=== PATIENT | male | born 1955 | race Caucasian/White ===

== ENCOUNTER → 2021-12-03 | Outpatient (CLI) | payer MEDICARE, OTHER, SELFPAY ==
[2021-12-03] VITALS (13 sets, daily range): BP systolic 101–143; BP diastolic 58–93; PULSE 84–91; RESP 13–23; TEMP 36.6; O2SAT 92–97; BMI 25.3
--- NOTE | 2021-12-03 | IMM_PTH ---
PATIENT: LUIS WEINSTEIN LOC: CT U#:[id number] AGE/SX: 66/M ROOM: RE12/03/[address]: Dr. Perez Parker DO : 1955 BED: DIS: 12/03/2021 SPEC #: [id number] RECD: 12/03/21 11:35 STATUS: SOUCelena REQ #: [id number] NATALIA: 12/03/21 00:[address]: Perez Parker DEPT: IMMUNOHISTOCHEMISTRY RECD BY: Carley Delacruz ENTERED: 12/03/21 11:38 SP TYPE: IMMUNO OTHR DR: Dr. Alisa Perla DO Tissues: Lung, NOS Procedures: RCC (add) NAPSIN A (add) CK20 (add) CK5-6 (add) CK7 (add) CK8 (add) HEP PAR (add) TTF1 (add) Pankeratin (initial) P40 (add) PSAP (add) PHYSICIAN & INSTITUTION [address] [address] SPECIMEN INFORMATION: Tissue Source: Right Upper Lobe of Lung Clinical Info: Right Lung Nodule Specimen Number: [id number] CPT code: 02965, 47607 x11 METHODOLOGY: Deparaffinized sections of prefer/formalin-fixed tissue or PAP/DQ stained slides are incubated with monoclonal/polyclonal antibodies/oligonucleotide probes. Localization is made via biotin free immunoperoxidase method. Appropriate controls are performed and reacted as expected. Results on target cell population are indicated in the following table: RESULTS: ANTIBODY / CLONE RESULT AE1-3 (AE1/AE3/PCK26) positive CK7 (OV-TL12/30) positive CK8 (08tfdcA98) positive CK20 (KS20.8) negative TTF-1 (8G7G3/1) positive Napsin A (Rabbit Polyclonal) positive HepPar (OCh1E5) negative RCC (PN-15) negative PSAP (PASE/4LJ) negative CK5-6 (D5 & 1684) negative P40 (BC28) negative Ki-67 (30-9) positive, low These tests were developed and their performance characteristics determined by [facility]. They may not have been cleared or approved by the U.S. Food and Drug Administration. The FDA has determined that such clearance or approval is not necessary. The above immunohistochemical/dualISH markers are ordered and reviewed by the Pathologist. INTERPRETATION: Right Upper Lobe of Lung, CT-guided core biopsy: Non-small cell carcinoma, favor bronchioloalveolar carcinoma. SJ:daniel 12/04/2021
--- NOTE | 2021-12-03 09:06 | CT_ITS ---
PROCEDURE: CT GUIDED CORE NEEDLE BIOPSY OF A right upper lobe LUNG LESION INDICATION: Male, 66 years old. RUL Nodule PHYSICIAN: Dr. WALLY Ryder CONSENT: Written informed consent was obtained having explained the risks, benefits and alternatives in detail with the patient who accepted the risks and agreed to proceed. Laboratory review and clinical assessment was performed. CONSCIOUS SEDATION PROTOCOL: The Drugs used were: 2 mg Versed, IV., and 50 mcg Fentanyl, IV. The sedation time was: 25 minutes. Conscious sedation was started at 10:13 AM and terminated at 10:38 AM. The conscious sedation protocol was independently monitored. RADIATION DOSAGE (If Supplied By Facility): CTDIvol = ( 23 ) mGy, DLP = ( 304.86 ) mGycm Individualized dose optimization techniques were used for this CT. TECHNIQUE: The patient was placed in the supine position. A noncontrast CT was performed to localize the lesion in the right upper lobe . The skin surface was prepped and draped in a sterile fashion. 1% lidocaine was used for local anesthesia. Using CT guidance, a 20 coaxial biopsy device was advanced to the periphery of the lesion. A total of 5 core specimens were obtained. The specimens were placed in a formalin solution. A post procedure CT demonstrated no adverse sequelae or pneumothorax. The patient tolerated the procedure well without adverse event. A negative biopsy does not exclude malignancy. Further imaging or clinical followup based on patient condition and degree of clinical suspicion for malignancy. Suggest rebiopsy, if biopsy results do not match with clinical scenario. CT/Biopsy/Inj or Needle Placement IMPRESSION: 1. CT directed core needle biopsy of the right upper lobe lung nodule using CT image guidance with image documentation as described. Pathology results are pending. 2. Conscious Sedation protocol utilized with independent monitoring. Electronically Signed: Pedro Ni MD at 10:58 EDT ,
[2021-12-03 09:10] LABS: Platelet Count 174 K/mm3 (150-450)
[2021-12-03 09:54] LABS: International Normalized Ratio 0.9; Prothrombin Time (Protime)PT. 12.3 SECONDS (11.7-14.9)
[2021-12-03 09:55] LABS: Partial Thromboplast Time 33.8 Seconds (24.1-36.2)
[2021-12-03] MEDS: 0.9% Normal Saline 250 ML IV.SOLN. (10:13)
[2021-12-03] MEDS: Midazolam 2 MG/2 ML Syringe IV (10:13)
--- NOTE | 2021-12-03 10:15 | RAD_ITS ---
STUDY: X-RAY CHEST REASON FOR EXAM: Male, 66 years old. PNEUMOTHORAX -- Immediately post lung biopsy TECHNIQUE: AP inspiration and expiration views. COMPARISON: None. FINDINGS: EKG electrodes are seen. There is evidence of a tiny right apical pneumothorax. Small amount of subcutaneous emphysema overlying the upper right chest. RAD/Chest Insp/Exp 2 View IMPRESSION: Tiny right apical pneumothorax. Small amount of right lateral subcutaneous emphysema. Electronically Signed: Pedro Ni MD at 12:07 EDT ,
[2021-12-03] MEDS: fentaNYL 100 MCG/2 ML Ampul IV (10:16)
[2021-12-03] MEDS: Lidocaine 2% (20 ml mdv) 20 ML Vial INFILT (10:29)
--- NOTE | 2021-12-03 10:35 | ASPIGT_PTH ---
PATIENT: LUIS WEINSTEIN LOC: CT U#:[id number] AGE/SX: 66/M ROOM: RE12/03/[address]: Dr. Perez Parker DO : 1955 BED: DIS: 12/03/2021 SPEC #: [id number] RECD: 12/03/21 10:45 STATUS: VANNESSA REQ #: [id number] NATALIA: 12/03/21 10:[address]: Perez Parker DEPT: SURGICAL PATHOLOGY RECD BY: Carley Delacruz ENTERED: 12/03/21 11:24 SP TYPE: ASP RAD OTHR DR: Dr. Alisa Perla DO Tissues: Lung, NOS Procedures: FNA Specimen Adequacy Special Stain Group II Surgery Specimen Level IV Imprint (control) HEADER OPERATION: CT guided right lung biopsy PRE-OP DIAGNOSIS: RUL nodule TISSUE SUBMITTED: Right lung biopsy 20-gauge cores x5 MICROSCOPIC DIAGNOSIS Right upper lung nodule, CT-guided core biopsy: Non-small cell carcinoma, favor bronchioloalveolar carcinoma. See comment. MARY BETH:daniel 12/04/2021 COMMENT The specimen is evaluated at the time of biopsy by Dr. Morel. Immediate Evaluation = Malignant cells present derived from non-small cell carcinoma. Immunohistochemistry ([id number]) supports the above diagnosis. Molecular studies on the tumor can be performed if clinically indicated. Please notify the laboratory if they are needed. Case has been reviewed in consultation with Dr. Muse who concurs with the above diagnosis. IDC:AM MICROSCOPIC DESCRIPTION Slides are reviewed. GROSS DESCRIPTION Received in fixative is one container labeled with the patient's name and designated right lung CT-guided core biopsy. The specimen consists of multiple irregular fragments of lewis soft tissue that in aggregate measure 0.5 x 0.1 x 0.1 cm. The specimen is totally submitted in one cassette. Three touch imprints are prepared at the time of core biopsy. / MARY BETH:daniel 12/03/2021 TC:0 CPT: 46846, 72593
--- NOTE | 2021-12-03 12:15 | RAD_ITS ---
STUDY: X-RAY CHEST REASON FOR EXAM: Male, 66 years old. PNEUMOTHORAX -- 2 hours post lung biopsy TECHNIQUE: AP inspiration and expiration views. COMPARISON: Comparison is made with prior examination done earlier today. FINDINGS: There is no evidence of pneumothorax at this time. Persistent subcutaneous emphysema overlying the upper right lateral chest. RAD/Chest Insp/Exp 2 View IMPRESSION: No evidence of pneumothorax on the delayed two-hour postright lung biopsy radiographs. Electronically Signed: Pedro Ni MD at 15:15 EDT ,
== END | disposition home or self-care (01) ==
PROVIDERS: PCP Family Medicine; Referring Provider Internal Medicine Critical Care Medicine; Visit Provider Internal Medicine Critical Care Medicine
DX: C34.11 Malignant neoplasm of upper lobe, right bronchus or lung (principal); E11.9 Type 2 diabetes mellitus without complications; F17.210 Nicotine dependence, cigarettes, uncomplicated; E78.00 Pure hypercholesterolemia, unspecified; K21.9 Gastro-esophageal reflux disease without esophagitis; I10 Essential (primary) hypertension; Z79.899 Other long term (current) drug therapy; Z79.84 Long term (current) use of oral hypoglycemic drugs; R06.02 Shortness of breath
CPT/HCPCS: 32408; 36415; 71046; 77012; 85049; 85610; 85730; 88172; 88305; 88313; 88341; 88342; 99156; J7050; A4216; C2613

== ENCOUNTER → 2021-12-16 | Outpatient (CLI) | payer MEDICARE, OTHER, SELFPAY ==
--- NOTE | 2021-12-16 13:40 | PFT ---
INTRODUCTION: The patient is a 66-year-old male that presents for pulmonary function studies secondary to a diagnosis of nicotine dependency. Respiratory therapy reported good patient effort. Bronchodilators were used during testing. INTERPRETATION: Forced expiration spirometry demonstrates the presence of a moderately severe large airways obstructive ventilatory defect. There was a significant response to aerosolized bronchodilators. Spirograms are of good quality but do not plateau indicating slow emptying of the lungs. Body plethysmography was performed and revealed an elevated TLC and RV, indicative of underlying hyperinflation and air trapping. Diffusing capacity by single breath CO is reduced to 63% of predicted. IMPRESSION: Partially reversible moderately severe large airways obstructive ventilatory defect with associated hyperinflation, air trapping and reduction in diffusing capacity.
== END | disposition home or self-care (01) ==
PROVIDERS: PCP Family Medicine; Visit Provider Internal Medicine Critical Care Medicine
DX: F17.210 Nicotine dependence, cigarettes, uncomplicated (principal)
CPT/HCPCS: 36415; 80053; 85025; 94060; 94726; 94729

== ENCOUNTER → 2021-12-18 | Outpatient (CLI) | payer MEDICARE, OTHER, SELFPAY ==
--- NOTE | 2021-12-18 14:45 | PET_ITS ---
STUDY: CT/POSITRON EMISSION TOMOGRAPHY FUSION STUDY FROM THE BASE OF THE SKULL TO THE UPPER THIGHS ARE OF 1530 HOURS ON 12/18/2021 CLINICAL: 48-year-old male with non-small cell lung cancer for staging. PROCEDURE: A fusion CT/PET scan of the body was performed following the intravenous administration of the usual 15 mCi of technetium FDG intravenously in 20 minutes of quiet waiting. This examination was performed in the sagittal, coronal, and axial projections. FINDINGS: There is a prominent 2.1 cm site of abnormal nuclide deposition in the right upper lobe--most likely representing the patient''s lung cancer. There is an 8 mm site of abnormal nuclide deposition directly posterior to this and a represent a satellite nodule. Normal variant nuclide deposition is noted in the heart. There is a single site of abnormal nuclide deposition in the left supraclavicular region that may represent an abnormal lymph node. There appears to be normal nuclide deposition in the calyces of the kidneys and in the ureters. There is no evidence of other sites of abnormal nuclide deposition in the body. Normal bladder deposition is evident. Of interest, there is a site of abnormal nuclide deposition in the anterior upper teeth to the right of midline--which may represent a periodontal abscess. PET/PET/CT Tumor Base -Thigh Init IMPRESSION: 1. Presence of a 2.1 cm site of abnormal nuclide deposition in the right upper lobe-this most likely representing lung cancer. 2. Presence of abnormal nuclide deposition in a directly posterior (to the above 2.1 cm lesion) 8 mm site--most likely representing a satellite nodule to the right upper lobe lung cancer. 3. Single abnormal lymph node in the left supraclavicular region. 4. Normal nuclide deposition in the left ventricle, kidneys, ureters, and bladder. 5. No evidence of other significant sites of abnormal nuclide deposition. 6. Of interest, there is a site of abnormal nuclide deposition in the anterior upper teeth to the right of midline--which may represent a periodontal abscess. Electronically Signed: Atilio Cochran MD at 1:10 EDT ,
== END | disposition home or self-care (01) ==
LOC: ONC 14:16
PROVIDERS: PCP Family Medicine; Referring Provider Internal Medicine Critical Care Medicine; Visit Provider Internal Medicine Critical Care Medicine
DX: C34.11 Malignant neoplasm of upper lobe, right bronchus or lung (principal)
CPT/HCPCS: 78815; A9552

== ENCOUNTER → 2021-12-19 | Outpatient (CLI) | payer MEDICARE, OTHER, SELFPAY ==
[2021-12-19 08:41] VITALS: PULSE 100; PULSE 102; PULSE 87; PULSE 88; PULSE 97; PULSE 98; O2SAT 95; O2SAT 96; O2SAT 97; O2SAT 98
--- NOTE | 2021-12-20 08:51 | PCM.PSN.6M ---
PSN 6 Minute Walk Test 6 Minute Walk Test 6 Minute Walk Test: 6 Minute Walk Test PSN:6-Minute Walk Test Start: 12/19/21 08:41 Freq: Status: Active Protocol: RESP.6MINW Document 12/19/21 08:41 ROBER (Rec: 12/19/21 08:50 ROBER [id number]) 6 Minute Walk Test Date Performed 12/19/21 Time Performed 08:30 Height 5 ft 7 in Weight: 73.482 kg Weight in Pounds 162.[address]: Perez Parker Assistive device used: None Pre-test Oxygen Delivery Method Room Air Pulse Ox (%) 95 Pulse Rate (60-100 beats/min) 88 Dyspnea Esperanza Scale (0-10) 0 Exertion Esperanza Scale (6-20) 6 1st minute Oxygen Delivery Method Room Air Pulse Ox (%) 98 Pulse Rate (60-100 beats/min) 97 2nd minute Oxygen Delivery Method Room Air Pulse Ox (%) 96 Pulse Rate (60-100 beats/min) 98 3rd minute Oxygen Delivery Method Room Air Pulse Ox (%) 96 Pulse Rate (60-100 beats/min) 100 4th minute Oxygen Delivery Method Room Air Pulse Ox (%) 97 Pulse Rate (60-100 beats/min) 100 5th minute Oxygen Delivery Method Room Air Pulse Ox (%) 97 Pulse Rate (60-100 beats/min) 100 6th minute Oxygen Delivery Method Room Air Pulse Ox (%) 96 Pulse Rate (60-100 beats/min) 102 H Dyspnea Esperanza Scale (0-10) 2 Exertion Esperanza Scale (6-20) 12 Post-test Oxygen Delivery Method Room Air Pulse Ox (%) 97 Pulse Rate (60-100 beats/min) 87 Full Laps Walked 18 Partial Lap, Number of Tiles Walked 15 Total Distance Walked (ft) 1077 Interpretation Interpretation: The patient ambulated 1077 feet over the course of 6 minutes beginning on room air without assistive devices. Pretesting oxygen saturation was noted to be 95% on room air. With ambulation, the anupam oxygen saturation was 96%. There was no significant exertional oxygen desaturation. Recommendations Recommendations: There is no indication for the use of supplemental oxygen at this time.
== END | disposition home or self-care (01) ==
LOC: PSN 08:21
PROVIDERS: PCP Family Medicine; Referring Provider Internal Medicine Critical Care Medicine; Visit Provider Internal Medicine Critical Care Medicine
DX: F17.210 Nicotine dependence, cigarettes, uncomplicated (principal)
CPT/HCPCS: 94618

== ENCOUNTER → 2021-12-24 | Outpatient (CLI) | payer MEDICARE, OTHER, SELFPAY ==
--- NOTE | 2021-12-24 16:45 | MRI_ITS ---
EXAM: MR HEAD WITHOUT AND WITH INTRAVENOUS CONTRAST CLINICAL INDICATION: Staging for NSCLC TECHNIQUE: Multiplanar and multisequence MR images of the brain were obtained without and with intravenous contrast. This report was created using [employer] report generation technology. CONTRAST: 15 ml IV Dotarem COMPARISON: None. FINDINGS: BRAIN AND EXTRA-AXIAL SPACES: Chronic involutional changes of the brain. No intra- or extra-axial hemorrhage. No evidence of acute infarct. No intracranial mass or mass effect. There is preservation of the lima/white matter interface. Posterior fossa structures are unremarkable. Ventricles are appropriate for age. No hydrocephalus. Basal cisterns are patent. SELLA: Unremarkable. Normal sella turcica, pituitary gland, infundibular stalk, optic chiasm and hypothalamus. AUDITORY SYSTEM: Unremarkable. The internal auditory canals are patent. BONES/JOINTS: Unremarkable. No discrete lytic or blastic abnormalities. SINUSES: Unremarkable as visualized. Clear. MASTOID AIR CELLS: Unremarkable as visualized. Clear. ORBITS: Unremarkable as visualized. Both globes, extraocular muscles, optic nerves and retrobulbar fat appear unremarkable. VASCULATURE: Unremarkable as visualized. Normal flow voids in the major intracranial circulation. MRI/Brain W/WO Contrast IMPRESSION: Chronic involutional changes of the brain. Electronically Signed: Jason Khalil MD at 18:33 EDT ,
== END | disposition home or self-care (01) ==
LOC: MRI 16:45
PROVIDERS: PCP Family Medicine; Referring Provider Internal Medicine Critical Care Medicine; Visit Provider Internal Medicine Critical Care Medicine
DX: C34.90 Malignant neoplasm of unspecified part of unspecified bronchus or lung (principal)
CPT/HCPCS: 70553; A9575

== ENCOUNTER → 2022-02-13 | Outpatient (CLI) | payer MEDICARE, OTHER, SELFPAY ==
--- NOTE | 2022-02-13 11:09 | STEWCON_ITS ---
Reason For Study: Pre-op for lung lobectomy surgery scheduled for 02-18-2022 Stress Results Protocol: Aurelio Protocol WITH DEFINITY Maximum Predicted HR: 152 bpm Target HR: 129 bpm % Maximum Predicted HR: 90 % Heart Stage Duration Rate BP Comment (mm:ss) (bpm) Baseline 75 138/64Patient denies chest pain Stage 1 3:00 116 156/60Patient denies chest pain Pt complains of shortness of breath and leg fatigue. Denies chest Stage 2 3:00 137 168/62pain 2.5 ml total definity used per protocol. Patient denies chest pain, Recovery 84 134/60shortness of breath resolved. Stress Duration: 6:00 mm:ss Maximum Stress HR: 137 bpm Baseline Echocardiogram Findings The estimated ejection fraction is 60 %. post stress EF is 70%. Stress Echo Wall motion Data Resting WM Intermediate WM Stress WM Resting Wall Motion Wall Motion Stress No regional wall motion No regional wall motion abnormalities noted. abnormalities noted. EKG Data normal sinus rhythm. RBBB. During stress, there were no ST or T wave changes noted to suggest ischemia. Symptoms with Stress The patient experinced no chest pain . ECHO/Stress Test Echo W/Contrast Interpretation Summary The estimated ejection fraction is 60 %. Stress echo is negative for exercise-induced chest pain or EKG or echocardiogra phic changes of ischemia. Functional capacity is excellent for age Ordering Physician: DOLLY GUTIERREZ Referring Physician: DOLLY GUTIERREZ Performed By: Bandar Raymundo RCS
== END | disposition home or self-care (01) ==
LOC: CVS 11:06
PROVIDERS: PCP Family Medicine
DX: R06.00 Dyspnea, unspecified (principal); C34.91 Malignant neoplasm of unspecified part of right bronchus or lung
CPT/HCPCS: 93017; 93350; Q9957; A4216; C8928

== ENCOUNTER 2022-03-31 11:55 | Day surgery (SDC) | payer MEDICARE, OTHER, SELFPAY ==
[2022-03-31 12:14] VITALS: BP 122/62; PULSE 89; RESP 16; TEMP 36.3; O2SAT 98; BMI 24.7
--- NOTE | 2022-03-31 12:18 | HP.PCM_ITS ---
History and Physical Date of Admission: 03/31/22 Intake Vital Signs ? 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 Is patient in pain?: No Allergies Iodinated Contrast Media Allergy (Unknown, Verified 03/27/22 13:14) Other Medications atorvastatin 80 mg tablet 80 mg PO DAILY 11/26/21 [History Confirmed 03/27/22] cyclobenzaprine 10 mg tablet 10 mg PO TID 11/26/21 [History Confirmed 03/27/22] gabapentin 400 mg capsule 400 mg PO TID 11/26/21 [History Confirmed 03/27/22] glyburide 5 mg tablet 5 mg PO DAILY 11/26/21 [History Confirmed 03/27/22] lisinopril 20 mg tablet 20 mg PO DAILY 11/26/21 [History Confirmed 03/27/22] morphine 15 mg immediate release tablet 15 mg PO BID PRN Pain 11/26/21 [History Confirmed 03/27/22] omeprazole 20 mg capsule,delayed release 20 mg PO DAILY 11/26/21 [History Confirmed 03/27/22] trazodone 100 mg tablet 100 mg PO QHS PRN Sleep 11/26/21 [History Confirmed 03/27/22] apixaban 5 mg tablet (Eliquis) 5 mg PO BID 03/26/22 [History Confirmed 03/27/22] metoprolol tartrate 25 mg tablet 25 mg PO BID 03/26/22 [History Confirmed 03/27/22] PFSH Medical History Acid reflux Atrial flutter Chronic pain CRF (chronic renal failure) Diabetes mellitus High cholesterol Hypertension Neuropathy Regional lymph node metastasis present Smoker Surgical History? H/O lithotripsy History of hip replacement Previous back surgery S/P lobectomy of lung Status post surgical removal of neoplasm of skin Trigger finger Family History? Mother?? CancerFather?? CancerSon?? Cancer Social History? Smoking Status:? Former smoker quit date: 01/01/22 pack-years: 30 Tobacco: How many years used:? 30 how long ago did patient quit smoking:? hasn't smoked since diagnosis 01/2022 second hand exposure:? Yes alcohol intake:? never substance use type:? does not use HPI HPI HPI: LUIS WEINSTEIN, is a 66 M who presents to the office today for port placement.? The patient is being treated for right lung cancer. ROS General General: Yes weight change; No fatigue HEENT HEENT: No difficulty swallowing Endo Endocrine: No thyroid disease Musc Musculoskeletal: No back problems or arthritis Cardio Cardiovascular: No pacemaker, heart disease, atrial fibrillation, high blood pressure, heart attack, heart stent, palpitations or chest pain Psych Psychiatric: No depression or anxiety Resp Respiratory: No shortness of breath, No cough, No COPD, No asthma and No emphysema Gastro Gastrointestinal: No abdominal pain, No nausea or vomiting, No diarrhea, No constipation, No blood in stool, No acid reflux, No hemorrhoids, No ulcers, No gallbladder problem and No black,tarry stools Rakesh Hematologic: No blood thinners Exam Const General: cooperative Orientation: alert and oriented x3 HENMT Head: normal to inspection Neck Neck: normal visual inspection and full ROM Chest Chest palpation & inspection: normal inspection of the chest Resp Effort & Inspection: normal respiratory effort Auscultation: clear to auscultation bilaterally Cardio Rate: regular rate Rhythm: regular rhythm GI Inspection: non-distended Palpation: soft and nontender Skin General: no rashes or lesions noted Neuro General: patient alert and patient oriented x3 Extrem General: full ROM Psych Appearance: grossly normal Mental Status: mental status grossly normal Assessment and Plan Assessment and Plan (1) Malignant neoplasm of upper lobe, right bronchus or lung: ?Status:?Acute (2) Encounter for adjustment and management of vascular access device: ?Status:?Acute Plan Patient has right lung cancer and requires systemic treatment due to positive lymph nodes.? I discussed right chest port placement with the patient in detail.? I discussed the risks including not limited to bleeding, infection, p neumothorax or line infection or DVT.? Patient understands the risks and is willing to proceed.? Patient is on Eliquis for DVT prevention I will have him stop this for 2 days prior to the procedure. Antione Reyes MD Pager: [facility] [address] [place] [address], [address] [place] [address] Office: I have re-examined the patient. There are no clinical changes since date of exam.
[2022-03-31] MEDS: Lidocaine 1% /Epi 1:100 (20ml) 20 ML Vial (13:05)
--- NOTE | 2022-03-31 13:23 | OP.PCM_ITS ---
Report of Operation Date of Procedure: 03/31/22 Pre-Operative Diagnosis: Need for vascular port for chemotherapy Post-Operative Diagnosis: Same Surgery/Procedure Performed:: Ultrasound and fluoroscopy guided right chest port placement utilizing right IJ Description of Procedure: After obtaining informed consent patient was brought back to the operating room MAC anesthesia was induced and the right chest and neck were prepped in normal sterile fashion. Ultrasound was used to evaluate both IJs and the right IJ was selected. Next, using a needle, the right IJ was accessed and a guidewire was passed on into the superior vena cava under fluoroscopy guidance. A small incision was made over the puncture site and the dilator introducer was placed over the guidewire. Next this was capped and the pocket was made for the port. 1% lidocaine with epinephrine was injected in the proposed port site. An incision was made with scalpel. Electrocautery was used to make a pocket under the skin and subcutaneous tissue. Hemostasis was obtained. Next, the catheter was tunneled up to the neck incision site and placed through the introducer. The peel-away introducer was removed and the position of the catheter was confirmed on fluoroscopy. Next, the catheter was trimmed and attached to the port with the locking device. Interrupted 2-0 Vicryl sutures were used to anchor the port to the chest wall and then the port was placed inside the pocket. The pocket was then flushed with saline and the port irrigated with saline. There was good blood return and the port flushed easily. Next, heparin was injected into the port. The skin was closed with subcutaneous interrupted 3-0 Vicryl sutures. A single 3-0 Vicryl sutures placed under the skin at the neck incision site. Steri-Strips were placed as well as op sites. Patient tolerated procedure well, was taken to PACU in stable condition. Chest x-ray will be obtained. Grafts/Implants Used: 8 [employer] PowerPort Admit VTE Documentation VTE Mechan Device Prophylaxis: SCD's
--- NOTE | 2022-03-31 13:24 | DCINST_ITS ---
Discharge Instructions Procedure Port-A-Cath Diet Discharge Diet: Light diet - advance as tolerated (Pain medication may cause nausea. You should typically eat light foods as you take your pain medication.) Activity Discharge Activity: Return to Normal Activity and May Shower (with your bandage in place in 1-2 days after surgery. DO NOT SHOWER WHEN YOUR PORT IS ACCESSED.) Dressing / Incision Call your doctor if your incision/area has: Continuous Slow Oozing, Sudden Increased Bleeding, Increased Pain/ Swelling, Increased Redness and Foul Smelling Discharge Call your doctor if you observe: Fever of 101 or Higher Remove Dressing in: 2 days Cleanse incision/area with: Soap & Water Follow Up Care Please Follow Up With: Antione Reyes MD When: as needed [phone] Test Results: Test results from this visit will be discussed in further detail at your follow- up appointment, if applicable. Discharge Plan Admission Attending Provider: Antione Reyes Primary Care Provider: Alisa Perla Instructions Additional Instructions / Restrictions: Resume blood thinners tomorrow Discharge Orders/Prescriptions Prescriptions: No Action cyclobenzaprine 10 mg tablet 10 mg PO TID morphine 15 mg tablet 15 mg PO BID PRN (Reason: Pain) atorvastatin 80 mg tablet 80 mg PO DAILY lisinopril 20 mg tablet 20 mg PO DAILY glyburide 5 mg tablet 5 mg PO DAILY omeprazole 20 mg capsule,delayed release(DR/EC) 20 mg PO DAILY trazodone 100 mg tablet 100 mg PO QHS PRN (Reason: Sleep) gabapentin 400 mg capsule 400 mg PO TID Eliquis 5 mg tablet 5 mg PO BID lidocaine-prilocaine 2.5-2.5 % cream 1 applic topical ONCE PRN (Reason: port access) 30 Days Qty: 30 2RF ondansetron 8 mg tablet,disintegrating 8 mg PO Q8H PRN (Reason: nausea and vomiting) Qty: 30 2RF dexamethasone 4 mg tablet 4 mg PO .COMPLEX Qty: 6 4RF Rx Instructions: 4 mg orally Twice daily ONLY the day before, the day of and day after chemotherapy; folic acid 1 mg tablet 1 mg PO DAILY Qty: 30 1RF Referrals / Follow Up: Alisa Perla DO [Primary Care Provider] - Disposition Disposition (needs filled in before D/C Order can be placed): Home, Self Care
--- NOTE | 2022-03-31 13:24 | RAD_ITS ---
STUDY: X-RAY CHEST REASON FOR EXAM: Male, 66 years old. Line placement -- in pacu TECHNIQUE: Single AP portable view of the chest. COMPARISON: Comparison is made with prior study dated 12/03/2021. FINDINGS: A right-sided Port-A-Cath has been placed with the tip at the junction of the superior vena cava and right atrium. There is evidence of elevation of the right hemidiaphragm with blunting of the right costophrenic angle. The previously seen right upper lobe nodule has been resected. Normal size heart. Normal mediastinum and regino. Normal visualized pulmonary arteries. Normal visualized aortic arch and descending thoracic aorta. Normal visualized thoracic spine. Normal visualized ribs, clavicles, and shoulders. There is no demonstrated abnormality of the visualized soft tissue structures of the upper abdomen. RAD/CXR for Line Placement IMPRESSION: The tip of the right amish catheter is at the junction of the superior vena cava and right atrium. Elevation of the right hemidiaphragm with the blunting of the right costo phrenic angle. Prior resection of the right upper lobe nodule. Electronically Signed: Pedro Ni MD at 13:51 EDT ,
[2022-03-31 13:25] LABS: Bedside Glucose 104 mg/dL (74-106)
[2022-03-31 13:26] VITALS: BP 113/43; BP 122/62; PULSE 90; RESP 16; TEMP 36.3; O2SAT 96
[2022-03-31 13:30] VITALS: BP 116/64; BP 122/62; PULSE 88; RESP 18; O2SAT 97
[2022-03-31 13:35] VITALS: BP 110/51; BP 122/62; PULSE 90; RESP 18; O2SAT 96
[2022-03-31 13:40] VITALS: BP 113/47; BP 122/62; PULSE 88; RESP 18; TEMP 36.7; O2SAT 96
[2022-03-31 13:56] VITALS: BP 122/62
== END 2022-03-31 14:10 | disposition home or self-care (01) ==
LOC: SDC 11:55 → AC 11:56
PROVIDERS: PCP Family Medicine; Referring Provider Surgery; Visit Provider Surgery
PROC: (CPT 36561; principal; 2022-03-31 12:45)
DX: Z45.2 Encounter for adjustment and management of vascular access device (principal); C34.11 Malignant neoplasm of upper lobe, right bronchus or lung; C77.9 Secondary and unspecified malignant neoplasm of lymph node, unspecified; J44.9 Chronic obstructive pulmonary disease, unspecified; E11.40 Type 2 diabetes mellitus with diabetic neuropathy, unspecified; E11.22 Type 2 diabetes mellitus with diabetic chronic kidney disease; I48.92 Unspecified atrial flutter; K21.9 Gastro-esophageal reflux disease without esophagitis; G89.29 Other chronic pain; E78.00 Pure hypercholesterolemia, unspecified; I12.9 Hypertensive chronic kidney disease with stage 1 through stage 4 chronic kidney disease, or unspecified chronic kidney disease; N18.9 Chronic kidney disease, unspecified; Z87.891 Personal history of nicotine dependence; Z79.899 Other long term (current) drug therapy; Z79.84 Long term (current) use of oral hypoglycemic drugs; Z79.01 Long term (current) use of anticoagulants
CPT/HCPCS: 36561; 00532; 71045; 77001; 82962; J7120; C1788; J2405

== ENCOUNTER 2022-08-04 14:00 | Inpatient (IN) | payer MEDICARE, OTHER, SELFPAY ==
[2022-08-04] VITALS (14 sets, daily range): BP systolic 90–127; BP diastolic 43–63; PULSE 71–116; RESP 12–26; TEMP 35.7–36.6; O2SAT 91–100; BMI 23.1; BMI 17.6
--- NOTE | 2022-08-04 14:53 | EKG12_ITS ---
Test Reason : SOB Blood Pressure : / mmHG Vent. Rate : 124 BPM Atrial Rate : 074 BPM P-R Int : 168 ms QRS Dur : 130 ms QT Int : 388 ms P-R-T Axes : 075 096 066 degrees QTc Int : 557 ms Sinus rhythm Right bundle branch block Abnormal T-waves (Peaked): Consider Hyperkalemia Abnormal ECG Confirmed by DANNIE PURI, LAITH ([id number]), online editor ROBBY VIERA ([id number]) on 08/06/2022 9:28:17 AM Referred By: Confirmed By:LAITH PANDEY MD
[2022-08-04] MEDS: 0.9% Normal Saline 1,000 ML 1000 ML IV (15:03)
[2022-08-04 15:10] LABS: Absolute Lymphocyte Count 0.57 X10^3/uL (0.83-4.51); Absolute Neutrophil Count 12.6 X10^3/uL (2.0-7.7); Basophil# 0.01 X10^3/uL; Basophil% 0.1 % (0-1); Eosinophil# 0.01 X10^3/uL; Eosinophils% 0.1 % (0-5); Hematocrit 23.8 % (40-54); Hemoglobin 7.2 g/dL (13.0-16.5); Lymphocyte # 0.57 X10^3/ul (0.83-4.51); Lymphocyte % 4.1 % (19-41); Mean Corp Hgb Conc 30.3 g/dL (32-36); Mean Corpuscular Hgb 28.8 pg (27.0-32.0); Mean Corpuscular Volume 95.2 fL (80-94); Mean Platelet Vol. 10.1 fl (6.2-12.0); Monocyte# 0.66 X10^3/uL; Monocyte% 4.7 % (0-10); NRBC Flagged by Analyzer 0 % (0-5); Neutrophil # 12.59 X10^3/uL (2.7-7.7); Neutrophil % 89.5 % (47-70); POSITIVE DIFFERENTIAL YES; Platelet Count 174 K/mm3 (150-450); RBC Distribution Width CV 15.4 % (11.6-14.6); White Blood Count 14.1 K/mm3 (4.4-11.0)
[2022-08-04] MEDS: Ondansetron 4 MG/2 ML Vial IV (15:13)
[2022-08-04 15:17] LABS: Differential Indicated SCAN CRITERIA MET
--- NOTE | 2022-08-04 15:18 | EX.ED.DYSGE1 ---
HPI History of Present Illness Chief Complaint: Nausea/Vomiting Informant: patient and spouse/S.O. 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 He is presenting with nausea and vomiting as well as increased confusion started yesterday. He is having regular bowel movements and urinating 3 times a day. notes he has been more confused, has not knowing where he is and is even tried stuffing candy bars in his pockets. Over the past few weeks he has had a change in his color and seems almost more tanned. No report of any black or blood in the stool. No report of any fevers. Patient not have any history of any abdominal surgeries. Patient is chronically anticoagulated on Eliquis and apparently has issues with anemia and gets transfused as needed to maintain hemoglobin at or above 8 g/dL. [facility] Medical History Acid reflux Arthritis Atrial flutter Back pain Cardiology follow-up encounter Chronic pain CINV (chemotherapy-induced nausea and vomiting) Constipation COPD (chronic obstructive pulmonary disease) CRF (chronic renal failure) Diabetes mellitus Dysuria Encounter for chemotherapy management Encounter for education Former smoker High cholesterol Hypertension Injury of back Kidney stones Leg cramps Neuropathy Normal stress echocardiogram Regional lymph node metastasis present Smoker Syncope Wears glasses Home Medications atorvastatin 80 mg tablet 80 mg PO DAILY cholesterol 11/26/21 [History Last Taken 08/04/22] cyclobenzaprine 10 mg tablet 10 mg PO TID spasms 11/26/21 [History Last Taken 08/04/22] gabapentin 400 mg capsule 400 mg PO TID nerve pain 11/26/21 [History Last Taken 08/04/22] glyburide 5 mg tablet 5 mg PO DAILY dm 11/26/21 [History Last Taken 08/04/22] lisinopril 20 mg tablet 20 mg PO DAILY bp 11/26/21 [History Last Taken 08/04/22] morphine 15 mg immediate release tablet 15 mg PO BID PRN Pain 11/26/21 [History Last Taken 08/04/22] omeprazole 20 mg capsule,delayed release 20 mg PO BID GERD 11/26/21 [History Last Taken 08/04/22] trazodone 100 mg tablet 100 mg PO QHS PRN Sleep 11/26/21 [History Last Taken 08/03/22] apixaban 5 mg tablet (Eliquis) 5 mg PO BID blood thinner 03/26/22 [History Last Taken 08/04/22] lidocaine-prilocaine 2.5 %-2.5 % topical cream 1 applic topical ONCE PRN port access 30 days #30 grams 03/27/22 [Rx Last Taken Unknown] nystatin 100,000 unit/mL oral suspension 500,000 unit PO TID thrush 08/04/22 [History Last Taken 08/04/22] potassium chloride 20 mEq tablet,extended release 20 meq PO BID supplement 08/04/22 [History Last Taken 3 Days Ago ~08/01/22] Allergy/AdvReac Type Severity Reaction Status Date / Time Iodinated Contrast Media Allergy Unknown Other Verified 08/04/22 14:06 Family History Mother Cancer Father Cancer Son Cancer Surgical History H/O lithotripsy History of hip replacement Previous back surgery S/P lobectomy of lung Status post surgical removal of neoplasm of skin Trigger finger Social History Smoking Status: Former smoker quit date: 01/01/22 pack-years: 30 Tobacco: How many years used: 30 how long ago did patient quit smoking: hasn't smoked since diagnosis 01/2022 second hand exposure: Yes alcohol intake: never substance use type: does not use ROS ROS ED Constitutional Constitutional ED: Denies chills or fever(s) ENT ENT ED: Reports other Details: Dry mouth ; Denies sore throat Cardiovascular Cardiovascular: Denies chest pain or palpitations Respiratory/Chest Respiratory/Chest: Denies cough or dyspnea Gastrointestinal Gastrointestinal: Reports nausea and vomiting; Denies abdominal pain, constipation, diarrhea or melena Genitourinary Genitourinary ED: Denies dysuria, hematuria or urinary frequency Musculoskeletal Musculoskeletal: Reports back pain; Denies myalgias Integumentary Denies rash Neurologic Neurologic: Reports weakness and other Details: Confusion ; Denies headache(s) Psychiatric Psychiatric: Denies anxiety or depression Hematologic/Lymphatic Hematologic/Lymphatic: Reports easy bleeding and easy bruising EXAM Physical Exam Const Vital Signs: 08/04/22 14:01 08/04/22 15:14 08/04/22 15:16 Temperature 96.3 F L 96.8 F L 96.8 F L Temperature Source Temporal Temporal Temporal Pulse Rate 116 H 80 76 Respiratory Rate 20 H 19 H 18 Respiratory Effort Blood Pressure 91/43 L 90/61 90/61 Blood Pressure Mean 59 70 70 Blood Pressure Source Blood Pressure Position Blood Pressure Location Pulse Ox 91 96 97 Oxygen Delivery Method Room Air Room Air Room Air 08/04/22 16:02 08/04/22 17:02 08/04/22 17:02 Temperature 97.8 F 97.8 F Temperature Source Temporal Temporal Pulse Rate 72 90 89 Respiratory Rate 12 13 15 Respiratory Effort Blood Pressure 106/52 L 106/48 L 106/48 L Blood Pressure Mean 70 67 67 Blood Pressure Source Blood Pressure Position Blood Pressure Location Pulse Ox 98 98 97 Oxygen Delivery Method Room Air Room Air Room Air 08/04/22 17:42 08/04/22 18:02 08/04/22 18:26 Temperature 97.5 F L 98 F 97.6 F L Temperature Source Temporal Temporal Temporal Pulse Rate 79 85 74 Respiratory Rate 26 H 19 H 18 Respiratory Effort Blood Pressure 106/48 L 108/58 L 122/54 H Blood Pressure Mean 67 74 76 Blood Pressure Source Monitor Blood Pressure Position Semi-Fowlers Blood Pressure Location Right Arm Pulse Ox 96 97 96 Oxygen Delivery Method Room Air Room Air 08/04/22 18:35 08/04/22 18:38 08/04/22 18:29 Temperature 97.6 F L Temperature Source Temporal Pulse Rate 71 73 Respiratory Rate 18 Respiratory Effort Normal Non-Labored Blood Pressure 122/54 H Blood Pressure Mean 76 Blood Pressure Source Blood Pressure Position Blood Pressure Location Pulse Ox Oxygen Delivery Method Room Air Room Air Positive cachectic General Appearance ED: cachectic and NAD; Negative for pallor Nutritional Appearance: cachectic HEENT Reports dry mucous membranes Negative for trauma Mouth ED: Yes dry mucous membranes Mouth: dry mucous membranes Eyes PERRL and EOMs intact bilaterally Neck supple and no JVD Chest Wall inspection of chest normal and palpation of chest normal Resp normal respiratory effort and clear to auscultation bilaterally GI normal to inspection, nondistended, normoactive bowel sounds and non-tender Auscultation: normoactive bowel sounds Extremity normal to inspection General Extremety ED: Negative for edema or tenderness General Extremity: Negative for edema Neuro Sensorium / Orientation: alert and orientation impaired Motor Exam: general weakness Psych mental status grossly normal Skin Skin Narrative: Johnston appear. General Skin Exam: Negative for jaundice or pallor Lesions: No lesion noted Rashes: No rashes noted MDM MDM MDM Narrative Medical decision making narrative: Patient is evaluated for nausea, vomiting and generalized weakness. Recent oncology note reviewed which shows that he completed treatment for lung cancer but is not tolerating maintenance therapy and so is not currently on any therapy. In addition he has ongoing anemia with instructions to transfuse with hemoglobin below 8.0. Patient does not have a leukocytosis of 14.1 as well is worsening of chronic anemia with a hemoglobin of 7.2. Potassium is elevated 6.0 and patient does have peaked T waves on his EKG and a prolonged QTC. EKG interpreted by myself shows sinus rhythm with PVCs and changes consistent with hyperkalemia. Patient is given temporizing medications for hyperkalemia including calcium gluconate, albuterol, insulin and dextrose. He does have an WAN with a creatinine of 1.66. Patient appears very dehydrated on exam and I suspect this is all volume depletion associated. He is given 2 L of IV fluid in the emergency room. His abdomen is soft and of low suspicion for an acute obstruction as he continues to have regular bowel movements. Case discussed with admitting physician, Dr. Campbell and he will be admitted for further treatment and on correction of his hyperkalemia/WAN. In addition patient started on blood transfusion with a goal hemoglobin of 8.0. Lab Data Attestation: I reviewed the patient's lab results. Labs: Laboratory Results - last 24 hr 08/04/22 08/04/22 08/04/22 15:00 15:00 15:00 WBC 14.1 H RBC 2.50 L Hgb 7.2 L Hct 23.8 L MCV 95.2 H MCH 28.8 MCHC 30.3 L RDW Std Deviation 52.0 H RDW Coeff of Ilia 15.4 H Plt Count 174 MPV 10.1 Immature Gran % (Auto) 1.500 H Neut % (Auto) 89.5 H Lymph % (Auto) 4.1 L Bea[place]gard % (Auto) 4.7 Eos % (Auto) 0.1 Baso % (Auto) 0.1 Absolute Neuts (auto) 12.6 H Absolute Lymphs (auto) 0.57 L Nucleated RBC % 0 Differential Comment SCANNED Sodium 134 L Potassium 6.0 H* Chloride 102 Carbon Dioxide 24.0 Anion Gap 8 BUN 49 H Creatinine 1.66 H Estim Creat Clear Calc 39.82 Est GFR (MDRD) Af Amer 53 L Est GFR (MDRD) Non-Af 44 L BUN/Creatinine Ratio 29.5 H Glucose 143 H Lactic Acid 0.8 Calcium 9.1 Magnesium 2.1 Total Bilirubin 0.70 AST 21 ALT 15 L Alkaline Phosphatase 91 Total Protein 6.8 Albumin 2.5 L Globulin 4.3 H Albumin/Globulin Ratio 0.6 L Lipase 60 L Urine Color Urine Clarity Urine pH Ur Specific [place] Urine Protein Urine Glucose (UA) Urine Ketones Urine Occult Blood Urine Nitrite Urine Bilirubin Urine Urobilinogen Ur Leukocyte Esterase Urine RBC Urine WBC Ur Squamous Epith Cells Urine Bacteria Urine Mucus Blood Type Antibody Screen Crossmatch 08/04/22 08/04/22 17:26 17:30 WBC RBC Hgb Hct MCV MCH MCHC RDW Std Deviation RDW Coeff of Ilia Plt Count MPV Immature Gran % (Auto) Neut % (Auto) Lymph % (Auto) [place] % (Auto) Eos % (Auto) Baso % (Auto) Absolute Neuts (auto) Absolute Lymphs (auto) Nucleated RBC % Differential Comment Sodium Potassium Chloride Carbon Dioxide Anion Gap BUN Creatinine Estim Creat Clear Calc Est GFR (MDRD) Af Amer Est GFR (MDRD) Non-Af BUN/Creatinine Ratio Glucose Lactic Acid Calcium Magnesium Total Bilirubin AST ALT Alkaline Phosphatase Total Protein Albumin Globulin Albumin/Globulin Ratio Lipase Urine Color Yellow Urine Clarity Clear Urine pH 6.0 Ur Specific [place] 1.010 Urine Protein 15 H Urine Glucose (UA) 50 H Urine Ketones 15 H Urine Occult Blood Negative Urine Nitrite Negative Urine Bilirubin Negative Urine Urobilinogen Normal Ur Leukocyte Esterase Negative Urine RBC 0 SEEN Urine WBC 0 SEEN Ur Squamous Epith Cells 0 SEEN Urine Bacteria 0 SEEN Urine Mucus 0 SEEN Blood Type O POSITIVE Antibody Screen NEGATIVE Crossmatch See Detail Rhythm Strip Rhythm Strip: Sinus Tach Rate: 124 Ectopy: PVC(s) Critical Care Time Critical Care Time: Yes Critical care time (excluding procedures): 30-74 minutes (35), Discussing w/Patient &/or Family/Plug Overwrap Machine Tender and Arranging Admission or Transfer Discharge Plan Dx/Rx/DC Orders Clinical Impression: Toxic metabolic encephalopathy, WAN (acute kidney injury), Hyperkalemia, Leukocytosis, Anemia Disposition Disposition: Acute Care Hospital [facility] [place] Discharge Date/Time: 08/04/22 18:08
--- NOTE | 2022-08-04 15:26 | NURSING ---
NO OLD EKGS
[2022-08-04 15:34] LABS: ALB/GLOB Ratio 0.6 RATIO (0.9-2.4); AST(SGOT) 21 U/L (15-37); Alanine Aminotransfer ALT/SGPT 15 U/L (16-61); Albumin, Serum 2.5 g/dL (3.2-5.0); Alkaline Phosphatase 91 U/L (45-117); Anion Gap 8 (5-15); BUN 49 mg/dL (7-18); BUN/Creat Ratio 29.5 RATIO (10-20); Calcium,Total 9.1 mg/dL (8.5-10.1); Chloride 102 mmol/L (98-107); Creatinine, Serum 1.66 mg/dL (0.70-1.30); EST Glomerular Filtration Rate 44 mL/min (>60); Est Glom Filt Rate - Afr Amer 53 mL/min (>60); Estimated Creatinine Clearance 39.82 ml/min; Globulin 4.3 g/dL (2.2-4.2); Glucose 143 mg/dL (74-106); Lipase 60 U/L (73-393); Magnesium 2.1 mg/dL (1.6-2.6); Protein, Total 6.8 g/dL (6.4-8.2); Sodium Level 134 mmol/L (136-145)
[2022-08-04 15:36] LABS: Differential Comment SCANNED
[2022-08-04 15:44] LABS: Lactic Acid 0.8 mmol/L (0.4-1.9)
[2022-08-04] MEDS: Dextrose 50%-Water 25 GM/50 ML DISP.SYRIN IV (16:06)
[2022-08-04] MEDS: Insulin Lispro 10 UNIT in Syringe 0 ML 6 UNIT IV (16:07)
[2022-08-04] MEDS: Calcium Gluconate IV 3 GM in Syringe 1 EACH IV (16:07)
[2022-08-04] MEDS: Albuterol *CONC* 2.5mg/0.5mL VIAL.NEB. 10 MG INHALATION (16:23)
[2022-08-04] MEDS: Lactated Ringers 1,000 ML 999 ML IV (17:01)
--- NOTE | 2022-08-04 17:16 | NURSING ---
PCU [facility]VING WAN, HYPERKALEMIA
[2022-08-04 17:34] LABS: Bacteria 0 SEEN /hpf (None Seen); Mucous, Urine 0 SEEN /hpf (<or=2+); Red Blood Cells-Urine 0 SEEN /hpf (0-5); Squamous Epithelial Cells - UA 0 SEEN /hpf (0-5); White Blood Cells 0 SEEN /hpf (0-5)
[2022-08-04 17:40] LABS: Color, Urine Yellow (Yellow); Glucose, Dipstick 50 mg/dl (Normal); Ketone-Dipstick 15 mg/dl (Negative); Leukocyte Esterase-Dipstick Negative /ul (Negative); Nitrite-Dipstick Negative (Negative); Occult Blood-Urine Negative /ul (Negative); Protein-Dipstick 15 mg/dl (Negative); Urine Bilirubin Dipstick Negative (Negative); Urine Clarity Clear (Clear); Urine Urobilinogen Normal (Normal)
--- NOTE | 2022-08-04 19:04 | HP.PCM.HOS_ITS ---
HPI - General General Date of Admission: 08/04/22 Date of Service: 08/04/22 Chief Complaint: Intractable nausea and vomiting HPI Narrative LUIS WEINSTEIN, is a 66 M who presented to the emergency department [facility] on 08/04/2022 with a chief complaint of nausea and vomiting. 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 He presented with nausea and vomiting as well as increased confusion that started yesterday. He had a loose bowel movement this morning and his urination has decreased in output and frequency. His reported that he had been more confused with the example of not knowing where he was and even tried to stuff candy bars into his pockets. They denied any blood or black tarry bowel movements. He said no fevers. The nausea and vomiting started yesterday and has been persistent throughout the day today. He has been able to take his pills but no other issues. The patient has chronic anemia and gets transfused regularly to keep his hemoglobin above 8 per history. Vital signs on presentation showed a temperature of 96.3, heart rate 116, initial blood pressure was 91/43 however his pressure did improve to 106/52 with IV fluids, respiratory rate was 20, pulse ox was 91 to 98% on room air. CBC showed a leukocytosis at 14.1 with an anemia at 7.2 (patient has chronic anemia and requires frequent transfusions to keep his hemoglobin above 8 per hematology/oncology), he did have a left shift with an 89.5% neutrophilia. His chemistry panel showed a mild hyponatremia at 134, hyperkalemia at 6, elevated BUN and creatinine at 49 and 1.66 respectively (baseline 1.8-1.1), hyperglycemia with a glucose of 143. LFTs were normal. Lactate was normal at 0.8. Lipase was 60. UA shows trace glucose and ketones but no signs of infection [facility] Medical History Acid reflux Arthritis Atrial flutter Back pain Cardiology follow-up encounter Chronic pain CINV (chemotherapy-induced nausea and vomiting) Constipation COPD (chronic obstructive pulmonary disease) CRF (chronic renal failure) Diabetes mellitus Dysuria Encounter for chemotherapy management Encounter for education Former smoker High cholesterol Hypertension Injury of back Kidney stones Leg cramps Neuropathy Normal stress echocardiogram Regional lymph node metastasis present Smoker Syncope Wears glasses Home Medications atorvastatin 80 mg tablet 80 mg PO DAILY cholesterol 11/26/21 [History Last Taken 08/04/22] cyclobenzaprine 10 mg tablet 10 mg PO TID spasms 11/26/21 [History Last Taken 08/04/22] gabapentin 400 mg capsule 400 mg PO TID nerve pain 11/26/21 [History Last Taken 08/04/22] glyburide 5 mg tablet 5 mg PO DAILY dm 11/26/21 [History Last Taken 08/04/22] lisinopril 20 mg tablet 20 mg PO DAILY bp 11/26/21 [History Last Taken 08/04/22] morphine 15 mg immediate release tablet 15 mg PO BID PRN Pain 11/26/21 [History Last Taken 08/04/22] omeprazole 20 mg capsule,delayed release 20 mg PO BID GERD 11/26/21 [History Last Taken 08/04/22] trazodone 100 mg tablet 100 mg PO QHS PRN Sleep 11/26/21 [History Last Taken 08/03/22] apixaban 5 mg tablet (Eliquis) 5 mg PO BID blood thinner 03/26/22 [History Last Taken 08/04/22] lidocaine-prilocaine 2.5 %-2.5 % topical cream 1 applic topical ONCE PRN port access 30 days #30 grams 03/27/22 [Rx Last Taken Unknown] nystatin 100,000 unit/mL oral suspension 500,000 unit PO TID thrush 08/04/22 [History Last Taken 08/04/22] potassium chloride 20 mEq tablet,extended release 20 meq PO BID supplement 08/04/22 [History Last Taken 3 Days Ago ~08/01/22] Allergy/AdvReac Type Severity Reaction Status Date / Time Iodinated Contrast Media Allergy Unknown Other Verified 08/04/22 14:06 Family History Mother Cancer Father Cancer Son Cancer Surgical History H/O lithotripsy History of hip replacement Previous back surgery S/P lobectomy of lung Status post surgical removal of neoplasm of skin Trigger finger Social History Smoking Status: Former smoker quit date: 01/01/22 pack-years: 30 Tobacco: How many years used: 30 how long ago did patient quit smoking: hasn't smoked since diagnosis 01/2022 second hand exposure: Yes alcohol intake: never substance use type: does not use ROS Constitutional Constitutional: Reports anorexia, fatigue, malaise and weakness; Denies change in weight, chills, fever(s), night sweats or other Eyes Eyes: Denies blurry vision, change in eye color, change in vision, discharge from eye(s), double vision, erythema, eye pain, loss of vision or other ENT HEENT: Denies abnormal hearing, dysphagia, ear pain, epistaxis, headache(s), hearing loss, nasal congestion, nasal discharge, post nasal drip, sinus pressure, sore throat or other Cardiovascular Cardiovascular: Denies chest pain, claudication, dyspnea on exertion, edema, lightheadedness, orthopnea, palpitations, paroxysmal nocturnal dyspnea, rapid heart rate, syncope or other Respiratory/Chest Respiratory/Chest: Reports cough; Denies dyspnea, excessive phlegm production, hemoptysis, productive cough, shortness of breath at rest, shortness of breath with exertion, wheezing or other Gastrointestinal Gastrointestinal: Reports loose stools, nausea and vomiting; Denies abdominal pain, coffee ground emesis, constipation, diarrhea, dyspepsia, hematemesis, hematochezia, melena or other Genitourinary Genitourinary: Denies burning urination, difficulty urinating, dysuria, hematuria, nocturia, urinary frequency, urinary hesitancy, urinary incontinence, urinary urgency or other Musculoskeletal Musculoskeletal: Denies arthralgias, back pain, joint pain, joint stiffness, joint swelling, myalgias, neck pain or other Neurologic Neurologic: Denies abnormal gait, abnormal speech, confusion, disequilibrium, dizziness, focal weakness, headache(s), numbness, paresthesias, seizure-like ac tivity, seizures, syncope, tingling, tremor(s) or other Psychiatric Psychiatric: Denies anxiety, depression, homicidal ideation, suicidal ideation or other Endocrine Endocrinology: Denies change in body appearance, cold intolerance, excessive sweating, heat intolerance, polydipsia, polyuria or other Hematologic/Lymphatic Hematologic/Lymphatic: Denies anemia, easy bleeding, easy bruising, lymphadenopathy or other Allergic/Immunologic Allergic/Immunologic: Denies rhinitis, hives, eczemia, asthma or other Vital Signs Vital Signs Vital Signs: 08/04/22 14:01 08/04/22 15:14 08/04/22 15:16 Temperature 96.3 F L 96.8 F L 96.8 F L Temperature Source Temporal Temporal Temporal Pulse Rate 116 H 80 76 Respiratory Rate 20 H 19 H 18 Respiratory Effort Blood Pressure 91/43 L 90/61 90/61 Blood Pressure Mean 59 70 70 Blood Pressure Source Blood Pressure Position Blood Pressure Location Pulse Ox 91 96 97 Oxygen Delivery Method Room Air Room Air Room Air 08/04/22 16:02 08/04/22 17:02 08/04/22 17:02 Temperature 97.8 F 97.8 F Temperature Source Temporal Temporal Pulse Rate 72 90 89 Respiratory Rate 12 13 15 Respiratory Effort Blood Pressure 106/52 L 106/48 L 106/48 L Blood Pressure Mean 70 67 67 Blood Pressure Source Blood Pressure Position Blood Pressure Location Pulse Ox 98 98 97 Oxygen Delivery Method Room Air Room Air Room Air 08/04/22 17:42 08/04/22 18:02 08/04/22 18:26 Temperature 97.5 F L 98 F 97.6 F L Temperature Source Temporal Temporal Temporal Pulse Rate 79 85 74 Respiratory Rate 26 H 19 H 18 Respiratory Effort Blood Pressure 106/48 L 108/58 L 122/54 H Blood Pressure Mean 67 74 76 Blood Pressure Source Monitor Blood Pressure Position Semi-Fowlers Blood Pressure Location Right Arm Pulse Ox 96 97 96 Oxygen Delivery Method Room Air Room Air 08/04/22 18:35 08/04/22 18:38 08/04/22 18:29 Temperature 97.6 F L Temperature Source Temporal Pulse Rate 71 73 Respiratory Rate 18 Respiratory Effort Normal Non-Labored Blood Pressure 122/54 H Blood Pressure Mean 76 Blood Pressure Source Blood Pressure Position Blood Pressure Location Pulse Ox Oxygen Delivery Method Room Air Room Air Weight Weight: 51.256 kg Body Mass Index (BMI) 17.6 Physical Exam Const alert and oriented x3 Constitutional Narrative: Cachectic, upper middle-aged, white male who appears much older than stated age lying in bed, appears ill but nontoxic, pleasant General Appearance: cooperative HEENT normocephalic and head/scalp atraumatic HEENT Narrative: Dentition is poor, Mallampati is 1, oropharynx is extremely dry, moderate hearing loss Eyes PERRL and EOMs intact bilaterally Eyes Narrative: Conjunctival pallor bilaterally, no scleral icterus Neck no lymphadenopathy and supple Neck Narrative: Trachea midline, no thyroid enlargement Resp normal respiratory effort, no retractions, no use of accessory muscles and clear to auscultation bilaterally Resp Narrative: Diffusely diminished but clear Auscultation: Negative for crackles, rhonchi or wheezes Cardio regular rate, regular rhythm, S1 normal heart sound, S2 normal heart sound, no murmurs, no rub, no gallops and no clicks GI normal to inspection, nondistended, normoactive bowel sounds, soft to palpation and non-tender GI Narrative: Scaphoid abdomen Extremity no clubbing, cyanosis or edema Extremity Narrative: Decreased lean muscle mass Neuro oriented x3, CN's II-XII intact bilaterally, moves all extremities and no focal motor deficits Neuro Narrative: Significant generalized weakness, speech is somewhat garbled with tongue being very dry Psych affect normal Psych Narrative: Pleasant Results Medical Records Data Attestation: I reviewed the patient's medical records Lab / Micro Data Result Diagrams: 08/04/22 15:00 08/04/22 15:00 Labs: Laboratory Results - last 24 hr 08/04/22 15:00: WBC 14.1 H, RBC 2.50 L, Hgb 7.2 L, Hct 23.8 L, MCV 95.2 H, MCH 28.8, MCHC 30.3 L, RDW Std Deviation 52.0 H, RDW Coeff of Ilia 15.4 H, Plt Count 174, MPV 10.1, Immature Gran % (Auto) 1.500 H, Neut % (Auto) 89.5 H, Lymph % (Auto) 4.1 L, [place] % (Auto) 4.7, Eos % (Auto) 0.1, Baso % (Auto) 0.1, Absolute Neuts (auto) 12.6 H, Absolute Lymphs (auto) 0.57 L, Nucleated RBC % 0, Differential Comment SCANNED 08/04/22 15:00: Sodium 134 L, Potassium 6.0 H*, Chloride 102, Carbon Dioxide 24. 0, Anion Gap 8, BUN 49 H, Creatinine 1.66 H, Estim Creat Clear Calc 39.82, Est GFR (MDRD) Af Amer 53 L, Est GFR (MDRD) Non-Af 44 L, BUN/Creatinine Ratio 29.5 H , Glucose 143 H, Calcium 9.1, Magnesium 2.1, Total Bilirubin 0.70, AST 21, ALT 15 L, Alkaline Phosphatase 91, Total Protein 6.8, Albumin 2.5 L, Globulin 4.3 H, Albumin/Globulin Ratio 0.6 L, Lipase 60 L 08/04/22 15:00: Lactic Acid 0.8 08/04/22 17:26: Blood Type O POSITIVE, Antibody Screen NEGATIVE, Crossmatch See Detail 08/04/22 17:30: Urine Color Yellow, Urine Clarity Clear, Urine pH 6.0, Ur Specific [place] 1.010, Urine Protein 15 H, Urine Glucose (UA) 50 H, Urine Ketones 15 H, Urine Occult Blood Negative, Urine Nitrite Negative, Urine Bilirub in Negative, Urine Urobilinogen Normal, Ur Leukocyte Esterase Negative, Urine RBC 0 SEEN, Urine WBC 0 SEEN, Ur Squamous Epith Cells 0 SEEN, Urine Bacteria 0 SEEN, Urine Mucus 0 SEEN Assessment & Plan Assessment/Plan (1) Anemia: (2) Leukocytosis: (3) Hyponatremia: (4) Hyperkalemia: (5) WAN (acute kidney injury): (6) Intractable nausea and vomiting: (7) Severe malnutrition: (8) Toxic metabolic encephalopathy: PLAN: Plan Intractable nausea and vomiting secondary to suspected gastroenteritis -Etiology is uncertain -Patient has had some loose stool as well -Check enteric panel -Antiemetics -Aggressive hydration -Clear liquid diet for now and advance as tolerated WAN -Baseline serum creatinine is between 0.8 and 1 -Current serum creatinine is 1.66 -Aggressive hydration -Avoid nephrotoxins Hold home lisinopril Hyperkalemia -Likely related to ongoing potassium supplementation and dehydration with WAN at -Hold home potassium -Patient did have some peaked T waves on his EKG but no signs of bradycardia or other arrhythmia -Aggressive hydration with repeat BMP later this evening -We will repeat BMP again in the morning Leukocytosis -Suspect related to acute gastroenteritis plus volume depletion -Repeat CBC in a.m. Toxic/metabolic encephalopathy -Likely related to acute infection/dehydration -Continue to monitor mental status -If does not improve may need further work-up Anemia acute on chronic -Patient gets frequent transfusions as an outpatient per oncology -Goal is to keep hemoglobin greater than 8 -Current hemoglobin is 7.1 -We will transfuse 1 packed unit packed red blood cells -Check Hemoccult -Hold apixaban for now -Had recent iron studies in May 2022 that showed a total iron of 43/iron sat of 20%/TIBC of 251 DM-2 -Hold home glimepiride -SSI -Accu-Cheks as ordered Hyperlipidemia -Continue home atorvastatin Lung adenocarcinoma -Status post lobectomy at [facility] in [place] -Underwent adjuvant carboplatinum for 4 cycles with some delays due to treatment toxicities -Follows with Dr. Del Castillo -No current acute issues History of GERD -Patient is not on any current medications DM-2 -SSI -Oral agents -Accu-Cheks as ordered -Clear liquid diet COPD -Former tobacco abuser -As needed aerosols Chronic pain -Continue home medications including morphine Thrush -Continue home niacin and Insomnia -Continue home known Hyperlipidemia -Continue home atorvastatin DVT prophylaxis -SCDs CODE STATUS -DNR CCA no intubation Charges/Coding Visit Charges Inpatient E&M: 90534 Init Hosp L2
[2022-08-04 23:01] LABS: Anion Gap 5 (5-15); BUN 42 mg/dL (7-18); Calcium,Total 9.7 mg/dL (8.5-10.1); Chloride 106 mmol/L (98-107); EST Glomerular Filtration Rate 49 mL/min (>60); Est Glom Filt Rate - Afr Amer 60 mL/min (>60); Estimated Creatinine Clearance 34.17 ml/min; Glucose 99 mg/dL (74-106); Sodium Level 137 mmol/L (136-145)
--- NOTE | 2022-08-04 23:04 | CPS ---
Patient sleeping at time IS was given.
[2022-08-05] VITALS (13 sets, daily range): BP systolic 115–143; BP diastolic 50–82; PULSE 87–119; RESP 16–20; TEMP 36.2–36.9; O2SAT 95–100
[2022-08-05] MEDS: NYSTATIN 500,000 UNIT/5 ML UDC 500000 UNIT PO ×4 (01:04→21:25)
[2022-08-05] MEDS: cycloBENZAPRine HCl 10 MG Tablet PO ×4 (01:05→21:24)
[2022-08-05] MEDS: Atorvastatin Calcium 80 MG Tablet PO ×2 (01:05→21:25)
[2022-08-05] MEDS: Gabapentin 400 MG Capsule PO ×4 (01:05→21:24)
[2022-08-05] MEDS: Sodium Polystyrene Sulfonate 15 GM/60 ML UDC PO (01:05)
[2022-08-05] MEDS: 0.9% Normal Saline 1,000 ML 100 ML IV ×3 (02:48→21:54)
[2022-08-05 04:21] LABS: Bedside Glucose 82 mg/dL (74-106)
[2022-08-05 06:28] LABS: Absolute Lymphocyte Count 0.83 X10^3/uL (0.83-4.51); Absolute Neutrophil Count 8.6 X10^3/uL (2.0-7.7); Basophil# 0.02 X10^3/uL; Basophil% 0.2 % (0-1); Eosinophil# 0.02 X10^3/uL; Eosinophils% 0.2 % (0-5); Hematocrit 26.3 % (40-54); Hemoglobin 8.4 g/dL (13.0-16.5); Lymphocyte # 0.83 X10^3/ul (0.83-4.51); Lymphocyte % 8.1 % (19-41); Mean Corp Hgb Conc 31.9 g/dL (32-36); Mean Corpuscular Hgb 29.4 pg (27.0-32.0); Mean Platelet Vol. 9.6 fl (6.2-12.0); Monocyte% 6.8 % (0-10); NRBC Flagged by Analyzer 0 % (0-5); Neutrophil # 8.56 X10^3/uL (2.7-7.7); Neutrophil % 83.1 % (47-70); Platelet Count 154 K/mm3 (150-450); RBC Distribution Width CV 14.9 % (11.6-14.6); RBC Distribution Width SD 48.6 fl (35.1-43.9); Red Blood Count 2.86 M/mm3 (4.6-6.2); White Blood Count 10.3 K/mm3 (4.4-11.0)
[2022-08-05 06:53] LABS: Anion Gap 8 (5-15); BUN 37 mg/dL (7-18); BUN/Creat Ratio 25.3 RATIO (10-20); Calcium,Total 9.3 mg/dL (8.5-10.1); Chloride 105 mmol/L (98-107); Creatinine, Serum 1.46 mg/dL (0.70-1.30); EST Glomerular Filtration Rate 51 mL/min (>60); Est Glom Filt Rate - Afr Amer 62 mL/min (>60); Estimated Creatinine Clearance 35.11 ml/min; Glucose 88 mg/dL (74-106); Phosphorus 3.4 mg/dL (2.5-4.9); Potassium 4.6 mmol/L (3.5-5.1); Sodium Level 138 mmol/L (136-145)
[2022-08-05 07:10] LABS: Bedside Glucose 92 mg/dL (74-106)
--- NOTE | 2022-08-05 08:42 | PCM.PN.HOSP ---
Subjective Subjective Feels better. Does complain of pain in his abdomen when he eats. States that is helped when he eats softer foods. Objective Data Objective Data Vital Signs: Vital Signs Temp Pulse Resp BP Pulse Ox O2 Del Method 36.6 C 103 H 18 122/66 H 99 Room Air 08/05/22 06:21 08/05/22 06:44 08/05/22 06:21 08/05/22 06:21 08/05/22 07:04 08/05/22 07:04 Oxygen Delivery Method Room Air Weight: 51.256 kg Body Mass Index (BMI) 17.6 Intake & Output: Intake and Output for Last 24 Hours 08/03/22 08/04/22 08/05/22 23:59 23:59 23:59 Intake Total 2029 400 / 400 Output Total 100 / 100 Balance 2029 300 / 300 Lab / Micro Data Result Diagrams: 08/05/22 06:07 08/05/22 06:07 Labs: Laboratory Results - last 24 hr 08/04/22 15:00: WBC 14.1 H, RBC 2.50 L, Hgb 7.2 L, Hct 23.8 L, MCV 95.2 H, MCH 28.8, MCHC 30.3 L, RDW Std Deviation 52.0 H, RDW Coeff of Ilia 15.4 H, Plt Count 174, MPV 10.1, Immature Gran % (Auto) 1.500 H, Neut % (Auto) 89.5 H, Lymph % (Auto) 4.1 L, [place] % (Auto) 4.7, Eos % (Auto) 0.1, Baso % (Auto) 0.1, Absolute Neuts (auto) 12.6 H, Absolute Lymphs (auto) 0.57 L, Nucleated RBC % 0, Differential Comment SCANNED 08/04/22 15:00: Sodium 134 L, Potassium 6.0 H*, Chloride 102, Carbon Dioxide 24.0, Anion Gap 8, BUN 49 H, Creatinine 1.66 H, Estim Creat Clear Calc 39.82, Est GFR (MDRD) Af Amer 53 L, Est GFR (MDRD) Non-Af 44 L, BUN/Creatinine Ratio 29.5 H, Glucose 143 H, Calcium 9.1, Magnesium 2.1, Total Bilirubin 0.70, AST 21, ALT 15 L, Alkaline Phosphatase 91, Total Protein 6.8, Albumin 2.5 L, Globulin 4.3 H, Albumin/Globulin Ratio 0.6 L, Lipase 60 L 08/04/22 15:00: Lactic Acid 0.8 08/04/22 17:26: Blood Type O POSITIVE, Antibody Screen NEGATIVE, Crossmatch See Detail 08/04/22 17:30: Urine Color Yellow, Urine Clarity Clear, Urine pH 6.0, Ur Specific [place] 1.010, Urine Protein 15 H, Urine Glucose (UA) 50 H, Urine Ketones 15 H, Urine Occult Blood Negative, Urine Nitrite Negative, Urine Bilirubin Negative, Urine Urobilinogen Normal, Ur Leukocyte Esterase Negative, Urine RBC 0 SEEN, Urine WBC 0 SEEN, Ur Squamous Epith Cells 0 SEEN, Urine Bacteria 0 SEEN, Urine Mucus 0 SEEN 08/04/22 22:35: Sodium 137, Potassium 6.0 H*, Chloride 106, Carbon Dioxide 26.0, Anion Gap 5, BUN 42 H, Creatinine 1.50 H, Estim Creat Clear Calc 34.17, Est GFR (MDRD) Af Amer 60, Est GFR (MDRD) Non-Af 49 L, BUN/Creatinine Ratio 28.0 H, Glucose 99, Calcium 9.7 08/05/22 01:09: POC Glucose 82 08/05/22 06:07: WBC 10.3, RBC 2.86 L, Hgb 8.4 L, Hct 26.3 L, MCV 92.0, MCH 29.4, MCHC 31.9 L D, RDW Std Deviation 48.6 H, RDW Coeff of Ilia 14.9 H, Plt Count 154, MPV 9.6, Immature Gran % (Auto) 1.600 H, Neut % (Auto) 83.1 H, Lymph % (Auto) 8.1 L, [place] % (Auto) 6.8, Eos % (Auto) 0.2, Baso % (Auto) 0.2, Absolute Neuts (auto) 8.6 H, Absolute Lymphs (auto) 0.83, Nucleated RBC % 0 08/05/22 06:07: Sodium 138, Potassium 4.6, Chloride 105, Carbon Dioxide 25.0, Anion Gap 8, BUN 37 H, Creatinine 1.46 H, Estim Creat Clear Calc 35.11, Est GFR (MDRD) Af Amer 62, Est GFR (MDRD) Non-Af 51 L, BUN/Creatinine Ratio 25.3 H, Glucose 88, Calcium 9.3, Phosphorus 3.4, Magnesium 2.0 08/05/22 06:27: POC Glucose 92 Rhythm Strip Rhythm Strip: Sinus Tach Rate: 124 Ectopy: PVC(s) Physical Exam Const alert and no apparent distress Constitutional Narrative: Cachectic HEENT head/scalp atraumatic and moist oral mucous membranes Resp normal respiratory effort Cardio regular rate, regular rhythm, S1 normal heart sound and S2 normal heart sound GI normal to inspection, nondistended, normoactive bowel sounds and soft to palpation Extremity normal to inspection Assessment & Plan Assessment/Plan (1) WAN (acute kidney injury): PLAN: WAN -Baseline serum creatinine is between 0.8 and 1 -Current serum creatinine is 1.66 -Aggressive hydration -Avoid nephrotoxins Hold home lisinopril (2) Anemia: PLAN: Anemia acute on chronic -Patient gets frequent transfusions as an outpatient per oncology -Goal is to keep hemoglobin greater than 8 -Current hemoglobin is 7.1 -We will transfuse 1 packed unit packed red blood cells -Check Hemoccult -Hold apixaban for now -Had recent iron studies in May 2022 that showed a total iron of 43/iron sat of 20%/TIBC of 251 (3) Leukocytosis: PLAN: resolved -Suspect related to acute gastroenteritis plus volume depletion -Repeat CBC in a.m. (4) Hyperkalemia: PLAN: Resolved -Likely related to ongoing potassium supplementation and dehydration with WAN at -Hold home potassium -Patient did have some peaked T waves on his EKG but no signs of bradycardia or other arrhythmia -Aggressive hydration with repeat BMP later this evening -We will repeat BMP again in the morning (5) Intractable nausea and vomiting: PLAN: Intractable nausea and vomiting secondary to suspected gastroenteritis -Etiology is uncertain -Patient has had some loose stool as well -Check enteric panel -Antiemetics -Aggressive hydration -Clear liquid diet for now and advance as tolerated Advance diet. Start PPI (6) Severe malnutrition: PLAN: Add Ensure (7) Metabolic encephalopathy: PLAN: Toxic/metabolic encephalopathy -Likely related to acute infection/dehydration -Continue to monitor mental status -If does not improve may need further work-up PLAN: Plan chronic conditions: DM-2 -Hold home glimepiride -SSI -Accu-Cheks as ordered Hyperlipidemia -Continue home atorvastatin Lung adenocarcinoma -Status post lobectomy at [facility] in [place] -Underwent adjuvant carboplatinum for 4 cycles with some delays due to treatment toxicities -Follows with Dr. Del Castillo -No current acute issues History of GERD -Patient is not on any current medications COPD -Former tobacco abuser -As needed aerosols Chronic pain -Continue home medications including morphine Thrush -Continue home nystatin Insomnia -Continue home known Hyperlipidemia -Continue home atorvastatin DVT prophylaxis -SCDs CODE STATUS -DNR CCA no intubation Charges/Coding Visit Charges Inpatient E&M: 95102 Subs Hosp L2
[2022-08-05] MEDS: FLU VACC QS2022-23(6MOS UP)/PF 60 MCG/0.5 ML SYRINGE IM (09:02)
[2022-08-05] MEDS: Pantoprazole Sodium 40 MG Tablet PO ×2 (11:52→21:25)
[2022-08-05] MEDS: Ensure Clear 120 ML Liquid PO (11:57)
[2022-08-05 12:25] LABS: Bedside Glucose 90 mg/dL (74-106)
--- NOTE | 2022-08-05 15:05 | CHAPLAIN ---
Type of Pastoral Visit _x__ Initial Visit ___ Follow-up Visit ___ On-call Visit ___ General Patient Visit ___ Spiritual Assessment ___ Family Conference ___ Bereavement ___ Rapid Response ___ Code Blue ___ Other (describe below) Pastoral Care Referral From _x__ Patient ___ Family ___ Nurse ___ Physician ___ Student Specialist ___ Acupressure Therapist ___ Other (describe below) Sacrament/Intervention _x__ Active listening ___ Anointing ___ Restorationism ___ Bereavement ___ Communion ___ Maryellen exploration ___ ___ Life review _x__ Prayer ___ Reconciliation ___ Sacrament of Sick ___ Supportive presence ___ Wedding ___ Other (describe below) Pastoral Comments patient sitting in front of a large plate of food; pt stated he tried a couple of bites but just cannot eat it; pt mentions the inability to eat three times during visit; pt says that it is not going so well when asked about his status; pt denied having specific needs or wants at this time; pt said that his is his support; pt did welcome a prayer;
[2022-08-05 17:20] LABS: Bedside Glucose 117 mg/dL (74-106)
--- NOTE | 2022-08-05 17:22 | CASEMGMT ---
PÉREZ SPRINGER Discharge Planning Assessment: Face to Face with pt at bedside. Pt easily awoken, alert and agreeable to participating in assessment. PÉREZ SPRINGER role explained and pt expressed understanding. Care Providers, insurance benefits, and demographics verified. PCP: Alisa Perla ([place]) Specialists: Magdalene (oncology) Preferred Pharmacy: [facility] Insurance: [facility] A/B, MMO Pharmacy Benefit: yes Living Will/HPOA: No/No LNOK: Jayleen Living Arrangements: Pt lives in a two story home with bedroom and bathroom on the second floor. Pt states he has approximately 6 steps to enter the home and 6 steps to get to the 2nd floor, both with handrails. Pt states he lives with his spouse. States he is independent with ADLS and his is able to assist him if needed. Pt states he has grandson that lives close that can assist if needed. Transportation: pt drives and his is able to drive if needed DME: shower chair, grab bars, hand held shower, cane SNF/HHC: pt denies previous services. Call placed to pt's due to documented pt confusion and voicemail left. PT/OT nikky noted no further therapy needed. Plan: Pt plans to return to home with the support of his . Will continue to monitor and assist with DC planning needs as identified. Jan Lofton RN CM
[2022-08-05] MEDS: Ensure Plus High Protein 120 ML LIQUID PO (21:24)
[2022-08-06] VITALS (11 sets, daily range): BP systolic 119–151; BP diastolic 68–83; PULSE 97–115; RESP 18; TEMP 36.3–36.8; O2SAT 96–100
[2022-08-06 01:15] LABS: Bedside Glucose 82 mg/dL (74-106)
[2022-08-06] MEDS: morphine (oral solution) 10MG/0.5ML Syringe 15 MG PO (03:41)
[2022-08-06] MEDS: cycloBENZAPRine HCl 10 MG Tablet PO ×2 (06:07→13:13)
[2022-08-06] MEDS: Gabapentin 400 MG Capsule PO ×2 (06:07→13:12)
[2022-08-06] MEDS: NYSTATIN 500,000 UNIT/5 ML UDC 500000 UNIT PO ×2 (06:08→13:12)
[2022-08-06] MEDS: 0.9% Normal Saline 1,000 ML 100 ML IV (06:10)
[2022-08-06 07:00] LABS: Bedside Glucose 80 mg/dL (74-106)
[2022-08-06] MEDS: Pantoprazole Sodium 40 MG Tablet PO (08:04)
[2022-08-06] MEDS: Ensure Plus High Protein 120 ML LIQUID PO ×2 (08:04→13:15)
--- NOTE | 2022-08-06 09:03 | PCM.PN.HOSP ---
Subjective Subjective Abdominal pain. Only ate a little bit as he was having difficulty chewing given his poor dentition. Given the sensation that there is cardboard in his mouth. Objective Data Objective Data Vital Signs: Vital Signs Temp Pulse Resp BP Pulse Ox O2 Del Method 36.3 C L 97 18 151/83 H 96 Room Air 08/06/22 03:30 08/06/22 06:50 08/06/22 03:30 08/06/22 03:30 08/06/22 07:44 08/06/22 08:10 Oxygen Delivery Method Room Air Weight: 51.256 kg Body Mass Index (BMI) 17.6 Intake & Output: Intake and Output for Last 24 Hours 08/04/22 08/05/22 08/06/22 23:59 23:59 23:59 Intake Total 2029 2306.67 / 2306.67 826.67 / 826.67 Output Total 500 / 500 0 / 0 Balance 2029 1806.67 / 1806.67 826.67 / 826.67 Medical Nutrition Assessment Dietitian: Malnutrition Criteria Met Start: 08/05/22 15:00 Freq: Status: Active Protocol: Document 08/05/22 15:01 (Rec: 08/05/22 15:01 [id number]) Nutrition Malnutrition Evidence of Malnutrition Exists Yes Malnutrition (severe): Chronic Evidenced By Suboptimal Energy Intake ( Severe),Weight Loss (Severe), Physical Changes (Severe) Clinical Problem Chronic Disease or Condition Related Malnutrition Etiology severe, chronic malnutrition related to inadequate energy intake w/ increased energy needs d/t cancer Signs/Symptoms as evidenced by unintentional 22.7kg/31% wt loss x 6 months; severe muscle wasting/fat loss evident in orbital, clavicle, acromion, and temporal areas per physical exam; estimated PO intake meeting <75% of estimated energy needs > 3 months 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 Lab / Micro Data Result Diagrams: 08/06/22 09:30 08/06/22 09:30 Labs: Laboratory Results - last 24 hr 08/05/22 11:53: POC Glucose 90 08/05/22 16:53: POC Glucose 117 H 08/05/22 23:39: POC Glucose 82 08/06/22 06:20: POC Glucose 80 Rhythm Strip Rhythm Strip: Sinus Tach Rate: 124 Ectopy: PVC(s) Physical Exam HEENT head/scalp atraumatic Resp normal respiratory effort, no retractions, no use of accessory muscles and clear to auscultation bilaterally Cardio regular rate, regular rhythm, S1 normal heart sound and S2 normal heart sound GI normal to inspection, nondistended, normoactive bowel sounds, soft to palpation, non-tender and non-distended Assessment & Plan Assessment/Plan (1) WAN (acute kidney injury): PLAN: Resolved -Baseline serum creatinine is between 0.8 and 1 -Current serum creatinine is 1.66 -Aggressive hydration -Avoid nephrotoxins Hold home lisinopril (2) Anemia: PLAN: -Patient gets frequent transfusions as an outpatient per oncology -Goal is to keep hemoglobin greater than 8 Transfused 1 unit PRBCs -Check Hemoccult -Hold apixaban for now -Had recent iron studies in May 2022 that showed a total iron of 43/iron sat of 20%/TIBC of 251 Transfuse a unit unit for total of 2 units packed red blood cells. Patient follows up with oncology as outpatient and has follow-up appointments so patient may require additional transfusions in the future. (3) Leukocytosis: PLAN: resolved -Suspect related to acute gastroenteritis plus volume depletion -Repeat CBC in a.m. (4) Hyperkalemia: PLAN: Resolved -Likely related to ongoing potassium supplementation and dehydration with WAN at -Hold home potassium -Patient did have some peaked T waves on his EKG but no signs of bradycardia or other arrhythmia -Aggressive hydration with repeat BMP later this evening -We will repeat BMP again in the morning (5) Intractable nausea and vomiting: PLAN: Chronic Advance diet. Start PPI (6) Severe malnutrition: PLAN: Add Ensure (7) Metabolic encephalopathy: PLAN: resolved -Likely related to acute infection/dehydration PLAN: Plan chronic conditions: DM-2 -Hold home glimepiride -SSI -Accu-Cheks as ordered Hyperlipidemia -Continue home atorvastatin Lung adenocarcinoma -Status post lobectomy at [facility] in [place] -Underwent adjuvant carboplatinum for 4 cycles with some delays due to treatment toxicities -Follows with Dr. Del Castillo -No current acute issues History of GERD -Patient is not on any current medications COPD -Former tobacco abuser -As needed aerosols Chronic pain -Continue home medications including morphine Thrush -Continue home nystatin Insomnia -Continue home known Hyperlipidemia -Continue home atorvastatin DVT prophylaxis -SCDs CODE STATUS -DNR CCA no intubation Disposition: Plan is to discharge patient after his transfusion today.
[2022-08-06 09:45] LABS: Absolute Lymphocyte Count 0.91 X10^3/uL (0.83-4.51); Absolute Neutrophil Count 6.2 X10^3/uL (2.0-7.7); Basophil# 0.01 X10^3/uL; Basophil% 0.1 % (0-1); Eosinophil# 0.03 X10^3/uL; Eosinophils% 0.4 % (0-5); Hematocrit 21.6 % (40-54); Hemoglobin 7.1 g/dL (13.0-16.5); Lymphocyte # 0.91 X10^3/ul (0.83-4.51); Lymphocyte % 11.8 % (19-41); Mean Corp Hgb Conc 32.9 g/dL (32-36); Mean Corpuscular Hgb 30.1 pg (27.0-32.0); Mean Corpuscular Volume 91.5 fL (80-94); Mean Platelet Vol. 9.5 fl (6.2-12.0); Monocyte# 0.49 X10^3/uL; Monocyte% 6.3 % (0-10); NRBC Flagged by Analyzer 0 % (0-5); Neutrophil % 80.2 % (47-70); Platelet Count 118 K/mm3 (150-450); RBC Distribution Width CV 15.3 % (11.6-14.6); Red Blood Count 2.36 M/mm3 (4.6-6.2); White Blood Count 7.7 K/mm3 (4.4-11.0)
[2022-08-06 10:13] LABS: Anion Gap 7 (5-15); BUN 24 mg/dL (7-18); BUN/Creat Ratio 21.2 RATIO (10-20); Chloride 110 mmol/L (98-107); Creatinine, Serum 1.13 mg/dL (0.70-1.30); EST Glomerular Filtration Rate 68 mL/min (>60); Est Glom Filt Rate - Afr Amer 83 mL/min (>60); Estimated Creatinine Clearance 45.36 ml/min; Glucose 83 mg/dL (74-106); Potassium 3.1 mmol/L (3.5-5.1); Sodium Level 141 mmol/L (136-145)
[2022-08-06 11:50] LABS: Bedside Glucose 115 mg/dL (74-106)
[2022-08-06] MEDS: Potassium Chloride Oral Tablet 20 MEQ 40 MEQ PO (13:12)
--- NOTE | 2022-08-06 15:21 | DCINST_ITS ---
Discharge Instructions Diet Discharge Diet: No restrictions (mechanical soft. ) Dressing / Incision Call your doctor if you observe: - (intractable nausea and vomiting. ) Follow Up Care Test Results: Test results from this visit will be discussed in further detail at your follow- up appointment, if applicable. Discharge Plan Admission Admit Date/Time: 08/04/22 18:49 Primary Reason for Your Visit: WAN. Attending Provider: Jeffrey Nair Primary Care Provider: Alisa Perla Consulting Providers: Kathe Campbell Discharge Orders/Prescriptions Prescriptions: New pantoprazole 40 mg Tablet,Delayed Release (Dr/Ec) 40 mg PO BID Qty: 60 0RF Ensure Plus High Protein 0.08 gram-1.5 kcal/mL Liquid 120 ml PO 4X/DAY Qty: 30 0RF Continued cyclobenzaprine 10 mg tablet 10 mg PO TID morphine 15 mg tablet 15 mg PO BID PRN (Reason: Pain) atorvastatin 80 mg tablet 80 mg PO DAILY glyburide 5 mg tablet 5 mg PO DAILY trazodone 100 mg tablet 100 mg PO QHS PRN (Reason: Sleep) gabapentin 400 mg capsule 400 mg PO TID lidocaine-prilocaine 2.5-2.5 % cream 1 applic topical ONCE PRN (Reason: port access) 30 Days Qty: 30 2RF nystatin 100,000 unit/mL suspension 500,000 unit PO TID Rx Instructions: administer 1/2 of dose in each side of the mouth Held Eliquis 5 mg tablet 5 mg PO BID Hold Instructions: until seen by Dr. Villela. Discontinued lisinopril 20 mg tablet 20 mg PO DAILY omeprazole 20 mg capsule,delayed release(DR/EC) 20 mg PO BID potassium chloride 20 mEq tablet extended release 20 meq PO BID Label Comments: ran out 3 days ago Referrals / Follow Up: Alisa Perla DO [Primary Care Provider] - Within 2 Weeks Sudhakar Villela MD [Med Staff - Active Staff] - 08/28/22 11:00 am (call to be seen sooner.) Disposition Disposition (needs filled in before D/C Order can be placed): Home, Self Care
--- NOTE | 2022-08-06 15:30 | PCM.DC.SUM ---
Providers Date of Admission: 08/04/22 Date of Discharge: 08/06/22 Primary Care Physician: Dr. Alisa Perla, DO Reason For Visit: WAN, HYPERKALEMIA Diagnosis Discharge Diagnosis (1) WAN (acute kidney injury): Status: Acute Code(s): N17.9 - Acute kidney failure, unspecified Plan: Resolved -Baseline serum creatinine is between 0.8 and 1 -Current serum creatinine is 1.66 -Aggressive hydration -Avoid nephrotoxins Hold home lisinopril (2) Anemia: Status: Acute Code(s): D64.9 - Anemia, unspecified Plan: -Patient gets frequent transfusions as an outpatient per oncology -Goal is to keep hemoglobin greater than 8 Transfused 1 unit PRBCs -Check Hemoccult -Hold apixaban for now -Had recent iron studies in May 2022 that showed a total iron of 43/iron sat of 20%/TIBC of 251 Transfuse a unit unit for total of 2 units packed red blood cells. Patient follows up with oncology as outpatient and has follow-up appointments so patient may require additional transfusions in the future. (3) Leukocytosis: Status: Acute Code(s): D72.829 - Elevated white blood cell count, unspecified Plan: resolved -Suspect related to acute gastroenteritis plus volume depletion -Repeat CBC in a.m. (4) Hyperkalemia: Status: Acute Code(s): E87.5 - Hyperkalemia Plan: Resolved -Likely related to ongoing potassium supplementation and dehydration with WAN at -Hold home potassium -Patient did have some peaked T waves on his EKG but no signs of bradycardia or other arrhythmia -Aggressive hydration with repeat BMP later this evening -We will repeat BMP again in the morning (5) Intractable nausea and vomiting: Status: Acute Code(s): R11.2 - Nausea with vomiting, unspecified Plan: Chronic Advance diet. Start PPI (6) Severe malnutrition: Status: Acute Code(s): E43 - Unspecified severe protein-calorie malnutrition Plan: Add Ensure (7) Metabolic encephalopathy: Status: Acute Code(s): G93.41 - Metabolic encephalopathy Plan: resolved -Likely related to acute infection/dehydration Plan chronic conditions: DM-2 -Hold home glimepiride -SSI -Accu-Cheks as ordered Hyperlipidemia -Continue home atorvastatin Lung adenocarcinoma -Status post lobectomy at [facility] in [place] -Underwent adjuvant carboplatinum for 4 cycles with some delays due to treatment toxicities -Follows with Dr. Del Castillo -No current acute issues History of GERD -Patient is not on any current medications COPD -Former tobacco abuser -As needed aerosols Chronic pain -Continue home medications including morphine Thrush -Continue home nystatin Insomnia -Continue home known Hyperlipidemia -Continue home atorvastatin DVT prophylaxis -SCDs CODE STATUS -DNR CCA no intubation Disposition: Plan is to discharge patient after his transfusion today. Medications at Discharge Home Medications atorvastatin 80 mg tablet 80 mg PO DAILY cholesterol 11/26/21 cyclobenzaprine 10 mg tablet 10 mg PO TID spasms 11/26/21 gabapentin 400 mg capsule 400 mg PO TID nerve pain 11/26/21 glyburide 5 mg tablet 5 mg PO DAILY dm 11/26/21 morphine 15 mg immediate release tablet 15 mg PO BID PRN Pain 11/26/21 trazodone 100 mg tablet 100 mg PO QHS PRN Sleep 11/26/21 apixaban 5 mg tablet (Eliquis) 5 mg PO BID blood thinner 03/26/22 lidocaine-prilocaine 2.5 %-2.5 % topical cream 1 applic topical ONCE PRN port access 30 days #30 grams 03/27/22 nystatin 100,000 unit/mL oral suspension 500,000 unit PO TID thrush 08/04/22 food supplemt, lactose-reduced 0.08 gram-1.5 kcal/mL oral liquid (Ensure Plus High Protein) 120 ml PO 4X/DAY #30 BOTTLES 08/06/22 pantoprazole 40 mg tablet,delayed release 40 mg PO BID #60 tabs 08/06/22 Hospital Course Operations None Procedures None Summary of Care Provided Minutes Spent on Discharge: 28 Medical Records Data Medical Nutrition Assessment Dietitian: Malnutrition Criteria Met Start: 08/05/22 15:00 Freq: Status: Active Protocol: Document 08/05/22 15:01 (Rec: 08/05/22 15:01 [id number]) Nutrition Malnutrition Evidence of Malnutrition Exists Yes Malnutrition (severe): Chronic Evidenced By Suboptimal Energy Intake ( Severe),Weight Loss (Severe), Physical Changes (Severe) Clinical Problem Chronic Disease or Condition Related Malnutrition Etiology severe, chronic malnutrition related to inadequate energy intake w/ increased energy needs d/t cancer Signs/Symptoms as evidenced by unintentional 22.7kg/31% wt loss x 6 months; severe muscle wasting/fat loss evident in orbital, clavicle, acromion, and temporal areas per physical exam; 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 Weight / BMI Weight Weight: 51.256 kg Body Mass Index (BMI) 17.6 ABG / Lab / Microbiology Data Result Diagrams: 08/06/22 09:30 08/06/22 09:30 Laboratory: Laboratory Results - last 24 hr 08/04/22 17:26: Crossmatch See Detail 08/05/22 16:53: POC Glucose 117 H 08/05/22 23:39: POC Glucose 82 08/06/22 06:20: POC Glucose 80 08/06/22 09:30: WBC 7.7, RBC 2.36 L, Hgb 7.1 L, Hct 21.6 L, MCV 91.5, MCH 30.1, MCHC 32.9, RDW Std Deviation 49.0 H, RDW Coeff of Ilia 15.3 H, Plt Count 118 L, MPV 9.5, Immature Gran % (Auto) 1.200 H, Neut % (Auto) 80.2 H, Lymph % (Auto) 11.8 L, [place] % (Auto) 6.3, Eos % (Auto) 0.4, Baso % (Auto) 0.1, Absolute Neuts (auto) 6.2, Absolute Lymphs (auto) 0.91, Nucleated RBC % 0 08/06/22 09:30: Sodium 141, Potassium 3.1 L, Chloride 110 H, Carbon Dioxide 24.0, Anion Gap 7, BUN 24 H, Creatinine 1.13, Estim Creat Clear Calc 45.36, Est GFR (MDRD) Af Amer 83, Est GFR (MDRD) Non-Af 68, BUN/Creatinine Ratio 21.2 H, Glucose 83, Calcium 8.0 L 08/06/22 11:21: POC Glucose 115 H D/C Instructions Discharge Diet: No restrictions (mechanical soft. ) Call your doctor if you observe: - (intractable nausea and vomiting. ) Meaningful Use Info Meaningful Use Diagnoses (Choose all that apply): None applicable Discharge Plan Admission Admit Date/Time: 08/04/22 18:49 Primary Reason for Your Visit: WAN. Attending Provider: Jeffrey Nair Primary Care Provider: Alisa Perla Consulting Providers: Kathe Campbell Discharge Orders/Prescriptions Prescriptions: New pantoprazole 40 mg Tablet,Delayed Release (Dr/Ec) 40 mg PO BID Qty: 60 0RF Ensure Plus High Protein 0.08 gram-1.5 kcal/mL Liquid 120 ml PO 4X/DAY Qty: 30 0RF Continued cyclobenzaprine 10 mg tablet 10 mg PO TID morphine 15 mg tablet 15 mg PO BID PRN (Reason: Pain) atorvastatin 80 mg tablet 80 mg PO DAILY glyburide 5 mg tablet 5 mg PO DAILY trazodone 100 mg tablet 100 mg PO QHS PRN (Reason: Sleep) gabapentin 400 mg capsule 400 mg PO TID lidocaine-prilocaine 2.5-2.5 % cream 1 applic topical ONCE PRN (Reason: port access) 30 Days Qty: 30 2RF nystatin 100,000 unit/mL suspension 500,000 unit PO TID Rx Instructions: administer 1/2 of dose in each side of the mouth Held Eliquis 5 mg tablet 5 mg PO BID Hold Instructions: until seen by Dr. Villela. Discontinued lisinopril 20 mg tablet 20 mg PO DAILY omeprazole 20 mg capsule,delayed release(DR/EC) 20 mg PO BID potassium chloride 20 mEq tablet extended release 20 meq PO BID Label Comments: ran out 3 days ago Referrals / Follow Up: Alisa Perla DO [Primary Care Provider] - Within 2 Weeks Sudhakar Villela MD [Med Staff - Active Staff] - 08/28/22 11:00 am (call to be seen sooner.) Disposition Disposition (needs filled in before D/C Order can be placed): Home, Self Care Charges/Coding Visit Charges Inpatient E&M: 76339 Disch Hosp
[2022-08-06 16:50] LABS: Bedside Glucose 140 mg/dL (74-106)
== END 2022-08-06 17:52 | disposition home or self-care (01) | DRG 391 ==
LOC: ED 15:07 → PCU 18:13
PROVIDERS: Admitting Provider Internal Medicine; Emergency Provider Emergency Medicine; PCP Family Medicine
DX: K52.9 Noninfective gastroenteritis and colitis, unspecified (principal); E43 Unspecified severe protein-calorie malnutrition; G92.8 Other toxic encephalopathy; N17.9 Acute kidney failure, unspecified; E87.1 Hypo-osmolality and hyponatremia; Z68.1 Body mass index [BMI] 19.9 or less, adult; B37.9 Candidiasis, unspecified; E11.22 Type 2 diabetes mellitus with diabetic chronic kidney disease; E11.40 Type 2 diabetes mellitus with diabetic neuropathy, unspecified; E11.65 Type 2 diabetes mellitus with hyperglycemia; J44.9 Chronic obstructive pulmonary disease, unspecified; D64.9 Anemia, unspecified; K21.9 Gastro-esophageal reflux disease without esophagitis; E78.00 Pure hypercholesterolemia, unspecified; E78.5 Hyperlipidemia, unspecified; I12.9 Hypertensive chronic kidney disease with stage 1 through stage 4 chronic kidney disease, or unspecified chronic kidney disease; N18.9 Chronic kidney disease, unspecified; Z85.118 Personal history of other malignant neoplasm of bronchus and lung; Z66 Do not resuscitate; Z79.01 Long term (current) use of anticoagulants; Z79.84 Long term (current) use of oral hypoglycemic drugs; Z87.891 Personal history of nicotine dependence; G89.29 Other chronic pain; I49.3 Ventricular premature depolarization; Z23 Encounter for immunization; Z79.899 Other long term (current) drug therapy
CPT/HCPCS: 36415; 36591; 80048; 80053; 81001; 82962; 83605; 83690; 83735; 84100; 85025; 86850; 86900; 86901; 86920; 86922; 93005; 94640; 97162; 97166; 97802; 99252; 99284; G0008; J7030; J7040; P9016; 90686; A4216; G0463; J0610; J2405

== ENCOUNTER 2022-08-08 22:14 | Inpatient (IN) | payer MEDICARE, OTHER, SELFPAY ==
[2022-08-08 22:18] VITALS: BP 113/62; PULSE 103; RESP 11; TEMP 35.5; O2SAT 98; BMI 18.6
--- NOTE | 2022-08-08 22:26 | EKG12_ITS ---
Test Reason : ALT LOC Blood Pressure : / mmHG Vent. Rate : 099 BPM Atrial Rate : 099 BPM P-R Int : 128 ms QRS Dur : 128 ms QT Int : 360 ms P-R-T Axes : 079 129 063 degrees QTc Int : 462 ms Normal sinus rhythm Right bundle branch block Left posterior fascicular block Bifascicular block Abnormal ECG Confirmed by JOYA PURI, ALTON ([id number]), editorial cartoonist ROBBY VIERA ([id number]) on 08/11/2022 11:07:04 AM Referred By: LURDES Confirmed By:PHONG HINSON MD
--- NOTE | 2022-08-08 22:35 | RAD_ITS ---
EXAM: XR CHEST, 1 VIEW CLINICAL INDICATION: Rales TECHNIQUE: Frontal view of the chest. This report was created using [employer] report generation technology. COMPARISON: 03/31/2022 FINDINGS: LUNGS AND PLEURAL SPACES: Blunting right costophrenic angle which may represent a pleural effusion. There is a nodule in the right lower lobe and measures 1 cm that was not present on the previous exam. There is right apical pleural thickening present. No pneumothorax. HEART: Unremarkable. Cardiac silhouette not enlarged. MEDIASTINUM: Central airways and mediastinal contour are unremarkable. BONES/JOINTS: Unremarkable. SOFT TISSUES: Unremarkable. TUBES, LINES AND DEVICES: Right-sided Port-A-Cath in stable position. RAD/Chest 1 View (Portable) IMPRESSION: Right lower lobe nodule which was not present on the previous exam. Further evaluation with CT scan of the chest may be beneficial. There is blunting the right costophrenic angle compatible with pleural effusion or scarring. Right-sided Port-A-Cath in stable position. Electronically Signed: Jean Carlos Dunne MD at 22:58 EST ,
--- NOTE | 2022-08-08 22:36 | EDS_ITS ---
HPI History of Present Illness Chief Complaint: Alt LOC Detail of Chief Complaint: Depressed level of consciousness onset 2 to 3 days ago Informant: spouse/S.O. Onset/Context/Timing Onset: Days Context: Gradual Onset Timing: Continuous Quality: Will not talk and has not had any to eat or drink in 2 to 3 days Current Severity: Severe Maximum Severity: Severe Worsened by: Unknown Relieved by: Unknown Associated Symptoms Associated Symptoms: Unable to determine Narrative Narrative: is the informant. states he has not urinated in over 24 hours. Nothing to eat or drink in 2 to 3 days. She states she was recently admitted to the hospital. 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 He also has history of diabetes. He apparently is on apixaban. Apparently, he has not taken any meds for the past 2 days. Prior similar symptoms: No Recent Illness/Hospitalization: Yes [facility] Medical History Acid reflux Arthritis Atrial flutter Back pain Cardiology follow-up encounter Chronic pain CINV (chemotherapy-induced nausea and vomiting) Constipation COPD (chronic obstructive pulmonary disease) CRF (chronic renal failure) Diabetes mellitus Dysuria Encounter for chemotherapy management Encounter for education Former smoker High cholesterol Hypertension Injury of back Kidney stones Leg cramps Neuropathy Normal stress echocardiogram Regional lymph node metastasis present Smoker Syncope Wears glasses Home Medications atorvastatin 80 mg tablet 80 mg PO DAILY cholesterol 11/26/21 [History Last Taken 08/04/22] cyclobenzaprine 10 mg tablet 10 mg PO TID spasms 11/26/21 [History Last Taken 08/04/22] gabapentin 400 mg capsule 400 mg PO TID nerve pain 11/26/21 [History Last Taken 08/04/22] glyburide 5 mg tablet 5 mg PO DAILY dm 11/26/21 [History Last Taken 08/04/22] morphine 15 mg immediate release tablet 15 mg PO BID PRN Pain 11/26/21 [History Last Taken 08/04/22] trazodone 100 mg tablet 100 mg PO QHS PRN Sleep 11/26/21 [History Last Taken 08/03/22] apixaban 5 mg tablet (Eliquis) 5 mg PO BID blood thinner 03/26/22 [History Last Taken 08/04/22] lidocaine-prilocaine 2.5 %-2.5 % topical cream 1 applic topical ONCE PRN port access 30 days #30 grams 03/27/22 [Rx Last Taken Unknown] nystatin 100,000 unit/mL oral suspension 500,000 unit PO TID thrush 08/04/22 [History Last Taken 08/04/22] food supplemt, lactose-reduced 0.08 gram-1.5 kcal/mL oral liquid (Ensure Plus High Protein) 120 ml PO 4X/DAY #30 BOTTLES 08/06/22 [Rx Last Taken Unknown] pantoprazole 40 mg tablet,delayed release 40 mg PO BID #60 tabs 08/06/22 [Rx Last Taken Unknown] Allergy/AdvReac Type Severity Reaction Status Date / Time Iodinated Contrast Media Allergy Unknown Other Verified 08/04/22 14:06 Family History Mother Cancer Father Cancer Son Cancer Surgical History H/O lithotripsy History of hip replacement Previous back surgery S/P lobectomy of lung Status post surgical removal of neoplasm of skin Trigger finger Social History (Updated 08/08/22 @ 22:[address] Be Payton MD) household members: spouse housing: house Smoking Status: Former smoker quit date: 01/01/22 pack-years: 30 Tobacco: How many years used: 30 how long ago did patient quit smoking: hasn't smoked since diagnosis 01/2022 second hand exposure: Yes alcohol intake: never substance use type: does not use ROS ROS ED Review of Systems ROS Unobtainable: due to mental status EXAM Physical Exam Const Vital Signs: 08/08/22 22:18 08/09/22 01:47 08/09/22 01:48 Temperature 96 F L 98.0 F Temperature Source Temporal Temporal Pulse Rate 103 H 100 Respiratory Rate 11 L 20 H Blood Pressure 113/62 124/65 H Blood Pressure Mean 79 84 Pulse Ox 98 94 94 Oxygen Delivery Method Room Air Room Air Room Air Positive cachectic General Appearance ED: cachectic, NAD and pallor; Negative for cyanotic or diaphoretic Nutritional Appearance: cachectic HEENT Reports dry mucous membranes HEENT Narrative: Head is atraumatic normocephalic. Ears normal. TMs normal. Nares patent. No drainage. Uvula midline. Mouth ED: Yes dry mucous membranes Mouth: dry mucous membranes Eyes PERRL and EOMs intact bilaterally General Eye ED: Negative for pale conjunctiva or scleral icterus Neck no lymphadenopathy, supple and no JVD Neck Narrative: Trachea is midline. There is no inspiratory expiratory stridor. There is no JVD. Chest Wall palpation of chest normal Chest Narrative: Patient's noted to have a port right subclavian region. Resp normal respiratory effort and No clear to auscultation bilaterally Auscultation: rales bilateral base Cardio regular rhythm, S1 normal heart sound, S2 normal heart sound and no murmurs Rate: tachycardic GI normal to inspection, nondistended, normoactive bowel sounds, non-tender, non- distended and no masses; Negative for hepatosplenomegaly Auscultation: hypoactive bowel sounds Narrative: External genitalia appears normal. Back/Spine Cervical Spine: Negative for cervical spine tenderness Thoracic Spine / Upper Back: Negative for thoracic spinal tenderness Extremity Extremity Narrative: Patient is lower extremity exam are cool to touch with delayed cap refill. Femoral pulses palpable bilaterally 1+. DP and PT pulses are not palpable. He has stigmata of peripheral arterial disease. Neuro No oriented x3 Sensorium / Orientation: orientation impaired and lethargic; Negative for alert Psych Psych Narrative: Unable to determine Skin No skin turgor normal General Skin Exam: pallor; Negative for elasticity normal or jaundice MDM MDM MDM Narrative Medical decision making narrative: With altered mental status and recent history of nausea and vomiting need to assess for aspiration pneumonitis. With poor p.o. intake need to assess for metabolic encephalopathy. Competence metabolic panel was obtained to assess electrolytes, CO2 anion gap. CBC to assess for white count differential. UA to evaluate for urinary tract infection as well as specific gravity. Chest x-ray was obtained because of bibasilar rales and concern for aspiration. EKG was obtained to evaluate for dysrhythmia and ischemia. The hospitalist requested CT of the head which is a reasonable request since patient has new lesion on his chest x-ray and change in mental status may be due to brain metastasis. Lab Data Attestation: I reviewed the patient's lab results. Lab results narrative: Sodium and chloride are unremarkable. CO2 anion gap is normal. BUN and creatinine are elevated at 31 and 1.51 with a slight elevation BUN to creatinine ratio. Lactate is normal. AST, ALT and alkaline phosphatase are elevated. Labs: Laboratory Results - last 24 hr 08/08/22 08/08/22 08/08/22 22:55 22:55 22:55 WBC 16.2 H RBC 3.19 L Hgb 9.2 L Hct 28.6 L MCV 89.7 MCH 28.8 MCHC 32.2 RDW Std Deviation 52.0 H RDW Coeff of Ilia 16.2 H Plt Count 125 L MPV 10.4 Immature Gran % (Auto) 1.500 H Neut % (Auto) 89.0 H Lymph % (Auto) 2.6 L [place] % (Auto) 6.7 Eos % (Auto) 0.1 Baso % (Auto) 0.1 Absolute Neuts (auto) 14.4 H Absolute Lymphs (auto) 0.42 L Nucleated RBC % 0 Differential Comment SCANNED Sodium 142 Potassium 3.8 Chloride 106 Carbon Dioxide 24.0 Anion Gap 12 BUN 31 H Creatinine 1.51 H Estim Creat Clear Calc 35.76 Est GFR (MDRD) Af Amer 59 L Est GFR (MDRD) Non-Af 49 L BUN/Creatinine Ratio 20.5 H Glucose 111 H Lactic Acid 0.7 Calcium 8.6 Total Bilirubin 0.90 AST 135 H ALT 108 H Alkaline Phosphatase 419 H Total Protein 6.0 L Albumin 2.0 L Globulin 4.0 Albumin/Globulin Ratio 0.5 L Urine Color Urine Clarity Urine pH Ur Specific [place] Urine Protein Urine Glucose (UA) Urine Ketones Urine Occult Blood Urine Nitrite Urine Bilirubin Urine Urobilinogen Ur Leukocyte Esterase Urine RBC Urine WBC Ur Squamous Epith Cells Urine Bacteria Urine Mucus 08/08/22 23:35 WBC RBC Hgb Hct MCV MCH MCHC RDW Std Deviation RDW Coeff of Ilia Plt Count MPV Immature Gran % (Auto) Neut % (Auto) Lymph % (Auto) [place] % (Auto) Eos % (Auto) Baso % (Auto) Absolute Neuts (auto) Absolute Lymphs (auto) Nucleated RBC % Differential Comment Sodium Potassium Chloride Carbon Dioxide Anion Gap BUN Creatinine Estim Creat Clear Calc Est GFR (MDRD) Af Amer Est GFR (MDRD) Non-Af BUN/Creatinine Ratio Glucose Lactic Acid Calcium Total Bilirubin AST ALT Alkaline Phosphatase Total Protein Albumin Globulin Albumin/Globulin Ratio Urine Color Yellow Urine Clarity Clear Urine pH 6.0 Ur Specific [place] 1.015 Urine Protein 15 H Urine Glucose (UA) Normal Urine Ketones 5 H Urine Occult Blood 10 H Urine Nitrite Negative Urine Bilirubin Negative Urine Urobilinogen Normal Ur Leukocyte Esterase Negative Urine RBC 0 SEEN Urine WBC 0 SEEN Ur Squamous Epith Cells 0 SEEN Urine Bacteria 0 SEEN Urine Mucus 0 SEEN Radiography Chest X-Ray - ED: Read by ED Physician (Single view chest x-ray reveals chronic changes. Right-sided catheter noted. There is a nodule noted peripheral right mid lung field. This was not noted on chest x-ray obtained March 31, 2022. Cardiac silhouette and size unremarkable. Suspect this represents an metastasis from his lung cancer.) Diagnostic Testing: Clinical Impression(s) from Imaging Studies Chest X-Ray 08/08/22 22:35 IMPRESSION: Right lower lobe nodule which was not present on the previous exam. Further evaluation with CT scan of the chest may be beneficial. There is blunting the right costophrenic angle compatible with pleural effusion or scarring. Right-sided Port-A-Cath in stable position. Electronically Signed: Jean Carlos Dunne MD at 22:58 EST , EKG Initial EKG: Attestation: I personally reviewed and interpreted this EKG as follows: Interpretation: Sinus Rhythm (Rate is 99. There is evidence of a right bundle branch block and a left posterior fascicular block. OK interval is 128 ms. QS duration is prolonged at 128 ms. QT duration is 360 ms. 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 Villela. lidocaine-prilocaine 2.5-2.5 % cream 1 applic topical ONCE PRN (Reason: port access) 30 Days Qty: 30 2RF nystatin 100,000 unit/mL suspension 500,000 unit PO TID Rx Instructions: administer 1/2 of dose in each side of the mouth pantoprazole 40 mg Tablet,Delayed Release (Dr/Ec) 40 mg PO BID Qty: 60 0RF Ensure Plus High Protein 0.08 gram-1.5 kcal/mL Liquid 120 ml PO 4X/DAY Qty: 30 0RF Primary Care Provider: Alisa Perla Referrals: Alisa Perla DO [Primary Care Provider] - Disposition Disposition: Acute Care Hospital [facility]
[2022-08-08 23:08] LABS: Absolute Lymphocyte Count 0.42 X10^3/uL (0.83-4.51); Absolute Neutrophil Count 14.4 X10^3/uL (2.0-7.7); Basophil# 0.02 X10^3/uL; Basophil% 0.1 % (0-1); Eosinophil# 0.01 X10^3/uL; Eosinophils% 0.1 % (0-5); Hematocrit 28.6 % (40-54); Hemoglobin 9.2 g/dL (13.0-16.5); Lymphocyte # 0.42 X10^3/ul (0.83-4.51); Lymphocyte % 2.6 % (19-41); Mean Corp Hgb Conc 32.2 g/dL (32-36); Mean Corpuscular Hgb 28.8 pg (27.0-32.0); Mean Corpuscular Volume 89.7 fL (80-94); Mean Platelet Vol. 10.4 fl (6.2-12.0); Monocyte# 1.08 X10^3/uL; Monocyte% 6.7 % (0-10); NRBC Flagged by Analyzer 0 % (0-5); Neutrophil # 14.44 X10^3/uL (2.7-7.7); POSITIVE DIFFERENTIAL YES; Platelet Count 125 K/mm3 (150-450); RBC Distribution Width CV 16.2 % (11.6-14.6); Red Blood Count 3.19 M/mm3 (4.6-6.2); White Blood Count 16.2 K/mm3 (4.4-11.0)
[2022-08-08] MEDS: 0.9% Normal Saline 1,000 ML 1000 ML IV (23:12)
[2022-08-08 23:26] LABS: Lactic Acid 0.7 mmol/L (0.4-1.9)
[2022-08-08 23:27] LABS: ALB/GLOB Ratio 0.5 RATIO (0.9-2.4); AST(SGOT) 135 U/L (15-37); Alanine Aminotransfer ALT/SGPT 108 U/L (16-61); Alkaline Phosphatase 419 U/L (45-117); Anion Gap 12 (5-15); BUN 31 mg/dL (7-18); BUN/Creat Ratio 20.5 RATIO (10-20); Calcium,Total 8.6 mg/dL (8.5-10.1); Chloride 106 mmol/L (98-107); Creatinine, Serum 1.51 mg/dL (0.70-1.30); EST Glomerular Filtration Rate 49 mL/min (>60); Est Glom Filt Rate - Afr Amer 59 mL/min (>60); Estimated Creatinine Clearance 35.76 ml/min; Glucose 111 mg/dL (74-106); Potassium 3.8 mmol/L (3.5-5.1); Sodium Level 142 mmol/L (136-145)
[2022-08-08 23:42] LABS: Bacteria 0 SEEN /hpf (None Seen); Mucous, Urine 0 SEEN /hpf (<or=2+); Red Blood Cells-Urine 0 SEEN /hpf (0-5); Squamous Epithelial Cells - UA 0 SEEN /hpf (0-5); White Blood Cells 0 SEEN /hpf (0-5)
[2022-08-08 23:43] LABS: Color, Urine Yellow (Yellow); Glucose, Dipstick Normal (Normal); Ketone-Dipstick 5 mg/dl (Negative); Leukocyte Esterase-Dipstick Negative /ul (Negative); Nitrite-Dipstick Negative (Negative); Occult Blood-Urine 10 /ul (Negative); Protein-Dipstick 15 mg/dl (Negative); Specific Gravity, Urine 1.015 (1.002-1.030); Urine Bilirubin Dipstick Negative (Negative); Urine Clarity Clear (Clear); Urine Urobilinogen Normal (Normal)
[2022-08-09] VITALS (9 sets, daily range): BP systolic 111–142; BP diastolic 59–76; PULSE 100–124; RESP 12–20; TEMP 36.5–37; O2SAT 94–99; BMI 18.1
[2022-08-09 00:13] LABS: Differential Indicated SCAN CRITERIA MET
[2022-08-09 00:15] LABS: Differential Comment SCANNED
--- NOTE | 2022-08-09 02:02 | CT_ITS ---
STUDY: CT BRAIN WITHOUT CONTRAST REASON FOR EXAM: Male, 66 years old. Change in mental status evaluate metastasis brain RADIATION DOSAGE (If Supplied By Facility): CTDIvol = ( 44.99 ) mGy, DLP = ( 829.85 ) mGycm TECHNIQUE: Transaxial CT imaging of the brain was performed without administration of intravenous contrast material. Individualized dose optimization techniques were used for this CT. COMPARISON: No relevant priors. FINDINGS: Normal soft tissue structures. Normal calvarium. There is moderate cerebral atrophy with widening of the extra-axial spaces and ventricular dilatation. There are areas of decreased attenuation within the white matter tracts of the supratentorial brain, consistent with microvascular disease changes. Normal basal ganglia and thalami. Normal brainstem. Normal cerebellum. There is no intracranial hemorrhage. There are no findings of an acute ischemic infarction. Normal visualized paranasal sinuses. CT/Brain/Head without Contrast IMPRESSION: Chronic involutional changes of the brain. Electronically Signed: Eve Arce MD at 3:01 EST ,
--- NOTE | 2022-08-09 02:02 | PCM.HP.STD ---
HPI - General General Date of Admission: 08/09/22 Date of Service: 08/09/22 Chief Complaint: Decreased level of consciousness HPI Narrative LUIS WEINSTEIN, is a 66 M with a significant history of metastatic malignant neoplasm to regional lymph node who presents to the emergency department with decreased level of consciousness. Also patient has not been eating for the past 2 to 3 days. History was taken from emergency department doctor since patient is confused. Chest Xray showed new right lower lobe nodule. [facility] Medical History Acid reflux Arthritis Atrial flutter Back pain Cardiology follow-up encounter Chronic pain CINV (chemotherapy-induced nausea and vomiting) Constipation COPD (chronic obstructive pulmonary disease) CRF (chronic renal failure) Diabetes mellitus Dysuria Encounter for chemotherapy management Encounter for education Former smoker High cholesterol Hypertension Injury of back Kidney stones Leg cramps Neuropathy Normal stress echocardiogram Regional lymph node metastasis present Smoker Syncope Wears glasses Home Medications atorvastatin 80 mg tablet 80 mg PO DAILY cholesterol 11/26/21 [History Last Taken 08/04/22] cyclobenzaprine 10 mg tablet 10 mg PO TID spasms 11/26/21 [History Last Taken 08/04/22] gabapentin 400 mg capsule 400 mg PO TID nerve pain 11/26/21 [History Last Taken 08/04/22] glyburide 5 mg tablet 5 mg PO DAILY dm 11/26/21 [History Last Taken 08/04/22] morphine 15 mg immediate release tablet 15 mg PO BID PRN Pain 11/26/21 [History Last Taken 08/04/22] trazodone 100 mg tablet 100 mg PO QHS PRN Sleep 11/26/21 [History Last Taken 08/03/22] apixaban 5 mg tablet (Eliquis) 5 mg PO BID blood thinner 03/26/22 [History Last Taken 08/04/22] lidocaine-prilocaine 2.5 %-2.5 % topical cream 1 applic topical ONCE PRN port access 30 days #30 grams 03/27/22 [Rx Last Taken Unknown] nystatin 100,000 unit/mL oral suspension 500,000 unit PO TID thrush 08/04/22 [History Last Taken 08/04/22] food supplemt, lactose-reduced 0.08 gram-1.5 kcal/mL oral liquid (Ensure Plus High Protein) 120 ml PO 4X/DAY #30 BOTTLES 08/06/22 [Rx Last Taken Unknown] pantoprazole 40 mg tablet,delayed release 40 mg PO BID #60 tabs 08/06/22 [Rx Last Taken Unknown] Allergy/AdvReac Type Severity Reaction Status Date / Time Iodinated Contrast Media Allergy Unknown Other Verified 08/04/22 14:06 Family History Mother Cancer Father Cancer Son Cancer Surgical History H/O lithotripsy History of hip replacement Previous back surgery S/P lobectomy of lung Status post surgical removal of neoplasm of skin Trigger finger Social History household members: spouse housing: house Smoking Status: Former smoker quit date: 01/01/22 pack-years: 30 Tobacco: How many years used: 30 how long ago did patient quit smoking: hasn't smoked since diagnosis 01/2022 second hand exposure: Yes alcohol intake: never substance use type: does not use ROS Review of Systems ROS Unobtainable: due to mental condition Vital Signs Vital Signs Vital Signs: 08/08/22 22:18 08/09/22 01:47 08/09/22 01:48 Temperature 96 F L 98.0 F Temperature Source Temporal Temporal Pulse Rate 103 H 100 Respiratory Rate 11 L 20 H Blood Pressure 113/62 124/65 H Blood Pressure Mean 79 84 Pulse Ox 98 94 94 Oxygen Delivery Method Room Air Room Air Room Air Weight Weight: 54 kg Body Mass Index (BMI) 18.6 Physical Exam Narrative Physical exam: General: Well-nourished, well-developed. Head: Normocephalic, atraumatic, no tenderness Eyes: Vision is grossly intact. EOMI ENT, no trauma, dry mucous membranes, poor dentition; no rhinorrhea Neck: Nontender, No thyromegaly. CVS: Regular rate and rhythm. S1-S2 present. No murmur, gallop or rub. Respiratory : Scattered Rales, chest wall nontender, no wheezing Abdomen: Soft, nontender, nondistended, normal bowel sounds, no masses : Deferred Back: Nontender, no CVA tenderness, no midline spinal tenderness, deformities, step-offs Extremities: Nontender full range of motion, no trauma Skin: Normal color, no trauma, abrasions Neuro: Alert, confused, cranial nerves II through XII grossly intact. Psychiatry: Normal mood. Normal affect. Not depressed. Not anxious. Results Lab / Micro Data Result Diagrams: 08/09/22 05:30 08/09/22 05:30 Labs: Laboratory Results - last 24 hr 08/08/22 22:55: WBC 16.2 H, RBC 3.19 L, Hgb 9.2 L, Hct 28.6 L, MCV 89.7, MCH 28.8, MCHC 32.2, RDW Std Deviation 52.0 H, RDW Coeff of Ilia 16.2 H, Plt Count 125 L, MPV 10.4, Immature Gran % (Auto) 1.500 H, Neut % (Auto) 89.0 H, Lymph % (Auto) 2.6 L, [place] % (Auto) 6.7, Eos % (Auto) 0.1, Baso % (Auto) 0.1, Absolute Neuts (auto) 14.4 H, Absolute Lymphs (auto) 0.42 L, Nucleated RBC % 0, Differential Comment SCANNED 08/08/22 22:55: Sodium 142, Potassium 3.8, Chloride 106, Carbon Dioxide 24.0, Anion Gap 12, BUN 31 H, Creatinine 1.51 H, Estim Creat Clear Calc 35.76, Est GFR (MDRD) Af Amer 59 L, Est GFR (MDRD) Non-Af 49 L, BUN/Creatinine Ratio 20.5 H, Glucose 111 H, Calcium 8.6, Total Bilirubin 0.90, AST 135 H, ALT 108 H, Alkaline Phosphatase 419 H, Total Protein 6.0 L, Albumin 2.0 L, Globulin 4.0, Albumin/Globulin Ratio 0.5 L 08/08/22 22:55: Lactic Acid 0.7 08/08/22 23:35: Urine Color Yellow, Urine Clarity Clear, Urine pH 6.0, Ur Specific [place] 1.015, Urine Protein 15 H, Urine Glucose (UA) Normal, Urine Ketones 5 H, Urine Occult Blood 10 H, Urine Nitrite Negative, Urine Bilirubin Negative, Urine Urobilinogen Normal, Ur Leukocyte Esterase Negative, Urine RBC 0 SEEN, Urine WBC 0 SEEN, Ur Squamous Epith Cells 0 SEEN, Urine Bacteria 0 SEEN, Urine Mucus 0 SEEN Radiology Impression Chest X-Ray 08/08/22 22:35 IMPRESSION: Right lower lobe nodule which was not present on the previous exam. Further evaluation with CT scan of the chest may be beneficial. There is blunting the right costophrenic angle compatible with pleural effusion or scarring. Right-sided Port-A-Cath in stable position. Electronically Signed: Jean Carlos Dunne MD at 22:58 EST , Assessment & Plan Assessment/Plan (1) Acute encephalopathy: (2) Acute kidney insufficiency: (3) Lung malignancy: PLAN: Plan Acute metabolic encephalopathy Likely secondary to uremia and dehydration. BUN of 31 on presentation. With history of lung cancer CT head ordered, negative. TSH ordered, unremarkable. Urinalysis is normal revealing. Check ammonia. WAN Baseline creatinine of around 1. His creatinine presentation was 1.50. Gentle IV hydration. Trend BMP. Metastatic malignant neoplasm to regional lymph node malignancy Worsening with right lower lobe new nodule. DVT prophylaxis: Subcutaneous Lovenox. Charges/Coding Visit Charges Inpatient E&M: 36852 Init Hosp L2
[2022-08-09] MEDS: 0.9% Normal Saline 1,000 ML 100 ML IV ×2 (03:55→14:24)
[2022-08-09 05:41] LABS: Absolute Lymphocyte Count 0.47 X10^3/uL (0.83-4.51); Absolute Neutrophil Count 13.5 X10^3/uL (2.0-7.7); Basophil# 0.01 X10^3/uL; Basophil% 0.1 % (0-1); Hematocrit 31.7 % (40-54); Lymphocyte # 0.47 X10^3/ul (0.83-4.51); Lymphocyte % 3.1 % (19-41); Mean Corp Hgb Conc 31.5 g/dL (32-36); Mean Corpuscular Hgb 28.7 pg (27.0-32.0); Mean Corpuscular Volume 90.8 fL (80-94); Mean Platelet Vol. 9.9 fl (6.2-12.0); Monocyte# 0.92 X10^3/uL; Monocyte% 6.1 % (0-10); NRBC Flagged by Analyzer 0 % (0-5); Neutrophil # 13.46 X10^3/uL (2.7-7.7); Neutrophil % 89.9 % (47-70); POSITIVE DIFFERENTIAL YES; Platelet Count 130 K/mm3 (150-450); RBC Distribution Width CV 16.3 % (11.6-14.6); RBC Distribution Width SD 52.2 fl (35.1-43.9); Red Blood Count 3.49 M/mm3 (4.6-6.2)
[2022-08-09 05:45] LABS: Differential Indicated SCAN CRITERIA MET
[2022-08-09 06:14] LABS: ALB/GLOB Ratio 0.5 RATIO (0.9-2.4); AST(SGOT) 91 U/L (15-37); Alanine Aminotransfer ALT/SGPT 88 U/L (16-61); Albumin, Serum 1.9 g/dL (3.2-5.0); Alkaline Phosphatase 395 U/L (45-117); Anion Gap 9 (5-15); BUN 30 mg/dL (7-18); BUN/Creat Ratio 20.8 RATIO (10-20); Calcium,Total 8.4 mg/dL (8.5-10.1); Chloride 107 mmol/L (98-107); Creatinine, Serum 1.44 mg/dL (0.70-1.30); EST Glomerular Filtration Rate 52 mL/min (>60); Est Glom Filt Rate - Afr Amer 63 mL/min (>60); Estimated Creatinine Clearance 36.53 ml/min; Globulin 4.2 g/dL (2.2-4.2); Glucose 113 mg/dL (74-106); Potassium 4.3 mmol/L (3.5-5.1); Protein, Total 6.1 g/dL (6.4-8.2); Sodium Level 141 mmol/L (136-145); Thyroid Stim Hormone (TSH) 0.54 uIU/mL (0.358-3.74)
[2022-08-09 06:19] LABS: Ammonia < 10.0 umol/L (11-32)
[2022-08-09] MEDS: NYSTATIN 500,000 UNIT/5 ML UDC 500000 UNIT PO ×3 (06:21→21:23)
[2022-08-09] MEDS: cycloBENZAPRine HCl 10 MG Tablet PO ×3 (06:21→21:23)
[2022-08-09 07:11] LABS: Differential Comment SCANNED
[2022-08-09 08:47] LABS: Ammonia < 10.0 umol/L (11-32)
[2022-08-09] MEDS: Ensure Plus High Protein 120 ML LIQUID PO ×3 (09:24→21:28)
[2022-08-09] MEDS: APIXABAN 2.5 MG TABLET (WCH) PO ×2 (09:24→21:23)
[2022-08-09] MEDS: Pantoprazole Sodium 40 MG Tablet PO ×2 (09:24→21:23)
--- NOTE | 2022-08-09 15:35 | CASEMGMT ---
Pt is confused and unable to complete RN CM assessment. TC to pt , no answer. Will attempt to complete assessment at a later time.
[2022-08-09] MEDS: Ondansetron 4 MG/2 ML Vial IV (21:23)
[2022-08-09] MEDS: Atorvastatin Calcium 80 MG Tablet PO (21:23)
[2022-08-10] MEDS: 0.9% Normal Saline 1,000 ML 100 ML IV ×3 (00:30→21:57)
[2022-08-10] MEDS: oxyCODONE 5 MG Tablet PO ×3 (02:05→21:50)
[2022-08-10 04:26] VITALS: BP 101/43; PULSE 129; RESP 18; TEMP 37.3; O2SAT 94
[2022-08-10 05:17] LABS: Absolute Neutrophil Count 11.3 X10^3/uL (2.0-7.7); Basophil# 0.01 X10^3/uL; Basophil% 0.1 % (0-1); Hematocrit 27.1 % (40-54); Hemoglobin 8.8 g/dL (13.0-16.5); Lymphocyte % 0.9 % (19-41); Mean Corp Hgb Conc 32.5 g/dL (32-36); Mean Corpuscular Volume 89.4 fL (80-94); Mean Platelet Vol. 10.4 fl (6.2-12.0); Monocyte# 0.13 X10^3/uL; Monocyte% 1.1 % (0-10); NRBC Flagged by Analyzer 0 % (0-5); Neutrophil # 11.31 X10^3/uL (2.7-7.7); Neutrophil % 96.9 % (47-70); POSITIVE DIFFERENTIAL YES; Platelet Count 111 K/mm3 (150-450); RBC Distribution Width CV 16.3 % (11.6-14.6); RBC Distribution Width SD 52.7 fl (35.1-43.9); Red Blood Count 3.03 M/mm3 (4.6-6.2); White Blood Count 11.7 K/mm3 (4.4-11.0)
[2022-08-10 06:22] LABS: Anion Gap 10 (5-15); BUN 25 mg/dL (7-18); BUN/Creat Ratio 21.7 RATIO (10-20); Calcium,Total 7.9 mg/dL (8.5-10.1); Chloride 111 mmol/L (98-107); Creatinine, Serum 1.15 mg/dL (0.70-1.30); EST Glomerular Filtration Rate 67 mL/min (>60); Est Glom Filt Rate - Afr Amer 81 mL/min (>60); Estimated Creatinine Clearance 45.74 ml/min; Glucose 102 mg/dL (74-106); Potassium 3.1 mmol/L (3.5-5.1); Sodium Level 144 mmol/L (136-145)
[2022-08-10 06:46] LABS: Differential Indicated SCAN CRITERIA MET
[2022-08-10] MEDS: NYSTATIN 500,000 UNIT/5 ML UDC 500000 UNIT PO ×3 (06:49→21:43)
[2022-08-10] MEDS: cycloBENZAPRine HCl 10 MG Tablet PO ×3 (06:49→21:44)
[2022-08-10 07:03] LABS: Differential Comment SCANNED
[2022-08-10] MEDS: APIXABAN 2.5 MG TABLET (WCH) PO ×2 (08:49→21:44)
[2022-08-10] MEDS: Pantoprazole Sodium 40 MG Tablet PO ×2 (08:49→21:44)
[2022-08-10 09:52] VITALS: BP 100/52; PULSE 118; RESP 18; TEMP 36.8; O2SAT 94
--- NOTE | 2022-08-10 10:14 | PCM.PN.HOSP ---
Subjective Subjective This still confused, no issues overnight. Renal function has improved Objective Data Objective Data Vital Signs: Vital Signs Temp Pulse Resp BP Pulse Ox O2 Del Method 98.2 F 118 H 18 100/52 L 94 Room Air 08/10/22 09:52 08/10/22 09:52 08/10/22 09:52 08/10/22 09:52 08/10/22 09:52 08/10/22 09:52 Oxygen Delivery Method Room Air Weight: 115 lb 15.41 oz Body Mass Index (BMI) 18.1 Intake & Output: Intake and Output for Last 24 Hours 08/09/22 08/10/22 08/11/22 03:59 03:59 03:59 Intake Total 1000 / 1000 2390 / 2390 935 / 935 Output Total 700 / 700 75 / 75 Balance 1000 / 1000 1690 / 1690 860 / 860 Medical Nutrition Assessment Dietitian: Malnutrition Criteria Met Start: 08/09/22 11:15 Freq: Status: Active Protocol: Document 08/09/22 11:15 MAXWELL (Rec: 08/09/22 11:15 [facility] [id number]) Nutrition Malnutrition Evidence of Malnutrition Exists Yes Malnutrition (severe): Chronic Evidenced By Suboptimal Energy Intake ( Severe),Weight Loss (Severe), Physical Changes (Severe) Clinical Problem Chronic Disease or Condition Related Malnutrition Etiology related to lung cancer and pt inability to consume adequate nutrition to meet est nutritional needs Signs/Symptoms as evidenced by 29.8% wt loss and meeting <75% of est nutritional needs x 7 months; obvious fat/muscle wasting in face, torso and upper/lower extremities. Status Active Problem Recommendation Dietitian Recommendations/Changes Will change diet to liberal regular d/t signs and symptoms of malnutrition Will continue 120 ml ensure plus high protein 4x/day w/ medpass Will provide ensure pudding or magic cup w/ lunch and dinner ; fortified foods w/ meals as able. Lab / Micro Data Result Diagrams: 08/10/22 04:30 08/10/22 04:30 Labs: Laboratory Results - last 24 hr 08/10/22 04:30: WBC 11.7 H, RBC 3.03 L, Hgb 8.8 L, Hct 27.1 L, MCV 89.4, MCH 29.0, MCHC 32.5, RDW Std Deviation 52.7 H, RDW Coeff of Ilia 16.3 H, Plt Count 111 L, MPV 10.4, Immature Gran % (Auto) 1.000 H, Neut % (Auto) 96.9 H, Lymph % (Auto) 0.9 L, [place] % (Auto) 1.1, Eos % (Auto) 0.0, Baso % (Auto) 0.1, Absolute Neuts (auto) 11.3 H, Absolute Lymphs (auto) 0.10 L, Nucleated RBC % 0, Differential Comment SCANNED 08/10/22 04:30: Sodium 144, Potassium 3.1 L, Chloride 111 H, Carbon Dioxide 23.0, Anion Gap 10, BUN 25 H, Creatinine 1.15, Estim Creat Clear Calc 45.74, Est GFR (MDRD) Af Amer 81, Est GFR (MDRD) Non-Af 67, BUN/Creatinine Ratio 21.7 H, Glucose 102, Calcium 7.9 L Physical Exam Narrative General: Alert, disoriented, Cooperative, No apparent distress HEENT: Atraumatic, PERRLA, EOMI, Normocephalic Oral: Moist Mucosa Neck: Supple, No JVD Lungs: Diminished, Normal air movement, No rhonchi, No wheeze, No rales Cardiovascular: Regular rate, Regular Rhythm, Normal S1, Normal S2, No murmurs Abdomen: Soft, Non Tender, Non-Distended, No Hepato-splenomegaly Extremities: No edema, Capillary Refill Less than 3 Seconds Skin: No rashes, No breakdown Musculoskeletal: No Tenderness to Palpation of Joints or Extremities Neurological: Cranial nerves II-XII grossly intact, Motor Exam 5/5 strength throughout, Sensory exam intact to light touch and pain Psych/Mental Status: Flat affect, Appropriate Assessment & Plan Assessment/Plan (1) Acute encephalopathy: (2) Acute kidney insufficiency: (3) Lung malignancy: PLAN: Plan 1. Acute metabolic encephalopathy and WAN secondary to dehydration ? Continue with IV fluids signed?his potassium is little bit low, will check a mag and a phos ? TSH was unremarkable ? UA was negative ? He did have a leukocytosis which is solving any antibiotic intervention and remains afebrile ? Ammonia is negative and his LFTs are improving 2. Metastatic adenocarcinoma/thrush ? There is a possible right lower lobe nodule, he is already undergone adjuvant chemotherapy for 4 cycles ? Follows with [facility] oncology ? He had a lobectomy ? Continue with his home nystatin 3. DM2 ? We will hold glyburide ? When he starts taking p.o. can place him on a sliding scale insulin with Accu-Cheks 4. HLD/A-flutter ? Thank continue with his Eliquis for his age flutter ? Can continue with his Lipitor DVT: Kathrine Charges/Coding Visit Charges Inpatient E&M: 56933 Subs Hosp L2
[2022-08-10 10:47] LABS: Magnesium 1.1 mg/dL (1.6-2.6); Phosphorus 1.8 mg/dL (2.5-4.9)
[2022-08-10] MEDS: Ensure Plus High Protein 120 ML LIQUID PO (14:25)
[2022-08-10 15:09] VITALS: BP 141/61; PULSE 106; RESP 18; TEMP 36.4; O2SAT 96
[2022-08-10] MEDS: Ondansetron 4 MG/2 ML Vial IV (17:30)
[2022-08-10 21:00] VITALS: BP 162/82; PULSE 114; RESP 16; TEMP 36.9; O2SAT 98
[2022-08-10] MEDS: Atorvastatin Calcium 80 MG Tablet PO (21:44)
[2022-08-10] MEDS: proCHLORPERazine 10 MG/2 ML Vial 5 MG IV (22:39)
[2022-08-10] MEDS: 0.9% Saline Lock 10 ML Syringe IV (22:40)
[2022-08-11] VITALS (7 sets, daily range): BP systolic 84–142; BP diastolic 46–85; PULSE 107–150; RESP 16–18; TEMP 36.3–36.7; O2SAT 95–99
[2022-08-11] MEDS: NYSTATIN 500,000 UNIT/5 ML UDC 500000 UNIT PO ×3 (05:48→21:44)
[2022-08-11] MEDS: cycloBENZAPRine HCl 10 MG Tablet PO ×3 (05:48→21:44)
[2022-08-11] MEDS: oxyCODONE 5 MG Tablet PO ×3 (05:51→21:46)
[2022-08-11] MEDS: Ondansetron 4 MG/2 ML Vial IV ×2 (05:52→12:39)
[2022-08-11 06:05] LABS: Absolute Lymphocyte Count 0.35 X10^3/uL (0.83-4.51); Absolute Neutrophil Count 12.1 X10^3/uL (2.0-7.7); Basophil# 0.01 X10^3/uL; Basophil% 0.1 % (0-1); Hematocrit 24.2 % (40-54); Hemoglobin 7.9 g/dL (13.0-16.5); Lymphocyte # 0.35 X10^3/ul (0.83-4.51); Lymphocyte % 2.6 % (19-41); Mean Corp Hgb Conc 32.6 g/dL (32-36); Mean Corpuscular Hgb 29.5 pg (27.0-32.0); Mean Corpuscular Volume 90.3 fL (80-94); Mean Platelet Vol. 10.7 fl (6.2-12.0); Monocyte% 4.5 % (0-10); NRBC Flagged by Analyzer 0 % (0-5); Neutrophil # 12.11 X10^3/uL (2.7-7.7); Neutrophil % 90.3 % (47-70); POSITIVE DIFFERENTIAL YES; Platelet Count 110 K/mm3 (150-450); RBC Distribution Width CV 16.4 % (11.6-14.6); RBC Distribution Width SD 52.7 fl (35.1-43.9); Red Blood Count 2.68 M/mm3 (4.6-6.2); White Blood Count 13.4 K/mm3 (4.4-11.0)
[2022-08-11 06:08] LABS: Differential Indicated SCAN CRITERIA MET
[2022-08-11 06:38] LABS: ALB/GLOB Ratio 0.4 RATIO (0.9-2.4); AST(SGOT) 36 U/L (15-37); Alanine Aminotransfer ALT/SGPT 33 U/L (16-61); Albumin, Serum 1.5 g/dL (3.2-5.0); Alkaline Phosphatase 250 U/L (45-117); Anion Gap 10 (5-15); BUN 23 mg/dL (7-18); BUN/Creat Ratio 23.8 RATIO (10-20); Calcium,Total 7.7 mg/dL (8.5-10.1); Chloride 113 mmol/L (98-107); Creatinine, Serum 0.97 mg/dL (0.70-1.30); EST Glomerular Filtration Rate 82 mL/min (>60); Est Glom Filt Rate - Afr Amer 99 mL/min (>60); Estimated Creatinine Clearance 54.23 ml/min; Globulin 3.4 g/dL (2.2-4.2); Glucose 123 mg/dL (74-106); Protein, Total 4.9 g/dL (6.4-8.2); Sodium Level 145 mmol/L (136-145)
--- NOTE | 2022-08-11 07:40 | PCM.PN.HOSP ---
Subjective Subjective Having some right-sided flank pain, reports he also has not been moving his bowels well. Slight abdominal discomfort but primarily right-sided pain. Remains somewhat confused. Poor p.o., no overt nausea Objective Data Objective Data Vital Signs: Vital Signs Temp Pulse Resp BP Pulse Ox O2 Del Method 97.8 F 110 H 16 133/67 H 95 Room Air 08/11/22 03:00 08/11/22 03:00 08/11/22 03:00 08/11/22 03:00 08/11/22 03:00 08/11/22 03:00 Oxygen Delivery Method Room Air Weight: 52.6 kg Body Mass Index (BMI) 18.1 Intake & Output: Intake and Output for Last 24 Hours 08/09/22 08/10/22 08/11/22 23:59 23:59 23:59 Intake Total 2390 / 2390 3385 / 3385 Output Total 300 / 300 725 / 925 700 / 700 Balance 2090 / 2090 2660 / 2460 -700 / -700 Medical Nutrition Assessment Dietitian: Malnutrition Criteria Met Start: 08/09/22 11:15 Freq: Status: Active Protocol: Document 08/09/22 11:15 SLA (Rec: 08/09/22 11:15 SLA [id number]) Nutrition Malnutrition Evidence of Malnutrition Exists Yes Malnutrition (severe): Chronic Evidenced By Suboptimal Energy Intake ( Severe),Weight Loss (Severe), Physical Changes (Severe) Clinical Problem Chronic Disease or Condition Related Malnutrition Etiology related to lung cancer and pt inability to consume adequate nutrition to meet est nutritional needs Signs/Symptoms as evidenced by 29.8% wt loss and meeting <75% of est nutritional needs x 7 months; obvious fat/muscle wasting in face, torso and upper/lower extremities. Status Active Problem Recommendation Dietitian Recommendations/Changes Will change diet to liberal regular d/t signs and symptoms of malnutrition Will continue 120 ml ensure plus high protein 4x/day w/ medpass Will provide ensure pudding or magic cup w/ lunch and dinner ; fortified foods w/ meals as able. Lab / Micro Data Result Diagrams: 08/11/22 05:07 08/11/22 05:07 Labs: Laboratory Results - last 24 hr 08/10/22 04:30: Phosphorus 1.8 L, Magnesium 1.1 L 08/11/22 05:07: WBC 13.4 H, RBC 2.68 L, Hgb 7.9 L, Hct 24.2 L, MCV 90.3, MCH 29.5, MCHC 32.6, RDW Std Deviation 52.7 H, RDW Coeff of Ilia 16.4 H, Plt Count 110 L, MPV 10.7, Immature Gran % (Auto) 2.500 H, Neut % (Auto) 90.3 H, Lymph % (Auto) 2.6 L, [place] % (Auto) 4.5, Eos % (Auto) 0.0, Baso % (Auto) 0.1, Absolute Neuts (auto) 12.1 H, Absolute Lymphs (auto) 0.35 L, Nucleated RBC % 0 08/11/22 05:07: Sodium 145, Potassium 3.0 L, Chloride 113 H, Carbon Dioxide 22.0, Anion Gap 10, BUN 23 H, Creatinine 0.97, Estim Creat Clear Calc 54.23, Est GFR (MDRD) Af Amer 99, Est GFR (MDRD) Non-Af 82, BUN/Creatinine Ratio 23.8 H, Glucose 123 H, Calcium 7.7 L, Total Bilirubin 0.60, AST 36, ALT 33, Alkaline Phosphatase 250 H, Total Protein 4.9 L, Albumin 1.5 L, Globulin 3.4, Albumin/Globulin Ratio 0.4 L Physical Exam Const alert Constitutional Narrative: Appears somewhat uncomfortable HEENT normocephalic and head/scalp atraumatic HEENT Narrative: has some grimacing movements Eyes Eyes Narrative: EOM grossly intact, anicteric Neck supple Resp normal respiratory effort and clear to auscultation bilaterally Cardio regular rate and regular rhythm GI soft to palpation and non-distended GI Narrative: Mildly tender diffusely, no rebound, guarding, rigidity, some right-sided flank pain Extremity Extremity Narrative: No edema appreciated Neuro moves all extremities Neuro Narrative: No overt focal deficits appreciated, has some almost grimacing like movements Psych Psych Narrative: Cooperative Assessment & Plan Assessment/Plan (1) Acute encephalopathy: (2) Acute kidney insufficiency: (3) Lung malignancy: PLAN: Plan 66-year-old male here 08/09/2022 with decreased level of consciousness and poor p.o. intake. He was found to have uremia and concerns for dehydration #Acute metabolic encephalopathy secondary to WAN secondary to dehydration CT head negative on admission Has received IV fluids, WAN resolved TSH unremarkable UA negative LFTs improving, ammonia negative Has worsening leukocytosis with worsened left shift, right flank pain, suprapubic tenderness. 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 start sliding scale insulin and Accu-Cheks #Atrial flutter Kathrine On Lipitor for hyperlipidemia #DVT ppx: Kathrine Santana MD Charges/Coding Visit Charges Inpatient E&M: 32966 Subs Hosp L2
[2022-08-11] MEDS: Potassium Chloride Oral Tablet 20 MEQ 60 MEQ PO (08:56)
[2022-08-11] MEDS: Ensure Plus High Protein 120 ML LIQUID PO (09:02)
[2022-08-11] MEDS: Pantoprazole Sodium 40 MG Tablet PO ×2 (09:02→18:29)
[2022-08-11] MEDS: APIXABAN 2.5 MG TABLET (WCH) PO ×2 (09:02→21:47)
--- NOTE | 2022-08-11 09:44 | CT_ITS ---
EXAM: CT CHEST WITHOUT INTRAVENOUS CONTRAST CLINICAL INDICATION: contrast allg, lung nodule and effuision, left shf TECHNIQUE: Helically acquired images were obtained of the chest without intravenous contrast. CTDIvol = ( 6.66 ) mGy, DLP = ( 226.37 ) mGycm This CT exam was performed using one or more of the following dose reduction techniques: automated exposure control, adjustment of the mA and/or kV according to patient size, and/or use of iterative reconstruction technique. This report was created using [employer] report generation technology. COMPARISON: December 18, 2021 FINDINGS: LUNGS AND PLEURAL SPACES: Dilated pulmonary trunk suggests pulmonary hypertension. Right-sided multilobar pleural parenchymal scarring. Moderate centrilobular emphysema is worse at the upper lobes. Atypical infectious nodules are identified along the periphery of the right and left lower lobes. No pneumothorax. Small right pleural effusion. HEART: Small pericardial effusion without cardiomegaly. Calcific coronary arteriolosclerosis. MEDIASTINUM: Unremarkable. No mediastinal or hilar adenopathy. Esophagus is unremarkable. No hiatal hernia. THYROID: Unremarkable. No thyroid lesions. BONES/JOINTS: No suspicious lytic or sclerotic lesions of bone. VASCULATURE: Unremarkable. Thoracic aorta is non-dilated. CT/Chest without Contrast IMPRESSION: Atypical infectious nodules are identified along the periphery of the right and left lower lobes. Small pericardial effusion. Electronically Signed: John Wakefield MD at 1:33 EST ,
--- NOTE | 2022-08-11 10:54 | CASEMGMT ---
PÉREZ SPRINGER Readmission Review: Index: 08/04 thru 08/06/22, Dx: WAN with hyperkalemia, leukocytosis, anemia, gastroenteritis, dehydration, malnutrition Readmission: 08/09/22, Dx: Acute encephalopathy, WAN, lung malignancy, dehydration Pt admitted on 08/04/22 with above noted dx as well as a hx of lung CA with regional lymph node mets. Pt received tx with IVF and PRBC. Pt was discharged to home with the support of his . DC assessment completed with pt who indicated his assisted him as needed with ADLs and a grandson lived close who could also assist if needed. Pt stated he lives in a 2 story home with bedroom and bathroom on the second floor. Call placed to pt's on index admit was not returned. Pt returned d/t decreased LOC, not eating for 2-3 days or taking his medications, and has not urinated in the past [address] has been ordered to evaluate pt's previously diagnosed lung cancer. Given pt's altered mentation, this RN GIAN attempted to call pt's Jayleen to discuss pt's discharge needs. Voicemail received and message left requesting a return call. Jan Lofton RN CM
--- NOTE | 2022-08-11 12:20 | EKG12_ITS ---
Test Reason : Blood Pressure : / mmHG Vent. Rate : 145 BPM Atrial Rate : 145 BPM P-R Int : 088 ms QRS Dur : 124 ms QT Int : 314 ms P-R-T Axes : 046 128 061 degrees QTc Int : 487 ms Sinus tachycardia Right bundle branch block Left posterior fascicular block Bifascicular block Abnormal ECG Confirmed by DANNIE PURI, LAITH ([id number]), pictures editor ROBBY VIERA ([id number]) on 08/13/2022 10:47:35 AM Referred By: MERYL Confirmed By:LAITH PANDEY MD
--- NOTE | 2022-08-11 12:25 | EKG12_ITS ---
Test Reason : CP Blood Pressure : / mmHG Vent. Rate : 147 BPM Atrial Rate : 147 BPM P-R Int : 116 ms QRS Dur : 110 ms QT Int : 292 ms P-R-T Axes : 040 114 064 degrees QTc Int : 456 ms Sinus tachycardia with occasional Premature ventricular complexes Right bundle branch block Abnormal ECG Confirmed by DANNIE PURI, LAITH ([id number]), managing editor ROBBY VIERA ([id number]) on 08/13/2022 10:50:20 AM Referred By: HERIBERTO Confirmed By:LAITH PANDEY MD
[2022-08-11] MEDS: 0.9% Saline Lock 10 ML Syringe IV ×2 (12:40→14:04)
--- NOTE | 2022-08-11 12:56 | CASEMGMT ---
PÉREZ SPRINGER Follow-up: Noted family in pt's room. Due to pt's current condition, will forego continuation of DC planning assessment. Will continue to follow and assist with dc planning needs as identified. Jan Lofton RN CM
[2022-08-11] MEDS: 0.9% Normal Saline 1,000 ML 100 ML IV (13:01)
[2022-08-11 13:10] LABS: Bedside Glucose 96 mg/dL (74-106)
[2022-08-11 14:13] LABS: Lactic Acid 4.4 mmol/L (0.4-1.9)
--- NOTE | 2022-08-11 14:14 | NURSING ---
TEXT SENT TO DR MCDONNELL - LACTIC ACID 4.4
[2022-08-11] MEDS: 0.9% Normal Saline 1,000 ML 999 ML IV (14:43)
--- NOTE | 2022-08-11 16:07 | PCM.RX.CS ---
Consult Pharmacy has been consulted to manage selected antiobiotic: Vancomycin Type of Consult: New start Suspected Infection: Other Labs: Sodium 145 mmol/L (136-145) 08/11/22 05:07 Potassium 3.0 mmol/L (3.5-5.1) L 08/11/22 05:07 Chloride 113 mmol/L (98-107) H 08/11/22 05:07 Carbon Dioxide 22.0 mmol/L (21.0-32.0) 08/11/22 05:07 Anion Gap 10 (5-15) 08/11/22 05:07 BUN 23 mg/dL (7-18) H 08/11/22 05:07 Creatinine 0.97 mg/dL (0.70-1.30) 08/11/22 05:07 Est GFR (MDRD) Af Amer 99 mL/min (>60) 08/11/22 05:07 Est GFR (MDRD) Non-Af 82 mL/min (>60) 08/11/22 05:07 BUN/Creatinine Ratio 23.8 RATIO (10-20) H 08/11/22 05:07 Glucose 123 mg/dL (74-106) H 08/11/22 05:07 Weight used for dosin kg Estimated Creatinine Clearance: 54 mls/min Goal Trough: 15-20 mcg/mL Pharmacy Plan for Drug Dosing: NEW START IV VANCOMYCIN Consulting Physician: Dr. Santana Indication: Empiric Goal Trough: 15-20 SrCr: 0.97 CrCl: 54 mls/min Comments: pt received a 25mg/kg loading dose (1250mg) on 08/11/22 at 1443 Vancomycin Dose: based on pts weight and renal function, recommend an initial dose of 500mg q12h starting 08/12/22 at 0300. trough before the 4th total dose. Pending Level: 08/13/22 at 0230 Pharmacy Service will continue to monitor and adjust dosing as required. Follow-Up Labs: Trough Vancomycin - 08/13/22 at 0230
[2022-08-11 16:12] LABS: Mucous, Urine 0 SEEN /hpf (<or=2+); Squamous Epithelial Cells - UA 0 SEEN /hpf (0-5)
[2022-08-11 16:41] LABS: Color, Urine Yellow (Yellow); Glucose, Dipstick Normal (Normal); Ketone-Dipstick Negative (Negative); Leukocyte Esterase-Dipstick 100 /ul (Negative); Nitrite-Dipstick Positive (Negative); Occult Blood-Urine 250 /ul (Negative); Protein-Dipstick 30 mg/dl (Negative); Urine Bilirubin Dipstick Negative (Negative); Urine Clarity Clear (Clear); Urine Urobilinogen 1 mg/dl (Normal)
[2022-08-11 16:52] LABS: Red Blood Cells-Urine 25-50 SEEN /hpf (0-5); White Blood Cells 0-5 SEEN /hpf (0-5)
[2022-08-11 16:53] LABS: Bacteria RARE /hpf (None Seen); Hyaline Cast 0-5 SEEN /lpf (0-5)
[2022-08-11 17:27] LABS: Reflex Lactate? Y
[2022-08-11 18:35] LABS: Lactic Acid 1.8 mmol/L (0.4-1.9)
[2022-08-11] MEDS: Atorvastatin Calcium 80 MG Tablet PO (21:44)
[2022-08-12] MEDS: Vancomycin IV 500 MG/100 ML BAG 100 MG IV ×2 (02:42→14:51)
[2022-08-12] MEDS: oxyCODONE 5 MG Tablet PO ×3 (02:45→16:31)
[2022-08-12 02:48] VITALS: BP 136/70; PULSE 121; RESP 18; TEMP 36.3; O2SAT 97
[2022-08-12 05:07] LABS: Hematocrit 25.2 % (40-54); Hemoglobin 8.1 g/dL (13.0-16.5); Mean Corp Hgb Conc 32.1 g/dL (32-36); Mean Corpuscular Hgb 28.9 pg (27.0-32.0); Mean Platelet Vol. 9.9 fl (6.2-12.0); POSITIVE COUNT YES; POSITIVE DIFFERENTIAL YES; POSITIVE MORPHOLOGY YES; Platelet Count 65 K/mm3 (150-450); RBC Distribution Width CV 16.4 % (11.6-14.6); RBC Distribution Width SD 53.3 fl (35.1-43.9); White Blood Count 11.9 K/mm3 (4.4-11.0)
[2022-08-12 05:14] LABS: Differential Indicated MANUAL DIFF
[2022-08-12] MEDS: cycloBENZAPRine HCl 10 MG Tablet PO ×3 (05:27→20:46)
[2022-08-12] MEDS: NYSTATIN 500,000 UNIT/5 ML UDC 500000 UNIT PO ×3 (05:27→20:47)
[2022-08-12 05:28] LABS: Lymphocyte 1 % (19-41); Metamyelocyte 6 % (0-1); Neutrophil-Band 16 % (0-5); Neutrophil-Segmented 77 % (47-70); Total Cells Counted 100 (MANUAL DIFF)
[2022-08-12 05:29] LABS: Absolute Lymphocyte Count 0.12 X10^3/uL (0.83-4.51); Absolute Neutrophil Count 11.8 X10^3/uL (2.0-7.7); Lymphocyte # 0.12 X10^3/ul (0.83-4.51); Neutrophil # 11.79 X10^3/uL (2.7-7.7); Platelet Estimate MOD DEC (ADEQ)
[2022-08-12 05:30] LABS: Red Cell Morphology NORM C+C NORMAL (NORM C&C)
[2022-08-12 05:33] LABS: ALB/GLOB Ratio 0.4 RATIO (0.9-2.4); AST(SGOT) 50 U/L (15-37); Alanine Aminotransfer ALT/SGPT 31 U/L (16-61); Albumin, Serum 1.4 g/dL (3.2-5.0); Alkaline Phosphatase 502 U/L (45-117); Anion Gap 9 (5-15); BUN 20 mg/dL (7-18); BUN/Creat Ratio 18.5 RATIO (10-20); Calcium,Total 7.3 mg/dL (8.5-10.1); Chloride 114 mmol/L (98-107); Creatinine, Serum 1.08 mg/dL (0.70-1.30); EST Glomerular Filtration Rate 72 mL/min (>60); Est Glom Filt Rate - Afr Amer 87 mL/min (>60); Globulin 3.6 g/dL (2.2-4.2); Glucose 99 mg/dL (74-106); Potassium 2.9 mmol/L (3.5-5.1); Sodium Level 144 mmol/L (136-145)
--- NOTE | 2022-08-12 07:30 | PN.HOSP_ITS ---
Subjective Subjective Doing sick skin better this morning, more alert, pain significantly improved. No chest pain or shortness of breath Objective Data Objective Data Vital Signs: Vital Signs Temp Pulse Resp BP Pulse Ox O2 Del Method O2 Flow Rate 97.4 F L 121 H 18 136/70 H 97 Room Air 2 08/12/22 02:48 08/12/22 02:48 08/12/22 02:48 08/12/22 02:48 08/12/22 02:48 08/12/22 02:48 08/11/22 12:20 Oxygen Flow Rate (L/min) 2 Oxygen Delivery Method Room Air Weight: 52.6 kg Body Mass Index (BMI) 18.1 Intake & Output: Intake and Output for Last 24 Hours 08/10/22 08/11/22 08/12/22 23:59 23:59 23:59 Intake Total 3385 / 3385 3825 / 3825 150 / 150 Output Total 725 / 925 1500 / 1500 250 / 250 Balance 2660 / 2460 2325 / 2325 -100 / -100 Medical Nutrition Assessment Dietitian: Malnutrition Criteria Met Start: 08/09/22 11:15 Freq: Status: Active Protocol: Document 08/09/22 11:15 MAXWELL (Rec: 08/09/22 11:15 [facility] [id number]) Nutrition Malnutrition Evidence of Malnutrition Exists Yes Malnutrition (severe): Chronic Evidenced By Suboptimal Energy Intake ( Severe),Weight Loss (Severe), Physical Changes (Severe) Clinical Problem Chronic Disease or Condition Related Malnutrition Etiology related to lung cancer and pt inability to consume adequate nutrition to meet est nutritional needs Signs/Symptoms as evidenced by 29.8% wt loss and meeting <75% of est nutritional needs x 7 months; obvious fat/muscle wasting in face, torso and upper/lower extremities. Status Active Problem Recommendation Dietitian Recommendations/Changes Will change diet to liberal regular d/t signs and symptoms of malnutrition Will continue 120 ml ensure plus high protein 4x/day w/ medpass Will provide ensure pudding or magic cup w/ lunch and dinner ; fortified foods w/ meals as able. Lab / Micro Data Result Diagrams: 08/12/22 04:15 08/12/22 04:15 Labs: Laboratory Results - last 24 hr 08/11/22 12:17: POC Glucose 96 08/11/22 13:15: Lactic Acid 4.4 H* 08/11/22 15:55: Urine Color Yellow, Urine Clarity Clear, Urine pH 6.0, Ur Specific [place] 1.010, Urine Protein 30 H, Urine Glucose (UA) Normal, Urine Ketones Negative, Urine Occult Blood 250 H, Urine Nitrite Positive H, Urine Bilirubin Negative, Urine Urobilinogen 1 H, Ur Leukocyte Esterase 100 H, Urine RBC 25-50 SEEN, Urine WBC 0-5 SEEN, Ur Squamous Epith Cells 0 SEEN, Urine Bacteria RARE, Hyaline Casts 0-5 SEEN, Urine Mucus 0 SEEN 08/11/22 18:00: Lactic Acid 1.8 08/12/22 04:15: WBC 11.9 H, RBC 2.80 L, Hgb 8.1 L, Hct 25.2 L, MCV 90.0, MCH 28.9, MCHC 32.1, RDW Std Deviation 53.3 H, RDW Coeff of Ilia 16.4 H, Plt Count 65 L, MPV 9.9, Neut % (Auto) Not Reportable, Absolute Neuts (auto) 11.8 H, Absolute Lymphs (auto) 0.12 L, Total Counted 100, Neutrophils % (Manual) 77 H, Band Neutrophils % 16 H, Lymphocytes % (Manual) 1 L, Metamyelocytes % 6 H, Diff Path Review December, Platelet Estimate MOD DEC, RBC Morphology NORM C+C 08/12/22 04:15: Sodium 144, Potassium 2.9 L, Chloride 114 H, Carbon Dioxide 21.0, Anion Gap 9, BUN 20 H, Creatinine 1.08, Estim Creat Clear Calc 48.70, Est GFR (MDRD) Af Amer 87, Est GFR (MDRD) Non-Af 72, BUN/Creatinine Ratio 18.5, Glucose 99, Calcium 7.3 L, Total Bilirubin 0.90, AST 50 H, ALT 31, Alkaline Phosphatase 502 H, Total Protein 5.0 L, Albumin 1.4 L, Globulin 3.6, Albumin/Globulin Ratio 0.4 L Micro: Microbiology 08/11/22 13:15 Blood Culture (Wb) - Anticubital Left Blood Culture - Preliminary 08/11/22 13:15 Blood Culture (Wb) - Anticubital Right Blood Culture - Preliminary Radiography Diagnostic Testing: Radiology Impression Chest CT 08/11/22 09:44 IMPRESSION: Atypical infectious nodules are identified along the periphery of the right and left lower lobes. Small pericardial effusion. Electronically Signed: John Wakefield MD at 1:33 EST , Physical Exam Const alert and no apparent distress Constitutional Narrative: Oriented HEENT normocephalic and head/scalp atraumatic Eyes Eyes Narrative: EOM grossly intact, anicteric Neck supple Resp normal respiratory effort and clear to auscultation bilaterally Cardio regular rate and regular rhythm GI soft to palpation, non-tender and non-distended Extremity Extremity Narrative: No edema appreciated Neuro moves all extremities Neuro Narrative: No overt focal deficits appreciated Psych Psych Narrative: Cooperative Assessment & Plan Assessment/Plan (1) Acute encephalopathy: (2) Acute kidney insufficiency: (3) Lung malignancy: PLAN: Plan 66-year-old male here 08/09/2022 with decreased level of consciousness and poor p.o. intake. He was found to have uremia and concerns for dehydration #Sepsis secondary to unclear source Became tachycardic yesterday and had episode of orthostatic hypotension also had elevated lactic acid and increased white blood cell count Pancultures, started on vancomycin and Zosyn for broad coverage Fluids Heart rate and blood pressure improved and lactic returned to normal after antibiotics and fluids Doing much better today CT of the chest reported atypical infectious nodules identified along the periphery of the right and left lower lobes, potential source Does have elevated alk phos and given right upper abdominal pain will get gallbl adder ultrasound Cultures are pending Given CT will also evaluate for respiratory source Still mildly tachycardic and CT with small pericardial effusion, will get echo to further characterize this though no overt hemodynamic compromise at this time #Acute metabolic encephalopathy secondary to WAN secondary to dehydration CT head negative on admission Has received IV fluids, WAN resolved TSH unremarkable UA negative LFTs improving, ammonia negative Has worsening leukocytosis with worsened left shift, right flank pain, suprapubic tenderness. Will get UA and urine culture repeat, is also tachy cardic, cxr showed R sided effusion and nodule, given location of pain and possible ifxn will get CT as recommended though we will have to do so without contrast due to contrast allergy reported and recent WAN 08/12: May have been due to chronic morphine use with decreased kidney function causing decreased clearance. Significantly improved today. 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 start sliding scale insulin and Accu-Cheks #Atrial flutter Kathrine On Lipitor for hyperlipidemia #DVT ppx: Kathrine Santana MD Charges/Coding Visit Charges Inpatient E&M: 39558 Subs Hosp L2
--- NOTE | 2022-08-12 07:33 | US_ITS ---
STUDY: ABDOMINAL ULTRASOUND - RIGHT UPPER QUADRANT REASON FOR VISIT: Male, 66 years old abd pain, sepsis, elevated alk phos TECHNIQUE: Ultrasound evaluation of the right upper quadrant was performed with real-time and static lima-scale imaging. TECHNICAL QUALITY: Limited. Examination limited due to the patient?s condition. COMPARISON: None. FINDINGS: Liver: The liver measures 14 cm. There is normal echogenicity of the liver. The bile ducts are within normal limits. There is hepatic color flow. The direction of portal flow is hepatopetal. There is no demonstrated mass lesion. Minimal amount of perihepatic fluid. Gallbladder: Normal distended gallbladder. The gallbladder wall is slightly thickened and measures 4 mm. There is a positive sonographic Wynn''s sign. There is no pericholecystic fluid. There are multiple echogenic structures within the gallbladder, consistent with multiple gallstones. Sludge is also seen within the gallbladder lumen. Common Bile Duct (C.B.D.): The common bile duct measures 6.4 mm. Pancreas: There is nonvisualization of the pancreas due to overlying bowel gas. Right Kidney: Normal size of the right kidney. The right kidney measures 10.9 cm x 6.1 cm x 5.5 cm. Normal renal cortex. The right cortex measures 1.7 cm. There is no demonstrated renal mass or cyst. There is no right hydronephrosis. US/Gallbladder IMPRESSION: Multiple gallstones and sludge within the gallbladder. Mildly thickened gallbladder wall. Electronically Signed: Pedro Ni MD at 16:15 EST ,
--- NOTE | 2022-08-12 07:37 | ECHOL_ITS ---
Reason For Study: other Procedure This was a limited 2D transthoracic echocardiogram. The study was technically limited. Limited views were obtained. Exam performed portable in patient room. Left Ventricle Based upon the 2D echocardiographic images obtained there appears to be grossly normal left ventricular size, wall motion, and systolic function. The estimated ejection fraction is 55 %. Unable to assess diastolic dysfunction. Right Ventricle Based upon the 2D echocardiographic images obtained there appears to be grossly normal right ventricular size and systolic function. Atria Normal left atrium. Normal right atrium. Mitral Valve There is moderate mitral annular calcification. Extension of the mitral annular calcification onto the base of the posterior mitral valve leaflet. Tricuspid Valve Normal tricuspid valve. Aortic Valve The aortic valve is not well visualized. Pulmonic Valve The pulmonic valve is not well visualized. Great Vessels The aortic root is not well visualized. Pericardium/Pleural Trivial pericardial effusion. There are no echocardiographic indications of cardiac tamponade. MMode/2D Measurements & Calculations LVIDd: 3.3 cm IVSd: 1.1 cm LAV(MOD-sp4): 51.3 ml LVIDs: 2.4 cm LVPWd: 0.87 cm FS: 28.2 % LA A4 area: 17.5 cm2 ECHO/Echo, Limited Study Interpretation Summary The study was technically limited. Limited views were obtained. Based upon the 2D echocardiographic images obtained there appears to be grossly normal left ventricular size, wall motion, and systolic function. The estimated ejection fraction is 55 %. There is moderate mitral annular calcification. Extension of the mitral annular calcification onto the base of the posterior mi tral valve leaflet. Trivial pericardial effusion. There are no echocardiographic indications of cardiac tamponade. Unable to assess diastolic dysfunction. Ordering Physician: Lilliana Santana Referring Physician: Alisa Perla Performed By: Gregoria Laird RCS
[2022-08-12 07:57] VITALS: BP 130/80; PULSE 120; RESP 24; TEMP 36.7; O2SAT 97
[2022-08-12 08:00] VITALS: PULSE 120
[2022-08-12] MEDS: Potassium Chloride Oral Tablet 20 MEQ 60 MEQ PO (12:51)
[2022-08-12] MEDS: APIXABAN 2.5 MG TABLET (WCH) PO ×2 (12:51→20:46)
[2022-08-12] MEDS: Pantoprazole Sodium 40 MG Tablet PO ×2 (12:52→20:48)
--- NOTE | 2022-08-12 14:43 | CASEMGMT ---
Addendum entered by Jayleen Tian 08/12/22 16:18: Social Work Second VM left with to discuss discharge plans. Will followup tomorrow. PHILIP Concepcion Original Note: Social Work SW reviewed pt chart. Therapy recommending SNF at this time. SW noted pt lives in a two story home with bed and bath on second floor. SW met with pt and introduced self and role of SW. Pt is resting in bed, alert and oriented. SD discussed discharge plans with pt and explained recommendations for short term SNF prior to return home. Pt expresses understanding, but is not consenting at this time. A list of SNF providers including quality and resource use data and consistent with the patient?s preferred geographic region, medical needs, and insurance network were provided from the [employer] Guide. Pt is agreeable to review list. With pt permission, SW called pt Jayleen to discuss discharge further. VM left requesting return call. SW will continue to follow for discharge planning. PHILIP Concepcion
[2022-08-12 14:59] VITALS: BP 135/82; PULSE 120; RESP 24; TEMP 36.3; O2SAT 98
[2022-08-12 15:26] LABS: Pathologist Review Reviewed
[2022-08-12 20:30] VITALS: BP 131/69; PULSE 118; RESP 16; TEMP 36.6; O2SAT 95
[2022-08-12] MEDS: Atorvastatin Calcium 80 MG Tablet PO (20:46)
[2022-08-13] MEDS: oxyCODONE 5 MG Tablet PO ×4 (02:17→17:47)
[2022-08-13 02:30] VITALS: BP 128/70; PULSE 108; RESP 22; TEMP 36.6; O2SAT 94
[2022-08-13] MEDS: Vancomycin IV 500 MG/100 ML BAG 100 MG IV ×2 (03:33→15:20)
[2022-08-13 03:37] LABS: Hemoglobin 7.8 g/dL (13.0-16.5); Mean Corp Hgb Conc 32.5 g/dL (32-36); Mean Corpuscular Hgb 29.4 pg (27.0-32.0); Mean Corpuscular Volume 90.6 fL (80-94); Mean Platelet Vol. 11.7 fl (6.2-12.0); POSITIVE COUNT YES; POSITIVE DIFFERENTIAL YES; POSITIVE MORPHOLOGY YES; Platelet Count 56 K/mm3 (150-450); RBC Distribution Width CV 16.7 % (11.6-14.6); RBC Distribution Width SD 54.7 fl (35.1-43.9); Red Blood Count 2.65 M/mm3 (4.6-6.2); White Blood Count 14.6 K/mm3 (4.4-11.0)
[2022-08-13 03:43] LABS: Differential Indicated MANUAL DIFF
[2022-08-13 03:49] LABS: Anisocytosis 1+
[2022-08-13 03:50] LABS: Platelet Estimate MOD DEC (ADEQ)
[2022-08-13 03:53] LABS: Absolute Lymphocyte Count 0.29 X10^3/uL (0.83-4.51); Absolute Neutrophil Count 13.2 X10^3/uL (2.0-7.7); Anion Gap 9 (5-15); BUN 22 mg/dL (7-18); BUN/Creat Ratio 21.8 RATIO (10-20); Calcium,Total 7.2 mg/dL (8.5-10.1); Chloride 117 mmol/L (98-107); Creatinine, Serum 1.01 mg/dL (0.70-1.30); EST Glomerular Filtration Rate 78 mL/min (>60); Est Glom Filt Rate - Afr Amer 94 mL/min (>60); Estimated Creatinine Clearance 52.08 ml/min; Glucose 102 mg/dL (74-106); Metamyelocyte 1 % (0-1); Neutrophil-Segmented 90 % (47-70); Potassium 3.3 mmol/L (3.5-5.1); Sodium Level 148 mmol/L (136-145); Total Cells Counted 100 (MANUAL DIFF)
[2022-08-13 03:54] LABS: Lymphocyte 2 % (19-41); Monocyte 2 % (0-10); Myelocyte 3 % (0-0); Promyelocyte 1 % (0-0); Red Cell Morphology NORM C+C NORMAL (NORM C&C)
[2022-08-13 03:58] LABS: Vancomycin, Trough Level 16.2 ug/mL (5.0-15.0)
--- NOTE | 2022-08-13 05:09 | PCM.RX.CS ---
Consult Pharmacy has been consulted to manage selected antiobiotic: Vancomycin Type of Consult: Follow-up Prior Doses of Antibiotics Received/Current Regimen: Medications Vancomycin HCl () 500 mg in 100 mls @ 100 mls/hr IV Q12H KAROLINA Last Admin: 08/13/22 03:33 Dose: 100 mls/hr Labs: Sodium 148 mmol/L (136-145) H 08/13/22 03:21 Potassium 3.3 mmol/L (3.5-5.1) L 08/13/22 03:21 Chloride 117 mmol/L (98-107) H 08/13/22 03:21 Carbon Dioxide 22.0 mmol/L (21.0-32.0) 08/13/22 03:21 Anion Gap 9 (5-15) 08/13/22 03:21 BUN 22 mg/dL (7-18) H 08/13/22 03:21 Creatinine 1.01 mg/dL (0.70-1.30) 08/13/22 03:21 Est GFR (MDRD) Af Amer 94 mL/min (>60) 08/13/22 03:21 Est GFR (MDRD) Non-Af 78 mL/min (>60) 08/13/22 03:21 BUN/Creatinine Ratio 21.8 RATIO (10-20) H 08/13/22 03:21 Glucose 102 mg/dL (74-106) 08/13/22 03:21 Vancomycin Trough 16.2 ug/mL (5.0-15.0) H 08/13/22 03:21 Microbiology: Microbiology 08/12/22 08:00 Mucosa - Nasopharyngeal Respiratory Panel (PCR) - Final 08/11/22 15:55 Urine Catheter - Lyman Urine Culture - Preliminary Gram negative mandy 08/12/22 08:00 Urine, Random Streptococcus pneumoniae Antigen (M - Final 08/12/22 08:00 Urine, Random Legionella Antigen - Final 08/12/22 08:00 Nasal Secretion SARS-CoV-2 & FLU Antigen (Rapid) - Final 08/11/22 13:15 Blood Culture (Wb) - Anticubital Right Blood Culture - Preliminary Gram negative mandy 08/11/22 13:15 Blood Culture (Wb) - Anticubital Left Blood Culture - Preliminary Gram negative mandy Weight used for dosin.6 kg Estimated Creatinine Clearance: 52 Goal Trough: 15-20 mcg/mL Pharmacy Plan for Drug Dosing: Vancomycin trough level of 16.2 was within the target range of 15-20. Will continue dosing at 500mg q12h and re-draw a level in two days. Pharmacy Service will continue to monitor and adjust dosing as required. Follow-Up Labs: Trough Vancomycin Labs to be done on [date and time ordered]: 08/15/22 @0238
[2022-08-13] MEDS: cycloBENZAPRine HCl 10 MG Tablet PO ×3 (05:58→21:05)
[2022-08-13] MEDS: NYSTATIN 500,000 UNIT/5 ML UDC 500000 UNIT PO ×3 (06:35→21:05)
--- NOTE | 2022-08-13 07:21 | PN.HOSP_ITS ---
Subjective Subjective Having pain in back and legs this morning, takes morphine at home, had received Flexeril and oxycodone this morning but continued to have pain. Yesterday right upper quadrant concerning for possible gallbladder source of infection, surgery consulted and n.p.o. at midnight, Patriciaryder now held Objective Data Objective Data Vital Signs: Vital Signs Temp Pulse Resp BP Pulse Ox O2 Del Method O2 Flow Rate 98 F 108 H 22 H 128/70 H 94 Room Air 2 08/13/22 02:30 08/13/22 02:30 08/13/22 02:30 08/13/22 02:30 08/13/22 02:30 08/13/22 02:30 08/11/22 12:20 Oxygen Flow Rate (L/min) 2 Oxygen Delivery Method Room Air Weight: 52.6 kg Body Mass Index (BMI) 18.1 Intake & Output: Intake and Output for Last 24 Hours 08/11/22 08/12/22 08/13/22 23:59 23:59 23:59 Intake Total 3825 / 3825 1490 / 1490 520 / 520 Output Total 1500 / 1500 600 / 600 375 / 375 Balance 2325 / 2325 890 / 890 145 / 145 Medical Nutrition Assessment Dietitian: Malnutrition Criteria Met Start: 08/09/22 11:15 Freq: Status: Active Protocol: Document 08/12/22 12:16 RMA (Rec: 08/12/22 12:16 RMA [id number]) Nutrition Malnutrition Evidence of Malnutrition Exists Yes Malnutrition (severe): Chronic Evidenced By Suboptimal Energy Intake ( Severe),Weight Loss (Severe), Physical Changes (Severe) Intake Problem Inadequate Oral Intake Etiology related to anorexia Signs/Symptoms as evidenced by refusal of meals and ONS Status Active Problem Clinical Problem Chronic Disease or Condition Related Malnutrition Etiology Severe protein-calorie malnutrition in the context of chronic/metastatic disease related to inadequate oral intake and increased energy expenditure Signs/Symptoms as evidenced by 29.8% wt loss and meeting <75% of est nutritional needs x 7 months; obvious fat/muscle wasting in face, torso and upper/lower extremities. Status Active Problem Recommendation Dietitian Recommendations/Changes Continue liberal regular diet as tolerated. Will continue 120 ml ensure plus high protein 4x/day w/ medpass. Magic cup w/ lunch and dinner; fortified foods w/ meals as able. Consider TF support given poor /inadequate oral intake and weight loss. Lab / Micro Data Result Diagrams: 08/13/22 03:21 08/13/22 03:21 Labs: Laboratory Results - last 24 hr 08/12/22 04:15: Diff Path Review Reviewed 08/13/22 03:21: Vancomycin Trough 16.2 H 08/13/22 03:21: WBC 14.6 H, RBC 2.65 L, Hgb 7.8 L, Hct 24.0 L, MCV 90.6, MCH 29.4, MCHC 32.5, RDW Std Deviation 54.7 H, RDW Coeff of Ilia 16.7 H, Plt Count 56 L, MPV 11.7, Neut % (Auto) Not Reportable, Absolute Neuts (auto) 13.2 H, Absolute Lymphs (auto) 0.29 L, Total Counted 100, Neutrophils % (Manual) 90 H, Lymphocytes % (Manual) 2 L, Monocytes % (Manual) 2, Metamyelocytes % 1, Myelocytes % 3 H, Promyelocytes % 1 H, Diff Path Review May foll, Platelet Estimate MOD DEC, RBC Morphology NORM C+C, Anisocytosis 1+ 08/13/22 03:21: Sodium 148 H, Potassium 3.3 L, Chloride 117 H, Carbon Dioxide 22.0, Anion Gap 9, BUN 22 H, Creatinine 1.01, Estim Creat Clear Calc 52.08, Est GFR (MDRD) Af Amer 94, Est GFR (MDRD) Non-Af 78, BUN/Creatinine Ratio 21.8 H, Glucose 102, Calcium 7.2 L Micro: Microbiology 08/12/22 08:00 Mucosa - Nasopharyngeal Respiratory Panel (PCR) - Final 08/11/22 15:55 Urine Catheter - Lyman Urine Culture - Preliminary Gram negative mandy 08/12/22 08:00 Urine, Random Streptococcus pneumoniae Antigen (M - Final 08/12/22 08:00 Urine, Random Legionella Antigen - Final 08/12/22 08:00 Nasal Secretion SARS-CoV-2 & FLU Antigen (Rapid) - Final 08/11/22 13:15 Blood Culture (Wb) - Anticubital Right Blood Culture - Preliminary Gram negative mandy 08/11/22 13:15 Blood Culture (Wb) - Anticubital Left Blood Culture - Preliminary Gram negative mandy Radiography Diagnostic Testing: Radiology Impression Gallbladder Ultrasound 08/12/22 07:33 IMPRESSION: Multiple gallstones and sludge within the gallbladder. Mildly thickened gallbladder wall. Electronically Signed: Pedro Ni MD at 16:15 EST , Echocardiogram 08/12/22 07:37 Interpretation Summary The study was technically limited. Limited views were obtained. Based upon the 2D echocardiographic images obtained there appears to be grossly normal left ventricular size, wall motion, and systolic function. The estimated ejection fraction is 55 %. There is moderate mitral annular calcification. Extension of the mitral annular calcification onto the base of the posterior mitral valve leaflet. Trivial pericardial effusion. There are no echocardiographic indications of cardiac tamponade. Unable to assess diastolic dysfunction. Ordering Physician: Lilliana Santana Referring Physician: Alisa Perla Performed By: Gregoria Laird RCS Physical Exam Const alert Constitutional Narrative: Oriented, appears to be in pain HEENT normocephalic and head/scalp atraumatic Eyes Eyes Narrative: EOM grossly intact, anicteric Neck supple Resp normal respiratory effort Cardio regular rhythm Cardio Narrative: Slightly tachycardic GI non-distended GI Narrative: Somewhat diffusely tender to palpation without any rebound, guarding, rigidity Extremity Extremity Narrative: No edema appreciated Neuro moves all extremities Neuro Narrative: No overt focal deficits appreciated Psych Psych Narrative: Cooperative Assessment & Plan Assessment/Plan (1) Acute encephalopathy: (2) Acute kidney insufficiency: (3) Lung malignancy: PLAN: Plan 66-year-old male here 08/09/2022 with decreased level of consciousness and poor p.o. intake. He was found to have uremia and concerns for dehydration #Sepsis secondary to unclear source Became tachycardic yesterday and had episode of orthostatic hypotension also had elevated lactic acid and increased white blood cell count Pancultures, started on vancomycin and Zosyn for broad coverage Fluids Heart rate and blood pressure improved and lactic returned to normal after antibiotics and fluids Doing much better today CT of the chest reported atypical infectious nodules identified along the periphery of the right and left lower lobes, potential source Does have elevated alk phos and given right upper abdominal pain will get gallbladder ultrasound Cultures are pending Given CT will also evaluate for respiratory source Still mildly tachycardic and CT with small pericardial effusion, will get echo to further characterize this though no overt hemodynamic compromise at this time 08/13: Source concerning for either urinary gallbladder, right upper quadrant ultrasound with multiple gallstones and sludge within the gallbladder, mildly thickened gallbladder wall. Growing gram-negative rods in blood. Is also growing in urine however given his right upper quadrant pain, gallbladder ultrasound, elevated alk phos high concern for gallbladder involvement. Surgery consulted. Patient n.p.o. at midnight, Eliquis held starting this morning. Cul ture sensitivities pending #Acute metabolic encephalopathy secondary to WAN secondary to dehydration CT head negative on admission Has received IV fluids, WAN resolved TSH unremarkable UA negative LFTs improving, ammonia negative Has worsening leukocytosis with worsened left shift, right flank pain, suprapubic tenderness. Will get UA and urine culture repeat, is also tachycardic, cxr showed R sided effusion and nodule, given location of pain and possible ifxn will get CT as recommended though we will have to do so without contrast due to contrast allergy reported and recent WAN 08/12: May have been due to chronic morphine use with decreased kidney function causing decreased clearance. Significantly improved today. At present has oxycodone as needed and abdominal pain and mental status improved yesterday once he got a dose of this #Chronic back and leg pain On morphine at home, concerned this caused/contributed to his altered mental status once he became slightly dehydrated given his decreased kidney function and morphine's illumination through the kidneys, is receiving oxycodone p.o. 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 start sliding scale insulin and Accu-Cheks #Atrial flutter Kathrine On Lipitor for hyperlipidemia #DVT ppx: Kathrine Santana MD Charges/Coding Visit Charges Inpatient E&M: 96538 Subs Hosp L2
[2022-08-13 07:49] VITALS: BP 132/66; PULSE 135; RESP 18; TEMP 36.6; O2SAT 95
[2022-08-13] MEDS: Morphine 2 MG/ML Syringe 0.5 MG IV (07:51)
--- NOTE | 2022-08-13 08:09 | NURSING ---
IV compatibility of calcium gluconate and kcl discussed with Tej in pharmarcy, he states these can be given together.
--- NOTE | 2022-08-13 09:12 | EX.PCM.CON.S ---
Assessment & Plan Assessment/Plan (1) Acute calculous cholecystitis: PLAN: I have evaluated this patient in conjunction with Dr. Mathis. She will independently evaluate this patient. Patient with new onset of right upper quadrant pain. RUQ is tender. RUQ u/s demonstrated multiple gallstones with sludge and mildly thickened gallbladder wall. Patient is also noted to have leukocytosis. Patient recently completed chemotherapy in July. He is malnourished. Patient also has low platelets and is anemic. All the above places the patient at higher risk candidate for a surgical procedure. I would recommend placement of a cholecystostomy tube in radiology. Patient is also on Eliquis with his last dose being yesterday evening. Per radiology, patient will need to hold Eliquis for 2 days prior to procedure. Dr. Mathis will discuss with Dr. Ni if the patient can potentially proceed tomorrow with the obey tube. If that is the case, patient will need to be NPO after midnight. Continue to hold the patient's Eliquis at this time. Thank you for allowing us to participate in this patient's care. HPI Consult Data Date of Consult: 08/14/22 HPI Narrative HPI Narrative: LUIS WEINSTEIN, is a 66 M who presents with acute altered mental status changes. Patient was found to have RUQ abdominal pain on hospitalization day 2. A RUQ ultrasound was ordered demonstrating multiple gallstones and sludge within the gallbladder. Mildly thickened gallbladder wall. Patient was also noted to have an elevated WBC of 11.9 with a left shift. AST and Alk Phos were elevated. Patient states he has had RUQ pain previously however attributed it to kidney stones. Patient notes he has not had much of an appetite however this has been chronic for him. Patient states he has lung cancer and had a lobectomy in January 2022 in [place]. Patient's last chemotherapy treatment was June 2022. Patient does have a right chest port in place. Patient is a previous smoker however stopped in January 2022. Patient rates his abdominal pain at an 8 out of 10. [facility] Medical History Acid reflux Arthritis Atrial flutter Back pain Cardiology follow-up encounter Chronic pain CINV (chemotherapy-induced nausea and vomiting) Constipation COPD (chronic obstructive pulmonary disease) CRF (chronic renal failure) Diabetes mellitus Dysuria Encounter for chemotherapy management Encounter for education Former smoker High cholesterol Hypertension Injury of back Kidney stones Leg cramps Neuropathy Normal stress echocardiogram Regional lymph node metastasis present Smoker Syncope Wears glasses Home Medications atorvastatin 80 mg tablet 80 mg PO DAILY cholesterol 11/26/21 [History Last Taken 08/04/22] cyclobenzaprine 10 mg tablet 10 mg PO TID spasms 11/26/21 [History Last Taken 08/04/22] gabapentin 400 mg capsule 400 mg PO TID nerve pain 11/26/21 [History Last Taken 08/04/22] glyburide 5 mg tablet 5 mg PO DAILY dm 11/26/21 [History Last Taken 08/04/22] morphine 15 mg immediate release tablet 15 mg PO BID PRN Pain 11/26/21 [History Last Taken 08/04/22] trazodone 100 mg tablet 100 mg PO QHS PRN Sleep 11/26/21 [History Last Taken 08/03/22] apixaban 5 mg tablet (Eliquis) 5 mg PO BID blood thinner 03/26/22 [History Last Taken 08/04/22] lidocaine-prilocaine 2.5 %-2.5 % topical cream 1 applic topical ONCE PRN port access 30 days #30 grams 03/27/22 [Rx Last Taken Unknown] nystatin 100,000 unit/mL oral suspension 500,000 unit PO TID thrush 08/04/22 [History Last Taken 08/04/22] food supplemt, lactose-reduced 0.08 gram-1.5 kcal/mL oral liquid (Ensure Plus High Protein) 120 ml PO 4X/DAY #30 BOTTLES 08/06/22 [Rx Last Taken Unknown] pantoprazole 40 mg tablet,delayed release 40 mg PO BID #60 tabs 08/06/22 [Rx Last Taken Unknown] Allergy/AdvReac Type Severity Reaction Status Date / Time Iodinated Contrast Media Allergy Unknown Other Verified 08/04/22 14:06 Family History Mother Cancer Father Cancer Son Cancer Surgical History H/O lithotripsy History of hip replacement Previous back surgery S/P lobectomy of lung Status post surgical removal of neoplasm of skin Trigger finger Social History household members: spouse housing: house Smoking Status: Former smoker quit date: 01/01/22 pack-years: 30 Tobacco: How many years used: 30 how long ago did patient quit smoking: hasn't smoked since diagnosis 01/2022 second hand exposure: Yes alcohol intake: never substance use type: does not use ROS Constitutional Constitutional: Reports malaise and weakness Eyes Eyes: Reports systems reviewed and no addt'l complaints, except as documented ENT HEENT: Reports systems reviewed and no addt'l complaints, except as documented Cardiovascular Cardiovascular: Reports systems reviewed and no addt'l complaints, except as documented Respiratory/Chest Respiratory/Chest: Reports cough Gastrointestinal Gastrointestinal: Reports systems reviewed and no addt'l complaints, except as documented Genitourinary Genitourinary: Reports systems reviewed and no addt'l complaints, except as documented Musculoskeletal Musculoskeletal: Reports systems reviewed and no addt'l complaints, except as documented Integumentary Integumentary: Reports systems reviewed and no addt'l complaints, except as documented Neurologic Neurologic: Reports systems reviewed and no addt'l complaints, except as documented Psychiatric Psychiatric: Reports systems reviewed and no addt'l complaints, except as documented Endocrine Endocrinology: Reports systems reviewed and no addt'l complaints, except as documented Hematologic/Lymphatic Hematologic/Lymphatic: Reports systems reviewed and no addt'l complaints, except as documented Allergic/Immunologic Allergic/Immunologic: Reports systems reviewed and no addt'l complaints, except as documented Physical Exam Const alert, oriented x3 and no apparent distress Constitutional Narrative: Patient was moaning in pain from his back and bilateral legs HEENT normocephalic and head/scalp atraumatic Eyes PERRL Neck full ROM Lymph Lymphatic: no lymphadenopathy noted Chest Chest Narrative: Right chest port in place Resp Auscultation: wheezes Cardio Rate: tachycardic GI soft to palpation Auscultation: hypoactive bowel sounds Palpation: tender RUQ no CVA tenderness Back/Spine no CVA tenderness Extremity General Extremity: atrophy Skin no rashes or lesions noted Neuro CN's II-XII intact bilaterally Psych cooperative Medical Records Data Medical Nutrition Assessment Dietitian: Malnutrition Criteria Met Start: 08/09/22 11:15 Freq: Status: Active Protocol: Document 08/12/22 12:16 RMA (Rec: 08/12/22 12:16 RMA [id number]) Nutrition Malnutrition Evidence of Malnutrition Exists Yes Malnutrition (severe): Chronic Evidenced By Suboptimal Energy Intake ( Severe),Weight Loss (Severe), Physical Changes (Severe) Intake Problem Inadequate Oral Intake Etiology related to anorexia Signs/Symptoms as evidenced by refusal of meals and ONS Status Active Problem Clinical Problem Chronic Disease or Condition Related Malnutrition Etiology Severe protein-calorie malnutrition in the context of chronic/metastatic disease related to inadequate oral intake and increased energy expenditure Signs/Symptoms as evidenced by 29.8% wt loss and meeting <75% of est nutritional needs x 7 months; obvious fat/muscle wasting in face, torso and upper/lower extremities. Status Active Problem Recommendation Dietitian Recommendations/Changes Continue liberal regular diet as tolerated. Will continue 120 ml ensure plus high protein 4x/day w/ medpass. Magic cup w/ lunch and dinner; fortified foods w/ meals as able. Consider TF support given poor /inadequate oral intake and weight loss. Lab / Micro Data Result Diagrams: 08/14/22 03:45 08/14/22 03:45 Labs: Laboratory Results - last 24 hr 08/12/22 04:15: Diff Path Review Reviewed 08/13/22 03:21: Vancomycin Trough 16.2 H 08/13/22 03:21: WBC 14.6 H, RBC 2.65 L, Hgb 7.8 L, Hct 24.0 L, MCV 90.6, MCH 29.4, MCHC 32.5, RDW Std Deviation 54.7 H, RDW Coeff of Ilia 16.7 H, Plt Count 56 L, MPV 11.7, Neut % (Auto) Not Reportable, Absolute Neuts (auto) 13.2 H, Absolute Lymphs (auto) 0.29 L, Total Counted 100, Neutrophils % (Manual) 90 H, Lymphocytes % (Manual) 2 L, Monocytes % (Manual) 2, Metamyelocytes % 1, Myelocytes % 3 H, Promyelocytes % 1 H, Diff Path Review May foll, Platelet Estimate MOD DEC, RBC Morphology NORM C+C, Anisocytosis 1+ 08/13/22 03:21: Sodium 148 H, Potassium 3.3 L, Chloride 117 H, Carbon Dioxide 22.0, Anion Gap 9, BUN 22 H, Creatinine 1.01, Estim Creat Clear Calc 52.08, Est GFR (MDRD) Af Amer 94, Est GFR (MDRD) Non-Af 78, BUN/Creatinine Ratio 21.8 H, Glucose 102, Calcium 7.2 L Micro: Microbiology 08/11/22 13:15 Blood Culture (Wb) - Anticubital Left Blood Culture - Final Gram negative mandy 08/11/22 13:15 Blood Culture (Wb) - Anticubital Right Blood Culture - Final Escherichia coli 08/11/22 15:55 Urine Catheter - Lyman Urine Culture - Final Escherichia coli 08/12/22 08:00 Mucosa - Nasopharyngeal Respiratory Panel (PCR) - Final 08/12/22 08:00 Urine, Random Streptococcus pneumoniae Antigen (M - Final 08/12/22 08:00 Urine, Random Legionella Antigen - Final 08/12/22 08:00 Nasal Secretion SARS-CoV-2 & FLU Antigen (Rapid) - Final Radiology Impression Gallbladder Ultrasound 08/12/22 07:33 IMPRESSION: Multiple gallstones and sludge within the gallbladder. Mildly thickened gallbladder wall. Electronically Signed: Pedro Ni MD at 16:15 EST , Echocardiogram 08/12/22 07:37 Interpretation Summary The study was technically limited. Limited views were obtained. Based upon the 2D echocardiographic images obtained there appears to be grossly normal left ventricular size, wall motion, and systolic function. The estimated ejection fraction is 55 %. There is moderate mitral annular calcification. Extension of the mitral annular calcification onto the base of the posterior mitral valve leaflet. Trivial pericardial effusion. There are no echocardiographic indications of cardiac tamponade. Unable to assess diastolic dysfunction. Ordering Physician: Lilliana Santana Referring Physician: Alisa Perla Performed By: Gregoria Laird RCS Charges/Coding Visit Charges Office Visits / Consults: 91857 IP Consult L3
--- NOTE | 2022-08-13 09:56 | CASEMGMT ---
Addendum entered by Elizabeth Beck 08/13/22 11:16: Social Work SW spoke w/ briefly, let her know pt's name is on the list for TCU and it's possible there may be a bed when pt is ready. She is still saying prefers to take pt home if possible. SW will continue to follow. HARMEET Vu Original Note: Social Work Pt's and daughter Carla called back to discuss discharge plan. SW spoke w/them about going to a prison. Initially, they were not agreeable as they state pt does not want to go. He wants to be home and he questions the care in the facilities. We did discuss TCU as a possible option, they do think he would be in agreement with TCU possibly. SW explained that TCU may not have any openings but we can call to find out. We also discussed returning home, and pt and family prefer this option. SW reviewed therapy notes with family. As per family, , daughter Carla who is here from [place] and two nephews(who are 30 and 21) will all be home and available to help pt. They asked about home care and DME. They also asked about pt getting a feeding tube in the nose. SW explained they will need to follow up w/the physician about the feeding tube. In regard to home care and DME, SW explained can have the casey saw operator call them about this. Both state understanding. SW called TCU, placed pt on list, though pt may be ready for discharge before there is a bed available. SD notified CM that family would like to know more about HHC and DME. HARMEET Vu
[2022-08-13] MEDS: Calcium Carbonate 500 MG Tablet 1000 MG PO (10:02)
[2022-08-13] MEDS: Potassium Chloride Oral Tablet 20 MEQ 40 MEQ PO (10:02)
[2022-08-13] MEDS: Pantoprazole Sodium 40 MG Tablet PO ×2 (10:03→19:50)
[2022-08-13] MEDS: Lactated Ringers 1,000 ML 100 ML IV (10:51)
[2022-08-13 11:42] VITALS: O2SAT 95
[2022-08-13 12:31] LABS: International Normalized Ratio 1.5; Partial Thromboplast Time 36.3 Seconds (24.1-36.2); Prothrombin Time (Protime)PT. 18.2 SECONDS (11.7-14.9)
[2022-08-13 13:38] VITALS: BP 113/55; PULSE 129; RESP 18; TEMP 36.4; O2SAT 99
[2022-08-13] MEDS: Ensure Plus High Protein 120 ML LIQUID PO (19:52)
[2022-08-13 21:00] VITALS: BP 135/67; PULSE 119; RESP 18; TEMP 36.6; O2SAT 96
[2022-08-13] MEDS: Atorvastatin Calcium 80 MG Tablet PO (21:05)
[2022-08-14] VITALS (7 sets, daily range): BP systolic 118–131; BP diastolic 69–79; PULSE 100–125; RESP 16–18; TEMP 36.3–36.6; O2SAT 99–100; BMI 18.1
--- NOTE | 2022-08-14 00:08 | NURSING ---
Pt vad bleeding. Pt pulled on it and pulled the gripper off. New 20g 3/4 gripper applied. Instructed pt not to pull on it
[2022-08-14] MEDS: oxyCODONE 5 MG Tablet PO ×5 (01:59→23:13)
[2022-08-14] MEDS: Vancomycin IV 500 MG/100 ML BAG 100 MG IV (02:02)
[2022-08-14] MEDS: 0.9% Saline Lock 10 ML Syringe IV (02:02)
[2022-08-14 04:24] LABS: Hematocrit 23.7 % (40-54); Hemoglobin 7.4 g/dL (13.0-16.5); Mean Corp Hgb Conc 31.2 g/dL (32-36); Mean Corpuscular Volume 89.8 fL (80-94); POSITIVE COUNT YES; POSITIVE DIFFERENTIAL YES; POSITIVE MORPHOLOGY YES; Platelet Count 24 K/mm3 (150-450); RBC Distribution Width SD 54.6 fl (35.1-43.9); Red Blood Count 2.64 M/mm3 (4.6-6.2); White Blood Count 13.3 K/mm3 (4.4-11.0)
[2022-08-14 04:36] LABS: Differential Indicated MANUAL DIFF
[2022-08-14 04:45] LABS: Anisocytosis 1+; Platelet Estimate MKD DEC (ADEQ)
[2022-08-14 04:54] LABS: Absolute Neutrophil Count 12.2 X10^3/uL (2.0-7.7); Blast 1 % (0-0); Metamyelocyte 1 % (0-1); Myelocyte 2 % (0-0); Neutrophil-Band 7 % (0-5); Neutrophil-Segmented 85 % (47-70); Total Cells Counted 100 (MANUAL DIFF)
[2022-08-14 04:55] LABS: ALB/GLOB Ratio 0.4 RATIO (0.9-2.4); AST(SGOT) 61 U/L (15-37); Alanine Aminotransfer ALT/SGPT 33 U/L (16-61); Albumin, Serum 1.3 g/dL (3.2-5.0); Alkaline Phosphatase 374 U/L (45-117); Anion Gap 10 (5-15); BUN 23 mg/dL (7-18); BUN/Creat Ratio 20.2 RATIO (10-20); Burr Cells 2+; Calcium,Total 7.3 mg/dL (8.5-10.1); Chloride 115 mmol/L (98-107); Creatinine, Serum 1.14 mg/dL (0.70-1.30); EST Glomerular Filtration Rate 68 mL/min (>60); Est Glom Filt Rate - Afr Amer 82 mL/min (>60); Estimated Creatinine Clearance 46.14 ml/min; Globulin 3.5 g/dL (2.2-4.2); Glucose 134 mg/dL (74-106); Lymphocyte 3 % (19-41); Monocyte 1 % (0-10); Potassium 3.3 mmol/L (3.5-5.1); Protein, Total 4.8 g/dL (6.4-8.2); Sodium Level 146 mmol/L (136-145)
[2022-08-14 06:35] LABS: Bedside Glucose 126 mg/dL (74-106)
--- NOTE | 2022-08-14 06:52 | NURSING ---
update given to mohit rocha in rad
--- NOTE | 2022-08-14 07:16 | PN.HOSP_ITS ---
Subjective Subjective This morning reports feeling slightly short of breath a slight cough, abdomen feeling better overall, he is having bowel movements. Platelets dropped to 24 and has 1% blasts and IR procedure held Objective Data Objective Data Vital Signs: Vital Signs Temp Pulse Resp BP Pulse Ox O2 Del Method O2 Flow Rate 97.8 F 118 H 18 121/73 H 100 Room Air 2 08/14/22 06:04 08/14/22 06:04 08/14/22 06:04 08/14/22 06:04 08/14/22 06:04 08/14/22 06:04 08/11/22 12:20 Oxygen Flow Rate (L/min) 2 Oxygen Delivery Method Room Air Weight: 52.6 kg Body Mass Index (BMI) 18.1 Intake & Output: Intake and Output for Last 24 Hours 08/12/22 08/13/22 08/14/22 23:59 23:59 23:59 Intake Total 1490 / 1490 1820 / 2060 390 / 390 Output Total 600 / 600 725 / 975 350 / 350 Balance 890 / 890 1095 / 1085 40 / 40 Medical Nutrition Assessment Dietitian: Malnutrition Criteria Met Start: 08/09/22 11:15 Freq: Status: Active Protocol: Document 08/12/22 12:16 RMA (Rec: 08/12/22 12:16 RMA [id number]) Nutrition Malnutrition Evidence of Malnutrition Exists Yes Malnutrition (severe): Chronic Evidenced By Suboptimal Energy Intake ( Severe),Weight Loss (Severe), Physical Changes (Severe) Intake Problem Inadequate Oral Intake Etiology related to anorexia Signs/Symptoms as evidenced by refusal of meals and ONS Status Active Problem Clinical Problem Chronic Disease or Condition Related Malnutrition Etiology Severe protein-calorie malnutrition in the context of chronic/metastatic disease related to inadequate oral intake and increased energy expenditure Signs/Symptoms as evidenced by 29.8% wt loss and meeting <75% of est nutritional needs x 7 months; obvious fat/muscle wasting in face, torso and upper/lower extremities. Status Active Problem Recommendation Dietitian Recommendations/Changes Continue liberal regular diet as tolerated. Will continue 120 ml ensure plus high protein 4x/day w/ medpass. Magic cup w/ lunch and dinner; fortified foods w/ meals as able. Consider TF support given poor /inadequate oral intake and weight loss. Lab / Micro Data Result Diagrams: 08/14/22 03:45 08/14/22 03:45 Labs: Laboratory Results - last 24 hr 08/13/22 12:00: PT 18.2 H, INR 1.5, APTT 36.3 H 08/14/22 03:45: WBC 13.3 H, RBC 2.64 L, Hgb 7.4 L, Hct 23.7 L, MCV 89.8, MCH 28.0, MCHC 31.2 L, RDW Std Deviation 54.6 H, RDW Coeff of Ilia 17.0 H, Plt Count 24 L*, Neut % (Auto) Not Reportable, Absolute Neuts (auto) 12.2 H, Absolute Lymphs (auto) 0.40 L, Total Counted 100, Neutrophils % (Manual) 85 H, Band Neutrophils % 7 H, Lymphocytes % (Manual) 3 L, Monocytes % (Manual) 1, Metamyelocytes % 1, Myelocytes % 2 H, Blast Cells % 1 H*, Diff Path Review May , Platelet Estimate MKD DEC, Anisocytosis 1+, [place] Cells 2+ 08/14/22 03:45: Sodium 146 H, Potassium 3.3 L, Chloride 115 H, Carbon Dioxide 21.0, Anion Gap 10, BUN 23 H, Creatinine 1.14, Estim Creat Clear Calc 46.14, Est GFR (MDRD) Af Amer 82, Est GFR (MDRD) Non-Af 68, BUN/Creatinine Ratio 20.2 H, Glucose 134 H, Calcium 7.3 L, Total Bilirubin 0.80, AST 61 H, ALT 33, Alkaline Phosphatase 374 H, Total Protein 4.8 L, Albumin 1.3 L, Globulin 3.5, Albumin/Globulin Ratio 0.4 L 08/14/22 06:13: POC Glucose 126 H Micro: Microbiology 08/11/22 13:15 Blood Culture (Wb) - Anticubital Left Blood Culture - Final Gram negative mandy 08/11/22 13:15 Blood Culture (Wb) - Anticubital Right Blood Culture - Final Escherichia coli 08/11/22 15:55 Urine Catheter - Lyman Urine Culture - Final Escherichia coli 08/12/22 08:00 Mucosa - Nasopharyngeal Respiratory Panel (PCR) - Final 08/12/22 08:00 Urine, Random Streptococcus pneumoniae Antigen (M - Final 08/12/22 08:00 Urine, Random Legionella Antigen - Final 08/12/22 08:00 Nasal Secretion SARS-CoV-2 & FLU Antigen (Rapid) - Final Physical Exam Const alert Constitutional Narrative: Oriented, no acute distress HEENT normocephalic and head/scalp atraumatic Eyes Eyes Narrative: EOM grossly intact, anicteric Neck supple Resp normal respiratory effort Cardio regular rhythm Cardio Narrative: Slightly tachycardic GI non-distended GI Narrative: Somewhat diffusely tender to palpation without any rebound, guarding, rigidity Extremity Extremity Narrative: No edema appreciated Neuro moves all extremities Neuro Narrative: No overt focal deficits appreciated Psych Psych Narrative: Cooperative Assessment & Plan Assessment/Plan (1) Acute encephalopathy: (2) Acute kidney insufficiency: (3) Lung malignancy: PLAN: Plan 66-year-old male here 08/09/2022 with decreased level of consciousness and poor p.o. intake. He was found to have uremia and concerns for dehydration #Sepsis secondary to likely gallbladder source w/ Ucx also positive Became tachycardic yesterday and had episode of orthostatic hypotension also had elevated lactic acid and increased white blood cell count Pancultures, started on vancomycin and Zosyn for broad coverage Fluids Heart rate and blood pressure improved and lactic returned to normal after antibiotics and fluids Doing much better today CT of the chest reported atypical infectious nodules identified along the periphery of the right and left lower lobes, potential source Does have elevated alk phos and given right upper abdominal pain will get gallbladder ultrasound Cultures are pending Given CT will also evaluate for respiratory source Still mildly tachycardic and CT with small pericardial effusion, will get echo to further characterize this though no overt hemodynamic compromise at this time 08/13: Source concerning for either urinary gallbladder, right upper quadrant ultrasound with multiple gallstones and sludge within the gallbladder, mildly thickened gallbladder wall. Growing gram-negative rods in blood. Is also growing in urine however given his right upper quadrant pain, gallbladder ultrasound, elevated alk phos high concern for gallbladder involvement. Surgery consulted. Patient n.p.o. at midnight, Eliquis held starting this morning. Culture sensitivities pending 08/14: Was sent for obey tube today via IR however platelets dropped to 24 and notably has 1% blasts. Does have non-small cell lung cancer, right upper lobe Path stage IIb poorly differentiated G3 with metastasis to 1 interlobular lymph node and lymphovascular invasion. Received 4 cycles of adjuvant carboplatin from April to June 2022 but had excessive toxicities. Chest CT with nodules, possibly atypical infectious. Dr. Villela consulted. Additionally E. coli sensitivities back and resistant to Zosyn, Vanco discontinued and switched to cefepime #Acute metabolic encephalopathy secondary to WAN secondary to dehydration CT head negative on admission Has received IV fluids, WAN resolved TSH unremarkable UA negative LFTs improving, ammonia negative Has worsening leukocytosis with worsened left shift, right flank pain, suprapubic tenderness. Will get UA and urine culture repeat, is also tachycardic, cxr showed R sided effusion and nodule, given location of pain and possible ifxn will get CT as recommended though we will have to do so without contrast due to contrast allergy reported and recent WAN 08/12: May have been due to chronic morphine use with decreased kidney function causing decreased clearance. Significantly improved today. At present has oxycodone as needed and abdominal pain and mental status improved yesterday once he got a dose of this 08/14: Improved #Chronic back and leg pain On morphine at home, concerned this caused/contributed to his altered mental status once he became slightly dehydrated given his decreased kidney function and morphine's illumination through the kidneys, is receiving oxycodone p.o. 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 start sliding scale insulin and Accu-Cheks #Atrial flutter Kathrine held On Lipitor for hyperlipidemia Not presently on rate control and has had an elevated rate even with antibiotics and fluids and clinical improvement, will start small dose of metoprolol #DVT ppx: Kathrine held, SCDs Lilliana Santana MD Charges/Coding Visit Charges Inpatient E&M: 15601 Subs Hosp L2
--- NOTE | 2022-08-14 09:04 | NURSING ---
DR DE GUZMAN CONSULTED
[2022-08-14] MEDS: Potassium Chloride Oral Tablet 20 MEQ 60 MEQ PO (09:19)
[2022-08-14] MEDS: Metoprolol Tartrate 25 MG Tablet 12.5 MG PO ×2 (09:20→20:11)
[2022-08-14] MEDS: Pantoprazole Sodium 40 MG Tablet PO ×2 (09:20→20:11)
[2022-08-14 09:30] LABS: Pathologist Review Reviewed
[2022-08-14 10:09] LABS: Hemoglobin A1c 5.8 % (3.8-5.6)
[2022-08-14 10:28] LABS: International Normalized Ratio 1.2; Prothrombin Time (Protime)PT. 14.9 SECONDS (11.7-14.9)
[2022-08-14 10:29] LABS: Partial Thromboplast Time 30.8 Seconds (24.1-36.2)
[2022-08-14 10:34] LABS: Fibrinogen 577 mg/dl (203-444)
--- NOTE | 2022-08-14 10:41 | CON.PCM.ON_ITS ---
Assessment & Plan Assessment/Plan (1) Leukocytosis: Status: Acute Code(s): D72.829 - Elevated white blood cell count, unspecified Qualifiers: Leukocytosis type: leukemoid reaction Qualified Code(s): D72.823 - Leukemoid reaction Plan: Secondary to infection/ sepsis. Suspected G.B. disease Defer to primary service for management. (2) Leukemoid reaction: Status: Acute Code(s): D72.823 - Leukemoid reaction (3) Anemia: Status: Chronic Code(s): D64.9 - Anemia, unspecified Plan: multifactorial; chronic disease anemia, acute inflammation on top . Need further evaluation for possible GI pathology with chronic blood loss once medically stable unless an acute bleed becomes evident. Transfuse with PRBCS to maintain HB at or above 8 g/dl. (4) Thrombocytopenia: Status: Acute Code(s): D69.6 - Thrombocytopenia, unspecified Plan: Severe, acute onset in August 2022 most consistent with sepsis and drug induced thrombocytopenia (antibiotics). Noted antibiotics changes, Vancomycin discontinued. Platelets generally recover within 1 week of stopping offending drug(s) Prophylactic platelets transfusion if PLT <10K in absence of active bleeds Apixaban is on hold. Use non-pharmacologic DVT/VTE prophylaxis and avoid NSAIDS. He's no evidence to suggest DIC (PT/PTT normalized and fibrinogen elevated consistent with acute phase reaction) (5) Lung malignancy: Status: Chronic Code(s): C34.90 - Malignant neoplasm of unspecified part of unspecified bronchus or lung Plan: Concluded definitive therapy June 2022 and will continue on outpatient surveillance. (6) Metastatic malignant neoplasm to regional lymph node: Status: Chronic Code(s): C77.9 - Secondary and unspecified malignant neoplasm of lymph node, unspecified HPI Consult Data Date of Service:: 08/14/22 PCP / Referring Provider: Dr. Alisa Perla DO Attending: Dr. Lilliana Santana MD Chief Complaint Chief Complaint: Altered mental status History of Present Illness History of Present Illness: 66-year-old male hospitalized August 09, 2022 with altered mental status with suspected sepsis and calculi or cholecystitis and noted to have a leukocytosis, anemia, progressively worsening thrombocytopenia and immature myeloid cells on peripheral blood. 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: Laboratory Tests 07/21/22 08/05/22 08/06/22 09:20 06:07 09:30 WBC 8.3 7.7 Hgb 8.7 L 7.1 L Plt Count 167 154 118 L Absolute Neuts (auto) 6.8 6.2 PT APTT Fibrinogen 08/08/22 08/13/22 08/14/22 22:55 12:00 03:45 WBC 16.2 H 13.3 H Hgb 9.2 L 7.4 L Plt Count 125 L 24 L* Absolute Neuts (auto) 14.4 H 12.2 H PT 18.2 H APTT 36.3 H Fibrinogen 08/14/22 10:10 WBC Hgb Plt Count Absolute Neuts (auto) PT 14.9 APTT 30.8 Fibrinogen 577 H His past medical history is notable for non-small cell lung cancer pathologic stage IIb status post robotic right upper lobectomy with regional and mediastinal lymphadenectomy at [facility] in January 2022 and received postoperative adjuvant systemic chemo therapy with carbo [place] and Alimta April 03 through June 13, 2022. For lung cancer treatment was with intent to cure and he is on surveillance now. Chronic medical problems include diabetes, chronic renal failure, hypertension, GERD, dyslipidemia, chronic anticoagulant therapy and memory impairment. Advanced Directives Power of Farmworker Bulbs: No Living Will: No PFSH Medical History Acid reflux Arthritis Atrial flutter Back pain Cardiology follow-up encounter Chronic pain CINV (chemotherapy-induced nausea and vomiting) Constipation COPD (chronic obstructive pulmonary disease) CRF (chronic renal failure) Diabetes mellitus Dysuria Encounter for chemotherapy management Encounter for education Former smoker High cholesterol Hypertension Injury of back Kidney stones Leg cramps Neuropathy Normal stress echocardiogram Regional lymph node metastasis present Smoker Syncope Wears glasses Home Medications atorvastatin 80 mg tablet 80 mg PO DAILY cholesterol 11/26/21 [History Last Taken 08/04/22] cyclobenzaprine 10 mg tablet 10 mg PO TID spasms 11/26/21 [History Last Taken 08/04/22] gabapentin 400 mg capsule 400 mg PO TID nerve pain 11/26/21 [History Last Taken 08/04/22] glyburide 5 mg tablet 5 mg PO DAILY dm 11/26/21 [History Last Taken 08/04/22] morphine 15 mg immediate release tablet 15 mg PO BID PRN Pain 11/26/21 [History Last Taken 08/04/22] trazodone 100 mg tablet 100 mg PO QHS PRN Sleep 11/26/21 [History Last Taken 08/03/22] apixaban 5 mg tablet (Eliquis) 5 mg PO BID blood thinner 03/26/22 [History Last Taken 08/04/22] lidocaine-prilocaine 2.5 %-2.5 % topical cream 1 applic topical ONCE PRN port access 30 days #30 grams 03/27/22 [Rx Last Taken Unknown] nystatin 100,000 unit/mL oral suspension 500,000 unit PO TID thrush 08/04/22 [History Last Taken 08/04/22] food supplemt, lactose-reduced 0.08 gram-1.5 kcal/mL oral liquid (Ensure Plus High Protein) 120 ml PO 4X/DAY #30 BOTTLES 08/06/22 [Rx Last Taken Unknown] pantoprazole 40 mg tablet,delayed release 40 mg PO BID #60 tabs 08/06/22 [Rx Last Taken Unknown] Allergy/AdvReac Type Severity Reaction Status Date / Time Iodinated Contrast Media Allergy Unknown Other Verified 08/04/22 14:06 Family History Mother Cancer Father Cancer Son Cancer Surgical History H/O lithotripsy History of hip replacement Previous back surgery S/P lobectomy of lung Status post surgical removal of neoplasm of skin Trigger finger Social History household members: spouse housing: house Smoking Status: Former smoker quit date: 01/01/22 pack-years: 30 Tobacco: How many years used: 30 how long ago did patient quit smoking: hasn't smoked since diagnosis 01/2022 second hand exposure: Yes alcohol intake: never substance use type: does not use ROS ROS Narrative Limited by patient's mental status (chronic recent memory impairment +/- acute confusion) Constitutional Constitutional: Reports chills, fatigue, fever(s), poor appetite and weight loss; Denies night sweats ENT HEENT: Reports dysphagia Cardiovascular Cardiovascular: Reports dyspnea; Denies chest pain or edema Respiratory/Chest Respiratory/Chest: Reports cough and dyspnea; Denies hemoptysis or wheezing Gastrointestinal Gastrointestinal: Reports abdominal pain, anorexia, constipation, dysphagia, nausea, vomiting and other Details: vomiting average once/ day ; Denies change in bowel habits, hematochezia or melena Genitourinary Genitourinary: Reports other Details: Has a Foly's ; Denies dysuria or hematuria Musculoskeletal Musculoskeletal: Reports back pain and other Details: chronic back pain Integumentary Integumentary: Denies new lesions, pruritus or rash Neurologic Neurologic: Reports confusion and other; Denies focal weakness or headache(s) Hematologic/Lymphatic Hematologic/Lymphatic: Reports easy bruising; Denies lymphadenopathy Physical Exam Const General Appearance: ill appearing Positive for chronically, frail and appears older than stated age Orientation / Consciousness: oriented to person and oriented to place; Negative for oriented to time Nutritional Appearance: thin HEENT normocephalic and oropharynx normal Mouth: dry mucous membranes Eyes no scleral icterus Neck no lymphadenopathy and no JVD Resp clear to auscultation bilaterally Auscultation: diminished lung sounds bilateral and diffuse Cardio regular rate and regular rhythm GI soft to palpation and no masses Palpation: Negative for hepatomegaly or splenomegaly Bladder / Kidney Exam: catheter in place Extremity no clubbing, cyanosis or edema Skin no rashes or lesions noted Neuro moves all extremities and no focal motor deficits Motor Exam: general weakness Psych Psych Narrative: Poor recent memory Vital Signs Temperature 97.4 F L 08/14/22 09:15 Temperature Source Oral 08/14/22 09:15 Pulse Rate 113 H 08/14/22 09:20 Pulse Strength Normal (2+) 08/12/22 00:25 Respiratory Rate 18 08/14/22 09:15 Respiratory Effort Non-Labored 08/14/22 08:00 Respiratory Depth Normal 08/14/22 08:00 Respiratory Pattern Normal 08/14/22 08:00 Blood Pressure 131/79 H 08/14/22 09:15 Blood Pressure Mean 96 08/14/22 09:15 Blood Pressure Source Monitor 08/14/22 09:15 Blood Pressure Position Semi-Fowlers 08/14/22 09:15 Blood Pressure Location Right Arm 08/14/22 09:15 Pulse Ox 99 08/14/22 09:15 Oxygen Delivery Method Room Air 08/14/22 09:15 Oxygen Flow Rate (L/min) 2 08/11/22 12:20 Laboratory Results - last 24 hr 08/13/22 03:21: Diff Path Review Reviewed 08/13/22 12:00: PT 18.2 H, INR 1.5, APTT 36.3 H 08/14/22 03:45: WBC 13.3 H, RBC 2.64 L, Hgb 7.4 L, Hct 23.7 L, MCV 89.8, MCH 28.0, MCHC 31.2 L, RDW Std Deviation 54.6 H, RDW Coeff of Ilia 17.0 H, Plt Count 24 L*, Neut % (Auto) Not Reportable, Absolute Neuts (auto) 12.2 H, Absolute Lymphs (auto) 0.40 L, Total Counted 100, Neutrophils % (Manual) 85 H, Band Neutrophils % 7 H, Lymphocytes % (Manual) 3 L, Monocytes % (Manual) 1, Metamyelocytes % 1, Myelocytes % 2 H, Blast Cells % 1 H*, Diff Path Review May foll, Platelet Estimate MKD DEC, Anisocytosis 1+, [place] Cells 2+ 08/14/22 03:45: Sodium 146 H, Potassium 3.3 L, Chloride 115 H, Carbon Dioxide 21.0, Anion Gap 10, BUN 23 H, Creatinine 1.14, Estim Creat Clear Calc 46.14, Est GFR (MDRD) Af Amer 82, Est GFR (MDRD) Non-Af 68, BUN/Creatinine Ratio 20.2 H, Glucose 134 H, Calcium 7.3 L, Total Bilirubin 0.80, AST 61 H, ALT 33, Alkaline Phosphatase 374 H, Total Protein 4.8 L, Albumin 1.3 L, Globulin 3.5, Albumin/Globulin Ratio 0.4 L 08/14/22 03:45: Hemoglobin A1c 5.8 H 08/14/22 06:13: POC Glucose 126 H 08/14/22 10:10: PT 14.9, INR 1.2, APTT 30.8, Fibrinogen 577 H I personally reviewed peripheral blood smear with pathology colleague. He's a neutrophilic leukocytosis with a left shift . Blasts not increased consistent with an acute phase reaction (Leukomoid). Platelets markedly decreased and erythroid series unremarkable. Microbiology 08/11/22 13:15 Blood Culture (Wb) - Anticubital Left Blood Culture - Final Gram negative mandy 08/11/22 13:15 Blood Culture (Wb) - Anticubital Right Blood Culture - Final Escherichia coli 08/11/22 15:55 Urine Catheter - Lyman Urine Culture - Final Escherichia coli Diagnostic Data Chest X-Ray 08/08/22 22:35 IMPRESSION: Right lower lobe nodule which was not present on the previous exam. Further evaluation with CT scan of the chest may be beneficial. There is blunting the right costophrenic angle compatible with pleural effusion or scarring. Right-sided Port-A-Cath in stable position. Electronically Signed: Jean Carlos Dunne MD at 22:58 EST , Brain CT 08/09/22 02:02 IMPRESSION: Chronic involutional changes of the brain. Electronically Signed: Eve Arce MD at 3:01 EST , Chest CT 08/11/22 09:44 IMPRESSION: Atypical infectious nodules are identified along the periphery of the right and left lower lobes. Small pericardial effusion. Electronically Signed: John Wakefield MD at 1:33 EST , Gallbladder Ultrasound 08/12/22 07:33 IMPRESSION: Multiple gallstones and sludge within the gallbladder. Mildly thickened gallbladder wall. Electronically Signed: Pedro Ni MD at 16:15 EST , Echocardiogram 08/12/22 07:37 Interpretation Summary The study was technically limited. Limited views were obtained. Based upon the 2D echocardiographic images obtained there appears to be grossly normal left ventricular size, wall motion, and systolic function. The estimated ejection fraction is 55 %. There is moderate mitral annular calcification. Extension of the mitral annular calcification onto the base of the posterior mitral valve leaflet. Trivial pericardial effusion. There are no echocardiographic indications of cardiac tamponade. Unable to assess diastolic dysfunction. Ordering Physician: Lilliana Santana Referring Physician: Alisa Perla Performed By: Gregoria Laird RCS
--- NOTE | 2022-08-14 12:12 | PCM.PN.SRG ---
Subjective Subjective Patient tolerated clears. Patient unable to have Marisol today as his platelets dropped to 24,000. Oncology was consulted. Objective Data Objective Data Vital Signs: Vital Signs Temp Pulse Resp BP Pulse Ox O2 Del Method O2 Flow Rate 97.4 F L 113 H 18 131/79 H 99 Room Air 2 08/14/22 09:15 08/14/22 09:20 08/14/22 09:15 08/14/22 09:15 08/14/22 09:15 08/14/22 09:15 08/11/22 12:20 Oxygen Flow Rate (L/min) 2 Oxygen Delivery Method Room Air Weight: 115 lb 15.41 oz Body Mass Index (BMI) 18.1 Intake & Output: Intake and Output for Last 24 Hours 08/12/22 08/13/22 08/14/22 23:59 23:59 23:59 Intake Total 1490 / 1490 1820 / 2060 540 / 540 Output Total 600 / 600 725 / 975 350 / 350 Balance 890 / 890 1095 / 1085 190 / 190 Medical Nutrition Assessment Dietitian: Malnutrition Criteria Met Start: 08/09/22 11:15 Freq: Status: Active Protocol: Document 08/12/22 12:16 RMA (Rec: 08/12/22 12:16 RMA [id number]) Nutrition Malnutrition Evidence of Malnutrition Exists Yes Malnutrition (severe): Chronic Evidenced By Suboptimal Energy Intake ( Severe),Weight Loss (Severe), Physical Changes (Severe) Intake Problem Inadequate Oral Intake Etiology related to anorexia Signs/Symptoms as evidenced by refusal of meals and ONS Status Active Problem Clinical Problem Chronic Disease or Condition Related Malnutrition Etiology Severe protein-calorie malnutrition in the context of chronic/metastatic disease related to inadequate oral intake and increased energy expenditure Signs/Symptoms as evidenced by 29.8% wt loss and meeting <75% of est nutritional needs x 7 months; obvious fat/muscle wasting in face, torso and upper/lower extremities. Status Active Problem Recommendation Dietitian Recommendations/Changes Continue liberal regular diet as tolerated. Will continue 120 ml ensure plus high protein 4x/day w/ medpass. Magic cup w/ lunch and dinner; fortified foods w/ meals as able. Consider TF support given poor /inadequate oral intake and weight loss. Lab / Micro Data Result Diagrams: 08/14/22 03:45 08/14/22 03:45 Labs: Laboratory Results - last 24 hr 08/13/22 03:21: Diff Path Review Reviewed 08/13/22 12:00: PT 18.2 H, INR 1.5, APTT 36.3 H 08/14/22 03:45: WBC 13.3 H, RBC 2.64 L, Hgb 7.4 L, Hct 23.7 L, MCV 89.8, MCH 28.0, MCHC 31.2 L, RDW Std Deviation 54.6 H, RDW Coeff of Ilia 17.0 H, Plt Count 24 L*, Neut % (Auto) Not Reportable, Absolute Neuts (auto) 12.2 H, Absolute Lymphs (auto) 0.40 L, Total Counted 100, Neutrophils % (Manual) 85 H, Band Neutrophils % 7 H, Lymphocytes % (Manual) 3 L, Monocytes % (Manual) 1, Metamyelocytes % 1, Myelocytes % 2 H, Blast Cells % 1 H*, Diff Path Review May foll, Platelet Estimate MKD DEC, Anisocytosis 1+, Leola Cells 2+ 08/14/22 03:45: Sodium 146 H, Potassium 3.3 L, Chloride 115 H, Carbon Dioxide 21.0, Anion Gap 10, BUN 23 H, Creatinine 1.14, Estim Creat Clear Calc 46.14, Est GFR (MDRD) Af Amer 82, Est GFR (MDRD) Non-Af 68, BUN/Creatinine Ratio 20.2 H, Glucose 134 H, Calcium 7.3 L, Total Bilirubin 0.80, AST 61 H, ALT 33, Alkaline Phosphatase 374 H, Total Protein 4.8 L, Albumin 1.3 L, Globulin 3.5, Albumin/Globulin Ratio 0.4 L 08/14/22 03:45: Hemoglobin A1c 5.8 H 08/14/22 06:13: POC Glucose 126 H 08/14/22 10:10: PT 14.9, INR 1.2, APTT 30.8, Fibrinogen 577 H Micro: Microbiology 08/11/22 13:15 Blood Culture (Wb) - Anticubital Left Blood Culture - Final Gram negative mandy 08/11/22 13:15 Blood Culture (Wb) - Anticubital Right Blood Culture - Final Escherichia coli 08/11/22 15:55 Urine Catheter - Lyman Urine Culture - Final Escherichia coli 08/12/22 08:00 Mucosa - Nasopharyngeal Respiratory Panel (PCR) - Final 08/12/22 08:00 Urine, Random Streptococcus pneumoniae Antigen (M - Final 08/12/22 08:00 Urine, Random Legionella Antigen - Final 08/12/22 08:00 Nasal Secretion SARS-CoV-2 & FLU Antigen (Rapid) - Final Physical Exam Const oriented x3 Resp normal respiratory effort Cardio regular rate GI GI Narrative: Soft, nondistended, tender palpation right upper quadrant Assessment & Plan Assessment/Plan (1) Acute calculous cholecystitis: PLAN: Await oncology's consult. Check labs tomorrow hopefully able to get cholecystostomy placed. Hilda Mathis M.D. Pager: [phone] [facility] [address] [place] [address], [facility], [address] [place] [address] Office: [phone]
--- NOTE | 2022-08-14 12:48 | CASEMGMT ---
Addendum entered by Chitra Finley 08/14/22 12:49: DC planning not completed with family at this time d/t change in course of hospitalization. RN CM to follow. Original Note: Hospitalist discussed palliative care for pt. She would like to speak to family first prior to referral being made.
[2022-08-14] MEDS: Ondansetron 4 MG/2 ML Vial IV (13:08)
[2022-08-14] MEDS: cycloBENZAPRine HCl 10 MG Tablet PO ×2 (13:33→20:12)
[2022-08-14] MEDS: NYSTATIN 500,000 UNIT/5 ML UDC 500000 UNIT PO ×2 (13:34→20:12)
[2022-08-14 15:02] LABS: Absolute Lymphocyte Count 0.72 X10^3/uL (0.83-4.51); Absolute Neutrophil Count 11.3 X10^3/uL (2.0-7.7); Basophil# 0.04 X10^3/uL; Basophil% 0.3 % (0-1); Eosinophil# 0.02 X10^3/uL; Eosinophils% 0.2 % (0-5); Hematocrit 27.1 % (40-54); Hemoglobin 8.5 g/dL (13.0-16.5); Lymphocyte # 0.72 X10^3/ul (0.83-4.51); Lymphocyte % 5.7 % (19-41); Mean Corp Hgb Conc 31.4 g/dL (32-36); Mean Corpuscular Hgb 28.2 pg (27.0-32.0); Monocyte# 0.23 X10^3/uL; Monocyte% 1.8 % (0-10); NRBC Flagged by Analyzer 0 % (0-5); Neutrophil # 11.31 X10^3/uL (2.7-7.7); Neutrophil % 90.2 % (47-70); POSITIVE COUNT YES; POSITIVE MORPHOLOGY YES; RBC Distribution Width CV 17.3 % (11.6-14.6); RBC Distribution Width SD 56.3 fl (35.1-43.9); Red Blood Count 3.01 M/mm3 (4.6-6.2); White Blood Count 12.5 K/mm3 (4.4-11.0)
[2022-08-14 15:06] LABS: Differential Indicated SCAN CRITERIA MET; Platelet Count 20 K/mm3 (150-450)
[2022-08-14 16:24] LABS: Differential Comment SCANNED; Platelet Estimate MKD DEC (ADEQ)
[2022-08-14] MEDS: Morphine 2 MG/ML Syringe 3 MG IV (16:56)
[2022-08-14] MEDS: Ensure Plus High Protein 120 ML LIQUID PO (20:11)
[2022-08-14] MEDS: Atorvastatin Calcium 80 MG Tablet PO (20:11)
[2022-08-15 02:37] VITALS: BP 131/74; PULSE 100; RESP 18; TEMP 36.6; O2SAT 95
[2022-08-15] MEDS: 0.9% Saline Lock 10 ML Syringe IV (05:27)
[2022-08-15] MEDS: Morphine 2 MG/ML Syringe IV ×2 (05:27→14:55)
[2022-08-15 05:34] LABS: Hematocrit 24.9 % (40-54); Hemoglobin 7.8 g/dL (13.0-16.5); Mean Corp Hgb Conc 31.3 g/dL (32-36); Mean Corpuscular Hgb 28.3 pg (27.0-32.0); Mean Corpuscular Volume 90.2 fL (80-94); POSITIVE COUNT YES; POSITIVE MORPHOLOGY YES; Platelet Count 16 K/mm3 (150-450); RBC Distribution Width CV 17.2 % (11.6-14.6); RBC Distribution Width SD 56.3 fl (35.1-43.9); Red Blood Count 2.76 M/mm3 (4.6-6.2); White Blood Count 10.3 K/mm3 (4.4-11.0)
[2022-08-15 05:39] LABS: Differential Indicated MANUAL DIFF
[2022-08-15 05:47] LABS: Anisocytosis 1+; Platelet Estimate MKD DEC (ADEQ)
[2022-08-15 05:51] LABS: Absolute Lymphocyte Count 0.62 X10^3/uL (0.83-4.51); Absolute Neutrophil Count 9.4 X10^3/uL (2.0-7.7); Lymphocyte 6 % (19-41); Monocyte 2 % (0-10); Myelocyte 1 % (0-0); Neutrophil-Band 2 % (0-5); Neutrophil-Segmented 89 % (47-70); Total Cells Counted 100 (MANUAL DIFF)
[2022-08-15 05:52] LABS: Red Cell Morphology NORM C+C NORMAL (NORM C&C)
[2022-08-15 05:56] LABS: ALB/GLOB Ratio 0.4 RATIO (0.9-2.4); AST(SGOT) 59 U/L (15-37); Alanine Aminotransfer ALT/SGPT 32 U/L (16-61); Albumin, Serum 1.3 g/dL (3.2-5.0); Alkaline Phosphatase 258 U/L (45-117); Anion Gap 8 (5-15); BUN 27 mg/dL (7-18); BUN/Creat Ratio 20.9 RATIO (10-20); Calcium,Total 7.5 mg/dL (8.5-10.1); Chloride 117 mmol/L (98-107); Creatinine, Serum 1.29 mg/dL (0.70-1.30); EST Glomerular Filtration Rate 59 mL/min (>60); Est Glom Filt Rate - Afr Amer 71 mL/min (>60); Estimated Creatinine Clearance 40.78 ml/min; Globulin 3.7 g/dL (2.2-4.2); Glucose 113 mg/dL (74-106); Sodium Level 146 mmol/L (136-145)
--- NOTE | 2022-08-15 07:27 | PN.HOSP_ITS ---
Subjective Subjective Resting comfortably in bed. Yesterday evening patient very upset reporting some pain and requesting to go home. Family at bedside as well as patient's RN. Time to discuss and de-escalate verbally. Discussed that if patient went home without source control or antibiotics he had a high mortality and he kept repea ting that he did not care he wanted to go home and will come back the next day. Was not able to say that he understood that he may if he went home and skips that he will come back the next day. Had been repeatedly offering to help with pain control and he was refusing. Ultimately family was able to de-escalate. Objective Data Objective Data Vital Signs: Vital Signs Temp Pulse Resp BP Pulse Ox O2 Del Method O2 Flow Rate 97.9 F 100 18 131/74 H 95 Room Air 2 08/15/22 02:37 08/15/22 02:37 08/15/22 02:37 08/15/22 02:37 08/15/22 02:37 08/15/22 02:37 08/11/22 12:20 Oxygen Flow Rate (L/min) 2 Oxygen Delivery Method Room Air Weight: 52.6 kg Body Mass Index (BMI) 18.1 Intake & Output: Intake and Output for Last 24 Hours 08/13/22 08/14/22 08/15/22 23:59 23:59 23:59 Intake Total 1820 / 2060 660 / 660 Output Total 725 / 975 675 / 675 150 / 150 Balance 1095 / 1085 -15 / -15 -150 / -150 Medical Nutrition Assessment Dietitian: Malnutrition Criteria Met Start: 08/09/22 11:15 Freq: Status: Active Protocol: Document 08/12/22 12:16 RMA (Rec: 08/12/22 12:16 RMA [id number]) Nutrition Malnutrition Evidence of Malnutrition Exists Yes Malnutrition (severe): Chronic Evidenced By Suboptimal Energy Intake ( Severe),Weight Loss (Severe), Physical Changes (Severe) Intake Problem Inadequate Oral Intake Etiology related to anorexia Signs/Symptoms as evidenced by refusal of meals and ONS Status Active Problem Clinical Problem Chronic Disease or Condition Related Malnutrition Etiology Severe protein-calorie malnutrition in the context of chronic/metastatic disease related to inadequate oral intake and increased energy expenditure Signs/Symptoms as evidenced by 29.8% wt loss and meeting <75% of est nutritional needs x 7 months; obvious fat/muscle wasting in face, torso and upper/lower extremities. Status Active Problem Recommendation Dietitian Recommendations/Changes Continue liberal regular diet as tolerated. Will continue 120 ml ensure plus high protein 4x/day w/ medpass. Magic cup w/ lunch and dinner; fortified foods w/ meals as able. Consider TF support given poor /inadequate oral intake and weight loss. Lab / Micro Data Result Diagrams: 08/15/22 05:18 08/15/22 05:18 Labs: Laboratory Results - last 24 hr 08/13/22 03:21: Diff Path Review Reviewed 08/14/22 03:45: Hemoglobin A1c 5.8 H 08/14/22 10:10: PT 14.9, INR 1.2, APTT 30.8, Fibrinogen 577 H 08/14/22 14:50: WBC 12.5 H, RBC 3.01 L, Hgb 8.5 L, Hct 27.1 L, MCV 90.0, MCH 28.2, MCHC 31.4 L, RDW Std Deviation 56.3 H, RDW Coeff of Ilia 17.3 H, Plt Count 20 L*, Immature Gran % (Auto) 1.800 H, Neut % (Auto) 90.2 H, Lymph % (Auto) 5.7 L, [place] % (Auto) 1.8, Eos % (Auto) 0.2, Baso % (Auto) 0.3, Absolute Neuts (auto) 11.3 H, Absolute Lymphs (auto) 0.72 L, Nucleated RBC % 0, Differential Comment SCANNED, Diff Path Review December selena Platelet Estimate MKD DEC 08/15/22 05:18: WBC 10.3, RBC 2.76 L, Hgb 7.8 L, Hct 24.9 L, MCV 90.2, MCH 28.3, MCHC 31.3 L, RDW Std Deviation 56.3 H, RDW Coeff of Ilia 17.2 H, Plt Count 16 L*, Neut % (Auto) Not Reportable, Absolute Neuts (auto) 9.4 H, Absolute Lymphs (auto) 0.62 L, Total Counted 100, Neutrophils % (Manual) 89 H, Band Neutrophils % 2, Lymphocytes % (Manual) 6 L, Monocytes % (Manual) 2, Myelocytes % 1 H, Diff Path Review May foll, Platelet Estimate MKD DEC, RBC Morphology NORM C+C, Anisocytosis 1+ 08/15/22 05:18: Sodium 146 H, Potassium 4.0, Chloride 117 H, Carbon Dioxide 21.0, Anion Gap 8, BUN 27 H, Creatinine 1.29, Estim Creat Clear Calc 40.78, Est GFR (MDRD) Af Amer 71, Est GFR (MDRD) Non-Af 59 L, BUN/Creatinine Ratio 20.9 H, Glucose 113 H, Calcium 7.5 L, Total Bilirubin 0.60, AST 59 H, ALT 32, Alkaline Phosphatase 258 H, Total Protein 5.0 L, Albumin 1.3 L, Globulin 3.7, Albumin/Globulin Ratio 0.4 L Micro: Microbiology 08/11/22 13:15 Blood Culture (Wb) - Anticubital Left Blood Culture - Final Gram negative mandy 08/11/22 13:15 Blood Culture (Wb) - Anticubital Right Blood Culture - Final Escherichia coli 08/11/22 15:55 Urine Catheter - Lyman Urine Culture - Final Escherichia coli 08/12/22 08:00 Mucosa - Nasopharyngeal Respiratory Panel (PCR) - Final 08/12/22 08:00 Urine, Random Streptococcus pneumoniae Antigen (M - Final 08/12/22 08:00 Urine, Random Legionella Antigen - Final 08/12/22 08:00 Nasal Secretion SARS-CoV-2 & FLU Antigen (Rapid) - Final Physical Exam Const Constitutional Narrative: Resting comfortably in bed HEENT normocephalic Eyes Eyes Narrative: Eyes closed resting comfortably Neck supple Resp normal respiratory effort Cardio Cardio Narrative: No changes GI non-distended Extremity Extremity Narrative: No edema appreciated Neuro Neuro Narrative: No overt focal deficits appreciated Psych Psych Narrative: Has been increasingly irritable Assessment & Plan Assessment/Plan (1) Acute encephalopathy: (2) Acute kidney insufficiency: (3) Lung malignancy: PLAN: Plan 66-year-old male here 08/09/2022 with decreased level of consciousness and poor p.o. intake. He was found to have uremia and concerns for dehydration #Sepsis secondary to likely gallbladder source w/ Ucx also positive Became tachycardic yesterday and had episode of orthostatic hypotension also had elevated lactic acid and increased white blood cell count Pancultures, started on vancomycin and Zosyn for broad coverage Fluids Heart rate and blood pressure improved and lactic returned to normal after antibiotics and fluids Doing much better today CT of the chest reported atypical infectious nodules identified along the periphery of the right and left lower lobes, potential source Does have elevated alk phos and given right upper abdominal pain will get gallbladder ultrasound Cultures are pending Given CT will also evaluate for respiratory source Still mildly tachycardic and CT with small pericardial effusion, will get echo to further characterize this though no overt hemodynamic compromise at this time 08/13: Source concerning for either urinary gallbladder, right upper quadrant ultrasound with multiple gallstones and sludge within the gallbladder, mildly thickened gallbladder wall. Growing gram-negative rods in blood. Is also grow ing in urine however given his right upper quadrant pain, gallbladder ultrasound, elevated alk phos high concern for gallbladder involvement. Surgery consulted. Patient n.p.o. at midnight, Eliquis held starting this morning. Culture sensitivities pending 08/14: Was sent for obey tube today via IR however platelets dropped to 24 and notably has 1% blasts. Does have non-small cell lung cancer, right upper lobe Path stage IIb poorly differentiated G3 with metastasis to 1 interlobular lymph node and lymphovascular invasion. Received 4 cycles of adjuvant carboplatin from April to June 2022 but had excessive toxicities. Chest CT with nodules, possibly atypical infectious. Dr. Villela consulted. Additionally E. coli sensitivities back and resistant to Zosyn, Vanco discontinued and switched to cefepime 08/15: Oncology consulted and felt platelets were secondary to sepsis and drug- induced thrombocytopenia from antibiotics. Vancomycin has been discontinued. Reported platelets will likely begin to improve on their own, today 16 and unable to perform drain still. Nonpharmacologic DVT prophylaxis. Apixaban is held. No evidence of DIC. Continue cefepime. Has had having ALP and abdominal exam #Acute metabolic encephalopathy secondary to WAN secondary to dehydration CT head negative on admission Has received IV fluids, WAN resolved TSH unremarkable UA negative LFTs improving, ammonia negative Has worsening leukocytosis with worsened left shift, right flank pain, supra pubic tenderness. Will get UA and urine culture repeat, is also tachycardic, cxr showed R sided effusion and nodule, given location of pain and possible ifxn will get CT as recommended though we will have to do so without contrast due to contrast allergy reported and recent WAN 08/12: May have been due to chronic morphine use with decreased kidney function causing decreased clearance. Significantly improved today. At present has oxycodone as needed and abdominal pain and mental status improved yesterday once he got a dose of this 08/14: Improved #Chronic back and leg pain On morphine at home, concerned this caused/contributed to his altered mental status once he became slightly dehydrated given his decreased kidney function and morphine's illumination through the kidneys, is receiving oxycodone p.o. and had been responding well prior to this a.m., will give one-time dose of morphine to help with pain 08/14: Oxycodone as needed and Flexeril 08/15: Had previously been fairly well controlled on as needed oxycodone, yesterday evening. Process about pain and was refusing any pain medication despite offers to adjust pain regimen with his increased pain. Ultimately family was able to de-escalate after multiple attempts. 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
[2022-08-15 08:18] VITALS: O2SAT 95
[2022-08-15 08:57] VITALS: PULSE 108
[2022-08-15] MEDS: Pantoprazole Sodium 40 MG Tablet PO ×2 (08:57→20:28)
[2022-08-15] MEDS: Metoprolol Tartrate 25 MG Tablet 12.5 MG PO ×2 (08:57→20:28)
[2022-08-15 09:00] VITALS: BP 138/77; PULSE 109; RESP 18; TEMP 36.5; O2SAT 96
[2022-08-15 11:45] LABS: Pathologist Review Reviewed
--- NOTE | 2022-08-15 12:03 | PN.SURG_ITS ---
Subjective Subjective Patient's platelets are lower today at 14 no plan for cholecystostomy tube today. Continue clear liquids and IV antibiotics Objective Data Objective Data Vital Signs: Vital Signs Temp Pulse Resp BP Pulse Ox O2 Del Method O2 Flow Rate 97.7 F L 109 H 18 138/77 H 96 Room Air 2 08/15/22 09:00 08/15/22 09:00 08/15/22 09:00 08/15/22 09:00 08/15/22 09:00 08/15/22 09:00 08/11/22 12:20 Oxygen Flow Rate (L/min) 2 Oxygen Delivery Method Room Air Weight: 115 lb 15.41 oz Body Mass Index (BMI) 18.1 Intake & Output: Intake and Output for Last 24 Hours 08/13/22 08/14/22 08/15/22 23:59 23:59 23:59 Intake Total 1820 / 2060 660 / 660 100 / 100 Output Total 725 / 975 675 / 675 150 / 150 Balance 1095 / 1085 -15 / -15 -50 / -50 Medical Nutrition Assessment Dietitian: Malnutrition Criteria Met Start: 08/09/22 11:15 Freq: Status: Active Protocol: Document 08/12/22 12:16 RMA (Rec: 08/12/22 12:16 RMA [id number]) Nutrition Malnutrition Evidence of Malnutrition Exists Yes Malnutrition (severe): Chronic Evidenced By Suboptimal Energy Intake ( Severe),Weight Loss (Severe), Physical Changes (Severe) Intake Problem Inadequate Oral Intake Etiology related to anorexia Signs/Symptoms as evidenced by refusal of meals and ONS Status Active Problem Clinical Problem Chronic Disease or Condition Related Malnutrition Etiology Severe protein-calorie malnutrition in the context of chronic/metastatic disease related to inadequate oral intake and increased energy expenditure Signs/Symptoms as evidenced by 29.8% wt loss and meeting <75% of est nutritional needs x 7 months; obvious fat/muscle wasting in face, torso and upper/lower extremities. Status Active Problem Recommendation Dietitian Recommendations/Changes Continue liberal regular diet as tolerated. Will continue 120 ml ensure plus high protein 4x/day w/ medpass. Magic cup w/ lunch and dinner; fortified foods w/ meals as able. Consider TF support given poor /inadequate oral intake and weight loss. Lab / Micro Data Result Diagrams: 08/15/22 05:18 08/15/22 05:18 Labs: Laboratory Results - last 24 hr 08/14/22 03:45: Diff Path Review Reviewed 08/14/22 14:50: WBC 12.5 H, RBC 3.01 L, Hgb 8.5 L, Hct 27.1 L, MCV 90.0, MCH 28.2, MCHC 31.4 L, RDW Std Deviation 56.3 H, RDW Coeff of Ilia 17.3 H, Plt Count 20 L*, Immature Gran % (Auto) 1.800 H, Neut % (Auto) 90.2 H, Lymph % (Auto) 5.7 L, [place] % (Auto) 1.8, Eos % (Auto) 0.2, Baso % (Auto) 0.3, Absolute Neuts (auto) 11.3 H, Absolute Lymphs (auto) 0.72 L, Nucleated RBC % 0, Differential Comment SCANNED, Diff Path Review May selena, Platelet Estimate MKD 08/15/22 05:18: WBC 10.3, RBC 2.76 L, Hgb 7.8 L, Hct 24.9 L, MCV 90.2, MCH 28.3, MCHC 31.3 L, RDW Std Deviation 56.3 H, RDW Coeff of Ilia 17.2 H, Plt Count 16 L*, Neut % (Auto) Not Reportable, Absolute Neuts (auto) 9.4 H, Absolute Lymphs (auto) 0.62 L, Total Counted 100, Neutrophils % (Manual) 89 H, Band Neutrophils % 2, Lymphocytes % (Manual) 6 L, Monocytes % (Manual) 2, Myelocytes % 1 H, Diff Path Review December selena, Platelet Estimate MKD JUL, RBC Morphology NORM C+C, Anisocytosis 1+ 08/15/22 05:18: Sodium 146 H, Potassium 4.0, Chloride 117 H, Carbon Dioxide 21.0, Anion Gap 8, BUN 27 H, Creatinine 1.29, Estim Creat Clear Calc 40.78, Est GFR (MDRD) Af Amer 71, Est GFR (MDRD) Non-Af 59 L, BUN/Creatinine Ratio 20.9 H, Glucose 113 H, Calcium 7.5 L, Total Bilirubin 0.60, AST 59 H, ALT 32, Alkaline Phosphatase 258 H, Total Protein 5.0 L, Albumin 1.3 L, Globulin 3.7, Albumin/Globulin Ratio 0.4 L Micro: Microbiology 08/11/22 13:15 Blood Culture (Wb) - Anticubital Left Blood Culture - Final Gram negative mandy 08/11/22 13:15 Blood Culture (Wb) - Anticubital Right Blood Culture - Final Escherichia coli 08/11/22 15:55 Urine Catheter - Lyman Urine Culture - Final Escherichia coli 08/12/22 08:00 Mucosa - Nasopharyngeal Respiratory Panel (PCR) - Final 08/12/22 08:00 Urine, Random Streptococcus pneumoniae Antigen (M - Final 08/12/22 08:00 Urine, Random Legionella Antigen - Final 08/12/22 08:00 Nasal Secretion SARS-CoV-2 & FLU Antigen (Rapid) - Final Physical Exam Const oriented x3 Resp normal respiratory effort Cardio regular rate GI GI Narrative: Soft, nondistended, tender palpation right upper quadrant Assessment & Plan Assessment/Plan (1) Acute calculous cholecystitis: PLAN: Marisol tube on hold again today we will try again on Thursday as patient's platelets are 16 from 20. He is currently not a surgical candidate. patient's vancomycin was stopped but continue other antibiotics as vancomycin may have contributed some to the thrombocytopenia. Hilda Mathis M.D. Pager: [phone] [facility] [address] [place] [address], [facility], [address] [place] [address] Office: [phone] Charges/Coding Visit Charges Inpatient E&M: 46349 Subs Hosp L2
[2022-08-15] MEDS: Ondansetron 4 MG/2 ML Vial IV (12:28)
[2022-08-15] MEDS: oxyCODONE 5 MG Tablet PO ×3 (12:28→23:06)
[2022-08-15] MEDS: Ensure Plus High Protein 120 ML LIQUID PO ×2 (13:03→20:28)
[2022-08-15] MEDS: NYSTATIN 500,000 UNIT/5 ML UDC 500000 UNIT PO ×2 (13:03→20:29)
[2022-08-15] MEDS: cycloBENZAPRine HCl 10 MG Tablet PO ×2 (13:03→20:28)
[2022-08-15 15:00] VITALS: BP 124/68; PULSE 98; RESP 16; TEMP 36.7; O2SAT 98
--- NOTE | 2022-08-15 15:12 | CASEMGMT ---
Social Work SW met with pt's to discussed discharge plan. Pt is very clear that pt will not be going to a free standing SNF at time of discharge. She is agreeable to placement in the TCU. Per physician, pt is not ready for discharge at this time nor over the weekend. Barbara in TCU updated and a bed will be available at the earliest on Thursday. SW will reevaluate pt for discharge on Thursday. Plan: TCU, reevaluate for placement on Thursday PHILIP Concepcion
[2022-08-15 20:28] VITALS: BP 138/95; PULSE 109; RESP 18; TEMP 36.6; O2SAT 99
[2022-08-15] MEDS: Atorvastatin Calcium 80 MG Tablet PO (20:29)
--- NOTE | 2022-08-15 21:13 | NURSING ---
Pt pulled up and repostion in bed
[2022-08-16 02:23] VITALS: BP 129/89; PULSE 104; RESP 18; TEMP 36.7; O2SAT 95
[2022-08-16] MEDS: cycloBENZAPRine HCl 10 MG Tablet PO ×3 (05:13→21:54)
[2022-08-16] MEDS: NYSTATIN 500,000 UNIT/5 ML UDC 500000 UNIT PO ×3 (05:13→21:54)
[2022-08-16] MEDS: oxyCODONE 5 MG Tablet PO ×3 (05:13→17:41)
--- NOTE | 2022-08-16 05:20 | NURSING ---
Pt vomited about 100cc of bile looking liquids. zofran iv given
[2022-08-16] MEDS: Ondansetron 4 MG/2 ML Vial IV ×2 (05:27→14:18)
[2022-08-16] MEDS: 0.9% Saline Lock 10 ML Syringe IV ×2 (05:28→07:57)
[2022-08-16 06:20] LABS: Absolute Lymphocyte Count 0.82 X10^3/uL (0.83-4.51); Absolute Neutrophil Count 6.9 X10^3/uL (2.0-7.7); Basophil# 0.01 X10^3/uL; Basophil% 0.1 % (0-1); Eosinophil# 0.03 X10^3/uL; Eosinophils% 0.4 % (0-5); Hematocrit 27.8 % (40-54); Hemoglobin 8.8 g/dL (13.0-16.5); Lymphocyte # 0.82 X10^3/ul (0.83-4.51); Lymphocyte % 9.8 % (19-41); Mean Corp Hgb Conc 31.7 g/dL (32-36); Mean Corpuscular Hgb 28.4 pg (27.0-32.0); Mean Corpuscular Volume 89.7 fL (80-94); Monocyte# 0.32 X10^3/uL; Monocyte% 3.8 % (0-10); NRBC Flagged by Analyzer 0 % (0-5); Neutrophil # 6.85 X10^3/uL (2.7-7.7); Neutrophil % 81.4 % (47-70); POSITIVE COUNT YES; RBC Distribution Width CV 17.3 % (11.6-14.6); RBC Distribution Width SD 56.1 fl (35.1-43.9); White Blood Count 8.4 K/mm3 (4.4-11.0)
[2022-08-16 06:37] LABS: Platelet Count 14 K/mm3 (150-450)
[2022-08-16 06:45] LABS: ALB/GLOB Ratio 0.4 RATIO (0.9-2.4); AST(SGOT) 57 U/L (15-37); Alanine Aminotransfer ALT/SGPT 31 U/L (16-61); Albumin, Serum 1.4 g/dL (3.2-5.0); Alkaline Phosphatase 233 U/L (45-117); Anion Gap 10 (5-15); BUN 30 mg/dL (7-18); BUN/Creat Ratio 22.9 RATIO (10-20); Chloride 115 mmol/L (98-107); Creatinine, Serum 1.31 mg/dL (0.70-1.30); EST Glomerular Filtration Rate 58 mL/min (>60); Est Glom Filt Rate - Afr Amer 70 mL/min (>60); Estimated Creatinine Clearance 40.15 ml/min; Glucose 112 mg/dL (74-106); Potassium 4.5 mmol/L (3.5-5.1); Protein, Total 5.4 g/dL (6.4-8.2); Sodium Level 146 mmol/L (136-145)
[2022-08-16 07:12] LABS: Differential Indicated SCAN CRITERIA MET
[2022-08-16 07:43] VITALS: BP 131/87; PULSE 111; RESP 18; TEMP 36.4; O2SAT 98
--- NOTE | 2022-08-16 08:08 | PN.HOSP_ITS ---
Subjective Subjective Resting comfortably in bed on initial exam. Did have an episode of emesis overnight. Remains on IV antibiotics, platelets still not recovered Objective Data Objective Data Vital Signs: Vital Signs Temp Pulse Resp BP Pulse Ox O2 Del Method O2 Flow Rate 97.6 F L 111 H 18 131/87 H 98 Room Air 2 08/16/22 07:43 08/16/22 07:43 08/16/22 07:43 08/16/22 07:43 08/16/22 07:43 08/16/22 07:55 08/11/22 12:20 Oxygen Flow Rate (L/min) 2 Oxygen Delivery Method Room Air Weight: 52.6 kg Body Mass Index (BMI) 18.1 Intake & Output: Intake and Output for Last 24 Hours 08/14/22 08/15/22 08/16/22 23:59 23:59 23:59 Intake Total 660 / 660 100 / 100 460 / 460 Output Total 675 / 675 150 / 150 600 / 600 Balance -15 / -15 -50 / -50 -140 / -140 Medical Nutrition Assessment Dietitian: Malnutrition Criteria Met Start: 08/09/22 11:15 Freq: Status: Active Protocol: Document 08/12/22 12:16 RMA (Rec: 08/12/22 12:16 RMA [id number]) Nutrition Malnutrition Evidence of Malnutrition Exists Yes Malnutrition (severe): Chronic Evidenced By Suboptimal Energy Intake ( Severe),Weight Loss (Severe), Physical Changes (Severe) Intake Problem Inadequate Oral Intake Etiology related to anorexia Signs/Symptoms as evidenced by refusal of meals and ONS Status Active Problem Clinical Problem Chronic Disease or Condition Related Malnutrition Etiology Severe protein-calorie malnutrition in the context of chronic/metastatic disease related to inadequate oral intake and increased energy expenditure Signs/Symptoms as evidenced by 29.8% wt loss and meeting <75% of est nutritional needs x 7 months; obvious fat/muscle wasting in face, torso and upper/lower extremities. Status Active Problem Recommendation Dietitian Recommendations/Changes Continue liberal regular diet as tolerated. Will continue 120 ml ensure plus high protein 4x/day w/ medpass. Magic cup w/ lunch and dinner; fortified foods w/ meals as able. Consider TF support given poor /inadequate oral intake and weight loss. Lab / Micro Data Result Diagrams: 08/16/22 05:29 08/16/22 05:29 Labs: Laboratory Results - last 24 hr 08/14/22 03:45: Diff Path Review Reviewed 08/16/22 05:29: WBC 8.4, RBC 3.10 L, Hgb 8.8 L, Hct 27.8 L, MCV 89.7, MCH 28.4, MCHC 31.7 L, RDW Std Deviation 56.1 H, RDW Coeff of Ilia 17.3 H, Plt Count 14 L*, Immature Gran % (Auto) 4.500 H, Neut % (Auto) 81.4 H, Lymph % (Auto) 9.8 L, [place] % (Auto) 3.8, Eos % (Auto) 0.4, Baso % (Auto) 0.1, Absolute Neuts (auto) 6.9, Absolute Lymphs (auto) 0.82 L, Nucleated RBC % 0, Diff Path Review May 08/16/22 05:29: Sodium 146 H, Potassium 4.5, Chloride 115 H, Carbon Dioxide 21.0, Anion Gap 10, BUN 30 H, Creatinine 1.31 H, Estim Creat Clear Calc 40.15, Est GFR (MDRD) Af Amer 70, Est GFR (MDRD) Non-Af 58 L, BUN/Creatinine Ratio 22.9 H, Glucose 112 H, Calcium 8.0 L, Total Bilirubin 0.80, AST 57 H, ALT 31, Alkaline Phosphatase 233 H, Total Protein 5.4 L, Albumin 1.4 L, Globulin 4.0, Albumin/Globulin Ratio 0.4 L Micro: Microbiology 08/11/22 13:15 Blood Culture (Wb) - Anticubital Left Blood Culture - Final Gram negative mandy 08/11/22 13:15 Blood Culture (Wb) - Anticubital Right Blood Culture - Final Escherichia coli 08/11/22 15:55 Urine Catheter - Lyman Urine Culture - Final Escherichia coli 08/12/22 08:00 Mucosa - Nasopharyngeal Respiratory Panel (PCR) - Final 08/12/22 08:00 Urine, Random Streptococcus pneumoniae Antigen (M - Final 08/12/22 08:00 Urine, Random Legionella Antigen - Final 08/12/22 08:00 Nasal Secretion SARS-CoV-2 & FLU Antigen (Rapid) - Final Physical Exam Const Constitutional Narrative: Resting comfortably in bed HEENT normocephalic Eyes Eyes Narrative: Eyes closed resting comfortably Neck supple Resp normal respiratory effort Cardio Cardio Narrative: No changes GI non-distended Extremity Extremity Narrative: No edema appreciated Neuro Neuro Narrative: No overt focal deficits appreciated Psych Psych Narrative: More cooperative at this time Assessment & Plan Assessment/Plan (1) Acute encephalopathy: (2) Acute kidney insufficiency: (3) Lung malignancy: PLAN: Plan 66-year-old male here 08/09/2022 with decreased level of consciousness and poor p.o. intake. He was found to have uremia and concerns for dehydration #Sepsis secondary to likely gallbladder source w/ Ucx also positive Became tachycardic yesterday and had episode of orthostatic hypotension also had elevated lactic acid and increased white blood cell count Pancultures, started on vancomycin and Zosyn for broad coverage Fluids Heart rate and blood pressure improved and lactic returned to normal after antibiotics and fluids Doing much better today CT of the chest reported atypical infectious nodules identified along the periphery of the right and left lower lobes, potential source Does have elevated alk phos and given right upper abdominal pain will get gallbladder ultrasound Cultures are pending Given CT will also evaluate for respiratory source Still mildly tachycardic and CT with small pericardial effusion, will get echo to further characterize this though no overt hemodynamic compromise at this time 08/13: Source concerning for either urinary gallbladder, right upper quadrant ultrasound with multiple gallstones and sludge within the gallbladder, mildly thickened gallbladder wall. Growing gram-negative rods in blood. Is also growing in urine however given his right upper quadrant pain, gallbladder ultrasound, elevated alk phos high concern for gallbladder involvement. Surgery consulted. Patient n.p.o. at midnight, Eliquis held starting this morning. Culture sensitivities pending 08/14: Was sent for obey tube today via IR however platelets dropped to 24 and notably has 1% blasts. Does have non-small cell lung cancer, right upper lobe Path stage IIb poorly differentiated G3 with metastasis to 1 interlobular lymph node and lymphovascular invasion. Received 4 cycles of adjuvant carboplatin from April to June 2022 but had excessive toxicities. Chest CT with nodules, possibly atypical infectious. Dr. Villela consulted. Additionally E. coli sensitivities back and resistant to Zosyn, Vanco discontinued and switched to cefepime 08/15: Oncology consulted and felt platelets were secondary to sepsis and drug- induced thrombocytopenia from antibiotics. Vancomycin has been discontinued. Reported platelets will likely begin to improve on their own, today 16 and unable to perform drain still. Nonpharmacologic DVT prophylaxis. Apixaban is held. No evidence of DIC. Continue cefepime. Has had having ALP and abdominal exam 08/16: Platelets further trended down, does not meet criteria for prophylactic platelet transfusion until less than 10, will try to reach out to oncology however given continued worsening despite improvement of sepsis and withdrawal of offending agent to see if maybe platelet transfusion for [place] tube on Thursday would be reasonable. #Acute metabolic encephalopathy secondary to WAN secondary to dehydration CT head negative on admission Has received IV fluids, WAN resolved TSH unremarkable UA negative LFTs improving, ammonia negative Has worsening leukocytosis with worsened left shift, right flank pain, suprapubic tenderness. Will get UA and urine culture repeat, is also tachycardic, cxr showed R sided effusion and nodule, given location of pain and possible ifxn will get CT as recommended though we will have to do so without contrast due to contrast allergy reported and recent WAN 08/12: May have been due to chronic morphine use with decreased kidney function causing decreased clearance. Significantly improved today. At present has oxycodone as needed and abdominal pain and mental status improved yesterday once he got a dose of this 08/14: Improved 08/16: Still is poor p.o. intake, creatinine slightly worse today, will give gentle hydration #Chronic back and leg pain On morphine at home, concerned this caused/contributed to his altered mental status once he became slightly dehydrated given his decreased kidney function and morphine's illumination through the kidneys, is receiving oxycodone p.o. and had been responding well prior to this a.m., will give one-time dose of morphine to help with pain 08/14: Oxycodone as needed and Flexeril 08/15: Had previously been fairly well controlled on as needed oxycodone, yesterday evening. Process about pain and was refusing any pain medication despite offers to adjust pain regimen with his increased pain. Ultimately family was able to de-escalate after multiple attempts. 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
[2022-08-16] MEDS: Morphine 2 MG/ML Syringe IV (09:06)
[2022-08-16] MEDS: Lactated Ringers 1,000 ML 60 ML IV (09:06)
--- NOTE | 2022-08-16 09:38 | PN.SURG_ITS ---
Subjective Subjective patient remains the same awaiting procedure on Thursday Objective Data Objective Data Vital Signs: Vital Signs Temp Pulse Resp BP Pulse Ox O2 Del Method O2 Flow Rate 97.6 F L 111 H 18 131/87 H 98 Room Air 2 08/16/22 07:43 08/16/22 07:43 08/16/22 07:43 08/16/22 07:43 08/16/22 07:43 08/16/22 08:00 08/11/22 12:20 Oxygen Flow Rate (L/min) 2 Oxygen Delivery Method Room Air Weight: 52.6 kg Body Mass Index (BMI) 18.1 Intake & Output: Intake and Output for Last 24 Hours 08/14/22 08/15/22 08/16/22 23:59 23:59 23:59 Intake Total 660 / 660 100 / 100 560 / 560 Output Total 675 / 675 150 / 150 600 / 600 Balance -15 / -15 -50 / -50 -40 / -40 Medical Nutrition Assessment Dietitian: Malnutrition Criteria Met Start: 08/09/22 11:15 Freq: Status: Active Protocol: Document 08/12/22 12:16 RMA (Rec: 08/12/22 12:16 RMA [id number]) Nutrition Malnutrition Evidence of Malnutrition Exists Yes Malnutrition (severe): Chronic Evidenced By Suboptimal Energy Intake ( Severe),Weight Loss (Severe), Physical Changes (Severe) Intake Problem Inadequate Oral Intake Etiology related to anorexia Signs/Symptoms as evidenced by refusal of meals and ONS Status Active Problem Clinical Problem Chronic Disease or Condition Related Malnutrition Etiology Severe protein-calorie malnutrition in the context of chronic/metastatic disease related to inadequate oral intake and increased energy expenditure Signs/Symptoms as evidenced by 29.8% wt loss and meeting <75% of est nutritional needs x 7 months; obvious fat/muscle wasting in face, torso and upper/lower extremities. Status Active Problem Recommendation Dietitian Recommendations/Changes Continue liberal regular diet as tolerated. Will continue 120 ml ensure plus high protein 4x/day w/ medpass. Magic cup w/ lunch and dinner; fortified foods w/ meals as able. Consider TF support given poor /inadequate oral intake and weight loss. Lab / Micro Data Attestation: I reviewed the patient's lab results. Result Diagrams: 08/16/22 05:29 08/16/22 05:29 Labs: Laboratory Results - last 24 hr 08/14/22 03:45: Diff Path Review Reviewed 08/16/22 05:29: WBC 8.4, RBC 3.10 L, Hgb 8.8 L, Hct 27.8 L, MCV 89.7, MCH 28.4, MCHC 31.7 L, RDW Std Deviation 56.1 H, RDW Coeff of Ilia 17.3 H, Plt Count 14 L*, Immature Gran % (Auto) 4.500 H, Neut % (Auto) 81.4 H, Lymph % (Auto) 9.8 L, [place] % (Auto) 3.8, Eos % (Auto) 0.4, Baso % (Auto) 0.1, Absolute Neuts (auto) 6.9, Absolute Lymphs (auto) 0.82 L, Nucleated RBC % 0, Diff Path Review May 08/16/22 05:29: Sodium 146 H, Potassium 4.5, Chloride 115 H, Carbon Dioxide 21.0, Anion Gap 10, BUN 30 H, Creatinine 1.31 H, Estim Creat Clear Calc 40.15, Est GFR (MDRD) Af Amer 70, Est GFR (MDRD) Non-Af 58 L, BUN/Creatinine Ratio 22.9 H, Glucose 112 H, Calcium 8.0 L, Total Bilirubin 0.80, AST 57 H, ALT 31, Alkaline Phosphatase 233 H, Total Protein 5.4 L, Albumin 1.4 L, Globulin 4.0, Albumin/Globulin Ratio 0.4 L Micro: Microbiology 08/11/22 13:15 Blood Culture (Wb) - Anticubital Left Blood Culture - Final Gram negative mandy 08/11/22 13:15 Blood Culture (Wb) - Anticubital Right Blood Culture - Final Escherichia coli 08/11/22 15:55 Urine Catheter - Lyman Urine Culture - Final Escherichia coli 08/12/22 08:00 Mucosa - Nasopharyngeal Respiratory Panel (PCR) - Final 08/12/22 08:00 Urine, Random Streptococcus pneumoniae Antigen (M - Final 08/12/22 08:00 Urine, Random Legionella Antigen - Final 08/12/22 08:00 Nasal Secretion SARS-CoV-2 & FLU Antigen (Rapid) - Final Physical Exam Const alert and oriented x3 General Appearance: cooperative HEENT normocephalic Neck supple Resp normal respiratory effort Effort and Inspection: able to speak in complete sentences GI GI Narrative: abdominal exam is unchanged - no peritoneal signs Assessment & Plan Assessment/Plan (1) Acute calculous cholecystitis: PLAN: continue present therapy has extreme thrombocytopenia, awaiting procedure on Thursday
[2022-08-16 11:07] VITALS: BP 134/78; PULSE 114
[2022-08-16] MEDS: Metoprolol Tartrate 25 MG Tablet 12.5 MG PO ×2 (11:07→21:54)
[2022-08-16] MEDS: Pantoprazole Sodium 40 MG Tablet PO ×2 (11:09→21:54)
[2022-08-16 13:22] LABS: Platelet Estimate MKD DEC (ADEQ); Red Cell Morphology NORM C+C NORMAL (NORM C&C)
[2022-08-16 14:59] VITALS: BP 128/78; PULSE 105; RESP 18; TEMP 36.7; O2SAT 92
[2022-08-16 19:34] LABS: International Normalized Ratio 0.9; Prothrombin Time (Protime)PT. 12.2 SECONDS (11.7-14.9)
[2022-08-16 20:58] LABS: Fibrinogen 521 mg/dl (203-444)
[2022-08-16 21:47] VITALS: BP 125/82; PULSE 103; RESP 18; TEMP 36.6; O2SAT 99
[2022-08-16 21:54] VITALS: PULSE 103
[2022-08-16] MEDS: Atorvastatin Calcium 20 MG Tablet PO (21:58)
[2022-08-16] MEDS: Ensure Plus High Protein 120 ML LIQUID PO (21:58)
[2022-08-17] VITALS (12 sets, daily range): BP systolic 119–148; BP diastolic 54–86; PULSE 100–115; RESP 18; TEMP 36.5–36.8; O2SAT 95–100
--- NOTE | 2022-08-17 00:05 | NURSING ---
PER [facility] IN THE BLOOD BANK PT BEING TYPE O AND UNIT BEING TYPE A IS ACCEPTABLE FOR PLATELETS.
[2022-08-17] MEDS: oxyCODONE 5 MG Tablet PO ×4 (00:44→18:59)
[2022-08-17] MEDS: NYSTATIN 500,000 UNIT/5 ML UDC 500000 UNIT PO ×3 (05:02→21:31)
[2022-08-17] MEDS: Senna/Docusate Sodium 1 Tablet 2 TABLET PO ×2 (05:02→21:30)
[2022-08-17] MEDS: cycloBENZAPRine HCl 10 MG Tablet PO ×3 (05:02→21:30)
--- NOTE | 2022-08-17 06:54 | PN.HOSP_ITS ---
Subjective Subjective Follow-up sepsis, awaiting Quita tube. Still has some abdominal pain and nausea, on clears. Has not had a bowel movement. Lyman in place Objective Data Objective Data Vital Signs: Vital Signs Temp Pulse Resp BP Pulse Ox O2 Del Method O2 Flow Rate 97.9 F 107 H 18 122/73 H 99 Room Air 2 08/17/22 04:54 08/17/22 04:54 08/17/22 04:54 08/17/22 04:54 08/17/22 04:54 08/17/22 04:54 08/11/22 12:20 Oxygen Flow Rate (L/min) 2 Oxygen Delivery Method Room Air Weight: 52.6 kg Body Mass Index (BMI) 18.1 Intake & Output: Intake and Output for Last 24 Hours 08/15/22 08/16/22 08/17/22 23:59 23:59 23:59 Intake Total 100 / 100 960 / 960 500 / 500 Output Total 150 / 150 800 / 1200 1050 / 1050 Balance -50 / -50 160 / -240 -550 / -550 Medical Nutrition Assessment Dietitian: Malnutrition Criteria Met Start: 08/09/22 11:15 Freq: Status: Active Protocol: Document 08/12/22 12:16 RMA (Rec: 08/12/22 12:16 RMA [id number]) Nutrition Malnutrition Evidence of Malnutrition Exists Yes Malnutrition (severe): Chronic Evidenced By Suboptimal Energy Intake ( Severe),Weight Loss (Severe), Physical Changes (Severe) Intake Problem Inadequate Oral Intake Etiology related to anorexia Signs/Symptoms as evidenced by refusal of meals and ONS Status Active Problem Clinical Problem Chronic Disease or Condition Related Malnutrition Etiology Severe protein-calorie malnutrition in the context of chronic/metastatic disease related to inadequate oral intake and increased energy expenditure Signs/Symptoms as evidenced by 29.8% wt loss and meeting <75% of est nutritional needs x 7 months; obvious fat/muscle wasting in face, torso and upper/lower extremities. Status Active Problem Recommendation Dietitian Recommendations/Changes Continue liberal regular diet as tolerated. Will continue 120 ml ensure plus high protein 4x/day w/ medpass. Magic cup w/ lunch and dinner; fortified foods w/ meals as able. Consider TF support given poor /inadequate oral intake and weight loss. Lab / Micro Data Result Diagrams: 08/17/22 07:45 08/17/22 07:45 Labs: Laboratory Results - last 24 hr 08/16/22 05:29: Diff Path Review May foll, Platelet Estimate MKD DEC, RBC Morphology NORM C+C 08/16/22 18:55: PT 12.2, INR 0.9, APTT 32.0, Fibrinogen 521 H Micro: Microbiology 08/11/22 13:15 Blood Culture (Wb) - Anticubital Left Blood Culture - Final Gram negative mandy 08/11/22 13:15 Blood Culture (Wb) - Anticubital Right Blood Culture - Final Escherichia coli 08/11/22 15:55 Urine Catheter - Lyman Urine Culture - Final Escherichia coli 08/12/22 08:00 Mucosa - Nasopharyngeal Respiratory Panel (PCR) - Final 08/12/22 08:00 Urine, Random Streptococcus pneumoniae Antigen (M - Final 08/12/22 08:00 Urine, Random Legionella Antigen - Final 08/12/22 08:00 Nasal Secretion SARS-CoV-2 & FLU Antigen (Rapid) - Final Physical Exam Const alert Constitutional Narrative: Oriented HEENT normocephalic and head/scalp atraumatic HEENT Narrative: Makes intermittent grimacing faces though reports no acute distress Eyes Eyes Narrative: EOM grossly intact, anicteric Neck supple Resp normal respiratory effort and clear to auscultation bilaterally Cardio regular rate and regular rhythm GI soft to palpation GI Narrative: Slightly tender primarily in upper abdomen, +bowel sounds Extremity Extremity Narrative: No edema appreciated Neuro moves all extremities Neuro Narrative: No overt focal deficits appreciated Psych Psych Narrative: Cooperative Assessment & Plan Assessment/Plan (1) Acute encephalopathy: (2) Acute kidney insufficiency: (3) Lung malignancy: PLAN: Plan 66-year-old male here 08/09/2022 with decreased level of consciousness and poor p.o. intake. He was found to have uremia and concerns for dehydration. Ultimately found to have sepsis 2/2 gallbladder source. Urine cx also + but UA w/ rare bacteria and no WBC. D/w ID and determined Gallbadder->sepsis->seeded urine leading to positive culture. #Sepsis secondary to likely gallbladder source w/ Ucx also positive Became tachycardic yesterday and had episode of orthostatic hypotension also had elevated lactic acid and increased white blood cell count Pancultures, started on vancomycin and Zosyn for broad coverage Fluids Heart rate and blood pressure improved and lactic returned to normal after antibiotics and fluids Doing much better today CT of the chest reported atypical infectious nodules identified along the periphery of the right and left lower lobes, potential source Does have elevated alk phos and given right upper abdominal pain will get gallbladder ultrasound Cultures are pending Given CT will also evaluate for respiratory source Still mildly tachycardic and CT with small pericardial effusion, will get echo to further characterize this though no overt hemodynamic compromise at this time 08/13: Source concerning for either urinary gallbladder, right upper quadrant ultrasound with multiple gallstones and sludge within the gallbladder, mildly thickened gallbladder wall. Growing gram-negative rods in blood. Is also growing in urine however given his right upper quadrant pain, gallbladder ultrasound, elevated alk phos high concern for gallbladder involvement. Surgery consulted. Patient n.p.o. at midnight, Eliquis held starting this morning. Culture sensitivities pending 08/14: Was sent for obey tube today via IR however platelets dropped to 24 and n otably has 1% blasts. Does have non-small cell lung cancer, right upper lobe Path stage IIb poorly differentiated G3 with metastasis to 1 interlobular lymph node and lymphovascular invasion. Received 4 cycles of adjuvant carboplatin from April to June 2022 but had excessive toxicities. Chest CT with nodules, possibly atypical infectious. Dr. Villela consulted. Additionally E. coli sensitivities back and resistant to Zosyn, Vanco discontinued and switched to cefepime 08/15: Oncology consulted and felt platelets were secondary to sepsis and drug- induced thrombocytopenia from antibiotics. Vancomycin has been discontinued. Reported platelets will likely begin to improve on their own, today 16 and unable to perform drain still. Nonpharmacologic DVT prophylaxis. Apixaban is held. No evidence of DIC. Continue cefepime. Has had having ALP and abdominal exam 08/16: Platelets further trended down, does not meet criteria for prophylactic platelet transfusion until less than 10, will try to reach out to oncology however given continued worsening despite improvement of sepsis and withdrawal of offending agent to see if maybe platelet transfusion for Quita tube on Thursday would be reasonable. 08/17: Thrombocytopenia work-up, no DIC, Spoke with ID regarding Mr. Domínguez's gallbladder, blood cultures, urine culture. UA on admission had leukoesterase and nitrate but no white blood cells and only rare bacteria, liver ultrasound gallbladder with stones, sludge, thickening, right upper quadrant pain consistent with cholecystitis. Source of his sepsis still presumed to be gallb ladder and his sepsis from that is likely why his urine was growing E. coli with the same sensitivity pattern and it is unlikely that that was the source of infection given clinical picture. Did consult ID given inability for source control with continued IV antibiotics, appreciate recommendations. Will repeat blood cultures, ID concerned plts continue to decrease d/t inability to obtain source control. Plts continue to downtrend 2u platelets ordered. Will make NPO at midnight in the event platelets do increase enough with transfusion for intervention. #Thrombocytopenia Likely multifactorial Oncology evaluated last week and thought this was secondary to sepsis and medication Sepsis treated with adequate antibiotics and vancomycin was discontinued Upon further review cefepime also has rare side effect of low platelets, this was switched to ciprofloxacin as cultures were also sensitive to that as well Not in DIC Several labs still pending 08/17: Hepatitis panel ordered as part of thrombocytopenia w/u, rest of workup unrevealing. Platelets ordered, likely d/t inability to obtain source control. #Acute metabolic encephalopathy secondary to WAN secondary to dehydration CT head negative on admission Has received IV fluids, WAN resolved TSH unremarkable UA negative LFTs improving, ammonia negative Has worsening leukocytosis with worsened left shift, right flank pain, suprapubic tenderness. Will get UA and urine culture repeat, is also tachycardic, cxr showed R sided effusion and nodule, given location of pain and possible ifxn will get CT as recommended though we will have to do so without contrast due to contrast allergy reported and recent WAN 08/12: May have been due to chronic morphine use with decreased kidney function causing decreased clearance. Significantly improved today. At present has oxycodone as needed and abdominal pain and mental status improved yesterday once he got a dose of this 08/14: Improved 08/16: Still is poor p.o. intake, creatinine slightly worse today, will give gentle hydration 08/17: Cr back to baseline #Chronic back and leg pain On morphine at home, concerned this caused/contributed to his altered mental status once he became slightly dehydrated given his decreased kidney function and morphine's illumination through the kidneys, is receiving oxycodone p.o. and had been responding well prior to this a.m., will give one-time dose of morphine to help with pain 08/14: Oxycodone as needed and Flexeril 08/15: Had previously been fairly well controlled on as needed oxycodone, yesterday evening. Process about pain and was refusing any pain medication despite offers to adjust pain regimen with his increased pain. Ultimately family was able to de-escalate after multiple attempts. 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
[2022-08-17] MEDS: Morphine 2 MG/ML Syringe IV ×3 (08:02→22:40)
[2022-08-17] MEDS: 0.9% Saline Lock 10 ML Syringe IV ×3 (08:10→22:39)
[2022-08-17] MEDS: Ondansetron 4 MG/2 ML Vial IV ×2 (08:10→16:08)
[2022-08-17 08:12] LABS: Absolute Lymphocyte Count 0.77 X10^3/uL (0.83-4.51); Absolute Neutrophil Count 4.3 X10^3/uL (2.0-7.7); Eosinophil# 0.06 X10^3/uL; Eosinophils% 1.1 % (0-5); Hematocrit 22.4 % (40-54); Hemoglobin 7.2 g/dL (13.0-16.5); Lymphocyte # 0.77 X10^3/ul (0.83-4.51); Lymphocyte % 13.9 % (19-41); Mean Corp Hgb Conc 32.1 g/dL (32-36); Mean Corpuscular Hgb 28.7 pg (27.0-32.0); Mean Corpuscular Volume 89.2 fL (80-94); Monocyte# 0.29 X10^3/uL; Monocyte% 5.2 % (0-10); NRBC Flagged by Analyzer 0 % (0-5); Neutrophil # 4.27 X10^3/uL (2.7-7.7); Neutrophil % 77.3 % (47-70); POSITIVE COUNT YES; RBC Distribution Width SD 55.7 fl (35.1-43.9); Red Blood Count 2.51 M/mm3 (4.6-6.2); White Blood Count 5.5 K/mm3 (4.4-11.0)
[2022-08-17 08:19] LABS: Differential Indicated SCAN CRITERIA MET; Platelet Count 10 K/mm3 (150-450)
[2022-08-17 08:47] LABS: ALB/GLOB Ratio 0.4 RATIO (0.9-2.4); AST(SGOT) 51 U/L (15-37); Alanine Aminotransfer ALT/SGPT 28 U/L (16-61); Albumin, Serum 1.3 g/dL (3.2-5.0); Alkaline Phosphatase 165 U/L (45-117); Anion Gap 9 (5-15); BUN 27 mg/dL (7-18); BUN/Creat Ratio 25.2 RATIO (10-20); Calcium,Total 7.4 mg/dL (8.5-10.1); Chloride 113 mmol/L (98-107); Creatinine, Serum 1.07 mg/dL (0.70-1.30); EST Glomerular Filtration Rate 73 mL/min (>60); Est Glom Filt Rate - Afr Amer 88 mL/min (>60); Estimated Creatinine Clearance 49.16 ml/min; Globulin 3.5 g/dL (2.2-4.2); Glucose 104 mg/dL (74-106); Potassium 3.5 mmol/L (3.5-5.1); Protein, Total 4.8 g/dL (6.4-8.2); Sodium Level 143 mmol/L (136-145)
[2022-08-17 09:17] LABS: Differential Comment SCANNED
[2022-08-17 09:18] LABS: Platelet Estimate MKD DEC (ADEQ)
[2022-08-17] MEDS: Ciprofloxacin 400 MG/200 ML BAG 200 MG IV ×2 (10:13→21:29)
[2022-08-17] MEDS: Ensure Plus High Protein 120 ML LIQUID PO (10:18)
[2022-08-17] MEDS: Metoprolol Tartrate 25 MG Tablet PO ×2 (10:18→21:31)
[2022-08-17] MEDS: Pantoprazole Sodium 40 MG Tablet PO ×2 (10:21→21:31)
[2022-08-17] MEDS: Polyethylene Glycol 3350 17 GM PACKET PO ×2 (10:21→21:31)
--- NOTE | 2022-08-17 10:33 | PCM.PN.SRG ---
Subjective Subjective patient remains the same, no changes Objective Data Objective Data Vital Signs: Vital Signs Temp Pulse Resp BP Pulse Ox O2 Del Method O2 Flow Rate 97.9 F 115 H 18 137/86 H 99 Room Air 2 08/17/22 07:57 08/17/22 10:18 08/17/22 07:57 08/17/22 10:18 08/17/22 07:57 08/17/22 08:03 08/11/22 12:20 Oxygen Flow Rate (L/min) 2 Oxygen Delivery Method Room Air Weight: 52.6 kg Body Mass Index (BMI) 18.1 Intake & Output: Intake and Output for Last 24 Hours 08/15/22 08/16/22 08/17/22 23:59 23:59 23:59 Intake Total 100 / 100 960 / 960 500 / 500 Output Total 150 / 150 800 / 1200 1050 / 1050 Balance -50 / -50 160 / -240 -550 / -550 Medical Nutrition Assessment Dietitian: Malnutrition Criteria Met Start: 08/09/22 11:15 Freq: Status: Active Protocol: Document 08/12/22 12:16 RMA (Rec: 08/12/22 12:16 RMA [id number]) Nutrition Malnutrition Evidence of Malnutrition Exists Yes Malnutrition (severe): Chronic Evidenced By Suboptimal Energy Intake ( Severe),Weight Loss (Severe), Physical Changes (Severe) Intake Problem Inadequate Oral Intake Etiology related to anorexia Signs/Symptoms as evidenced by refusal of meals and ONS Status Active Problem Clinical Problem Chronic Disease or Condition Related Malnutrition Etiology Severe protein-calorie malnutrition in the context of chronic/metastatic disease related to inadequate oral intake and increased energy expenditure Signs/Symptoms as evidenced by 29.8% wt loss and meeting <75% of est nutritional needs x 7 months; obvious fat/muscle wasting in face, torso and upper/lower extremities. Status Active Problem Recommendation Dietitian Recommendations/Changes Continue liberal regular diet as tolerated. Will continue 120 ml ensure plus high protein 4x/day w/ medpass. Magic cup w/ lunch and dinner; fortified foods w/ meals as able. Consider TF support given poor /inadequate oral intake and weight loss. Lab / Micro Data Result Diagrams: 08/17/22 07:45 08/17/22 07:45 Labs: Laboratory Results - last 24 hr 08/14/22 14:50: Crossmatch See Detail 08/16/22 05:29: Platelet Estimate MKD JUL, RBC Morphology NORM C+C 08/16/22 18:55: PT 12.2, INR 0.9, APTT 32.0, Fibrinogen 521 H 08/17/22 07:45: WBC 5.5, RBC 2.51 L, Hgb 7.2 L, Hct 22.4 L, MCV 89.2, MCH 28.7, MCHC 32.1, RDW Std Deviation 55.7 H, RDW Coeff of Ilia 17.0 H, Plt Count 10 L*, Immature Gran % (Auto) 2.500 H, Neut % (Auto) 77.3 H, Lymph % (Auto) 13.9 L, Coleman % (Auto) 5.2, Eos % (Auto) 1.1, Baso % (Auto) 0.0, Absolute Neuts (auto) 4.3, Absolute Lymphs (auto) 0.77 L, Nucleated RBC % 0, Differential Comment SCANNED, Diff Path Review December, Platelet Estimate MKD 08/17/22 07:45: Sodium 143, Potassium 3.5, Chloride 113 H, Carbon Dioxide 21.0, Anion Gap 9, BUN 27 H, Creatinine 1.07, Estim Creat Clear Calc 49.16, Est GFR (MDRD) Af Amer 88, Est GFR (MDRD) Non-Af 73, BUN/Creatinine Ratio 25.2 H, Glucose 104, Calcium 7.4 L, Total Bilirubin 0.60, AST 51 H, ALT 28, Alkaline Phosphatase 165 H, Total Protein 4.8 L, Albumin 1.3 L, Globulin 3.5, Albumin/Globulin Ratio 0.4 L Micro: Microbiology 08/11/22 13:15 Blood Culture (Wb) - Anticubital Left Blood Culture - Final Gram negative mandy 08/11/22 13:15 Blood Culture (Wb) - Anticubital Right Blood Culture - Final Escherichia coli 08/11/22 15:55 Urine Catheter - Lyman Urine Culture - Final Escherichia coli 08/12/22 08:00 Mucosa - Nasopharyngeal Respiratory Panel (PCR) - Final 08/12/22 08:00 Urine, Random Streptococcus pneumoniae Antigen (M - Final 08/12/22 08:00 Urine, Random Legionella Antigen - Final 08/12/22 08:00 Nasal Secretion SARS-CoV-2 & FLU Antigen (Rapid) - Final Physical Exam Const alert and oriented x3 General Appearance: cooperative Neck supple Resp normal respiratory effort Effort and Inspection: able to speak in complete sentences GI GI Narrative: abdominal examination - unchanged Assessment & Plan Assessment/Plan (1) Acute calculous cholecystitis: PLAN: continue present therapy
[2022-08-17] MEDS: Atorvastatin Calcium 20 MG Tablet PO (21:32)
[2022-08-18] VITALS (19 sets, daily range): BP systolic 125–152; BP diastolic 71–92; PULSE 91–114; RESP 18–22; TEMP 36.3–36.9; O2SAT 97–100
[2022-08-18] MEDS: oxyCODONE 5 MG Tablet PO ×4 (01:43→17:44)
[2022-08-18] MEDS: Calcium Carbonate 500 MG Tablet PO ×2 (01:44→09:10)
[2022-08-18] MEDS: Morphine 2 MG/ML Syringe IV ×2 (04:34→20:46)
[2022-08-18] MEDS: cycloBENZAPRine HCl 10 MG Tablet PO ×3 (06:34→20:47)
[2022-08-18] MEDS: NYSTATIN 500,000 UNIT/5 ML UDC 500000 UNIT PO ×3 (06:34→20:48)
--- NOTE | 2022-08-18 08:10 | PN.HOSP_ITS ---
Subjective Subjective Wants to go home. Not sure if he wants the cholecystotomy tube. Objective Data Objective Data Vital Signs: Vital Signs Temp Pulse Resp BP Pulse Ox O2 Del Method O2 Flow Rate 36.5 C L 100 20 H 133/79 H 100 Room Air 2 08/18/22 06:19 08/18/22 06:19 08/18/22 06:19 08/18/22 06:19 08/18/22 06:19 08/18/22 06:19 08/11/22 12:20 Oxygen Flow Rate (L/min) 2 Oxygen Delivery Method Room Air Weight: 52.6 kg Body Mass Index (BMI) 18.1 Intake & Output: Intake and Output for Last 24 Hours 08/16/22 08/17/22 08/18/22 23:59 23:59 23:59 Intake Total 960 / 960 1750 / 1750 520 / 520 Output Total 800 / 1200 1750 / 1750 750 / 750 Balance 160 / -240 0 / 0 -230 / -230 Medical Nutrition Assessment Dietitian: Malnutrition Criteria Met Start: 08/09/22 11:15 Freq: Status: Active Protocol: Document 08/12/22 12:16 RMA (Rec: 08/12/22 12:16 RMA [id number]) Nutrition Malnutrition Evidence of Malnutrition Exists Yes Malnutrition (severe): Chronic Evidenced By Suboptimal Energy Intake ( Severe),Weight Loss (Severe), Physical Changes (Severe) Intake Problem Inadequate Oral Intake Etiology related to anorexia Signs/Symptoms as evidenced by refusal of meals and ONS Status Active Problem Clinical Problem Chronic Disease or Condition Related Malnutrition Etiology Severe protein-calorie malnutrition in the context of chronic/metastatic disease related to inadequate oral intake and increased energy expenditure Signs/Symptoms as evidenced by 29.8% wt loss and meeting <75% of est nutritional needs x 7 months; obvious fat/muscle wasting in face, torso and upper/lower extremities. Status Active Problem Recommendation Dietitian Recommendations/Changes Continue liberal regular diet as tolerated. Will continue 120 ml ensure plus high protein 4x/day w/ medpass. Magic cup w/ lunch and dinner; fortified foods w/ meals as able. Consider TF support given poor /inadequate oral intake and weight loss. Lab / Micro Data Result Diagrams: 08/18/22 09:00 08/18/22 09:00 Labs: Laboratory Results - last 24 hr 08/14/22 14:50: Blood Type O POSITIVE, Antibody Screen NEGATIVE, Crossmatch See Detail 08/16/22 18:55: Miscellaneous Test Cancelled 08/17/22 07:45: WBC 5.5, RBC 2.51 L, Hgb 7.2 L, Hct 22.4 L, MCV 89.2, MCH 28.7, MCHC 32.1, RDW Std Deviation 55.7 H, RDW Coeff of Ilia 17.0 H, Plt Count 10 L*, Immature Gran % (Auto) 2.500 H, Neut % (Auto) 77.3 H, Lymph % (Auto) 13.9 L, [place] % (Auto) 5.2, Eos % (Auto) 1.1, Baso % (Auto) 0.0, Absolute Neuts (auto) 4.3, Absolute Lymphs (auto) 0.77 L, Nucleated RBC % 0, Differential Comment SCANNED, Diff Path Review December, Platelet Estimate MKD 08/17/22 07:45: Sodium 143, Potassium 3.5, Chloride 113 H, Carbon Dioxide 21.0, Anion Gap 9, BUN 27 H, Creatinine 1.07, Estim Creat Clear Calc 49.16, Est GFR (MDRD) Af Amer 88, Est GFR (MDRD) Non-Af 73, BUN/Creatinine Ratio 25.2 H, Glucose 104, Calcium 7.4 L, Total Bilirubin 0.60, AST 51 H, ALT 28, Alkaline Phosphatase 165 H, Total Protein 4.8 L, Albumin 1.3 L, Globulin 3.5, Albumin/ Globulin Ratio 0.4 L 08/17/22 14:25: Blood Type O POSITIVE, Antibody Screen NEGATIVE Micro: Microbiology 08/11/22 13:15 Blood Culture (Wb) - Anticubital Left Blood Culture - Final Gram negative mandy 08/11/22 13:15 Blood Culture (Wb) - Anticubital Right Blood Culture - Final Escherichia coli 08/11/22 15:55 Urine Catheter - Lyman Urine Culture - Final Escherichia coli 08/12/22 08:00 Mucosa - Nasopharyngeal Respiratory Panel (PCR) - Final 08/12/22 08:00 Urine, Random Streptococcus pneumoniae Antigen (M - Final 08/12/22 08:00 Urine, Random Legionella Antigen - Final 08/12/22 08:00 Nasal Secretion SARS-CoV-2 & FLU Antigen (Rapid) - Final Physical Exam Const alert and no apparent distress Resp normal respiratory effort, no retractions, no use of accessory muscles and clear to auscultation bilaterally Cardio regular rate, regular rhythm, S1 normal heart sound and S2 normal heart sound GI normal to inspection, nondistended, normoactive bowel sounds, soft to palpation, non-tender and non-distended Extremity normal to inspection Assessment & Plan Assessment/Plan (1) Sepsis: PLAN: #Sepsis secondary to likely gallbladder source w/ Ucx also positive Became tachycardic yesterday and had episode of orthostatic hypotension also had elevated lactic acid and increased white blood cell count Pancultures, started on vancomycin and Zosyn for broad coverage Fluids Heart rate and blood pressure improved and lactic returned to normal after antibiotics and fluids Doing much better today CT of the chest reported atypical infectious nodules identified along the periphery of the right and left lower lobes, potential source Does have elevated alk phos and given right upper abdominal pain will get gallbladder ultrasound Cultures are pending Given CT will also evaluate for respiratory source Still mildly tachycardic and CT with small pericardial effusion, will get echo to further characterize this though no overt hemodynamic compromise at this time 08/13: Source concerning for either urinary gallbladder, right upper quadrant ultrasound with multiple gallstones and sludge within the gallbladder, mildly thickened gallbladder wall. Growing gram-negative rods in blood. Is also growing in urine however given his right upper quadrant pain, gallbladder ult rasound, elevated alk phos high concern for gallbladder involvement. Surgery consulted. Patient n.p.o. at midnight, Eliquis held starting this morning. Culture sensitivities pending 08/14: Was sent for obey tube today via IR however platelets dropped to 24 and notably has 1% blasts. Does have non-small cell lung cancer, right upper lobe Path stage IIb poorly differentiated G3 with metastasis to 1 interlobular lymph node and lymphovascular invasion. Received 4 cycles of adjuvant carboplatin from April to June 2022 but had excessive toxicities. Chest CT with nodules, possibly atypical infectious. Dr. Villela consulted. Additionally E. coli sensitivities back and resistant to Zosyn, Vanco discontinued and switched to cefepime 08/15: Oncology consulted and felt platelets were secondary to sepsis and drug- induced thrombocytopenia from antibiotics. Vancomycin has been discontinued. Reported platelets will likely begin to improve on their own, today 16 and unable to perform drain still. Nonpharmacologic DVT prophylaxis. Apixaban is held. No evidence of DIC. Continue cefepime. Has had having ALP and abdominal exam 08/16: Platelets further trended down, does not meet criteria for prophylactic platelet transfusion until less than 10, will try to reach out to oncology however given continued worsening despite improvement of sepsis and withdrawal of offending agent to see if maybe platelet transfusion for [place] tube on Thursday would be reasonable. 08/17: Thrombocytopenia work-up, no DIC, Spoke with ID regarding Mr. Domínguez's gallbladder, blood cultures, urine culture. UA on admission had leukoesterase and nitrate but no white blood cells and only rare bacteria, liver ultrasound gallbladder with stones, sludge, thickening, right upper quadrant pain consistent with cholecystitis. Source of his sepsis still presumed to be gallbladder and his sepsis from that is likely why his urine was growing E. coli with the same sensitivity pattern and it is unlikely that that was the source of infection given clinical picture. Did consult ID given inability for source c ontrol with continued IV antibiotics, appreciate recommendations. Will repeat blood cultures, ID concerned plts continue to decrease d/t inability to obtain source control. Plts continue to downtrend 2u platelets ordered. Will make NPO at midnight in the event platelets do increase enough with transfusion for intervention. (2) UTI (urinary tract infection): PLAN: UA on was unremarkable, however UCx positive on Cipro (3) Bacteremia: PLAN: same bacteria as UCx suspect due to urinary source (4) Acute encephalopathy: PLAN: Acute metabolic encephalopathy secondary to WAN secondary to dehydration CT head negative on admission Has received IV fluids, WAN resolved TSH unremarkable UA negative LFTs improving, ammonia negative Has worsening leukocytosis with worsened left shift, right flank pain, suprapubic tenderness. Will get UA and urine culture repeat, is also tachycardic, cxr showed R sided effusion and nodule, given location of pain and possible ifxn will get CT as recommended though we will have to do so without contrast due to contrast allergy reported and recent WAN 08/12: May have been due to chronic morphine use with decreased kidney function causing decreased clearance. Significantly improved today. At present has oxycodone as needed and abdominal pain and mental status improved yesterday once he got a dose of this 08/14: Improved 08/16: Still is poor p.o. 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 Status post lobectomy Possible right lower lobe nodule, already undergone adjuvant chemotherapy for 4 cycles 08/14/2022: Oncology consulted 08/15: Outpatient surveillance (6) Thrombocytopenia: PLAN: #Thrombocytopenia Likely multifactorial Oncology evaluated last week and thought this was secondary to sepsis and me dication Sepsis treated with adequate antibiotics and vancomycin was discontinued Upon further review cefepime also has rare side effect of low platelets, this was switched to ciprofloxacin as cultures were also sensitive to that as well Not in DIC Several labs still pending 08/17: Hepatitis panel ordered as part of thrombocytopenia w/u, rest of workup unrevealing. Platelets ordered, likely d/t inability to obtain source control. 08/18: transfuse 1 units (7) Cholecystitis: PLAN: Hold off on cholecystomy tube for pt to makes up his mind. (8) Anemia: PLAN: 08/18: transfuse 1 unit PRBCs PLAN: Plan #Chronic back and leg pain On morphine at home, concerned this caused/contributed to his altered mental status once he became slightly dehydrated given his decreased kidney function and morphine's illumination through the kidneys, is receiving oxycodone p.o. and had been responding well prior to this a.m., will give one-time dose of morphine to help with pain 08/14: Oxycodone as needed and Flexeril 08/15: Had previously been fairly well controlled on as needed oxycodone, yesterday evening. Process about pain and was refusing any pain medication despite offers to adjust pain regimen with his increased pain. Ultimately family was able to de-escalate after multiple attempts. He was given a as needed and then schedule pain medication, Narcan is on board in the event there is respiratory depression however he was on 15 mg of long-acting morphine twice daily at home and has a high threshold/tolerance 08/17: Remains on scheduled regimen, discussed yesterday if pain was adequately controlled or if he felt regimen needed adjusted and he said he would like to keep with the same for now #Type 2 diabetes mellitus Glipizide held Glucose on BMPs has been low 100s #Atrial flutter Eliquis held On Lipitor for hyperlipidemia Metoprolol #DVT ppx: Eliquis held, SCDs Prognosis: guarded. Discussed goals of care with patient--advanced medical care, palliation, v hospice. Pt wishes to think about it. Charges/Coding Visit Charges Inpatient E&M: 93247 Disch Hosp >30min
--- NOTE | 2022-08-18 09:01 | NURSING ---
Lab obtained blood for lab draw, she sent via tubes down to the lab.
[2022-08-18] MEDS: Pantoprazole Sodium 40 MG Tablet PO ×2 (09:05→20:48)
[2022-08-18 09:19] LABS: Prothrombin Time (Protime)PT. 12.7 SECONDS (11.7-14.9)
[2022-08-18 09:20] LABS: Absolute Lymphocyte Count 0.55 X10^3/uL (0.83-4.51); Absolute Neutrophil Count 3.1 X10^3/uL (2.0-7.7); Basophil# 0.01 X10^3/uL; Basophil% 0.2 % (0-1); Eosinophil# 0.04 X10^3/uL; Hematocrit 26.8 % (40-54); Hemoglobin 8.4 g/dL (13.0-16.5); Lymphocyte # 0.55 X10^3/ul (0.83-4.51); Lymphocyte % 13.6 % (19-41); Mean Corp Hgb Conc 31.3 g/dL (32-36); Mean Corpuscular Hgb 27.5 pg (27.0-32.0); Mean Corpuscular Volume 87.6 fL (80-94); Monocyte# 0.18 X10^3/uL; Monocyte% 4.5 % (0-10); NRBC Flagged by Analyzer 1.7 % (0-5); Neutrophil # 3.12 X10^3/uL (2.7-7.7); Neutrophil % 77.2 % (47-70); POSITIVE COUNT YES; POSITIVE DIFFERENTIAL YES; Platelet Count 13 K/mm3 (150-450); RBC Distribution Width CV 17.2 % (11.6-14.6); RBC Distribution Width SD 54.6 fl (35.1-43.9); Red Blood Count 3.06 M/mm3 (4.6-6.2)
[2022-08-18 09:31] LABS: Pathologist Review Reviewed
[2022-08-18 09:33] LABS: Differential Indicated SCAN CRITERIA MET
--- NOTE | 2022-08-18 09:45 | NURSING ---
Updated given to Alycia, daughter in law. Alycia is not on the contact list to give information too but Kenneth gave this RN verbal consent to give information to Alycia at this time.
--- NOTE | 2022-08-18 09:53 | CASEMGMT ---
Social Work TCU updated that pt is not ready for discharge at this time. Barbara in TCU confirms pt will remain on the admission list. SD will followup when pt is closer to discharge. PHILIP Concepcion
[2022-08-18 10:02] LABS: ALB/GLOB Ratio 0.5 RATIO (0.9-2.4); AST(SGOT) 53 U/L (15-37); Alanine Aminotransfer ALT/SGPT 30 U/L (16-61); Albumin, Serum 1.7 g/dL (3.2-5.0); Alkaline Phosphatase 162 U/L (45-117); Anion Gap 8 (5-15); BUN 24 mg/dL (7-18); BUN/Creat Ratio 21.6 RATIO (10-20); Calcium,Total 7.8 mg/dL (8.5-10.1); Chloride 111 mmol/L (98-107); Creatinine, Serum 1.11 mg/dL (0.70-1.30); EST Glomerular Filtration Rate 70 mL/min (>60); Est Glom Filt Rate - Afr Amer 85 mL/min (>60); Estimated Creatinine Clearance 47.39 ml/min; Globulin 3.7 g/dL (2.2-4.2); Glucose 100 mg/dL (74-106); Potassium 3.1 mmol/L (3.5-5.1); Protein, Total 5.4 g/dL (6.4-8.2); Sodium Level 143 mmol/L (136-145)
[2022-08-18 11:07] LABS: Platelet Estimate MKD DEC (ADEQ)
[2022-08-18] MEDS: Ciprofloxacin 400 MG/200 ML BAG 200 MG IV ×2 (11:22→22:38)
[2022-08-18] MEDS: Metoprolol Tartrate 25 MG Tablet PO ×2 (11:29→20:47)
[2022-08-18] MEDS: Polyethylene Glycol 3350 17 GM PACKET PO ×2 (11:29→20:47)
--- NOTE | 2022-08-18 13:23 | PCM.CONS.GEN ---
Assessment & Plan Assessment/Plan (1) Sepsis: PLAN: Due to ecoli bacteremia from cholecystitis - suspect Ucx (+) is related to hematogenous spread. Worsening condition likely due to ecoli R to zosyn and lack of source control. Now on cipro, will add flagyl. Surgery following for possible obey drain vs cholecystectomy. Will follow, thank you (2) Thrombocytopenia: (3) Bacteremia: (4) Acute calculous cholecystitis: HPI Consult Data Date of Consult: 08/18/22 HPI Narrative Reason for Consultation: bacteremia HPI Narrative: LUIS WEINSTEIN, is a 66 M with h/o NSCLC with RUL lobectomy 01/2022 and chemo in the fall, presented 08/09/22 to ED with weakness, confusion, RUQ abd pain, and loss of appetite. Some nausea. Some fever/chills. Pain in abd was moderate. Admitted on zosyn, platelets worsening, found to have ecoli bacteremia, suspected biliary source. Changed to cipro. Feeling a little better. Full ROS performed and neg except as noted above. [facility] Medical History Acid reflux Anemia Arthritis Atrial flutter Back pain Cardiology follow-up encounter Chronic pain CINV (chemotherapy-induced nausea and vomiting) Constipation COPD (chronic obstructive pulmonary disease) CRF (chronic renal failure) Diabetes mellitus Dysuria Encounter for adjustment and management of vascular access device Encounter for chemotherapy management Encounter for education Former smoker High cholesterol Hypertension Injury of back Kidney stones Leg cramps Malignant neoplasm of upper lobe, right bronchus or lung Multiple lung nodules on CT Neuropathy Nicotine dependence, cigarettes, uncomplicated Normal stress echocardiogram Regional lymph node metastasis present Severe malnutrition Smoker Syncope Wears glasses Home Medications atorvastatin 80 mg tablet 80 mg PO DAILY cholesterol 11/26/21 [History Last Taken 08/04/22] cyclobenzaprine 10 mg tablet 10 mg PO TID spasms 11/26/21 [History Last Taken 08/04/22] gabapentin 400 mg capsule 400 mg PO TID nerve pain 11/26/21 [History Last Taken 08/04/22] glyburide 5 mg tablet 5 mg PO DAILY dm 11/26/21 [History Last Taken 08/04/22] morphine 15 mg immediate release tablet 15 mg PO BID PRN Pain 11/26/21 [History Last Taken 08/04/22] trazodone 100 mg tablet 100 mg PO QHS PRN Sleep 11/26/21 [History Last Taken 08/03/22] apixaban 5 mg tablet (Eliquis) 5 mg PO BID blood thinner 03/26/22 [History Last Taken 08/04/22] lidocaine-prilocaine 2.5 %-2.5 % topical cream 1 applic topical ONCE PRN port access 30 days #30 grams 03/27/22 [Rx Last Taken Unknown] nystatin 100,000 unit/mL oral suspension 500,000 unit PO TID thrush 08/04/22 [History Last Taken 08/04/22] food supplemt, lactose-reduced 0.08 gram-1.5 kcal/mL oral liquid (Ensure Plus High Protein) 120 ml PO 4X/DAY #30 BOTTLES 08/06/22 [Rx Last Taken Unknown] pantoprazole 40 mg tablet,delayed release 40 mg PO BID #60 tabs 08/06/22 [Rx Last Taken Unknown] Allergy/AdvReac Type Severity Reaction Status Date / Time Iodinated Contrast Media Allergy Unknown Other Verified 08/04/22 14:06 Family History Mother Cancer Father Cancer Son Cancer Surgical History H/O lithotripsy History of hip replacement Previous back surgery S/P lobectomy of lung Status post surgical removal of neoplasm of skin Trigger finger Social History household members: spouse housing: house Smoking Status: Former smoker quit date: 01/01/22 pack-years: 30 Tobacco: How many years used: 30 how long ago did patient quit smoking: hasn't smoked since diagnosis 01/2022 second hand exposure: Yes alcohol intake: never substance use type: does not use Physical Exam Const alert, oriented x3 and no apparent distress General Appearance: cooperative HEENT normocephalic and head/scalp atraumatic Eyes PERRL and EOMs intact bilaterally Neck supple and No nodes Resp normal air movement and clear to auscultation bilaterally Cardio regular rate and regular rhythm GI soft to palpation and non-distended GI Narrative: mild RUQ soreness Extremity General Extremity: Negative for edema Skin no rashes or lesions noted Neuro CN's II-XII intact bilaterally Medical Records Data Medical Nutrition Assessment Dietitian: Malnutrition Criteria Met Start: 08/09/22 11:15 Freq: Status: Active Protocol: Document 08/18/22 11:21 SLA (Rec: 08/18/22 11:21 SLA [id number]) Nutrition Malnutrition Evidence of Malnutrition Exists Yes Malnutrition (severe): Chronic Evidenced By Suboptimal Energy Intake ( Severe),Weight Loss (Severe), Physical Changes (Severe) Intake Problem Inadequate Oral Intake Etiology related to lung cancer, c/o no appetite and poor po intake Signs/Symptoms as evidenced by refusal of meals and ONS Status Active Problem Clinical Problem Chronic Disease or Condition Related Malnutrition Etiology Severe protein-calorie malnutrition in the context of chronic/metastatic disease related to inadequate oral intake and increased energy expenditure Signs/Symptoms as evidenced by 29.8% wt loss and meeting <75% of est nutritional needs x 7 months; obvious fat/muscle wasting in face, torso and upper/lower extremities. Status Active Problem Recommendation Dietitian Recommendations/Changes Continue liberal regular diet as tolerated. Will change to 120 ml ensure clear 4x/day w/ medpass to see if better acceptance. Change to ensure pudding w/ lunch and dinner; fortified foods w/ meals as able. Consider TF support given poor /inadequate oral intake and weight loss if in accordance w / pt/family wishes. Lab / Micro Data Attestation: I reviewed the patient's lab results. Result Diagrams: 08/18/22 09:00 08/18/22 09:00 Labs: Laboratory Results - last 24 hr 08/14/22 14:50: Diff Path Review Reviewed 08/14/22 14:50: Crossmatch See Detail 08/16/22 18:55: Miscellaneous Test Cancelled 08/17/22 14:25: Blood Type O POSITIVE, Antibody Screen NEGATIVE 08/17/22 14:25: Crossmatch See Detail 08/18/22 09:00: WBC 4.0 L, RBC 3.06 L, Hgb 8.4 L, Hct 26.8 L, MCV 87.6, MCH 27.5, MCHC 31.3 L, RDW Std Deviation 54.6 H, RDW Coeff of Ilia 17.2 H, Plt Count 13 L*, Immature Gran % (Auto) 3.500 H, Neut % (Auto) 77.2 H, Lymph % (Auto) 13.6 L, [place] % (Auto) 4.5, Eos % (Auto) 1.0, Baso % (Auto) 0.2, Absolute Neuts (auto) 3.1, Absolute Lymphs (auto) 0.55 L, Nucleated RBC % 1.7, Differential Comment , Diff Path Review December, Platelet Estimate MKD 08/18/22 09:00: PT 12.7, INR 1.0 08/18/22 09:00: Sodium 143, Potassium 3.1 L, Chloride 111 H, Carbon Dioxide 24.0, Anion Gap 8, BUN 24 H, Creatinine 1.11, Estim Creat Clear Calc 47.39, Est GFR (MDRD) Af Amer 85, Est GFR (MDRD) Non-Af 70, BUN/Creatinine Ratio 21.6 H, Glucose 100, Calcium 7.8 L, Total Bilirubin 0.70, AST 53 H, ALT 30, Alkaline Phosphatase 162 H, Total Protein 5.4 L, Albumin 1.7 L, Globulin 3.7, Albumin/Globulin Ratio 0.5 L
[2022-08-18 13:33] LABS: Pathologist Review Reviewed
[2022-08-18 13:36] LABS: Pathologist Review Reviewed
[2022-08-18] MEDS: Ensure Clear 120 ML Liquid PO (13:38)
[2022-08-18] MEDS: metroNIDAZOLE 500 MG Tablet PO ×2 (13:39→20:47)
--- NOTE | 2022-08-18 14:23 | PN.SURG_ITS ---
Subjective Subjective Patient has been on clear liquid diet but still not really eating his does not have an appetite and abdominal pain. Patient's platelets are still less than 20 and currently 10 this morning patient white blood cell count is 4. Objective Data Objective Data Vital Signs: Vital Signs Temp Pulse Resp BP Pulse Ox O2 Del Method O2 Flow Rate 97.5 F L 95 18 137/85 H 99 Room Air 2 08/18/22 13:27 08/18/22 13:27 08/18/22 13:27 08/18/22 13:27 08/18/22 13:27 08/18/22 13:27 08/11/22 12:20 Oxygen Flow Rate (L/min) 2 Oxygen Delivery Method Room Air Weight: 115 lb 15.41 oz Body Mass Index (BMI) 18.1 Intake & Output: Intake and Output for Last 24 Hours 08/16/22 08/17/22 08/18/22 23:59 23:59 23:59 Intake Total 960 / 960 1750 / 1750 840 / 840 Output Total 800 / 1200 1750 / 1750 1000 / 1000 Balance 160 / -240 0 / 0 -160 / -160 Medical Nutrition Assessment Dietitian: Malnutrition Criteria Met Start: 08/09/22 11:15 Freq: Status: Active Protocol: Document 08/18/22 11:21 MAXWELL (Rec: 08/18/22 11:21 [facility] [id number]) Nutrition Malnutrition Evidence of Malnutrition Exists Yes Malnutrition (severe): Chronic Evidenced By Suboptimal Energy Intake ( Severe),Weight Loss (Severe), Physical Changes (Severe) Intake Problem Inadequate Oral Intake Etiology related to lung cancer, c/o no appetite and poor po intake Signs/Symptoms as evidenced by refusal of meals and ONS Status Active Problem Clinical Problem Chronic Disease or Condition Related Malnutrition Etiology Severe protein-calorie malnutrition in the context of chronic/metastatic disease related to inadequate oral intake and increased energy expenditure Signs/Symptoms as evidenced by 29.8% wt loss and meeting <75% of est nutritional needs x 7 months; obvious fat/muscle wasting in face, torso and upper/lower extremities. Status Active Problem Recommendation Dietitian Recommendations/Changes Continue liberal regular diet as tolerated. Will change to 120 ml ensure clear 4x/day w/ medpass to see if better acceptance. Change to ensure pudding w/ lunch and dinner; fortified foods w/ meals as able. Consider TF support given poor /inadequate oral intake and weight loss if in accordance w / pt/family wishes. Lab / Micro Data Result Diagrams: 08/18/22 09:00 08/18/22 09:00 Labs: Laboratory Results - last 24 hr 08/14/22 14:50: Diff Path Review Reviewed 08/14/22 14:50: Crossmatch See Detail 08/15/22 05:18: Diff Path Review Reviewed 08/16/22 18:55: Miscellaneous Test Cancelled 08/17/22 07:45: Diff Path Review Reviewed 08/17/22 14:25: Blood Type O POSITIVE, Antibody Screen NEGATIVE 08/17/22 14:25: Crossmatch See Detail 08/18/22 09:00: WBC 4.0 L, RBC 3.06 L, Hgb 8.4 L, Hct 26.8 L, MCV 87.6, MCH 27.5, MCHC 31.3 L, RDW Std Deviation 54.6 H, RDW Coeff of Ilia 17.2 H, Plt Count 13 L*, Immature Gran % (Auto) 3.500 H, Neut % (Auto) 77.2 H, Lymph % (Auto) 13.6 L, [place] % (Auto) 4.5, Eos % (Auto) 1.0, Baso % (Auto) 0.2, Absolute Neuts (auto) 3.1, Absolute Lymphs (auto) 0.55 L, Nucleated RBC % 1.7, Differential Comment , Diff Path Review May foll, Platelet Estimate MKD 08/18/22 09:00: PT 12.7, INR 1.0 08/18/22 09:00: Sodium 143, Potassium 3.1 L, Chloride 111 H, Carbon Dioxide 24.0, Anion Gap 8, BUN 24 H, Creatinine 1.11, Estim Creat Clear Calc 47.39, Est GFR (MDRD) Af Amer 85, Est GFR (MDRD) Non-Af 70, BUN/Creatinine Ratio 21.6 H, Glucose 100, Calcium 7.8 L, Total Bilirubin 0.70, AST 53 H, ALT 30, Alkaline Phosphatase 162 H, Total Protein 5.4 L, Albumin 1.7 L, Globulin 3.7, Albumin/Globulin Ratio 0.5 L Micro: Microbiology 08/11/22 13:15 Blood Culture (Wb) - Anticubital Left Blood Culture - Final Gram negative mandy 08/11/22 13:15 Blood Culture (Wb) - Anticubital Right Blood Culture - Final Escherichia coli 08/11/22 15:55 Urine Catheter - Lyman Urine Culture - Final Escherichia coli 08/12/22 08:00 Mucosa - Nasopharyngeal Respiratory Panel (PCR) - Final 08/12/22 08:00 Urine, Random Streptococcus pneumoniae Antigen (M - Final 08/12/22 08:00 Urine, Random Legionella Antigen - Final 08/12/22 08:00 Nasal Secretion SARS-CoV-2 & FLU Antigen (Rapid) - Final Physical Exam Narrative Cachectic Const oriented x3 Resp normal respiratory effort Cardio regular rate GI GI Narrative: Soft, nondistended, tender palpation right upper quadrant Assessment & Plan Assessment/Plan (1) Acute calculous cholecystitis: PLAN: Thrombocytopenia pi?a patient's platelets are still very low at 10 he is currently getting 1 unit of platelets. But he still not a candidate for a cholecystostomy tube or surgical candidate. Patient still on antibiotics for acute cholecystitis however there is not much else we can offer until his labs improve if they improved. Discussed with patient. Hilda Mathis M.D. Pager: [phone] [facility] [address] [place] [address], [facility], [address] [place] [address] Office: [phone] Charges/Coding Visit Charges Inpatient E&M: 94362 Subs Hosp L2
--- NOTE | 2022-08-18 17:00 | NURSING ---
This RN in room to see pt after complaining of indigestion. Pt asked this RN to take out the vega cath. I'm going home. Pts at bedside. I'm going home with my now take this thing out. This RN explained reason and importance that pt should stay. Pt had 1 unit of PRBC and I was getting ready to go get the 1 unit of PLTs and infuse. Pt restless, irriated and agitated. Pt raised voice to and this RN. asked pt if he was in pain, Yes I'm in pain. This RN sat down next to pt and again, gave reason why to stay. This RN asked if he wanted hospice to come see him. did not say anything but Mr. Domínguez said yes but continues to want to go home. This RN texted Dr. Nair to inform him that pt restless, agitated and wanting to leave. This RN asked if Dr. Nair could come see pt and his .
[2022-08-18] MEDS: 0.9% Saline Lock 10 ML Syringe IV ×2 (17:34→21:14)
[2022-08-18] MEDS: Ondansetron 4 MG/2 ML Vial IV (17:34)
--- NOTE | 2022-08-18 17:40 | NURSING ---
Platelets infusing at kvo (off of IVAC) at this time.
--- NOTE | 2022-08-18 17:52 | NURSING ---
Spoke to Dora at [facility] who took referral information for pt. Hospice will contact to set up meeting time. & pt notified of this and are in agreement. Primary RN aware.
--- NOTE | 2022-08-18 18:41 | NURSING ---
Hospice called and will be in to meet with pt and at 11:00 am thursday per primary rn
[2022-08-18] MEDS: Senna/Docusate Sodium 1 Tablet 2 TABLET PO (20:46)
[2022-08-18] MEDS: Atorvastatin Calcium 20 MG Tablet PO (20:47)
[2022-08-19] VITALS (8 sets, daily range): BP systolic 137–142; BP diastolic 78–89; PULSE 86–116; RESP 18–20; TEMP 36.6–36.7; O2SAT 97–99
[2022-08-19] MEDS: 0.9% Saline Lock 10 ML Syringe IV ×3 (03:05→10:45)
[2022-08-19] MEDS: Morphine 2 MG/ML Syringe IV ×2 (03:05→06:01)
[2022-08-19 05:07] LABS: HEPATITIS B SURFACE AG Negative (Negative); Hep C Antibodies <0.1 s/co ratio (0.0-0.9); Hepatitis A IgM Antibody Negative (Negative); Hepatitis B Core AB IgM Negative (Negative)
[2022-08-19 06:46] LABS: Absolute Lymphocyte Count 0.66 X10^3/uL (0.83-4.51); Absolute Neutrophil Count 4.2 X10^3/uL (2.0-7.7); Basophil# 0.01 X10^3/uL; Basophil% 0.2 % (0-1); Eosinophil# 0.05 X10^3/uL; Eosinophils% 0.9 % (0-5); Hematocrit 30.7 % (40-54); Hemoglobin 9.7 g/dL (13.0-16.5); Lymphocyte # 0.66 X10^3/ul (0.83-4.51); Lymphocyte % 12.4 % (19-41); Mean Corp Hgb Conc 31.6 g/dL (32-36); Mean Corpuscular Hgb 26.6 pg (27.0-32.0); Mean Corpuscular Volume 84.3 fL (80-94); Mean Platelet Vol. 10.8 fl (6.2-12.0); Monocyte# 0.27 X10^3/uL; Monocyte% 5.1 % (0-10); NRBC Flagged by Analyzer 0 % (0-5); Neutrophil % 78.6 % (47-70); POSITIVE COUNT YES; RBC Distribution Width CV 17.8 % (11.6-14.6); RBC Distribution Width SD 54.3 fl (35.1-43.9); Red Blood Count 3.64 M/mm3 (4.6-6.2); White Blood Count 5.3 K/mm3 (4.4-11.0)
[2022-08-19 06:51] LABS: Differential Indicated SCAN CRITERIA MET
[2022-08-19 06:52] LABS: Platelet Count 42 K/mm3 (150-450)
[2022-08-19 07:06] LABS: Differential Comment SCANNED
[2022-08-19 07:07] LABS: Platelet Estimate MKD DEC (ADEQ)
[2022-08-19 07:19] LABS: ALB/GLOB Ratio 0.5 RATIO (0.9-2.4); AST(SGOT) 49 U/L (15-37); Alanine Aminotransfer ALT/SGPT 27 U/L (16-61); Albumin, Serum 1.8 g/dL (3.2-5.0); Alkaline Phosphatase 149 U/L (45-117); Anion Gap 9 (5-15); BUN 20 mg/dL (7-18); BUN/Creat Ratio 19.4 RATIO (10-20); Calcium,Total 7.4 mg/dL (8.5-10.1); Chloride 114 mmol/L (98-107); Creatinine, Serum 1.03 mg/dL (0.70-1.30); EST Glomerular Filtration Rate 76 mL/min (>60); Est Glom Filt Rate - Afr Amer 92 mL/min (>60); Estimated Creatinine Clearance 51.07 ml/min; Globulin 3.4 g/dL (2.2-4.2); Glucose 106 mg/dL (74-106); Potassium 2.9 mmol/L (3.5-5.1); Protein, Total 5.2 g/dL (6.4-8.2); Sodium Level 147 mmol/L (136-145)
--- NOTE | 2022-08-19 07:24 | PCM.PN.HOSP ---
Subjective Subjective Agitated overnight. Wanted to leave AMA, but wound up staying. Denies abdominal nor back pain. Agrees to stay and wishes to procede with medical care. Objective Data Objective Data Vital Signs: Vital Signs Temp Pulse Resp BP Pulse Ox O2 Del Method O2 Flow Rate 36.6 C 97 20 H 142/78 H 97 Room Air 2 08/19/22 03:00 08/19/22 03:00 08/19/22 03:00 08/19/22 03:00 08/19/22 03:00 08/19/22 03:00 08/11/22 12:20 Oxygen Flow Rate (L/min) 2 Oxygen Delivery Method Room Air Weight: 52.6 kg Body Mass Index (BMI) 18.1 Intake & Output: Intake and Output for Last 24 Hours 08/17/22 08/18/22 08/19/22 23:59 23:59 23:59 Intake Total 1750 / 1750 890 / 1140 250 / 250 Output Total 1750 / 1750 1300 / 1700 1050 / 1050 Balance 0 / 0 -410 / -560 -800 / -800 Medical Nutrition Assessment Dietitian: Malnutrition Criteria Met Start: 08/09/22 11:15 Freq: Status: Active Protocol: Document 08/18/22 11:21 [facility] (Rec: 08/18/22 11:21 [facility] [id number]) Nutrition Malnutrition Evidence of Malnutrition Exists Yes Malnutrition (severe): Chronic Evidenced By Suboptimal Energy Intake ( Severe),Weight Loss (Severe), Physical Changes (Severe) Intake Problem Inadequate Oral Intake Etiology related to lung cancer, c/o no appetite and poor po intake Signs/Symptoms as evidenced by refusal of meals and ONS Status Active Problem Clinical Problem Chronic Disease or Condition Related Malnutrition Etiology Severe protein-calorie malnutrition in the context of chronic/metastatic disease related to inadequate oral intake and increased energy expenditure Signs/Symptoms as evidenced by 29.8% wt loss and meeting <75% of est nutritional needs x 7 months; obvious fat/muscle wasting in face, torso and upper/lower extremities. Status Active Problem Recommendation Dietitian Recommendations/Changes Continue liberal regular diet as tolerated. Will change to 120 ml ensure clear 4x/day w/ medpass to see if better acceptance. Change to ensure pudding w/ lunch and dinner; fortified foods w/ meals as able. Consider TF support given poor /inadequate oral intake and weight loss if in accordance w / pt/family wishes. Lab / Micro Data Result Diagrams: 08/19/22 06:35 08/19/22 06:35 Labs: Laboratory Results - last 24 hr 08/14/22 14:50: Diff Path Review Reviewed 08/15/22 05:18: Diff Path Review Reviewed 08/17/22 07:45: Diff Path Review Reviewed 08/17/22 14:25: Crossmatch See Detail 08/18/22 09:00: WBC 4.0 L, RBC 3.06 L, Hgb 8.4 L, Hct 26.8 L, MCV 87.6, MCH 27.5, MCHC 31.3 L, RDW Std Deviation 54.6 H, RDW Coeff of Ilia 17.2 H, Plt Count 13 L*, Immature Gran % (Auto) 3.500 H, Neut % (Auto) 77.2 H, Lymph % (Auto) 13.6 L, [place] % (Auto) 4.5, Eos % (Auto) 1.0, Baso % (Auto) 0.2, Absolute Neuts (auto) 3.1, Absolute Lymphs (auto) 0.55 L, Nucleated RBC % 1.7, Differential Comment , Diff Path Review May foll, Platelet Estimate MKD 08/18/22 09:00: PT 12.7, INR 1.0 08/18/22 09:00: Sodium 143, Potassium 3.1 L, Chloride 111 H, Carbon Dioxide 24.0, Anion Gap 8, BUN 24 H, Creatinine 1.11, Estim Creat Clear Calc 47.39, Est GFR (MDRD) Af Amer 85, Est GFR (MDRD) Non-Af 70, BUN/Creatinine Ratio 21.6 H, Glucose 100, Calcium 7.8 L, Total Bilirubin 0.70, AST 53 H, ALT 30, Alkaline Phosphatase 162 H, Total Protein 5.4 L, Albumin 1.7 L, Globulin 3.7, Albumin/Globulin Ratio 0.5 L 08/19/22 06:35: WBC 5.3, RBC 3.64 L, Hgb 9.7 L, Hct 30.7 L, MCV 84.3, MCH 26.6 L, MCHC 31.6 L, RDW Std Deviation 54.3 H, RDW Coeff of Ilia 17.8 H, Plt Count 42 L*, MPV 10.8, Immature Gran % (Auto) 2.800 H, Neut % (Auto) 78.6 H, Lymph % (Auto) 12.4 L, [place] % (Auto) 5.1, Eos % (Auto) 0.9, Baso % (Auto) 0.2, Absolute Neuts (auto) 4.2, Absolute Lymphs (auto) 0.66 L, Nucleated RBC % 0, Differential Comment SCANNED, Diff Path Review December, Platelet Estimate MKD 08/19/22 06:35: Sodium 147 H, Potassium 2.9 L, Chloride 114 H, Carbon Dioxide 24.0, Anion Gap 9, BUN 20 H, Creatinine 1.03, Estim Creat Clear Calc 51.07, Est GFR (MDRD) Af Amer 92, Est GFR (MDRD) Non-Af 76, BUN/Creatinine Ratio 19.4, Glucose 106, Calcium 7.4 L, Total Bilirubin 0.70, AST 49 H, ALT 27, Alkaline Phosphatase 149 H, Total Protein 5.2 L, Albumin 1.8 L, Globulin 3.4, Albumin/Globulin Ratio 0.5 L Micro: Microbiology 08/11/22 13:15 Blood Culture (Wb) - Anticubital Left Blood Culture - Final Gram negative mandy 08/11/22 13:15 Blood Culture (Wb) - Anticubital Right Blood Culture - Final Escherichia coli 08/11/22 15:55 Urine Catheter - Lyman Urine Culture - Final Escherichia coli 08/12/22 08:00 Mucosa - Nasopharyngeal Respiratory Panel (PCR) - Final 08/12/22 08:00 Urine, Random Streptococcus pneumoniae Antigen (M - Final 08/12/22 08:00 Urine, Random Legionella Antigen - Final 08/12/22 08:00 Nasal Secretion SARS-CoV-2 & FLU Antigen (Rapid) - Final Physical Exam Const alert and no apparent distress HEENT head/scalp atraumatic and moist oral mucous membranes Resp normal respiratory effort, no retractions, no use of accessory muscles and clear to auscultation bilaterally Cardio regular rate, regular rhythm, S1 normal heart sound and S2 normal heart sound GI normal to inspection, nondistended, normoactive bowel sounds and soft to palpation GI Narrative: negative murrell's sign. Extremity normal to inspection Assessment & Plan Assessment/Plan (1) Sepsis: PLAN: Sepsis secondary to likely acute cholecystitis, UTI and bacteremia 08/13: Source concerning for either urinary gallbladder, right upper quadrant ultrasound with multiple gallstones and sludge within the gallbladder, mildly thickened gallbladder wall. Growing gram-negative rods in blood. Is also growing in urine however given his right upper quadrant pain, gallbladder ultrasound, elevated alk phos high concern for gallbladder involvement. Surgery consulted. Patient n.p.o. at midnight, Eliquis held starting this morning. Culture sensitivities pending 08/14: Was sent for obey tube today via IR however platelets dropped to 24 and notably has 1% blasts. Does have non-small cell lung cancer, right upper lobe Path stage IIb poorly differentiated G3 with metastasis to 1 interlobular lymph node and lymphovascular invasion. Received 4 cycles of adjuvant carboplatin from April to June 2022 but had excessive toxicities. Chest CT with nodules, possibly atypical infectious. Dr. Villela consulted. Additionally E. coli sensitivities back and resistant to Zosyn, Vanco discontinued and switched to cefepime 08/15: Oncology consulted and felt platelets were secondary to sepsis and drug-induced thrombocytopenia from antibiotics. Vancomycin has been discontinued. Reported platelets will likely begin to improve on their own, today 16 and unable to perform drain still. Nonpharmacologic DVT prophylaxis. Apixaban is held. No evidence of DIC. Continue cefepime. Has had having ALP and abdominal exam 08/16: Platelets further trended down, does not meet criteria for prophylactic platelet transfusion until less than 10, will try to reach out to oncology however given continued worsening despite improvement of sepsis and withdrawal of offending agent to see if maybe platelet transfusion for [place] tube on Thursday would be reasonable. 08/17: Thrombocytopenia work-up, no DIC, Spoke with ID regarding Mr. Domínguez's gallbladder, blood cultures, urine culture. UA on admission had leukoesterase and nitrate but no white blood cells and only rare bacteria, liver ultrasound gallbladder with stones, sludge, thickening, right upper quadrant pain consistent with cholecystitis. Source of his sepsis still presumed to be gallbladder and his sepsis from that is likely why his urine was growing E. coli with the same sensitivity pattern and it is unlikely that that was the source of infection given clinical picture. Did consult ID given inability for source control with continued IV antibiotics, appreciate recommendations. Will repeat blood cultures, ID concerned plts continue to decrease d/t inability to obtain source control. Plts continue to downtrend 2u platelets ordered. Will make NPO at midnight in the event platelets do increase enough with transfusion for intervention. (2) UTI (urinary tract infection): PLAN: UA on was unremarkable, however UCx positive on Cipro (3) Bacteremia: PLAN: same bacteria as UCx suspect due to urinary source (4) Acute encephalopathy: PLAN: Acute metabolic encephalopathy secondary to WAN secondary to dehydration, sepsis. 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 Possible right lower lobe nodule, already undergone adjuvant chemotherapy for 4 cycles 08/14/2022: Oncology consulted 08/15: Outpatient surveillance (6) Thrombocytopenia: PLAN: Likely multifactorial Oncology evaluated last week and thought this was secondary to sepsis and medication Sepsis treated with adequate antibiotics and vancomycin was discontinued Upon further review cefepime also has rare side effect of low platelets, this was switched to ciprofloxacin as cultures were also sensitive to that as well Not in DIC Several labs still pending 08/17: Hepatitis panel ordered as part of thrombocytopenia w/u, rest of workup unrevealing. Platelets ordered, likely d/t inability to obtain source control. 08/18: transfuse 1 units 08/19: improved (7) Cholecystitis: PLAN: Tentative plan for cholecystotomy tube on the Not a surgical candidate at this time. (8) Anemia: PLAN: 08/18: transfuse 1 unit PRBCs 08/19: Hg 9.7 (9) Hypokalemia: PLAN: Replace Check Magnesium PLAN: Plan Chronic back and leg pain On morphine at home, concerned this caused/contributed to his altered mental status once he became slightly dehydrated given his decreased kidney function and morphine's illumination through the kidneys, is receiving oxycodone p.o. and had been responding well prior to this a.m., will give one-time dose of morphine to help with pain 08/14: Oxycodone as needed and Flexeril 08/15: Had previously been fairly well controlled on as needed oxycodone, yesterday evening. Process about pain and was refusing any pain medication despite offers to adjust pain regimen with his increased pain. Ultimately family was able to de-escalate after multiple attempts. He was given a as needed and then schedule pain medication, Narcan is on board in the event there is respiratory depression however he was on 15 mg of long-acting morphine twice daily at home and has a high threshold/tolerance 08/17: Remains on scheduled regimen, discussed yesterday if pain was adequately controlled or if he felt regimen needed adjusted and he said he would like to keep with the same for now #Type 2 diabetes mellitus Glipizide held Glucose on BMPs has been low 100s #Atrial flutter Kathrine held On Lipitor for hyperlipidemia Metoprolol #DVT ppx: Kathrine held, SCDs Discussed goals of care with the patient and his family at bedside. Told him that it is ultimately his decision about what he wants to do but will try to help him medically. Encouraged him to take his medications as he is only harming himself by not doing so. Patient increased to continue with medical care and will comply with recommendations. Charges/Coding Visit Charges Inpatient E&M: 76205 Subs Hosp L3
--- NOTE | 2022-08-19 08:19 | NURSING ---
Pt sitting on edge of bed. JEREMY Abreu sitting in with pt as pt is restless, angry and agitated. 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 Pt aware importance but still does not want them. When asked why he doesn't want to take them, pt states because I don't want too. Pt wants to go home. come on let's go lets get going. Pt refusing to eat or drink anything as well. Hospice coming in today at 11am to speak with him and his . Pt is A&Ox3.
[2022-08-19 09:22] LABS: Pathologist Review Reviewed
--- NOTE | 2022-08-19 10:07 | PCM.PN.ID ---
Physical Exam Narrative Sleeping this AM, no fever overnight Const no apparent distress Resp normal air movement and clear to auscultation bilaterally Cardio regular rate and regular rhythm GI soft to palpation, non-tender and non-distended Skin no rashes or lesions noted ID ID: Route of nutrition/ use of supplements: [] Nutritional Intake: [] IV Site: [] Lyman Catheter: [] Assessment & Plan Assessment/Plan (1) Sepsis: PLAN: Due to ecoli bacteremia from cholecystitis - suspect Ucx (+) is related to hematogenous spread. Worsening condition likely due to ecoli R to zosyn and lack of source control. Now on cipro/flagyl. Platelets much better this AM. Surgery following for possible obey drain vs cholecystectomy. Will follow, thank you (2) Thrombocytopenia: (3) Bacteremia: (4) Acute calculous cholecystitis:
--- NOTE | 2022-08-19 10:34 | NURSING ---
Pt and family changed there mind regarding hospice. Hospice notified.
[2022-08-19] MEDS: Ondansetron 4 MG/2 ML Vial IV (10:43)
[2022-08-19] MEDS: Ciprofloxacin 400 MG/200 ML BAG 200 MG IV (10:43)
[2022-08-19] MEDS: Metoprolol Tartrate 25 MG Tablet PO ×2 (10:50→20:23)
[2022-08-19] MEDS: Potassium Chloride Oral Tablet 20 MEQ 40 MEQ PO ×2 (10:50→16:42)
[2022-08-19] MEDS: Senna/Docusate Sodium 1 Tablet 2 TABLET PO ×2 (10:51→20:24)
[2022-08-19] MEDS: Pantoprazole Sodium 40 MG Tablet PO (10:51)
--- NOTE | 2022-08-19 11:12 | PCM.PN.SRG ---
Subjective Subjective Patient was considering hospice however that has been canceled for today as the platelets have improved. Platelets are currently 42. Objective Data Objective Data Vital Signs: Vital Signs Temp Pulse Resp BP Pulse Ox O2 Del Method O2 Flow Rate 98.1 F 116 H 18 142/89 H 97 Room Air 2 08/19/22 08:12 08/19/22 10:50 08/19/22 08:12 08/19/22 08:12 08/19/22 08:13 08/19/22 08:13 08/11/22 12:20 Oxygen Flow Rate (L/min) 2 Oxygen Delivery Method Room Air Weight: 115 lb 15.41 oz Body Mass Index (BMI) 18.1 Intake & Output: Intake and Output for Last 24 Hours 08/17/22 08/18/22 08/19/22 23:59 23:59 23:59 Intake Total 1750 / 1750 890 / 1140 250 / 250 Output Total 1750 / 1750 1300 / 1700 1050 / 1050 Balance 0 / 0 -410 / -560 -800 / -800 Medical Nutrition Assessment Dietitian: Malnutrition Criteria Met Start: 08/09/22 11:15 Freq: Status: Active Protocol: Document 08/18/22 11:21 [facility] (Rec: 08/18/22 11:21 [facility] [id number]) Nutrition Malnutrition Evidence of Malnutrition Exists Yes Malnutrition (severe): Chronic Evidenced By Suboptimal Energy Intake ( Severe),Weight Loss (Severe), Physical Changes (Severe) Intake Problem Inadequate Oral Intake Etiology related to lung cancer, c/o no appetite and poor po intake Signs/Symptoms as evidenced by refusal of meals and ONS Status Active Problem Clinical Problem Chronic Disease or Condition Related Malnutrition Etiology Severe protein-calorie malnutrition in the context of chronic/metastatic disease related to inadequate oral intake and increased energy expenditure Signs/Symptoms as evidenced by 29.8% wt loss and meeting <75% of est nutritional needs x 7 months; obvious fat/muscle wasting in face, torso and upper/lower extremities. Status Active Problem Recommendation Dietitian Recommendations/Changes Continue liberal regular diet as tolerated. Will change to 120 ml ensure clear 4x/day w/ medpass to see if better acceptance. Change to ensure pudding w/ lunch and dinner; fortified foods w/ meals as able. Consider TF support given poor /inadequate oral intake and weight loss if in accordance w / pt/family wishes. Lab / Micro Data Result Diagrams: 08/19/22 06:35 08/19/22 06:35 Labs: Laboratory Results - last 24 hr 08/15/22 05:18: Diff Path Review Reviewed 08/16/22 05:29: Diff Path Review Reviewed 08/17/22 07:45: Diff Path Review Reviewed 08/17/22 14:25: Crossmatch See Detail 08/19/22 06:35: WBC 5.3, RBC 3.64 L, Hgb 9.7 L, Hct 30.7 L, MCV 84.3, MCH 26.6 L, MCHC 31.6 L, RDW Std Deviation 54.3 H, RDW Coeff of Ilia 17.8 H, Plt Count 42 L*, MPV 10.8, Immature Gran % (Auto) 2.800 H, Neut % (Auto) 78.6 H, Lymph % (Auto) 12.4 L, [place] % (Auto) 5.1, Eos % (Auto) 0.9, Baso % (Auto) 0.2, Absolute Neuts (auto) 4.2, Absolute Lymphs (auto) 0.66 L, Nucleated RBC % 0, Differential Comment SCANNED, Diff Path Review December, Platelet Estimate MKD 08/19/22 06:35: Sodium 147 H, Potassium 2.9 L, Chloride 114 H, Carbon Dioxide 24.0, Anion Gap 9, BUN 20 H, Creatinine 1.03, Estim Creat Clear Calc 51.07, Est GFR (MDRD) Af Amer 92, Est GFR (MDRD) Non-Af 76, BUN/Creatinine Ratio 19.4, Glucose 106, Calcium 7.4 L, Total Bilirubin 0.70, AST 49 H, ALT 27, Alkaline Phosphatase 149 H, Total Protein 5.2 L, Albumin 1.8 L, Globulin 3.4, Albumin/Globulin Ratio 0.5 L 08/19/22 06:35: Magnesium 1.0 L Micro: Microbiology 08/11/22 13:15 Blood Culture (Wb) - Anticubital Left Blood Culture - Final Gram negative mandy 08/11/22 13:15 Blood Culture (Wb) - Anticubital Right Blood Culture - Final Escherichia coli 08/11/22 15:55 Urine Catheter - Lyman Urine Culture - Final Escherichia coli 08/12/22 08:00 Mucosa - Nasopharyngeal Respiratory Panel (PCR) - Final 08/12/22 08:00 Urine, Random Streptococcus pneumoniae Antigen (M - Final 08/12/22 08:00 Urine, Random Legionella Antigen - Final 08/12/22 08:00 Nasal Secretion SARS-CoV-2 & FLU Antigen (Rapid) - Final Physical Exam Narrative Cachectic Const oriented x3 Resp normal respiratory effort Cardio regular rate GI GI Narrative: Soft, nondistended, tender palpation right upper quadrant Assessment & Plan Assessment/Plan (1) Acute calculous cholecystitis: (2) Acid reflux: PLAN: Plan Patient's thrombocytopenia is improved to 42 today. IR is unable to do the procedure today due to scheduling. They state they would be able to get in on tomorrow. We will replace the order. Protonix IV as pt states still has GERD with PO Hilda Mathis M.D. Pager: [phone] [facility] [address] [place] [address], [facility], [address] [place] [address] Office: [phone] Charges/Coding Visit Charges Inpatient E&M: 78125 Subs Hosp L2
[2022-08-19] MEDS: Magnesium Sulfate 4gm/100mL 4 GM/100 ML IV.SOLN. IV (12:06)
[2022-08-19] MEDS: oxyCODONE 5 MG Tablet PO ×3 (12:06→23:02)
--- NOTE | 2022-08-19 12:11 | CASEMGMT ---
Social Work Pt has not completed LW/POA, states his would be the one to assist with medical decisions if needed. HARMEET Vu
[2022-08-19] MEDS: metroNIDAZOLE 500 MG Tablet PO ×2 (14:57→20:23)
[2022-08-19] MEDS: cycloBENZAPRine HCl 10 MG Tablet PO ×2 (14:57→20:23)
[2022-08-19] MEDS: Famotidine 20 MG Tablet PO (14:57)
[2022-08-19] MEDS: NYSTATIN 500,000 UNIT/5 ML UDC 500000 UNIT PO ×2 (14:58→20:24)
--- NOTE | 2022-08-19 17:01 | NURSING ---
notified that pt is moving to room 310 on med surg due to this floor closing.
[2022-08-19] MEDS: levoFLOXacin IV 500 MG/100 ML BAG 100 MG IV (17:59)
[2022-08-19] MEDS: Atorvastatin Calcium 20 MG Tablet PO (20:23)
[2022-08-20] VITALS (12 sets, daily range): BP systolic 134–159; BP diastolic 78–97; PULSE 99–125; RESP 14–18; TEMP 36.4–36.9; O2SAT 95–100
[2022-08-20 05:50] LABS: Absolute Lymphocyte Count 0.42 X10^3/uL (0.83-4.51); Absolute Neutrophil Count 4.1 X10^3/uL (2.0-7.7); Basophil# 0.01 X10^3/uL; Basophil% 0.2 % (0-1); Eosinophil# 0.05 X10^3/uL; Hematocrit 30.4 % (40-54); Hemoglobin 9.6 g/dL (13.0-16.5); Lymphocyte # 0.42 X10^3/ul (0.83-4.51); Lymphocyte % 8.6 % (19-41); Mean Corp Hgb Conc 31.6 g/dL (32-36); Mean Corpuscular Hgb 26.6 pg (27.0-32.0); Mean Corpuscular Volume 84.2 fL (80-94); Mean Platelet Vol. 11.7 fl (6.2-12.0); Monocyte# 0.22 X10^3/uL; Monocyte% 4.5 % (0-10); NRBC Flagged by Analyzer 0.4 % (0-5); Neutrophil # 4.09 X10^3/uL (2.7-7.7); Neutrophil % 84.3 % (47-70); POSITIVE COUNT YES; POSITIVE DIFFERENTIAL YES; RBC Distribution Width CV 17.6 % (11.6-14.6); RBC Distribution Width SD 53.6 fl (35.1-43.9); Red Blood Count 3.61 M/mm3 (4.6-6.2); White Blood Count 4.9 K/mm3 (4.4-11.0)
[2022-08-20 06:05] LABS: International Normalized Ratio 1.1; Partial Thromboplast Time 34.6 Seconds (24.1-36.2); Prothrombin Time (Protime)PT. 13.4 SECONDS (11.7-14.9)
[2022-08-20 06:25] LABS: Differential Indicated SCAN CRITERIA MET; Platelet Count 30 K/mm3 (150-450)
[2022-08-20 06:26] LABS: ALB/GLOB Ratio 0.5 RATIO (0.9-2.4); AST(SGOT) 43 U/L (15-37); Alanine Aminotransfer ALT/SGPT 26 U/L (16-61); Albumin, Serum 1.8 g/dL (3.2-5.0); Alkaline Phosphatase 140 U/L (45-117); Anion Gap 10 (5-15); BUN 18 mg/dL (7-18); BUN/Creat Ratio 19.1 RATIO (10-20); Calcium,Total 7.9 mg/dL (8.5-10.1); Chloride 111 mmol/L (98-107); Creatinine, Serum 0.94 mg/dL (0.70-1.30); EST Glomerular Filtration Rate 84 mL/min (>60); Est Glom Filt Rate - Afr Amer 102 mL/min (>60); Estimated Creatinine Clearance 55.96 ml/min; Globulin 3.5 g/dL (2.2-4.2); Glucose 99 mg/dL (74-106); Potassium 2.7 mmol/L (3.5-5.1); Protein, Total 5.3 g/dL (6.4-8.2); Sodium Level 146 mmol/L (136-145)
[2022-08-20 06:33] LABS: Differential Comment SCANNED; Platelet Estimate MKD DEC (ADEQ)
--- NOTE | 2022-08-20 07:20 | PN.HOSP_ITS ---
Subjective Subjective Developed midsternal chest pain today. Associated with diaphoresis. Now resolved. Objective Data Objective Data Vital Signs: Vital Signs Temp Pulse Resp BP Pulse Ox O2 Del Method O2 Flow Rate 36.6 C 99 18 139/82 H 98 Room Air 2 08/20/22 02:15 08/20/22 02:15 08/20/22 02:15 08/20/22 02:15 08/20/22 02:15 08/20/22 02:15 08/11/22 12:20 Oxygen Flow Rate (L/min) 2 Oxygen Delivery Method Room Air Weight: 52.6 kg Body Mass Index (BMI) 18.1 Intake & Output: Intake and Output for Last 24 Hours 08/18/22 08/19/22 08/20/22 23:59 23:59 23:59 Intake Total 890 / 1140 850 / 850 Output Total 1300 / 1700 1300 / 1300 Balance -410 / -560 -450 / -450 Medical Nutrition Assessment Dietitian: Malnutrition Criteria Met Start: 08/09/22 11:15 Freq: Status: Active Protocol: Document 08/18/22 11:21 MAXWELL (Rec: 08/18/22 11:21 [facility] [id number]) Nutrition Malnutrition Evidence of Malnutrition Exists Yes Malnutrition (severe): Chronic Evidenced By Suboptimal Energy Intake ( Severe),Weight Loss (Severe), Physical Changes (Severe) Intake Problem Inadequate Oral Intake Etiology related to lung cancer, c/o no appetite and poor po intake Signs/Symptoms as evidenced by refusal of meals and ONS Status Active Problem Clinical Problem Chronic Disease or Condition Related Malnutrition Etiology Severe protein-calorie malnutrition in the context of chronic/metastatic disease related to inadequate oral intake and increased energy expenditure Signs/Symptoms as evidenced by 29.8% wt loss and meeting <75% of est nutritional needs x 7 months; obvious fat/muscle wasting in face, torso and upper/lower extremities. Status Active Problem Recommendation Dietitian Recommendations/Changes Continue liberal regular diet as tolerated. Will change to 120 ml ensure clear 4x/day w/ medpass to see if better acceptance. Change to ensure pudding w/ lunch and dinner; fortified foods w/ meals as able. Consider TF support given poor /inadequate oral intake and weight loss if in accordance w / pt/family wishes. Lab / Micro Data Result Diagrams: 08/20/22 05:04 08/20/22 05:04 Labs: Laboratory Results - last 24 hr 08/16/22 05:29: Diff Path Review Reviewed 08/16/22 18:55: Hepatitis A IgM Ab Negative, Hep Bs Antigen Negative, Hep B Core IgM Ab Negative, Hepatitis C Ab (EIA) <0.1, Hep C Ab Comment Comment 08/19/22 06:35: Sodium 147 H, Potassium 2.9 L, Chloride 114 H, Carbon Dioxide 24.0, Anion Gap 9, BUN 20 H, Creatinine 1.03, Estim Creat Clear Calc 51.07, Est GFR (MDRD) Af Amer 92, Est GFR (MDRD) Non-Af 76, BUN/Creatinine Ratio 19.4, Glucose 106, Calcium 7.4 L, Total Bilirubin 0.70, AST 49 H, ALT 27, Alkaline Phosphatase 149 H, Total Protein 5.2 L, Albumin 1.8 L, Globulin 3.4, Albumin/Globulin Ratio 0.5 L 08/19/22 06:35: Magnesium 1.0 L 08/20/22 05:04: WBC 4.9, RBC 3.61 L, Hgb 9.6 L, Hct 30.4 L, MCV 84.2, MCH 26.6 L , MCHC 31.6 L, RDW Std Deviation 53.6 H, RDW Coeff of Ilia 17.6 H, Plt Count 30 L*, MPV 11.7, Immature Gran % (Auto) 1.400 H, Neut % (Auto) 84.3 H, Lymph % (Auto) 8.6 L, [place] % (Auto) 4.5, Eos % (Auto) 1.0, Baso % (Auto) 0.2, Absolute Neuts (auto) 4.1, Absolute Lymphs (auto) 0.42 L, Nucleated RBC % 0.4, Differential Comment SCANNED, Diff Path Review December foll, Platelet Estimate MKD 08/20/22 05:04: Sodium 146 H, Potassium 2.7 L*, Chloride 111 H, Carbon Dioxide 25.0, Anion Gap 10, BUN 18, Creatinine 0.94, Estim Creat Clear Calc 55.96, Est GFR (MDRD) Af Amer 102, Est GFR (MDRD) Non-Af 84, BUN/Creatinine Ratio 19.1, Glucose 99, Calcium 7.9 L, Total Bilirubin 0.70, AST 43 H, ALT 26, Alkaline Phosphatase 140 H, Total Protein 5.3 L, Albumin 1.8 L, Globulin 3.5, Albumin/Globulin Ratio 0.5 L 08/20/22 05:04: PT 13.4, INR 1.1, APTT 34.6 Micro: Microbiology 08/11/22 13:15 Blood Culture (Wb) - Anticubital Left Blood Culture - Final Gram negative mandy 08/11/22 13:15 Blood Culture (Wb) - Anticubital Right Blood Culture - Final Escherichia coli 08/11/22 15:55 Urine Catheter - Lyman Urine Culture - Final Escherichia coli 08/12/22 08:00 Mucosa - Nasopharyngeal Respiratory Panel (PCR) - Final 08/12/22 08:00 Urine, Random Streptococcus pneumoniae Antigen (M - Final 08/12/22 08:00 Urine, Random Legionella Antigen - Final 08/12/22 08:00 Nasal Secretion SARS-CoV-2 & FLU Antigen (Rapid) - Final Physical Exam Const alert and no apparent distress Resp normal respiratory effort, no retractions, no use of accessory muscles and clear to auscultation bilaterally Cardio regular rate, regular rhythm, S1 normal heart sound and S2 normal heart sound GI normal to inspection, nondistended, normoactive bowel sounds Extremity normal to inspection Extremity Narrative: Some reproducible anterior chest wall tenderness. Assessment & Plan Assessment/Plan (1) Sepsis: PLAN: Sepsis secondary to likely acute cholecystitis, UTI and bacteremia 08/13: Source concerning for either urinary gallbladder, right upper quadrant ultrasound with multiple gallstones and sludge within the gallbladder, mildly thickened gallbladder wall. Growing gram-negative rods in blood. Is also growing in urine however given his right upper quadrant pain, gallbladder ultrasound, elevated alk phos high concern for gallbladder involvement. Surgery consulted. Patient n.p.o. at midnight, Eliquis held starting this morning. Culture sensitivities pending 08/14: Was sent for obey tube today via IR however platelets dropped to 24 and notably has 1% blasts. Does have non-small cell lung cancer, right upper lobe Path stage IIb poorly differentiated G3 with metastasis to 1 interlobular lymph node and lymphovascular invasion. Received 4 cycles of adjuvant carboplatin from April to June 2022 but had excessive toxicities. Chest CT with nodules, possibly atypical infectious. Dr. Villela consulted. Additionally E. coli sensitivities back and resistant to Zosyn, Vanco discontinued and switched to cefepime 08/15: Oncology consulted and felt platelets were secondary to sepsis and drug- induced thrombocytopenia from antibiotics. Vancomycin has been discontinued. Reported platelets will likely begin to improve on their own, today 16 and unable to perform drain still. Nonpharmacologic DVT prophylaxis. Apixaban is held. No evidence of DIC. Continue cefepime. Has had having ALP and abdominal exam 08/16: Platelets further trended down, does not meet criteria for prophylactic platelet transfusion until less than 10, will try to reach out to oncology however given continued worsening despite improvement of sepsis and withdrawal of offending agent to see if maybe platelet transfusion for [place] tube on Thursday would be reasonable. 08/17: Thrombocytopenia work-up, no DIC, Spoke with ID regarding Mr. Domínguez's gallbladder, blood cultures, urine culture. UA on admission had leukoesterase and nitrate but no white blood cells and only rare bacteria, liver ultrasound gallbladder with stones, sludge, thickening, right upper quadrant pain consistent with cholecystitis. Source of his sepsis still presumed to be gallbladder and his sepsis from that is likely why his urine was growing E. coli with the same sensitivity pattern and it is unlikely that that was the source of infection given clinical picture. Did consult ID given inability for source control with continued IV antibiotics, appreciate recommendations. Will repeat blood cultures, ID concerned plts continue to decrease d/t inability to obtain source control. Plts continue to downtrend 2u platelets ordered. Will make NPO at midnight in the event platelets do increase enough with transfusion for intervention. (2) UTI (urinary tract infection): PLAN: UA on was unremarkable, however UCx positive for E. coli on LVQ (changed from Cipro due to shortage) (3) Bacteremia: PLAN: same bacteria as UCx: E. coli suspect due to urinary source (4) Acute encephalopathy: PLAN: Acute metabolic encephalopathy secondary to WAN secondary to dehydration, sepsis. 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 (6) Thrombocytopenia: PLAN: Likely multifactorial Oncology evaluated last week and thought this was secondary to sepsis and m edication Sepsis treated with adequate antibiotics and vancomycin was discontinued Upon further review cefepime also has rare side effect of low platelets, this was switched to ciprofloxacin as cultures were also sensitive to that as well Not in DIC Several labs still pending 08/17: Hepatitis panel ordered as part of thrombocytopenia w/u, rest of workup unrevealing. Platelets ordered, likely d/t inability to obtain source control. 08/18: transfuse 1 units 08/19: improved 08/20: Platelets down to 30k. With the cholecystotomy tube planned for today will give another unit of platelets today. (7) Cholecystitis: PLAN: Tentative plan for cholecystotomy tube Not a surgical candidate at this time. (8) Anemia: PLAN: 08/18: transfuse 1 unit PRBCs 08/19: Hg 9.7 (9) Hypokalemia: PLAN: Replace Check Magnesium (10) Chest pain: PLAN: Atypical EKG reviewed and showed right bundle branch block but unchanged from EKG from August 11. Patient states that in January, he had what sounds like some type of tachycardia and was advised to have further work-up possibly including a stent. Patient declined at that time. Echocardiogram performed on the showed an EF of 55% with trivial pericardial effusion. Will cycle his troponins. If are elevated and patient does have evidence of a myocardial infarction, options will be limited as patient cannot be anticoagulated nor undergo cardiac catheterization for stent placement as he cannot be on antiplatelet medications at this time. May consider a stress test depending on the results. Patient's cholecystotomy tube will be placed on hold for the time being. PLAN: Plan Chronic back and leg pain On morphine at home, concerned this caused/contributed to his altered mental status once he became slightly dehydrated given his decreased kidney function and morphine's illumination through the kidneys, is receiving oxycodone p.o. and had been responding well prior to this a.m., will give one-time dose of morphine to help with pain 08/14: Oxycodone as needed and Flexeril 08/15: Had previously been fairly well controlled on as needed oxycodone, yesterday evening. Process about pain and was refusing any pain medication despite offers to adjust pain regimen with his increased pain. Ultimately family was able to de-escalate after multiple attempts. He was given a as needed and then schedule pain medication, Narcan is on board in the event there is respiratory depression however he was on 15 mg of long-acting morphine twice daily at home and has a high threshold/tolerance 08/17: Remains on scheduled regimen, discussed yesterday if pain was adequately controlled or if he felt regimen needed adjusted and he said he would like to keep with the same for now #Type 2 diabetes mellitus Glipizide held Glucose on BMPs has been low 100s #Atrial flutter Eliquis held On Lipitor for hyperlipidemia Metoprolol #DVT ppx: Kathrine held, SCDs 08/19: Discussed goals of care with the patient and his family at bedside. Told him that it is ultimately his decision about what he wants to do but will try to help him medically. Encouraged him to take his medications as he is only harming himself by not doing so. Patient increased to continue with medical care and will comply with recommendations. Charges/Coding Visit Charges Inpatient E&M: 49829 Subs Hosp L2
--- NOTE | 2022-08-20 07:25 | NURSING ---
Patient complaining of left sided chest pain. 10/10 sharp pain not radiating to arm or neck. Vitals taken. Hr elevated. Text to Dr. Nair. EKG ordered.
--- NOTE | 2022-08-20 07:45 | NURSING ---
Continues to c/o left chest pain. EKG results sent to Dr. Nair. Dr. Nair called the floor update given and he said he will be up to see. Patient.
[2022-08-20] MEDS: Potassium Chloride 10mEq/100mL 10 MEQ/100 ML IV.SOLN. 100 MEQ IV BOLUS ×3 (07:50→10:21)
[2022-08-20 09:10] LABS: Troponin-I HS 140 pg/mL (3.0-78.0)
--- NOTE | 2022-08-20 09:20 | NURSING ---
report called to [facility]
--- NOTE | 2022-08-20 09:32 | NURSING ---
Called to let her know patient went to [facility]. Patients belongings and meds sent. [employer] Tester and peanut blancher assisting pt to [facility].
[2022-08-20 09:35] LABS: Pathologist Review Reviewed
[2022-08-20 09:40] LABS: Pathologist Review Reviewed
--- NOTE | 2022-08-20 09:50 | NURSING ---
Pt arrived from [facility] at this time, vitals WNL, K+ rider running through R chest port.
[2022-08-20 10:06] LABS: Pathologist Review Reviewed
[2022-08-20] MEDS: Ondansetron 4 MG/2 ML Vial IV (10:22)
[2022-08-20] MEDS: levoFLOXacin IV 500 MG/100 ML BAG 100 MG IV (10:27)
[2022-08-20] MEDS: Senna/Docusate Sodium 1 Tablet 2 TABLET PO ×2 (10:32→21:46)
[2022-08-20 10:49] LABS: Troponin-I HS 142 pg/mL (3.0-78.0)
--- NOTE | 2022-08-20 12:50 | PCM.CONS.C ---
Assessment & Plan Assessment/Plan (1) Chest pain: PLAN: The patient complained of chest pain. The symptoms are as described above. At the present time it is unclear as to whether his chest pain is related to underlying cardiovascular disease or potentially his gastrointestinal disease. From a cardiac standpoint the patient has been monitored. He appears to be in a sinus rhythm at this time. He has had cardiac enzymes performed which have been mildly elevated and without any significant change. His ECG demonstrated no acute changes. His previous [facility] echocardiogram and stress echocardiogram were reviewed. An attempt will be made to obtain [facility] records for continuity of care. In the interim it would be reasonable to continue medical therapy as he is able based upon his multiple comorbidities. This would include the addition of nitrates such as isosorbide dinitrate at 10 mg p.o. daily monitoring his clinical response and blood pressure response as well as increasing his metoprolol dose to metoprolol tartrate 50 mg p.o. twice daily and monitoring his clinical response and blood pressure response. He is not an ideal candidate based upon his multiple comorbidities at this time for additional noninvasive or invasive evaluation. (2) Abnormal cardiac enzyme level: PLAN: The patient does have abnormal high-sensitivity troponin I levels. The etiology may be multifactorial and this may be a type II non-STEMI event. This could be from his multiple noncardiac etiologies which include his underlying sepsis and anemia, etc. At the present time he has undergone additional evaluation with an ECG which demonstrated no acute findings. His previous noninvasive cardiovascular studies have been noted. At the moment he will continue to be monitored. He will continue medical therapy which includes nitrates and beta-blockers as noted above. He does not appear to be an ideal candidate at the moment for antiplatelet therapy or anticoagulant therapy secondary to concerns of his anemia and thrombocytopenia. He also does not appear to be an ideal candidate for additional noninvasive or invasive cardiovascular studies. Thus at the present time he will continue conservative medical management. (3) Atrial flutter: PLAN: Based upon the patient's history and his medical records it appears there are concerns with the patient may have had atrial flutter. He had been on medical therapy with beta-blockers and anticoagulant therapy. At the moment he appears to be in a sinus rhythm. He will continue to be monitored. He will continue his beta-anupama therapy as noted. He is off anticoagulant therapy for the multiple noncardiac related issues including hematologic issues. It would be important to replace his potassium which may be beneficial to helping to maintain sinus rhythm (4) Hypokalemia: PLAN: The patient was noted to be hypokalemic. He is receiving potassium supplementation. (5) Anemia: PLAN: The patient has also been noted to be anemic. This does present an issue with respect to his potential cardiovascular medical therapy such as antiplatelet therapy and anticoagulant therapy as well as potential cardiovascular studies if needed, etc. (6) Thrombocytopenia: PLAN: The patient does have thrombocytopenia. This may be even more of an issue with respect to the ability to be on antiplatelet therapy and anticoagulant therapy and undergo any invasive cardiovascular evaluation or care. 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 He has undergone lobectomy and chemotherapy. He will continue to follow with oncology. (8) Sepsis: PLAN: The patient is reported as having sepsis/bacteremia thought secondary to UTI and cholecystitis. He has been undergoing evaluation care by internal medicine. He has been on antibiotic therapy (9) Cholecystitis: PLAN: The patient does have cholecystitis. He has been evaluated by general surgery. Based upon his radiologic studies he has been recommended for cholecystostomy tube placement. (10) Preoperative cardiovascular examination: PLAN: From a cardiac standpoint, at the present time, the patient appears without ongoing acute symptoms. He will continue to be monitored. He will continue medical therapy with nitrates and beta-blockers as described above. He is not an ideal candidate at this time for antiplatelet therapy or anticoagulant therapy. He is not an ideal candidate for additional cardiovascular diagnostic studies/intervention. Thus as long as he appears to be symptomatically and hemodynamically stable on his medical therapy it appears that he will need to proceed with his general surgical procedure to assist in caring for his noncardiovascular related issues to hopefully bring his bacteremia and sepsis under control, etc. The above was discussed and reviewed with the patient. He is aware that there are risks versus benefits from a cardiovascular standpoint going through noncardiac surgical procedures at this time. However it appears that without his general surgical procedure there are concerns of ongoing bacteremia and sepsis. Thus at the present time it appears he does need to proceed with his non cardiac surgical procedure. He acknowledges this information and the associated potential adverse cardiovascular concerns and the risks that could arise. Addt'l Comments Thank you for allowing me to participate in the care of your patient. Please don't hesitate to call if any issues arise. This note was generated using a voice recognition system and there may be incorrect words, spelling or punctuation that were not noted when reviewing the office note prior to saving. Comment: Time spent in the patient's overall evaluation, examination, review of medical records, documentation, and discussion with medical staff: 50 minutes. HPI Consult Data Date of Consult: 08/20/22 HPI Narrative HPI Narrative: LUIS WEINSTEIN, is a 66 year old white male who presents for cardiovascular evaluation based upon chest pain and abnormal high sensitivity troponin I levels superimposed upon a history of atrial flutter, hyperlipidemia, hypertension, ongoing diagnosis of sepsis / bacteremia thought secondary to a combination of UTI and cholecystitis, lung carcinoma with metastatic disease (lymph nodes) s/p lobectomy and chemotherapy, anemia, thrombocytopenia, diabetes mellitus, and hypokalemia. Today, he complained of a brief episode chest discomfort which he described as a pressure sensation associated with an element of dyspnea. He denied any nausea, emesis, or diaphoresis. He states he felt transiently lightheaded but did not experience any syncope. He has had troponin I levels performed which have been mildly elevated at 140 and 142. He had an ECG which appeared to demonstrate sinus rhythm with RAD, a RBBB, and a LPFB pattern which appeared unchanged from previous ECGs available for review. He has undergone evaluation during this admission with an echocardiogram. The results are noted below. He states he was evaluated by cardiology at [facility] in the past during his lung carcinoma evaluation. He believes he may have had a stress test performed. The [facility] records are unavailable for review. He did have a stress echocardiogram performed at [facility] on 02/13/2022 which was considered negative. He continues to receive medical therapy for his non cardiac issues. He is in need of cholecystostomy tube. [facility] Medical History (Updated 08/20/22 @ 15:[address] Javon Merida MD) Acid reflux Anemia Arthritis Atrial flutter Back pain Cardiology follow-up encounter Chronic pain CINV (chemotherapy-induced nausea and vomiting) Constipation COPD (chronic obstructive pulmonary disease) CRF (chronic renal failure) Diabetes mellitus Dysuria Encounter for adjustment and management of vascular access device Encounter for chemotherapy management Encounter for education Former smoker High cholesterol Hypertension Injury of back Kidney stones Leg cramps Malignant neoplasm of upper lobe, right bronchus or lung Multiple lung nodules on CT Neuropathy Nicotine dependence, cigarettes, uncomplicated Normal stress echocardiogram Regional lymph node metastasis present Severe malnutrition Smoker Syncope Wears glasses Home Medications atorvastatin 80 mg tablet 80 mg PO DAILY cholesterol 11/26/21 [History Last Taken 08/04/22] cyclobenzaprine 10 mg tablet 10 mg PO TID spasms 11/26/21 [History Last Taken 08/04/22] gabapentin 400 mg capsule 400 mg PO TID nerve pain 11/26/21 [History Last Taken 08/04/22] glyburide 5 mg tablet 5 mg PO DAILY dm 11/26/21 [History Last Taken 08/04/22] morphine 15 mg immediate release tablet 15 mg PO BID PRN Pain 11/26/21 [History Last Taken 08/04/22] trazodone 100 mg tablet 100 mg PO QHS PRN Sleep 11/26/21 [History Last Taken 08/03/22] apixaban 5 mg tablet (Eliquis) 5 mg PO BID blood thinner 03/26/22 [History Last Taken 08/04/22] lidocaine-prilocaine 2.5 %-2.5 % topical cream 1 applic topical ONCE PRN port access 30 days #30 grams 03/27/22 [Rx Last Taken Unknown] nystatin 100,000 unit/mL oral suspension 500,000 unit PO TID thrush 08/04/22 [History Last Taken 08/04/22] food supplemt, lactose-reduced 0.08 gram-1.5 kcal/mL oral liquid (Ensure Plus High Protein) 120 ml PO 4X/DAY #30 BOTTLES 08/06/22 [Rx Last Taken Unknown] pantoprazole 40 mg tablet,delayed release 40 mg PO BID #60 tabs 08/06/22 [Rx Last Taken Unknown] Allergy/AdvReac Type Severity Reaction Status Date / Time Iodinated Contrast Media Allergy Unknown Other Verified 08/04/22 14:06 Family History Mother Cancer Father Cancer Son Cancer Surgical History H/O lithotripsy History of hip replacement Previous back surgery S/P lobectomy of lung Status post surgical removal of neoplasm of skin Trigger finger Social History household members: spouse housing: house Smoking Status: Former smoker quit date: 01/01/22 pack-years: 30 Tobacco: How many years used: 30 how long ago did patient quit smoking: hasn't smoked since diagnosis 01/2022 second hand exposure: Yes alcohol intake: never substance use type: does not use ROS Constitutional Constitutional: Reports fatigue Eyes Eyes: Reports as per HPI ENT HEENT: Reports as per HPI Cardiovascular Cardiovascular: Reports chest pain and dyspnea Respiratory/Chest Respiratory/Chest: Reports dyspnea Gastrointestinal Gastrointestinal: Reports as per HPI Genitourinary Genitourinary: Reports as per HPI Musculoskeletal Musculoskeletal: Reports as per HPI Integumentary Integumentary: Reports as per HPI Neurologic Neurologic: Reports as per HPI Psychiatric Psychiatric: Reports as per HPI Physical Exam Narrative This is a 66-year-old white male who appears to be somewhat frail and fragile appearing yet resting comfortably at the moment in no acute distress. Const alert, oriented x3 and no apparent distress Orientation / Consciousness: awake HEENT normocephalic, head/scalp atraumatic and hearing grossly normal bilaterally Eyes PERRL, EOMs intact bilaterally and conjunctivae normal Neck full ROM, supple and no JVD Carotids: normal carotid upstroke Resp Resp Narrative: No obvious rales or rhonchi at this time. Cardio regular rhythm, S1 normal heart sound and S2 normal heart sound Rate: tachycardic GI normal to inspection, nondistended, normoactive bowel sounds Extremity no pedal edema Skin General Skin Exam: ecchymosis Psych mental status grossly normal Risk Stratification Risk Stratification Applicable: Yes Age >/= 65: Yes >/= 3 CAD Risk Factors (HTN, HLD, DM, family hx of CAD, or current smoker): Yes Aspirin Use in the Past 7 Days: No Severe Angina (>/= episodes in 24 hours): No EKG ST Changes >/= 0.5mm: No Positive Cardiac Marker: Yes MINNIE Risk Stratification Score: 3 MINNIE % Risk: 13% Risk Procedure Criteria Type of Procedure Procedure Type: Elective Elective Risks - COVID COVID Risk Discussion: The surgeon/proceduralist and patient have discussed in detail the risk of exposure to and/or potential harm posed by the COVID-19 virus with having a surgery/procedure at this time versus the risk of delaying the surgery/procedure. It is not possible to know either the risk of delaying the surgery or procedure or chance of getting an infection with perfect accuracy, but a joint decision was made between the patient and the surgeon/proceduralist to proceed at this time with the scheduled surgery/procedure as indicated on the consent form. Objective Data Vital Signs: Vital Signs Temp Pulse Resp BP Pulse Ox O2 Del Method O2 Flow Rate 97.6 F L 113 H 18 146/83 H 100 Room Air 2 08/20/22 10:00 08/20/22 10:36 08/20/22 10:00 08/20/22 10:36 08/20/22 10:00 08/20/22 10:00 08/20/22 08:09 Oxygen Flow Rate (L/min) 2 Oxygen Delivery Method Room Air Weight: 115 lb 15.41 oz Body Mass Index (BMI) 18.1 Intake & Output: Intake and Output for Last 24 Hours 08/18/22 08/19/22 08/20/22 23:59 23:59 23:59 Intake Total 890 / 1140 850 / 850 360 / 360 Output Total 1300 / 1700 1300 / 1300 450 / 450 Balance -410 / -560 -450 / -450 -90 / -90 Lab / Micro Data Result Diagrams: 08/20/22 05:04 08/20/22 05:04 Labs: Laboratory Results - last 24 hr 08/16/22 18:55: Hepatitis A IgM Ab Negative, Hep Bs Antigen Negative, Hep B Core IgM Ab Negative, Hepatitis C Ab (EIA) <0.1, Hep C Ab Comment Comment 08/18/22 09:00: Diff Path Review Reviewed 08/19/22 06:35: Diff Path Review Reviewed 08/20/22 05:04: WBC 4.9, RBC 3.61 L, Hgb 9.6 L, Hct 30.4 L, MCV 84.2, MCH 26.6 L, MCHC 31.6 L, RDW Std Deviation 53.6 H, RDW Coeff of Ilia 17.6 H, Plt Count 30 L*, MPV 11.7, Immature Gran % (Auto) 1.400 H, Neut % (Auto) 84.3 H, Lymph % (Auto) 8.6 L, Mathews % (Auto) 4.5, Eos % (Auto) 1.0, Baso % (Auto) 0.2, Absolute Neuts (auto) 4.1, Absolute Lymphs (auto) 0.42 L, Nucleated RBC % 0.4, Differential Comment SCANNED, Diff Path Review Reviewed, Platelet Estimate MKD 08/20/22 05:04: Sodium 146 H, Potassium 2.7 L*, Chloride 111 H, Carbon Dioxide 25.0, Anion Gap 10, BUN 18, Creatinine 0.94, Estim Creat Clear Calc 55.96, Est GFR (MDRD) Af Amer 102, Est GFR (MDRD) Non-Af 84, BUN/Creatinine Ratio 19.1, Glucose 99, Calcium 7.9 L, Total Bilirubin 0.70, AST 43 H, ALT 26, Alkaline Phosphatase 140 H, Total Protein 5.3 L, Albumin 1.8 L, Globulin 3.5, Albumin/Globulin Ratio 0.5 L 08/20/22 05:04: PT 13.4, INR 1.1, APTT 34.6 08/20/22 08:32: Troponin I High Sens 140 H* 08/20/22 10:17: Troponin I High Sens 142 H* Cardiology Labs/Tests 08/20/22 05:04: WBC 4.9, RBC 3.61 L, Hgb 9.6 L, Hct 30.4 L, MCV 84.2, MCH 26.6 L, MCHC 31.6 L, Plt Count 30 L*, MPV 11.7, Immature Gran % (Auto) 1.400 H, Neut % (Auto) 84.3 H, Lymph % (Auto) 8.6 L, Mathews % (Auto) 4.5, Eos % (Auto) 1.0, Baso % (Auto) 0.2, Absolute Neuts (auto) 4.1, Nucleated RBC % 0.4 08/20/22 05:04: Sodium 146 H, Potassium 2.7 L*, Chloride 111 H, Carbon Dioxide 25.0, Anion Gap 10, BUN 18, Creatinine 0.94, Est GFR (MDRD) Af Amer 102, Est GFR (MDRD) Non-Af 84, BUN/Creatinine Ratio 19.1, Glucose 99, Calcium 7.9 L, Total Bilirubin 0.70 08/20/22 05:04: PT 13.4, INR 1.1, APTT 34.6 Rhythm: EKG: ECHO: Stress Test: Cardiac Cath: PCI: CT Surgery: Holter monitor: EPS: PPM: CXR: Chest CT Scan:
[2022-08-20] MEDS: cycloBENZAPRine HCl 10 MG Tablet PO ×2 (14:28→21:46)
[2022-08-20] MEDS: Isosorbide DN 10 MG Tablet PO ×2 (14:28→21:46)
[2022-08-20] MEDS: NYSTATIN 500,000 UNIT/5 ML UDC 500000 UNIT PO ×2 (14:28→23:09)
[2022-08-20] MEDS: metroNIDAZOLE 500 MG Tablet PO ×2 (14:28→21:46)
[2022-08-20 14:45] LABS: Troponin-I HS 160 pg/mL (3.0-78.0)
--- NOTE | 2022-08-20 15:11 | PCM.PN.ID ---
Physical Exam Narrative Feeling better, abd pain improved, no fever Const alert and no apparent distress Resp normal air movement and clear to auscultation bilaterally Cardio regular rate and regular rhythm GI soft to palpation, non-tender and non-distended Skin no rashes or lesions noted ID ID: Route of nutrition/ use of supplements: [] Nutritional Intake: [] IV Site: [] Lyman Catheter: [] Assessment & Plan Assessment/Plan (1) Sepsis: PLAN: Due to ecoli bacteremia from cholecystitis - suspect Ucx (+) is related to hematogenous spread. Worsening condition likely due to ecoli R to zosyn and lack of source control. Now on cipro/flagyl. Platelets overall improved, down slightly today. Surgery following for possible obey drain vs cholecystectomy. Will follow (2) Thrombocytopenia: (3) Bacteremia: (4) Acute calculous cholecystitis:
[2022-08-20] MEDS: Ensure Clear 120 ML Liquid PO ×2 (17:22→21:50)
[2022-08-20] MEDS: oxyCODONE 5 MG Tablet PO ×2 (17:22→23:08)
[2022-08-20] MEDS: Atorvastatin Calcium 20 MG Tablet PO (21:46)
[2022-08-20] MEDS: Metoprolol Tartrate 50 MG Tablet PO (21:46)
[2022-08-21] VITALS (11 sets, daily range): BP systolic 141–153; BP diastolic 81–93; PULSE 63–123; RESP 17–20; TEMP 36.3–36.8; O2SAT 94–97
[2022-08-21 04:46] LABS: Absolute Lymphocyte Count 0.48 X10^3/uL (0.83-4.51); Basophil# 0.02 X10^3/uL; Basophil% 0.3 % (0-1); Eosinophil# 0.04 X10^3/uL; Eosinophils% 0.6 % (0-5); Hematocrit 30.3 % (40-54); Hemoglobin 9.3 g/dL (13.0-16.5); Lymphocyte # 0.48 X10^3/ul (0.83-4.51); Lymphocyte % 6.9 % (19-41); Mean Corp Hgb Conc 30.7 g/dL (32-36); Mean Corpuscular Hgb 26.7 pg (27.0-32.0); Mean Corpuscular Volume 87.1 fL (80-94); Mean Platelet Vol. 11.4 fl (6.2-12.0); Monocyte% 4.3 % (0-10); NRBC Flagged by Analyzer 0 % (0-5); Neutrophil # 5.99 X10^3/uL (2.7-7.7); POSITIVE COUNT YES; POSITIVE DIFFERENTIAL YES; RBC Distribution Width CV 17.6 % (11.6-14.6); Red Blood Count 3.48 M/mm3 (4.6-6.2)
[2022-08-21 04:49] LABS: Differential Indicated SCAN CRITERIA MET; Platelet Count 40 K/mm3 (150-450)
[2022-08-21 04:54] LABS: International Normalized Ratio 1.1; Prothrombin Time (Protime)PT. 13.6 SECONDS (11.7-14.9)
[2022-08-21 04:55] LABS: Partial Thromboplast Time 31.5 Seconds (24.1-36.2)
[2022-08-21 05:05] LABS: Differential Comment SCANNED
[2022-08-21 05:06] LABS: Platelet Estimate MKD DEC (ADEQ)
[2022-08-21 05:12] LABS: ALB/GLOB Ratio 0.5 RATIO (0.9-2.4); AST(SGOT) 47 U/L (15-37); Alanine Aminotransfer ALT/SGPT 27 U/L (16-61); Albumin, Serum 1.8 g/dL (3.2-5.0); Alkaline Phosphatase 136 U/L (45-117); Anion Gap 13 (5-15); BUN 16 mg/dL (7-18); BUN/Creat Ratio 17.9 RATIO (10-20); Calcium,Total 7.9 mg/dL (8.5-10.1); Chloride 111 mmol/L (98-107); Creatinine, Serum 0.89 mg/dL (0.70-1.30); EST Glomerular Filtration Rate 90 mL/min (>60); Est Glom Filt Rate - Afr Amer 109 mL/min (>60); Globulin 3.5 g/dL (2.2-4.2); Glucose 121 mg/dL (74-106); Magnesium 1.5 mg/dL (1.6-2.6); Phosphorus 2.4 mg/dL (2.5-4.9); Potassium 2.9 mmol/L (3.5-5.1); Protein, Total 5.3 g/dL (6.4-8.2); Sodium Level 145 mmol/L (136-145)
--- NOTE | 2022-08-21 05:55 | EKG12_ITS ---
Test Reason : CP Blood Pressure : / mmHG Vent. Rate : 112 BPM Atrial Rate : 112 BPM P-R Int : 122 ms QRS Dur : 138 ms QT Int : 326 ms P-R-T Axes : 084 141 071 degrees QTc Int : 444 ms Sinus tachycardia with Premature atrial complexes Right bundle branch block Left posterior fascicular block Bifascicular block Abnormal ECG When compared with ECG of 11-AUG-2022 13:54, Premature atrial complexes are now Present Confirmed by MAKAYLA PURI, KOFFI ([id number]), assignment desk editor ROBBY VIERA ([id number]) on 08/21/2022 8:27:15 AM Referred By: JUSTIN Confirmed By:KOFFI BENAVIDES MD
--- NOTE | 2022-08-21 05:55 | EKG12_ITS ---
Test Reason : AM EKG Blood Pressure : / mmHG Vent. Rate : 106 BPM Atrial Rate : 106 BPM P-R Int : 132 ms QRS Dur : 134 ms QT Int : 338 ms P-R-T Axes : 074 114 089 degrees QTc Int : 448 ms Sinus tachycardia with Premature atrial complexes Right bundle branch block Left posterior fascicular block Bifascicular block Abnormal ECG Reconfirmed by JOYA PURI, ALTON ([id number]), mapping editor ROBBY VIERA ([id number]) on 08/21/2022 1:45:48 PM Referred By: Confirmed By:PHONG HINSON MD
[2022-08-21] MEDS: Morphine 2 MG/ML Syringe IV (06:18)
--- NOTE | 2022-08-21 08:28 | PN.HOSP_ITS ---
Subjective Subjective confusion today. denies abdominal pain. Objective Data Objective Data Vital Signs: Vital Signs Temp Pulse Resp BP Pulse Ox O2 Del Method O2 Flow Rate 36.8 C 107 H 20 H 142/90 H 94 Room Air 2 08/21/22 03:50 08/21/22 03:50 08/21/22 03:50 08/21/22 03:50 08/21/22 03:50 08/21/22 08:00 08/20/22 14:56 Oxygen Flow Rate (L/min) 2 Oxygen Delivery Method Room Air Weight: 52.6 kg Body Mass Index (BMI) 18.1 Intake & Output: Intake and Output for Last 24 Hours 08/19/22 08/20/22 08/21/22 23:59 23:59 23:59 Intake Total 850 / 850 880 / 880 Output Total 1300 / 1300 1250 / 1250 250 / 250 Balance -450 / -450 -370 / -370 -250 / -250 Medical Nutrition Assessment Dietitian: Malnutrition Criteria Met Start: 08/09/22 11:15 Freq: Status: Active Protocol: Document 08/18/22 11:21 MAXWELL (Rec: 08/18/22 11:21 [facility] [id number]) Nutrition Malnutrition Evidence of Malnutrition Exists Yes Malnutrition (severe): Chronic Evidenced By Suboptimal Energy Intake ( Severe),Weight Loss (Severe), Physical Changes (Severe) Intake Problem Inadequate Oral Intake Etiology related to lung cancer, c/o no appetite and poor po intake Signs/Symptoms as evidenced by refusal of meals and ONS Status Active Problem Clinical Problem Chronic Disease or Condition Related Malnutrition Etiology Severe protein-calorie malnutrition in the context of chronic/metastatic disease related to inadequate oral intake and increased energy expenditure Signs/Symptoms as evidenced by 29.8% wt loss and meeting <75% of est nutritional needs x 7 months; obvious fat/muscle wasting in face, torso and upper/lower extremities. Status Active Problem Recommendation Dietitian Recommendations/Changes Continue liberal regular diet as tolerated. Will change to 120 ml ensure clear 4x/day w/ medpass to see if better acceptance. Change to ensure pudding w/ lunch and dinner; fortified foods w/ meals as able. Consider TF support given poor /inadequate oral intake and weight loss if in accordance w / pt/family wishes. Lab / Micro Data Result Diagrams: 08/21/22 04:30 08/21/22 04:30 Labs: Laboratory Results - last 24 hr 08/18/22 09:00: Diff Path Review Reviewed 08/19/22 06:35: Diff Path Review Reviewed 08/20/22 05:04: Diff Path Review Reviewed 08/20/22 08:32: Troponin I High Sens 140 H* 08/20/22 10:17: Troponin I High Sens 142 H* 08/20/22 14:06: Troponin I High Sens 160 H* 08/21/22 04:30: Sodium 145, Potassium 2.9 L, Chloride 111 H, Carbon Dioxide 21.0, Anion Gap 13, BUN 16, Creatinine 0.89, Estim Creat Clear Calc 59.10, Est GFR (MDRD) Af Amer 109, Est GFR (MDRD) Non-Af 90, BUN/Creatinine Ratio 17.9, G lucose 121 H, Calcium 7.9 L, Phosphorus 2.4 L, Magnesium 1.5 L, Total Bilirubin 0.80, AST 47 H, ALT 27, Alkaline Phosphatase 136 H, Total Protein 5.3 L, Albumin 1.8 L, Globulin 3.5, Albumin/Globulin Ratio 0.5 L 08/21/22 04:30: WBC 7.0, RBC 3.48 L, Hgb 9.3 L, Hct 30.3 L, MCV 87.1, MCH 26.7 L , MCHC 30.7 L, RDW Std Deviation 56.0 H, RDW Coeff of Ilia 17.6 H, Plt Count 40 L*, MPV 11.4, Immature Gran % (Auto) 1.900 H, Neut % (Auto) 86.0 H, Lymph % (Auto) 6.9 L, [place] % (Auto) 4.3, Eos % (Auto) 0.6, Baso % (Auto) 0.3, Absolute Neuts (auto) 6.0, Absolute Lymphs (auto) 0.48 L, Nucleated RBC % 0, Differential Comment SCANNED, Diff Path Review December foll, Platelet Estimate MKD 08/21/22 04:30: PT 13.6, INR 1.1, APTT 31.5 Micro: Microbiology 08/11/22 13:15 Blood Culture (Wb) - Anticubital Left Blood Culture - Final Gram negative mandy 08/11/22 13:15 Blood Culture (Wb) - Anticubital Right Blood Culture - Final Escherichia coli 08/11/22 15:55 Urine Catheter - Lyman Urine Culture - Final Escherichia coli 08/12/22 08:00 Mucosa - Nasopharyngeal Respiratory Panel (PCR) - Final 08/12/22 08:00 Urine, Random Streptococcus pneumoniae Antigen (M - Final 08/12/22 08:00 Urine, Random Legionella Antigen - Final 08/12/22 08:00 Nasal Secretion SARS-CoV-2 & FLU Antigen (Rapid) - Final Physical Exam Const alert and no apparent distress Resp normal respiratory effort, no retractions, no use of accessory muscles and clear to auscultation bilaterally Cardio regular rate, regular rhythm, S1 normal heart sound and S2 normal heart sound GI normal to inspection, nondistended, normoactive bowel sounds, soft to palpation, non-tender and non-distended Assessment & Plan Assessment/Plan (1) Sepsis: PLAN: Sepsis secondary to likely acute cholecystitis, UTI and bacteremia 08/13: Source concerning for either urinary gallbladder, right upper quadrant ultrasound with multiple gallstones and sludge within the gallbladder, mildly thickened gallbladder wall. Growing gram-negative rods in blood. Is also growing in urine however given his right upper quadrant pain, gallbladder ultrasound, elevated alk phos high concern for gallbladder involvement. Surgery consulted. Patient n.p.o. at midnight, Eliquis held starting this morning. Culture sensitivities pending 08/14: Was sent for obey tube today via IR however platelets dropped to 24 and notably has 1% blasts. Does have non-small cell lung cancer, right upper lobe Path stage IIb poorly differentiated G3 with metastasis to 1 interlobular lymph node and lymphovascular invasion. Received 4 cycles of adjuvant carboplatin from April to June 2022 but had excessive toxicities. Chest CT with nodules, possibly atypical infectious. Dr. Villela consulted. Additionally E. coli sensitivities back and resistant to Zosyn, Vanco discontinued and switched to cefepime 08/15: Oncology consulted and felt platelets were secondary to sepsis and drug- induced thrombocytopenia from antibiotics. Vancomycin has been discontinued. Reported platelets will likely begin to improve on their own, today 16 and unable to perform drain still. Nonpharmacologic DVT prophylaxis. Apixaban is held. No evidence of DIC. Continue cefepime. Has had having ALP and abdominal exam 08/16: Platelets further trended down, does not meet criteria for prophylactic platelet transfusion until less than 10, will try to reach out to oncology however given continued worsening despite improvement of sepsis and withdrawal of offending agent to see if maybe platelet transfusion for [place] tube on Thursday would be reasonable. 08/17: Thrombocytopenia work-up, no DIC, Spoke with ID regarding Mr. Domínguez's gallbladder, blood cultures, urine culture. UA on admission had leukoesterase and nitrate but no white blood cells and only rare bacteria, liver ultrasound gallbladder with stones, sludge, thickening, right upper quadrant pain consistent with cholecystitis. Source of his sepsis still presumed to be gallbladder and his sepsis from that is likely why his urine was growing E. coli with the same sensitivity pattern and it is unlikely that that was the source of infection given clinical picture. Did consult ID given inability for source control with continued IV antibiotics, appreciate recommendations. Will repeat blood cultures, ID concerned plts continue to decrease d/t inability to obtain source control. Plts continue to downtrend 2u platelets ordered. Will make NPO at midnight in the event platelets do increase enough with transfusion for intervention. (2) UTI (urinary tract infection): PLAN: UA on was unremarkable, however UCx positive for E. coli on LVQ (changed from Cipro due to shortage) (3) Bacteremia: PLAN: same bacteria as UCx: E. coli suspect due to urinary source (4) Acute encephalopathy: PLAN: Acute metabolic encephalopathy secondary to WAN secondary to dehydration, sepsis. 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 (6) Thrombocytopenia: PLAN: Likely multifactorial Oncology evaluated last week and thought this was secondary to sepsis and medication Sepsis treated with adequate antibiotics and vancomycin was discontinued Upon further review cefepime also has rare side effect of low platelets, this was switched to ciprofloxacin as cultures were also sensitive to that as well Not in DIC Several labs still pending 08/17: Hepatitis panel ordered as part of thrombocytopenia w/u, rest of workup unrevealing. Platelets ordered, likely d/t inability to obtain source control. 08/18: transfuse 1 units 08/19: improved 08/20: Platelets down to 30k. With the cholecystotomy tube planned for today will give another unit of platelets today. (7) Cholecystitis: PLAN: Tentative plan for cholecystotomy tube Not a surgical candidate at this time. (8) Anemia: PLAN: 08/18: transfuse 1 unit PRBCs Currently stable Transfuse to keep Hg greater than or equal to 8. (9) Hypokalemia: PLAN: Replace Check Magnesium (10) Chest pain: PLAN: Atypical EKG reviewed and showed right bundle branch block but unchanged from EKG from August 11. Patient states that in January, he had what sounds like some type of tachycardia and was advised to have further work-up possibly including a stent. Patient declined at that time. Echocardiogram performed on the showed an EF of 55% with trivial pericardial effusion. Will cycle his troponins. If are elevated and patient does have evidence of a myocardial infarction, options will be limited as patient cannot be anticoagulated nor undergo cardiac catheterization for stent placement as he cannot be on antiplatelet medications at this time. May consider a stress test depending on the results. Patient's cholecystotomy tube will be placed on hold for the time being. Cardiology following. Patient to be on isosorbide dinitrate 10 mg 3 times daily, beta-anupama with the metoprolol 50 mg twice daily. PLAN: Plan Chronic back and leg pain On morphine at home, concerned this caused/contributed to his altered mental status once he became slightly dehydrated given his decreased kidney function and morphine's illumination through the kidneys, is receiving oxycodone p.o. and had been responding well prior to this a.m., will give one-time dose of morphine to help with pain 08/14: Oxycodone as needed and Flexeril 08/15: Had previously been fairly well controlled on as needed oxycodone, yesterday evening. Process about pain and was refusing any pain medication despite offers to adjust pain regimen with his increased pain. Ultimately sofiya hinojosa was able to de-escalate after multiple attempts. He was given a as needed and then schedule pain medication, Narcan is on board in the event there is respiratory depression however he was on 15 mg of long-acting morphine twice daily at home and has a high threshold/tolerance 08/17: Remains on scheduled regimen, discussed yesterday if pain was adequately controlled or if he felt regimen needed adjusted and he said he would like to keep with the same for now #Type 2 diabetes mellitus Glipizide held Glucose on BMPs has been low 100s #Atrial flutter Eliquis held On Lipitor for hyperlipidemia Metoprolol #DVT ppx: Kathrine held, SCDs 08/19: Discussed goals of care with the patient and his family at bedside. Told him that it is ultimately his decision about what he wants to do but will try to help him medically. Encouraged him to take his medications as he is only harming himself by not doing so. Patient increased to continue with medical care and will comply with recommendations. Charges/Coding Visit Charges Inpatient E&M: 10464 Subs Hosp L2
--- NOTE | 2022-08-21 08:56 | PCM.PN.SRG ---
Subjective Subjective Patient still having right upper quadrant pain. Unable to Marisol tube yesterday due to chest pain and work-up. Objective Data Objective Data Vital Signs: Vital Signs Temp Pulse Resp BP Pulse Ox O2 Del Method O2 Flow Rate 98.3 F 107 H 20 H 142/90 H 94 Room Air 2 08/21/22 03:50 08/21/22 03:50 08/21/22 03:50 08/21/22 03:50 08/21/22 03:50 08/21/22 08:00 08/20/22 14:56 Oxygen Flow Rate (L/min) 2 Oxygen Delivery Method Room Air Weight: 115 lb 15.41 oz Body Mass Index (BMI) 18.1 Intake & Output: Intake and Output for Last 24 Hours 08/19/22 08/20/22 08/21/22 23:59 23:59 23:59 Intake Total 850 / 850 880 / 880 Output Total 1300 / 1300 1250 / 1250 250 / 250 Balance -450 / -450 -370 / -370 -250 / -250 Medical Nutrition Assessment Dietitian: Malnutrition Criteria Met Start: 08/09/22 11:15 Freq: Status: Active Protocol: Document 08/18/22 11:21 MAXWELL (Rec: 08/18/22 11:21 [facility] [id number]) Nutrition Malnutrition Evidence of Malnutrition Exists Yes Malnutrition (severe): Chronic Evidenced By Suboptimal Energy Intake ( Severe),Weight Loss (Severe), Physical Changes (Severe) Intake Problem Inadequate Oral Intake Etiology related to lung cancer, c/o no appetite and poor po intake Signs/Symptoms as evidenced by refusal of meals and ONS Status Active Problem Clinical Problem Chronic Disease or Condition Related Malnutrition Etiology Severe protein-calorie malnutrition in the context of chronic/metastatic disease related to inadequate oral intake and increased energy expenditure Signs/Symptoms as evidenced by 29.8% wt loss and meeting <75% of est nutritional needs x 7 months; obvious fat/muscle wasting in face, torso and upper/lower extremities. Status Active Problem Recommendation Dietitian Recommendations/Changes Continue liberal regular diet as tolerated. Will change to 120 ml ensure clear 4x/day w/ medpass to see if better acceptance. Change to ensure pudding w/ lunch and dinner; fortified foods w/ meals as able. Consider TF support given poor /inadequate oral intake and weight loss if in accordance w / pt/family wishes. Lab / Micro Data Result Diagrams: 08/21/22 04:30 08/21/22 04:30 Labs: Laboratory Results - last 24 hr 08/18/22 09:00: Diff Path Review Reviewed 08/19/22 06:35: Diff Path Review Reviewed 08/20/22 05:04: Diff Path Review Reviewed 08/20/22 08:32: Troponin I High Sens 140 H* 08/20/22 10:17: Troponin I High Sens 142 H* 08/20/22 14:06: Troponin I High Sens 160 H* 08/21/22 04:30: Sodium 145, Potassium 2.9 L, Chloride 111 H, Carbon Dioxide 21.0, Anion Gap 13, BUN 16, Creatinine 0.89, Estim Creat Clear Calc 59.10, Est GFR (MDRD) Af Amer 109, Est GFR (MDRD) Non-Af 90, BUN/Creatinine Ratio 17.9, Glucose 121 H, Calcium 7.9 L, Phosphorus 2.4 L, Magnesium 1.5 L, Total Bilirubin 0.80, AST 47 H, ALT 27, Alkaline Phosphatase 136 H, Total Protein 5.3 L, Albumin 1.8 L, Globulin 3.5, Albumin/Globulin Ratio 0.5 L 08/21/22 04:30: WBC 7.0, RBC 3.48 L, Hgb 9.3 L, Hct 30.3 L, MCV 87.1, MCH 26.7 L, MCHC 30.7 L, RDW Std Deviation 56.0 H, RDW Coeff of Ilia 17.6 H, Plt Count 40 L*, MPV 11.4, Immature Gran % (Auto) 1.900 H, Neut % (Auto) 86.0 H, Lymph % (Auto) 6.9 L, [place] % (Auto) 4.3, Eos % (Auto) 0.6, Baso % (Auto) 0.3, Absolute Neuts (auto) 6.0, Absolute Lymphs (auto) 0.48 L, Nucleated RBC % 0, Differential Comment SCANNED, Diff Path Review May foll, Platelet Estimate MKD DEC 08/21/22 04:30: PT 13.6, INR 1.1, APTT 31.5 Micro: Microbiology 08/11/22 13:15 Blood Culture (Wb) - Anticubital Left Blood Culture - Final Gram negative mandy 08/11/22 13:15 Blood Culture (Wb) - Anticubital Right Blood Culture - Final Escherichia coli 08/11/22 15:55 Urine Catheter - Lyman Urine Culture - Final Escherichia coli 08/12/22 08:00 Mucosa - Nasopharyngeal Respiratory Panel (PCR) - Final 08/12/22 08:00 Urine, Random Streptococcus pneumoniae Antigen (M - Final 08/12/22 08:00 Urine, Random Legionella Antigen - Final 08/12/22 08:00 Nasal Secretion SARS-CoV-2 & FLU Antigen (Rapid) - Final Physical Exam Narrative Cachectic Const oriented x3 Resp normal respiratory effort Cardio regular rate GI GI Narrative: Soft, nondistended, tender palpation right upper quadrant Assessment & Plan Assessment/Plan (1) Acute calculous cholecystitis: (2) Acid reflux: PLAN: Plan No plans for cardiac intervention due to chest pain. Patient will be able to get his cholecystostomy tube today improved at 40. Protonix IV as pt states still has GERD with PO Hilda Mathis M.D. Pager: [phone] [facility] [address] [place] [address], [facility], [address] [place] [address] Office: [phone] Charges/Coding Visit Charges Inpatient E&M: 70703 Subs Hosp L2
--- NOTE | 2022-08-21 09:15 | PN.CARD_ITS ---
Subjective Subjective The patient is awake. He appears to be resting reasonably comfortably at the moment-no acute distress. He denies ongoing chest discomfort or dyspnea this day. Objective Data Vital Signs: Vital Signs Temp Pulse Resp BP Pulse Ox O2 Del Method O2 Flow Rate 98.3 F 107 H 20 H 142/90 H 94 Room Air 2 08/21/22 03:50 08/21/22 03:50 08/21/22 03:50 08/21/22 03:50 08/21/22 03:50 08/21/22 08:00 08/20/22 14:56 Oxygen Flow Rate (L/min) 2 Oxygen Delivery Method Room Air Weight: 115 lb 15.41 oz Body Mass Index (BMI) 18.1 Intake & Output: Intake and Output for Last 24 Hours 08/19/22 08/20/22 08/21/22 23:59 23:59 23:59 Intake Total 850 / 850 880 / 880 Output Total 1300 / 1300 1250 / 1250 250 / 250 Balance -450 / -450 -370 / -370 -250 / -250 Lab / Micro Data Result Diagrams: 08/21/22 04:30 08/21/22 04:30 Labs: Laboratory Results - last 24 hr 08/18/22 09:00: Diff Path Review Reviewed 08/19/22 06:35: Diff Path Review Reviewed 08/20/22 05:04: Diff Path Review Reviewed 08/20/22 10:17: Troponin I High Sens 142 H* 08/20/22 14:06: Troponin I High Sens 160 H* 08/21/22 04:30: Sodium 145, Potassium 2.9 L, Chloride 111 H, Carbon Dioxide 21.0, Anion Gap 13, BUN 16, Creatinine 0.89, Estim Creat Clear Calc 59.10, Est GFR (MDRD) Af Amer 109, Est GFR (MDRD) Non-Af 90, BUN/Creatinine Ratio 17.9, Glucose 121 H, Calcium 7.9 L, Phosphorus 2.4 L, Magnesium 1.5 L, Total Bilirubin 0.80, AST 47 H, ALT 27, Alkaline Phosphatase 136 H, Total Protein 5.3 L, Albumin 1.8 L, Globulin 3.5, Albumin/Globulin Ratio 0.5 L 08/21/22 04:30: WBC 7.0, RBC 3.48 L, Hgb 9.3 L, Hct 30.3 L, MCV 87.1, MCH 26.7 L , MCHC 30.7 L, RDW Std Deviation 56.0 H, RDW Coeff of Ilia 17.6 H, Plt Count 40 L*, MPV 11.4, Immature Gran % (Auto) 1.900 H, Neut % (Auto) 86.0 H, Lymph % (Au to) 6.9 L, [place] % (Auto) 4.3, Eos % (Auto) 0.6, Baso % (Auto) 0.3, Absolute Neuts (auto) 6.0, Absolute Lymphs (auto) 0.48 L, Nucleated RBC % 0, Differential Comment SCANNED, Diff Path Review December, Platelet Estimate MKD 08/21/22 04:30: PT 13.6, INR 1.1, APTT 31.5 Cardiology Labs/Tests 08/21/22 04:30: Sodium 145, Potassium 2.9 L, Chloride 111 H, Carbon Dioxide 21.0, Anion Gap 13, BUN 16, Creatinine 0.89, Est GFR (MDRD) Af Amer 109, Est GFR (MDRD) Non-Af 90, BUN/Creatinine Ratio 17.9, Glucose 121 H, Calcium 7.9 L, Phosphorus 2.4 L, Magnesium 1.5 L, Total Bilirubin 0.80 08/21/22 04:30: WBC 7.0, RBC 3.48 L, Hgb 9.3 L, Hct 30.3 L, MCV 87.1, MCH 26.7 L , MCHC 30.7 L, Plt Count 40 L*, MPV 11.4, Immature Gran % (Auto) 1.900 H, Neut % (Auto) 86.0 H, Lymph % (Auto) 6.9 L, [place] % (Auto) 4.3, Eos % (Auto) 0.6, Baso % (Auto) 0.3, Absolute Neuts (auto) 6.0, Nucleated RBC % 0 08/21/22 04:30: PT 13.6, INR 1.1, APTT 31.5 Rhythm: Sinus rhythm/sinus tachycardia; PACs; rare PVCs EKG: Sinus rhythm/sinus tachycardia; PACs; rightward axis; right bundle branch block pattern; left posterior fascicular block pattern; no new acute changes Physical Exam Narrative This is a 66-year-old white male who appears to be somewhat frail and fragile appearing yet resting comfortably at the moment in no acute distress. Const alert, oriented x3 and no apparent distress Orientation / Consciousness: awake HEENT normocephalic, head/scalp atraumatic and hearing grossly normal bilaterally Eyes PERRL, EOMs intact bilaterally and conjunctivae normal Neck full ROM, supple and no JVD Carotids: normal carotid upstroke Resp Resp Narrative: No obvious rales or rhonchi at this time. Cardio regular rhythm, S1 normal heart sound and S2 normal heart sound Rate: tachycardic GI normal to inspection, nondistended, normoactive bowel sounds Extremity no pedal edema Skin General Skin Exam: ecchymosis Psych mental status grossly normal Assessment & Plan Assessment/Plan (1) Chest pain: PLAN: At the present time it is unclear as to whether his previously rerported chest pain is related to underlying cardiovascular disease or potentially his gastrointestinal disease. From a cardiac standpoint the patient has been monitored. He appears to be in a sinus rhythm at this time. He has had cardiac enzymes performed which have been mildly elevated and without any significant change. His ECG demonstrated no acute changes. His previous [facility] echocardiogram and stress echocardiogram were reviewed. A request has been sent to [facility] for copies of any cardiovascular records available. His medical management has been adjusted. He has been placed on nitrates with isosorbide dinitrate 10 mg p.o. 3 times daily and his beta-anupama dose was increased to metoprolol tartrate 50 mg p.o. twice daily. His medicines may need to be adjusted further going forward depending upon his clinical course. He is not an ideal candidate based upon his multiple comorbidities at this time for additional noninvasive or invasive evaluation. (2) Abnormal cardiac enzyme level: PLAN: The patient does have abnormal high-sensitivity troponin I levels. The etiology may be multifactorial and this may be a type II non-STEMI event. This could be from his multiple noncardiac etiologies which include his underlying sepsis and anemia, etc. At the present time he has undergone additional evaluation with an ECG which demonstrated no acute findings. His previous noninvasive cardiovascular studies have been noted. At the moment he will continue to be monitored. He will continue medical therapy which includes nitrates and beta-blockers as noted above. He does not appear to be an ideal candidate at the moment for antiplatelet therapy or anticoagulant therapy secondary to concerns of his anemia and thrombocytopenia. He also does not appear to be an ideal candidate for additional noninvasive or invasive cardiovascular studies. Thus at the present time he will continue conservative medical management. (3) Atrial flutter: PLAN: Based upon the patient's history and his medical records it appears there are concerns with the patient may have had atrial flutter. He had been on medical therapy with beta-blockers and anticoagulant therapy. At the moment he appears to be in a sinus rhythm. He will continue to be monitored. He will continue his beta-anupama therapy as noted. He is off anticoagulant therapy for the multiple noncardiac related issues including hematologic issues. (4) Hypokalemia: PLAN: The patient was noted to continue with hypokalemia. He should receive additional potassium supplements to assist with his electrolyte imbalance which hopefully will help with respect to maintaining sinus rhythm. (5) Anemia: PLAN: The patient has also been noted to be anemic. This does present an issue with respect to his potential cardiovascular medical therapy such as antiplatelet therapy and anticoagulant therapy as well as potential cardiovascular studies if needed, etc. (6) Thrombocytopenia: PLAN: The patient does have thrombocytopenia. This may be even more of an issue with respect to the ability to be on antiplatelet therapy and anticoagulant therapy and undergo any invasive cardiovascular evaluation or care. 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 He has undergone lobectomy and chemotherapy. He will continue to follow with oncology. (8) Sepsis: PLAN: The patient is reported as having sepsis/bacteremia thought secondary to UTI and cholecystitis. He has been undergoing evaluation care by internal medicine, infectious disease, and general surgery. He has been on antibiotic therapy (9) Cholecystitis: PLAN: The patient does have cholecystitis. He has been evaluated by general surgery. Based upon his radiologic studies he has been recommended for cholecystostomy tube placement. (10) Preoperative cardiovascular examination: PLAN: From a cardiac standpoint, at the present time, the patient appears without ongoing acute symptoms. He will continue to be monitored. He will continue medical therapy with nitrates and beta-blockers as described above. He is not an ideal candidate at this time for antiplatelet therapy or anticoagulant therapy. He is not an ideal candidate for additional cardiovascular diagnostic studies/intervention. Thus as long as he appears to be symptomatically and hemodynamically stable on his medical therapy it appears that he will need to proceed with his general surgical procedure to assist in caring for his noncardiovascular related issues to hopefully bring his bacteremia and sepsis under control, etc. this is tentatively planned for today. The above was discussed and reviewed with the patient. He is aware that there are risks versus benefits from a cardiovascular standpoint going through noncardiac surgical procedures at this time. However it appears that without his general surgical procedure there are concerns of ongoing bacteremia and sepsis. Thus at the present time it appears he does need to proceed with his non cardiac surgical procedure. He acknowledges this information and the asso ciated potential adverse cardiovascular concerns and the risks that could arise. Addt'l Comments Comment: Time spent in the patient's overall evaluation/care: 37 minutes This note was generated using a voice recognition system and there may be incorr ect words, spelling or punctuation that were not noted when reviewing the office note prior to saving. Procedure Criteria Type of Procedure Procedure Type: Elective Elective Risks - COVID COVID Risk Discussion: The surgeon/proceduralist and patient have discussed in detail the risk of exposure to and/or potential harm posed by the COVID-19 virus with having a s urgery/procedure at this time versus the risk of delaying the surgery/procedure. It is not possible to know either the risk of delaying the surgery or procedure or chance of getting an infection with perfect accuracy, but a joint decision was made between the patient and the surgeon/proceduralist to proceed at this time with the scheduled surgery/procedure as indicated on the consent form.
[2022-08-21] MEDS: levoFLOXacin IV 500 MG/100 ML BAG 100 MG IV (09:17)
[2022-08-21] MEDS: 0.9% Saline Lock 10 ML Syringe IV ×2 (09:39→13:12)
--- NOTE | 2022-08-21 14:00 | CT_ITS ---
STUDY: CT GUIDED PERCUTANEOUS CHOLECYSTOSTOMY. REASON FOR EXAM: Male, 66 years old. Acute cholecystitis. RADIATION DOSAGE (If Supplied By Facility): CTDIvol = ( 12 ) mGy, DLP = ( 400.87 ) mGycm. Individualized dose optimization techniques were used for this CT.? TECHNIQUE: The procedure as well as the benefits and possible complications including infection and bleeding were explained to the patient''s . Informed consent was obtained. The patient was in the supine position. The overlying skin was prepped and draped in the usual sterile fashion. Under CT guidance, an 8.2 [place] drainage catheter was placed into the gallbladder. 80 cc of purulent material was aspirated. The catheter was left in position for drainage. The patient tolerated the procedure well. COMPARISON: None. CT/CT Guidance Abscess Drg w/Cath IMPRESSION: Successful CT-guided percutaneous cholecystostomy with removal of 80 cc of purulent material. The patient thyroid the procedure well. The catheter was left in place with gravity drainage. Electronically Signed: Pedro Ni MD at 15:28 EST ,
--- NOTE | 2022-08-21 14:15 | PCA ---
Request for records sent to [facility] at [id number]
--- NOTE | 2022-08-21 14:17 | PCA ---
Called [facility] to check on status of records from [facility]. Noted the STAT status of records.
[2022-08-21] MEDS: Lidocaine 2% (20 ml mdv) 20 ML Vial INFILT (15:03)
[2022-08-21] MEDS: Haloperidol Lactate 5 MG/ML Vial 2 MG IM (17:52)
[2022-08-21] MEDS: oxyCODONE 5 MG Tablet PO (17:52)
[2022-08-21] MEDS: Isosorbide DN 10 MG Tablet PO (23:22)
[2022-08-21] MEDS: Metoprolol Tartrate 50 MG Tablet PO (23:22)
[2022-08-21] MEDS: Atorvastatin Calcium 20 MG Tablet PO (23:22)
[2022-08-21] MEDS: cycloBENZAPRine HCl 10 MG Tablet PO (23:23)
[2022-08-21] MEDS: metroNIDAZOLE 500 MG Tablet PO (23:23)
[2022-08-22] VITALS (12 sets, daily range): BP systolic 115–142; BP diastolic 68–89; PULSE 94–113; RESP 16–18; TEMP 36.2–36.6; O2SAT 93–97
[2022-08-22] MEDS: oxyCODONE 5 MG Tablet PO ×5 (00:31→23:51)
--- NOTE | 2022-08-22 03:45 | NURSING ---
This nurse walked into patients room to check in on patient, as I had been doing every 30 minutes to 1 hour due to patient having history of being impulsive. PT had pulled off abdominal binder, taken off dressing over drainage side on right side of abdomen and pulled on drain. It is unknown if patient pulled out drain or not. score caller surgeon paged and called back. Dr. Reyes ordered CT of abdomen and pelvis without contrast. Alteplase given by nursing staff for blood return on port. CT order to be placed.
[2022-08-22] MEDS: Alteplase 2 MG/2 ML Vial IV (03:52)
--- NOTE | 2022-08-22 04:14 | CT_ITS ---
STUDY: CT ABDOMEN AND PELVIS WITHOUT CONTRAST REASON FOR EXAM: Male, 66 years old. check placement of drain-pt pulled on drain tube RADIATION DOSAGE (If Supplied By Facility): CTDIvol = ( 9.97 ) mGy, DLP = ( 525.54 ) mGycm TECHNIQUE: Transaxial images were obtained from the dome of the diaphragm to the symphysis pubis without oral contrast, and without intravenous contrast. Sagittal and coronal images were reconstructed. Individualized dose optimization techniques were used for this CT. COMPARISON: 08/21/2022 FINDINGS: Small bilateral pleural effusions. The visualized portions of the heart are within normal limits. There is a drainage catheter in the gallbladder fundus. One of the sideholes may be outside the gallbladder. There is small amount of free fluid in the abdomen and pelvis that has increased since the previous study may represent bile leak along the cholecystostomy catheter insertion site. Normal liver. Normal spleen. Normal pancreas. Normal bilateral adrenal glands. Small bilateral nonobstructive kidney stones the largest measures 5 mm. There is no hydronephrosis. Normal visualized stomach. Normal small intestine. There are multiple colonic diverticula consistent with diverticulosis. The appendix is visualized and appears normal. Normal abdominal aorta. Normal inferior vena cava. Normal retroperitoneum. Normal urinary bladder. Small amount of free fluid in the abdomen. Anasarca of the abdominal wall. Normal osseous structures. CT/Abdomen/Pelvis without Cont IMPRESSION: There is a drainage catheter in the gallbladder fundus. One of the sideholes may be outside the gallbladder. There is small amount of free fluid in the abdomen and pelvis that has increased since the previous study may represent bile leak along the cholecystostomy catheter insertion site. Small bilateral nonobstructive kidney stones the largest measures 5 mm. There is no hydronephrosis. Colon diverticulosis. Anasarca. Electronically Signed: Eve Arce MD at 8:11 EST ,
--- NOTE | 2022-08-22 05:04 | NURSING ---
Haldol IM 2mg x1 dose ordered at 1858 on 08/21/22 not given due to patient lethargy. PT resting comfortably with eyes closed. Pt had not been pulling on port or drain access at the time.
--- NOTE | 2022-08-22 05:12 | NURSING ---
Spoke with about patient port not giving blood return. stated to try and get another line. Attempt x4 by 2 nurses to get peripheral access and it was unsuccessful at this time. Pt did not want to be poked anymore he stated at this time.
[2022-08-22] MEDS: Haloperidol Lactate 5 MG/ML Vial 2 MG IM (05:38)
[2022-08-22] MEDS: Isosorbide DN 10 MG Tablet PO ×3 (05:52→22:36)
[2022-08-22] MEDS: NYSTATIN 500,000 UNIT/5 ML UDC 500000 UNIT PO ×3 (05:53→22:37)
[2022-08-22] MEDS: cycloBENZAPRine HCl 10 MG Tablet PO ×3 (05:53→22:36)
[2022-08-22] MEDS: metroNIDAZOLE 500 MG Tablet PO ×3 (05:53→22:36)
[2022-08-22 05:56] LABS: Absolute Lymphocyte Count 0.59 X10^3/uL (0.83-4.51); Absolute Neutrophil Count 4.2 X10^3/uL (2.0-7.7); Basophil# 0.01 X10^3/uL; Basophil% 0.2 % (0-1); Eosinophil# 0.02 X10^3/uL; Eosinophils% 0.4 % (0-5); Hematocrit 29.1 % (40-54); Hemoglobin 9.3 g/dL (13.0-16.5); Lymphocyte # 0.59 X10^3/ul (0.83-4.51); Lymphocyte % 11.2 % (19-41); Mean Corpuscular Hgb 27.1 pg (27.0-32.0); Mean Corpuscular Volume 84.8 fL (80-94); Mean Platelet Vol. 10.9 fl (6.2-12.0); Monocyte# 0.31 X10^3/uL; Monocyte% 5.9 % (0-10); NRBC Flagged by Analyzer 0 % (0-5); Neutrophil % 79.3 % (47-70); POSITIVE COUNT YES; POSITIVE DIFFERENTIAL YES; RBC Distribution Width CV 17.5 % (11.6-14.6); RBC Distribution Width SD 54.1 fl (35.1-43.9); Red Blood Count 3.43 M/mm3 (4.6-6.2); White Blood Count 5.3 K/mm3 (4.4-11.0)
[2022-08-22 05:59] LABS: Differential Indicated SCAN CRITERIA MET; Platelet Count 32 K/mm3 (150-450)
[2022-08-22 06:16] LABS: Differential Comment SCANNED; Platelet Estimate MKD DEC (ADEQ)
[2022-08-22 06:17] LABS: ALB/GLOB Ratio 0.5 RATIO (0.9-2.4); AST(SGOT) 41 U/L (15-37); Alanine Aminotransfer ALT/SGPT 23 U/L (16-61); Albumin, Serum 1.7 g/dL (3.2-5.0); Alkaline Phosphatase 129 U/L (45-117); Anion Gap 11 (5-15); BUN 18 mg/dL (7-18); BUN/Creat Ratio 17.6 RATIO (10-20); Calcium,Total 7.8 mg/dL (8.5-10.1); Chloride 109 mmol/L (98-107); Creatinine, Serum 1.02 mg/dL (0.70-1.30); EST Glomerular Filtration Rate 77 mL/min (>60); Est Glom Filt Rate - Afr Amer 93 mL/min (>60); Estimated Creatinine Clearance 51.57 ml/min; Globulin 3.4 g/dL (2.2-4.2); Glucose 106 mg/dL (74-106); Magnesium 1.8 mg/dL (1.6-2.6); Potassium 2.8 mmol/L (3.5-5.1); Protein, Total 5.1 g/dL (6.4-8.2); Sodium Level 144 mmol/L (136-145)
--- NOTE | 2022-08-22 06:33 | NURSING ---
pt will not leave his telemetry leads on. This nurse was able to apply telemetry on at beginning of shift and get a print out but since patient will not leave telemetry on.
--- NOTE | 2022-08-22 07:59 | PCM.PN.SRG ---
Subjective Subjective Patient Quita tube placed yesterday however patient did remove his abdominal binder and pull out the tube is a little further out but may be still in place as it is still draining CT abdomen pelvis was done earlier this morning. Objective Data Objective Data Vital Signs: Vital Signs Temp Pulse Resp BP Pulse Ox O2 Del Method O2 Flow Rate 97.4 F L 102 H 18 142/87 H 97 Room Air 2 08/22/22 04:00 08/22/22 04:00 08/22/22 04:00 08/22/22 04:00 08/22/22 04:00 08/22/22 04:00 08/20/22 14:56 Oxygen Flow Rate (L/min) 2 Oxygen Delivery Method Room Air Weight: 115 lb 15.41 oz Body Mass Index (BMI) 18.1 Intake & Output: Intake and Output for Last 24 Hours 08/20/22 08/21/22 08/22/22 23:59 23:59 23:59 Intake Total 880 / 880 424 / 424 Output Total 1250 / 1250 720 / 720 150 / 150 Balance -370 / -370 -296 / -296 -150 / -150 Medical Nutrition Assessment Dietitian: Malnutrition Criteria Met Start: 08/09/22 11:15 Freq: Status: Active Protocol: Document 08/18/22 11:21 MAXWELL (Rec: 08/18/22 11:21 [facility] [id number]) Nutrition Malnutrition Evidence of Malnutrition Exists Yes Malnutrition (severe): Chronic Evidenced By Suboptimal Energy Intake ( Severe),Weight Loss (Severe), Physical Changes (Severe) Intake Problem Inadequate Oral Intake Etiology related to lung cancer, c/o no appetite and poor po intake Signs/Symptoms as evidenced by refusal of meals and ONS Status Active Problem Clinical Problem Chronic Disease or Condition Related Malnutrition Etiology Severe protein-calorie malnutrition in the context of chronic/metastatic disease related to inadequate oral intake and increased energy expenditure Signs/Symptoms as evidenced by 29.8% wt loss and meeting <75% of est nutritional needs x 7 months; obvious fat/muscle wasting in face, torso and upper/lower extremities. Status Active Problem Recommendation Dietitian Recommendations/Changes Continue liberal regular diet as tolerated. Will change to 120 ml ensure clear 4x/day w/ medpass to see if better acceptance. Change to ensure pudding w/ lunch and dinner; fortified foods w/ meals as able. Consider TF support given poor /inadequate oral intake and weight loss if in accordance w / pt/family wishes. Lab / Micro Data Result Diagrams: 08/22/22 05:40 08/22/22 05:40 Labs: Laboratory Results - last 24 hr 08/22/22 05:40: WBC 5.3, RBC 3.43 L, Hgb 9.3 L, Hct 29.1 L, MCV 84.8, MCH 27.1, MCHC 32.0, RDW Std Deviation 54.1 H, RDW Coeff of Ilia 17.5 H, Plt Count 32 L*, MPV 10.9, Immature Gran % (Auto) 3.000 H, Neut % (Auto) 79.3 H, Lymph % (Auto) 11.2 L, [place] % (Auto) 5.9, Eos % (Auto) 0.4, Baso % (Auto) 0.2, Absolute Neuts (auto) 4.2, Absolute Lymphs (auto) 0.59 L, Nucleated RBC % 0, Differential Comment SCANNED, Diff Path Review December, Platelet Estimate MKD 08/22/22 05:40: Sodium 144, Potassium 2.8 L, Chloride 109 H, Carbon Dioxide 24.0, Anion Gap 11, BUN 18, Creatinine 1.02, Estim Creat Clear Calc 51.57, Est GFR (MDRD) Af Amer 93, Est GFR (MDRD) Non-Af 77, BUN/Creatinine Ratio 17.6, Glucose 106, Calcium 7.8 L, Magnesium 1.8, Total Bilirubin 0.60, AST 41 H, ALT 23, Alkaline Phosphatase 129 H, Total Protein 5.1 L, Albumin 1.7 L, Globulin 3.4, Albumin/Globulin Ratio 0.5 L Micro: Microbiology 08/11/22 13:15 Blood Culture (Wb) - Anticubital Left Blood Culture - Final Gram negative mandy 08/11/22 13:15 Blood Culture (Wb) - Anticubital Right Blood Culture - Final Escherichia coli 08/11/22 15:55 Urine Catheter - Lyman Urine Culture - Final Escherichia coli 08/12/22 08:00 Mucosa - Nasopharyngeal Respiratory Panel (PCR) - Final 08/12/22 08:00 Urine, Random Streptococcus pneumoniae Antigen (M - Final 08/12/22 08:00 Urine, Random Legionella Antigen - Final 08/12/22 08:00 Nasal Secretion SARS-CoV-2 & FLU Antigen (Rapid) - Final Radiography Diagnostic Testing: Radiology Impression Abscess Drainage CT 08/21/22 14:00 IMPRESSION: Successful CT-guided percutaneous cholecystostomy with removal of 80 cc of purulent material. The patient thyroid the procedure well. The catheter was left in place with gravity drainage. Electronically Signed: Pedro Ni MD at 15:28 EST , Physical Exam Const no apparent distress Resp normal respiratory effort Cardio regular rate GI GI Narrative: Marisol tube in place secured with tape., Abdomen soft, tender palpation right upper quadrant, nondistended Assessment & Plan Assessment/Plan (1) Acute calculous cholecystitis: (2) Acid reflux: PLAN: Plan We will check tube placement with radiology it is still draining. Encourage keeping the abdominal binder on patient does not remember removing the abdominal binder or pulling at the tube per patient. Okay for diet per surgery. Hilda Mathis M.D. Pager: [phone] [facility] [address] [place] [address], [facility], [address] [place] [address] Office: [phone] Charges/Coding Visit Charges Inpatient E&M: 04516 Subs Hosp L2
--- NOTE | 2022-08-22 08:38 | NURSING ---
This RN removed the alteplase syringe from patient's port. Successfully withdrew blood and flushed.
--- NOTE | 2022-08-22 08:41 | PN.CARD_ITS ---
Subjective Subjective The patient appears to be more somnolent this morning. He is also been reported as being noted to be pulling at his various monitor lines, IV lines, and his new cholecystostomy tube. Objective Data Vital Signs: Vital Signs Temp Pulse Resp BP Pulse Ox O2 Del Method O2 Flow Rate 97.4 F L 102 H 18 142/87 H 93 Room Air 2 08/22/22 04:00 08/22/22 04:00 08/22/22 04:00 08/22/22 04:00 08/22/22 07:48 08/22/22 07:48 08/20/22 14:56 Oxygen Flow Rate (L/min) 2 Oxygen Delivery Method Room Air Weight: 115 lb 15.41 oz Body Mass Index (BMI) 18.1 Intake & Output: Intake and Output for Last 24 Hours 08/20/22 08/21/22 08/22/22 23:59 23:59 23:59 Intake Total 880 / 880 424 / 424 Output Total 1250 / 1250 720 / 720 150 / 150 Balance -370 / -370 -296 / -296 -150 / -150 Lab / Micro Data Result Diagrams: 08/22/22 05:40 08/22/22 05:40 Labs: Laboratory Results - last 24 hr 08/22/22 05:40: WBC 5.3, RBC 3.43 L, Hgb 9.3 L, Hct 29.1 L, MCV 84.8, MCH 27.1, MCHC 32.0, RDW Std Deviation 54.1 H, RDW Coeff of Ilia 17.5 H, Plt Count 32 L*, MPV 10.9, Immature Gran % (Auto) 3.000 H, Neut % (Auto) 79.3 H, Lymph % (Auto) 11.2 L, [place] % (Auto) 5.9, Eos % (Auto) 0.4, Baso % (Auto) 0.2, Absolute Neuts (auto) 4.2, Absolute Lymphs (auto) 0.59 L, Nucleated RBC % 0, Differential Comment SCANNED, Diff Path Review May selena, Platelet Estimate MKD 08/22/22 05:40: Sodium 144, Potassium 2.8 L, Chloride 109 H, Carbon Dioxide 24.0, Anion Gap 11, BUN 18, Creatinine 1.02, Estim Creat Clear Calc 51.57, Est GFR (MDRD) Af Amer 93, Est GFR (MDRD) Non-Af 77, BUN/Creatinine Ratio 17.6, Glucose 106, Calcium 7.8 L, Magnesium 1.8, Total Bilirubin 0.60, AST 41 H, ALT 23, Alkaline Phosphatase 129 H, Total Protein 5.1 L, Albumin 1.7 L, Globulin 3.4, Albumin/Globulin Ratio 0.5 L Cardiology Labs/Tests 08/22/22 05:40: WBC 5.3, RBC 3.43 L, Hgb 9.3 L, Hct 29.1 L, MCV 84.8, MCH 27.1, MCHC 32.0, Plt Count 32 L*, MPV 10.9, Immature Gran % (Auto) 3.000 H, Neut % (Auto) 79.3 H, Lymph % (Auto) 11.2 L, [place] % (Auto) 5.9, Eos % (Auto) 0.4, Baso % (Auto) 0.2, Absolute Neuts (auto) 4.2, Nucleated RBC % 0 08/22/22 05:40: Sodium 144, Potassium 2.8 L, Chloride 109 H, Carbon Dioxide 24.0, Anion Gap 11, BUN 18, Creatinine 1.02, Est GFR (MDRD) Af Amer 93, Est GFR (MDRD) Non-Af 77, BUN/Creatinine Ratio 17.6, Glucose 106, Calcium 7.8 L, Magnesium 1.8, Total Bilirubin 0.60 Rhythm: Sinus rhythm; PACs Radiography Diagnostic Testing: Radiology Impression Abscess Drainage CT 08/21/22 14:00 IMPRESSION: Successful CT-guided percutaneous cholecystostomy with removal of 80 cc of purulent material. The patient thyroid the procedure well. The catheter was left in place with gravity drainage. Electronically Signed: Pedro Ni MD at 15:28 EST , Abdomen/Pelvis CT 08/22/22 04:14 IMPRESSION: There is a drainage catheter in the gallbladder fundus. One of the sideholes may be outside the gallbladder. There is small amount of free fluid in the abdomen and pelvis that has increased since the previous study may represent bile leak along the cholecystostomy catheter insertion site. Small bilateral nonobstructive kidney stones the largest measures 5 mm. There is no hydronephrosis. Colon diverticulosis. Anasarca. Electronically Signed: Eve Arce MD at 8:11 EST , Physical Exam Narrative This is a 66-year-old white male who appears to be somewhat frail and fragile appearing yet resting comfortably at the moment in no acute distress. Const General Appearance: other More somnolent appearing HEENT normocephalic, head/scalp atraumatic and hearing grossly normal bilaterally Neck no JVD Carotids: normal carotid upstroke Resp Resp Narrative: No obvious rales or rhonchi at this time. Cardio regular rate, regular rhythm, S1 normal heart sound and S2 normal heart sound GI normal to inspection, nondistended, normoactive bowel sounds GI Narrative: Cholecystostomy tube in place Extremity no pedal edema Skin General Skin Exam: ecchymosis Psych mental status grossly normal Assessment & Plan Assessment/Plan (1) Chest pain: PLAN: The patient has not complained of any recurrent chest discomfort. From a cardiac standpoint the patient has been monitored. He appears to be in a sinus rhythm at this time. He has had cardiac enzymes performed which have been mildly elevated and without any significant change. His ECG demonstrated no acute changes. His previous [facility] echocardiogram and stress echocardiogram were reviewed. He has been placed on nitrates with isosorbide dinitrate at 10 mg p.o. 3 times daily and had his beta-anupama dose increased to metoprolol 50 mg p.o. twice daily. He underwent his noncardiac surgical procedure without obvious adverse cardiovascular compromise. He is not an ideal candidate based upon his multiple comorbidities at this time for additional noninvasive or invasive evaluation. (2) Abnormal cardiac enzyme level: PLAN: The patient does have abnormal high-sensitivity troponin I levels. The etiology may be multifactorial and this may be a type II non-STEMI event. This could be from his multiple noncardiac etiologies which include his underlying sepsis and anemia, etc. At the present time he has undergone additional evaluation with an ECG which demonstrated no acute findings. His previous noninvasive cardiovascular studies have been noted. At the moment he will continue to be monitored. He will continue medical therapy which includes nitrates and beta-blockers as noted above. He does not appear to be an ideal candidate at the moment for antiplatelet therapy or anticoagulant therapy secondary to concerns of his anemia and thrombocytopenia. He also does not appear to be an ideal candidate for additional noninvasive or invasive cardiovascular studies. Thus at the present time he will continue conservative medical management. (3) Atrial flutter: PLAN: Based upon the patient's history and his medical records it appears there are concerns with the patient may have had atrial flutter. He had been on medical therapy with beta-blockers and anticoagulant therapy. At the moment he appears to be in a sinus rhythm. He will continue to be monitored. His beta-anupama dose has been adjusted as noted above. He is off anticoagulant therapy for the multiple noncardiac related issues including hematologic issues. (4) Hypokalemia: PLAN: The patient was noted to continue with hypokalemia. He should continue to receive potassium supplements either orally if he is able or intravenously to try and bring his potassium level back into the normal range. (5) Anemia: PLAN: The patient has also been noted to be anemic. This does present an issue with respect to his potential cardiovascular medical therapy such as antiplatelet therapy and anticoagulant therapy as well as potential cardiovascular studies if needed, etc. (6) Thrombocytopenia: PLAN: The patient does have thrombocytopenia. This may be even more of an issue with respect to the ability to be on antiplatelet therapy and anticoagulant therapy and undergo any invasive cardiovascular evaluation or care. 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 He has undergone lobectomy and chemotherapy. He will continue to follow with oncology. (8) Sepsis: PLAN: The patient is reported as having sepsis/bacteremia thought secondary to UTI and cholecystitis. He has been undergoing evaluation care by internal medicine, infectious disease, and general surgery. He has been on antibiotic therapy (9) Cholecystitis: PLAN: The patient does have cholecystitis. He has been evaluated by general surgery. He has undergone cholecystostomy tube placement without obvious adverse event. Apparently there were concerns that the patient has been attempting to pull at his monitor lines, IV lines, and his cholecystostomy tube. Addt'l Comments The patient's case was discussed and reviewed with Dr. Mathis. She is concerned regarding the placement of his cholecystostomy tube. She will pursue this further as she deems appropriate. From a cardiovascular standpoint the patient is continuing conservative medical management. As noted above he does not appear to be an ideal candidate for additional cardiac noninvasive or invasive studies. If the patient's overall condition and comorbidities continue to decline despite receiving medical management and support from various physicians/procedures, etc., then the patient may need to be considered for palliative/hospice care. Comment: Time spent the patient's overall evaluation, examination, review of medical records, documentation, and discussion with other members of the medical staff: 40 minutes Procedure Criteria Type of Procedure Procedure Type: Elective Elective Risks - COVID COVID Risk Discussion: The surgeon/proceduralist and patient have discussed in detail the risk of exposure to and/or potential harm posed by the COVID-19 virus with having a surgery/procedure at this time versus the risk of delaying the surgery/procedure. It is not possible to know either the risk of delaying the surgery or procedure or chance of getting an infection with perfect accuracy, but a joint decision was made between the patient and the surgeon/proceduralist to proceed at this time with the scheduled surgery/procedure as indicated on the consent form.
--- NOTE | 2022-08-22 08:43 | CT_ITS ---
STUDY: CT ABDOMEN WITHOUT CONTRAST. Repositioning of the cholecystostomy tube. REASON FOR EXAM: Male, 66 years old. Marisol tube check placement AND REPOSITION. The indwelling percutaneous close ostomy catheter has been advanced into the gallbladder lumen. RADIATION DOSAGE (If Supplied By Facility): CTDIvol = ( 10.00 ) mGy, DLP = ( 186.43 ) mGycm TECHNIQUE: Transaxial images were obtained without intravenous contrast, and without oral contrast. Sagittal and coronal images were reconstructed. Individualized dose optimization techniques were used for this CT. COMPARISON: Comparison is made with prior study done earlier today. FINDINGS: The indwelling percutaneous cholecystostomy tube was advanced into the gallbladder lumen over a AMPLATZ super stiff guidewire.. CT/Abdomen without IV Contrast IMPRESSION: Repositioning of the indwelling cholecystostomy tube. Electronically Signed: Pedro Ni MD at 9:44 EST ,
--- NOTE | 2022-08-22 09:05 | PCM.PN.HOSP ---
Subjective Subjective Confusion yesterday requiring haloperidol. Denies complaints. Objective Data Objective Data Vital Signs: Vital Signs Temp Pulse Resp BP Pulse Ox O2 Del Method O2 Flow Rate 36.3 C L 102 H 18 142/87 H 93 Room Air 2 08/22/22 04:00 08/22/22 04:00 08/22/22 04:00 08/22/22 04:00 08/22/22 07:48 08/22/22 07:48 08/20/22 14:56 Oxygen Flow Rate (L/min) 2 Oxygen Delivery Method Room Air Weight: 52.6 kg Body Mass Index (BMI) 18.1 Intake & Output: Intake and Output for Last 24 Hours 08/20/22 08/21/22 08/22/22 23:59 23:59 23:59 Intake Total 880 / 880 424 / 424 Output Total 1250 / 1250 720 / 720 150 / 150 Balance -370 / -370 -296 / -296 -150 / -150 Medical Nutrition Assessment Dietitian: Malnutrition Criteria Met Start: 08/09/22 11:15 Freq: Status: Active Protocol: Document 08/18/22 11:21 SLA (Rec: 08/18/22 11:21 SLA [id number]) Nutrition Malnutrition Evidence of Malnutrition Exists Yes Malnutrition (severe): Chronic Evidenced By Suboptimal Energy Intake ( Severe),Weight Loss (Severe), Physical Changes (Severe) Intake Problem Inadequate Oral Intake Etiology related to lung cancer, c/o no appetite and poor po intake Signs/Symptoms as evidenced by refusal of meals and ONS Status Active Problem Clinical Problem Chronic Disease or Condition Related Malnutrition Etiology Severe protein-calorie malnutrition in the context of chronic/metastatic disease related to inadequate oral intake and increased energy expenditure Signs/Symptoms as evidenced by 29.8% wt loss and meeting <75% of est nutritional needs x 7 months; obvious fat/muscle wasting in face, torso and upper/lower extremities. Status Active Problem Recommendation Dietitian Recommendations/Changes Continue liberal regular diet as tolerated. Will change to 120 ml ensure clear 4x/day w/ medpass to see if better acceptance. Change to ensure pudding w/ lunch and dinner; fortified foods w/ meals as able. Consider TF support given poor /inadequate oral intake and weight loss if in accordance w / pt/family wishes. Lab / Micro Data Result Diagrams: 08/22/22 05:40 08/22/22 05:40 Labs: Laboratory Results - last 24 hr 08/22/22 05:40: WBC 5.3, RBC 3.43 L, Hgb 9.3 L, Hct 29.1 L, MCV 84.8, MCH 27.1, MCHC 32.0, RDW Std Deviation 54.1 H, RDW Coeff of Ilia 17.5 H, Plt Count 32 L*, MPV 10.9, Immature Gran % (Auto) 3.000 H, Neut % (Auto) 79.3 H, Lymph % (Auto) 11.2 L, [place] % (Auto) 5.9, Eos % (Auto) 0.4, Baso % (Auto) 0.2, Absolute Neuts (auto) 4.2, Absolute Lymphs (auto) 0.59 L, Nucleated RBC % 0, Differential Comment SCANNED, Diff Path Review December, Platelet Estimate MKD 08/22/22 05:40: Sodium 144, Potassium 2.8 L, Chloride 109 H, Carbon Dioxide 24.0, Anion Gap 11, BUN 18, Creatinine 1.02, Estim Creat Clear Calc 51.57, Est GFR (MDRD) Af Amer 93, Est GFR (MDRD) Non-Af 77, BUN/Creatinine Ratio 17.6, Glucose 106, Calcium 7.8 L, Magnesium 1.8, Total Bilirubin 0.60, AST 41 H, ALT 23, Alkaline Phosphatase 129 H, Total Protein 5.1 L, Albumin 1.7 L, Globulin 3.4, Albumin/Globulin Ratio 0.5 L Micro: Microbiology 08/11/22 13:15 Blood Culture (Wb) - Anticubital Left Blood Culture - Final Gram negative mandy 08/11/22 13:15 Blood Culture (Wb) - Anticubital Right Blood Culture - Final Escherichia coli 08/11/22 15:55 Urine Catheter - Lyman Urine Culture - Final Escherichia coli 08/12/22 08:00 Mucosa - Nasopharyngeal Respiratory Panel (PCR) - Final 08/12/22 08:00 Urine, Random Streptococcus pneumoniae Antigen (M - Final 08/12/22 08:00 Urine, Random Legionella Antigen - Final 08/12/22 08:00 Nasal Secretion SARS-CoV-2 & FLU Antigen (Rapid) - Final Radiography Diagnostic Testing: Radiology Impression Abscess Drainage CT 08/21/22 14:00 IMPRESSION: Successful CT-guided percutaneous cholecystostomy with removal of 80 cc of purulent material. The patient thyroid the procedure well. The catheter was left in place with gravity drainage. Electronically Signed: Pedro Ni MD at 15:28 EST , Abdomen/Pelvis CT 08/22/22 04:14 IMPRESSION: There is a drainage catheter in the gallbladder fundus. One of the sideholes may be outside the gallbladder. There is small amount of free fluid in the abdomen and pelvis that has increased since the previous study may represent bile leak along the cholecystostomy catheter insertion site. Small bilateral nonobstructive kidney stones the largest measures 5 mm. There is no hydronephrosis. Colon diverticulosis. Anasarca. Electronically Signed: Eve Arce MD at 8:11 EST , Physical Exam Const Constitutional Narrative: oriented to year and self. HEENT head/scalp atraumatic Resp normal respiratory effort Cardio regular rate, regular rhythm, S1 normal heart sound and S2 normal heart sound GI normal to inspection, nondistended, normoactive bowel sounds, soft to palpation, non-tender and non-distended GI Narrative: drain in RUQ w bilous drainage. Extremity normal to inspection Psych affect normal Assessment & Plan Assessment/Plan (1) Sepsis: PLAN: Sepsis secondary to likely acute cholecystitis, UTI and bacteremia 08/13: Source concerning for either urinary gallbladder, right upper quadrant ultrasound with multiple gallstones and sludge within the gallbladder, mildly thickened gallbladder wall. Growing gram-negative rods in blood. Is also growing in urine however given his right upper quadrant pain, gallbladder ultrasound, elevated alk phos high concern for gallbladder involvement. Surgery consulted. Patient n.p.o. at midnight, Eliquis held starting this morning. Culture sensitivities pending 08/14: Was sent for obey tube today via IR however platelets dropped to 24 and notably has 1% blasts. Does have non-small cell lung cancer, right upper lobe Path stage IIb poorly differentiated G3 with metastasis to 1 interlobular lymph node and lymphovascular invasion. Received 4 cycles of adjuvant carboplatin from April to June 2022 but had excessive toxicities. Chest CT with nodules, possibly atypical infectious. Dr. Villela consulted. Additionally E. coli sensitivities back and resistant to Zosyn, Vanco discontinued and switched to cefepime 08/15: Oncology consulted and felt platelets were secondary to sepsis and drug-induced thrombocytopenia from antibiotics. Vancomycin has been discontinued. Reported platelets will likely begin to improve on their own, today 16 and unable to perform drain still. Nonpharmacologic DVT prophylaxis. Apixaban is held. No evidence of DIC. Continue cefepime. Has had having ALP and abdominal exam 08/16: Platelets further trended down, does not meet criteria for prophylactic platelet transfusion until less than 10, will try to reach out to oncology however given continued worsening despite improvement of sepsis and withdrawal of offending agent to see if maybe platelet transfusion for [place] tube on Thursday would be reasonable. 08/17: Thrombocytopenia work-up, no DIC, Spoke with ID regarding Mr. Domínguez's gallbladder, blood cultures, urine culture. UA on admission had leukoesterase and nitrate but no white blood cells and only rare bacteria, liver ultrasound gallbladder with stones, sludge, thickening, right upper quadrant pain consistent with cholecystitis. Source of his sepsis still presumed to be gallbladder and his sepsis from that is likely why his urine was growing E. coli with the same sensitivity pattern and it is unlikely that that was the source of infection given clinical picture. Did consult ID given inability for source control with continued IV antibiotics, appreciate recommendations. Will repeat blood cultures, ID concerned plts continue to decrease d/t inability to obtain source control. Plts continue to downtrend 2u platelets ordered. Will make NPO at midnight in the event platelets do increase enough with transfusion for intervention. (2) UTI (urinary tract infection): PLAN: UA on was unremarkable, however UCx positive for E. coli on LVQ (changed from Cipro due to shortage) (3) Bacteremia: PLAN: same bacteria as UCx: E. coli suspect due to urinary source (4) Acute encephalopathy: PLAN: Acute metabolic encephalopathy secondary to WAN secondary to dehydration, sepsis. 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 (6) Thrombocytopenia: PLAN: Likely multifactorial Oncology evaluated last week and thought this was secondary to sepsis and medication Sepsis treated with adequate antibiotics and vancomycin was discontinued Upon further review cefepime also has rare side effect of low platelets, this was switched to ciprofloxacin as cultures were also sensitive to that as well Not in DIC Several labs still pending 08/17: Hepatitis panel ordered as part of thrombocytopenia w/u, rest of workup unrevealing. Platelets ordered, likely d/t inability to obtain source control. 08/18: transfuse 1 units 08/19: improved 08/20: Platelets down to 30k. With the cholecystotomy tube planned for today will give another unit of platelets today. (7) Cholecystitis: PLAN: cholecystotomy tube placed 08/21 Not a surgical candidate at this time. Continue abx for now. Follow up with cultures. (8) Anemia: PLAN: 08/18: transfuse 1 unit PRBCs Currently stable Transfuse to keep Hg greater than or equal to 8. (9) Hypokalemia: PLAN: Continue replacement. Continue magnesium replacement Continue to monitor (10) Chest pain: PLAN: Atypical EKG reviewed and showed right bundle branch block but unchanged from EKG from August 11. Patient states that in January, he had what sounds like some type of tachycardia and was advised to have further work-up possibly including a stent. Patient declined at that time. Echocardiogram performed on the showed an EF of 55% with trivial pericardial effusion. Will cycle his troponins. If are elevated and patient does have evidence of a myocardial infarction, options will be limited as patient cannot be anticoagulated nor undergo cardiac catheterization for stent placement as he cannot be on antiplatelet medications at this time. May consider a stress test depending on the results. Patient's cholecystotomy tube will be placed on hold for the time being. Cardiology following. Patient to be on isosorbide dinitrate 10 mg 3 times daily, beta-anupama with the metoprolol 50 mg twice daily. PLAN: Plan Chronic conditions: Type 2 diabetes mellitus: fair control Atrial flutter: Eliquis held.On Lipitor for hyperlipidemia.Metoprolol #DVT ppx: Kathrine amezquita, SCDs 08/19: Discussed goals of care with the patient and his family at bedside. Told him that it is ultimately his decision about what he wants to do but will try to help him medically. Encouraged him to take his medications as he is only harming himself by not doing so. Patient increased to continue with medical care and will comply with recommendations. Charges/Coding Visit Charges Inpatient E&M: 67527 Subs Hosp L2
[2022-08-22 10:10] LABS: Pathologist Review Reviewed
[2022-08-22] MEDS: Metoprolol Tartrate 50 MG Tablet PO ×2 (10:33→22:36)
[2022-08-22] MEDS: Potassium Chloride Oral Tablet 20 MEQ 40 MEQ PO ×3 (10:33→18:52)
[2022-08-22] MEDS: Senna/Docusate Sodium 1 Tablet 2 TABLET PO ×2 (10:33→22:36)
[2022-08-22] MEDS: Polyethylene Glycol 3350 17 GM PACKET PO ×2 (10:33→22:36)
[2022-08-22] MEDS: levoFLOXacin IV 500 MG/100 ML BAG 100 MG IV (10:49)
[2022-08-22] MEDS: Ondansetron 4 MG/2 ML Vial IV (14:34)
[2022-08-22 15:41] LABS: Pathologist Review Reviewed
[2022-08-22] MEDS: Atorvastatin Calcium 20 MG Tablet PO (22:36)
[2022-08-22] MEDS: QUEtiapine 25 MG Tablet PO (22:36)
[2022-08-22] MEDS: Famotidine 20 MG Tablet PO (22:36)
[2022-08-23 03:02] VITALS: PULSE 96
[2022-08-23 03:13] VITALS: BP 127/67; PULSE 71; RESP 16; TEMP 36.6; O2SAT 95
[2022-08-23] MEDS: LORazepam 0.5 MG Tablet PO (04:07)
[2022-08-23] MEDS: oxyCODONE 5 MG Tablet PO ×4 (05:19→23:05)
[2022-08-23] MEDS: cycloBENZAPRine HCl 10 MG Tablet PO ×3 (05:19→20:51)
--- NOTE | 2022-08-23 07:00 | NURSING ---
PT had been restless all night, and finally was resting comfortably with eyes closed before taking his 0600 medications. Day shift nurse to give 0600 medications with 0800 Potassium.
[2022-08-23 07:02] LABS: Absolute Lymphocyte Count 0.54 X10^3/uL (0.83-4.51); Absolute Neutrophil Count 3.9 X10^3/uL (2.0-7.7); Eosinophil# 0.02 X10^3/uL; Eosinophils% 0.4 % (0-5); Hematocrit 25.9 % (40-54); Hemoglobin 8.5 g/dL (13.0-16.5); Lymphocyte # 0.54 X10^3/ul (0.83-4.51); Lymphocyte % 11.2 % (19-41); Mean Corp Hgb Conc 32.8 g/dL (32-36); Mean Corpuscular Hgb 27.8 pg (27.0-32.0); Mean Corpuscular Volume 84.6 fL (80-94); Monocyte# 0.22 X10^3/uL; Monocyte% 4.6 % (0-10); NRBC Flagged by Analyzer 0 % (0-5); Neutrophil # 3.89 X10^3/uL (2.7-7.7); Neutrophil % 80.7 % (47-70); POSITIVE COUNT YES; POSITIVE DIFFERENTIAL YES; RBC Distribution Width CV 17.5 % (11.6-14.6); RBC Distribution Width SD 53.9 fl (35.1-43.9); Red Blood Count 3.06 M/mm3 (4.6-6.2); White Blood Count 4.8 K/mm3 (4.4-11.0)
[2022-08-23 07:12] LABS: Differential Indicated SCAN CRITERIA MET; Platelet Count 25 K/mm3 (150-450)
[2022-08-23 07:38] LABS: ALB/GLOB Ratio 0.5 RATIO (0.9-2.4); AST(SGOT) 43 U/L (15-37); Alanine Aminotransfer ALT/SGPT 22 U/L (16-61); Albumin, Serum 1.7 g/dL (3.2-5.0); Alkaline Phosphatase 124 U/L (45-117); Anion Gap 5 (5-15); BUN 18 mg/dL (7-18); BUN/Creat Ratio 18.6 RATIO (10-20); Calcium,Total 7.8 mg/dL (8.5-10.1); Chloride 112 mmol/L (98-107); Creatinine, Serum 0.97 mg/dL (0.70-1.30); EST Glomerular Filtration Rate 82 mL/min (>60); Est Glom Filt Rate - Afr Amer 99 mL/min (>60); Estimated Creatinine Clearance 54.23 ml/min; Globulin 3.4 g/dL (2.2-4.2); Glucose 115 mg/dL (74-106); Potassium 3.3 mmol/L (3.5-5.1); Protein, Total 5.1 g/dL (6.4-8.2); Sodium Level 144 mmol/L (136-145)
[2022-08-23 07:58] VITALS: BP 133/77; PULSE 105; RESP 16; TEMP 36.6; O2SAT 95
[2022-08-23 08:15] VITALS: BP 133/77; PULSE 105
[2022-08-23] MEDS: Isosorbide DN 10 MG Tablet PO ×3 (08:15→20:51)
[2022-08-23] MEDS: Potassium Chloride Oral Tablet 20 MEQ 40 MEQ PO ×3 (08:15→18:37)
[2022-08-23] MEDS: Metoprolol Tartrate 50 MG Tablet PO ×2 (08:15→20:51)
[2022-08-23] MEDS: NYSTATIN 500,000 UNIT/5 ML UDC 500000 UNIT PO ×3 (08:15→20:53)
[2022-08-23] MEDS: Senna/Docusate Sodium 1 Tablet 2 TABLET PO ×2 (08:16→20:51)
[2022-08-23] MEDS: metroNIDAZOLE 500 MG Tablet PO ×3 (08:16→20:51)
[2022-08-23] MEDS: Menthol/Lanolin/Calamine/Znox 113 GM Tube 1 APPLIC TOPICAL ×2 (08:19→20:54)
--- NOTE | 2022-08-23 08:31 | PN.HOSP_ITS ---
Subjective Subjective Was complaining of pain, but denies any complaints at this time. Objective Data Objective Data Vital Signs: Vital Signs Temp Pulse Resp BP Pulse Ox O2 Del Method O2 Flow Rate 36.6 C 105 H 16 133/77 H 95 Room Air 2 08/23/22 07:58 08/23/22 08:15 08/23/22 07:58 08/23/22 08:15 08/23/22 07:58 08/23/22 08:04 08/23/22 07:58 Oxygen Flow Rate (L/min) 2 Oxygen Delivery Method Room Air Weight: 52.6 kg Body Mass Index (BMI) 18.1 Intake & Output: Intake and Output for Last 24 Hours 08/21/22 08/22/22 08/23/22 23:59 23:59 23:59 Intake Total 424 / 424 504 / 504 Output Total 720 / 720 700 / 1000 300 / 300 Balance -296 / -296 -196 / -496 -300 / -300 Medical Nutrition Assessment Dietitian: Malnutrition Criteria Met Start: 08/09/22 11:15 Freq: Status: Active Protocol: Document 08/18/22 11:21 SLA (Rec: 08/18/22 11:21 SLA [id number]) Nutrition Malnutrition Evidence of Malnutrition Exists Yes Malnutrition (severe): Chronic Evidenced By Suboptimal Energy Intake ( Severe),Weight Loss (Severe), Physical Changes (Severe) Intake Problem Inadequate Oral Intake Etiology related to lung cancer, c/o no appetite and poor po intake Signs/Symptoms as evidenced by refusal of meals and ONS Status Active Problem Clinical Problem Chronic Disease or Condition Related Malnutrition Etiology Severe protein-calorie malnutrition in the context of chronic/metastatic disease related to inadequate oral intake and increased energy expenditure Signs/Symptoms as evidenced by 29.8% wt loss and meeting <75% of est nutritional needs x 7 months; obvious fat/muscle wasting in face, torso and upper/lower extremities. Status Active Problem Recommendation Dietitian Recommendations/Changes Continue liberal regular diet as tolerated. Will change to 120 ml ensure clear 4x/day w/ medpass to see if better acceptance. Change to ensure pudding w/ lunch and dinner; fortified foods w/ meals as able. Consider TF support given poor /inadequate oral intake and weight loss if in accordance w / pt/family wishes. Lab / Micro Data Result Diagrams: 08/23/22 06:05 08/23/22 06:05 Labs: Laboratory Results - last 24 hr 08/21/22 04:30: Diff Path Review Reviewed 08/22/22 05:40: Diff Path Review Reviewed 08/23/22 06:05: WBC 4.8, RBC 3.06 L, Hgb 8.5 L, Hct 25.9 L, MCV 84.6, MCH 27.8, MCHC 32.8, RDW Std Deviation 53.9 H, RDW Coeff of Ilia 17.5 H, Plt Count 25 L*, MPV TNP, Immature Gran % (Auto) 3.100 H, Neut % (Auto) 80.7 H, Lymph % (Auto) 11.2 L, [place] % (Auto) 4.6, Eos % (Auto) 0.4, Baso % (Auto) 0.0, Absolute Neuts (auto) 3.9, Absolute Lymphs (auto) 0.54 L, Nucleated RBC % 0, Diff Path Review May 08/23/22 06:05: Sodium 144, Potassium 3.3 L, Chloride 112 H, Carbon Dioxide 27.0, Anion Gap 5, BUN 18, Creatinine 0.97, Estim Creat Clear Calc 54.23, Est GFR (MDRD) Af Amer 99, Est GFR (MDRD) Non-Af 82, BUN/Creatinine Ratio 18.6, Glucose 115 H, Calcium 7.8 L, Total Bilirubin 0.60, AST 43 H, ALT 22, Alkaline Phosphatase 124 H, Total Protein 5.1 L, Albumin 1.7 L, Globulin 3.4, Albumin/Globulin Ratio 0.5 L Micro: Microbiology 08/17/22 14:25 Blood Culture (Wb) - Anticubital Left Blood Culture - Final No growth in 5 days. 08/17/22 14:33 Blood Culture (Wb) - Port Blood Culture - Final No growth in 5 days. 08/21/22 Unknown Fluid - Gallbladder Gram Stain - Final 08/21/22 Unknown Fluid - Gallbladder Body Fluid Culture - Preliminary No growth-Final to follow 08/11/22 13:15 Blood Culture (Wb) - Anticubital Left Blood Culture - Final Gram negative mandy 08/11/22 13:15 Blood Culture (Wb) - Anticubital Right Blood Culture - Final Escherichia coli 08/11/22 15:55 Urine Catheter - Lyman Urine Culture - Final Escherichia coli 08/12/22 08:00 Mucosa - Nasopharyngeal Respiratory Panel (PCR) - Final 08/12/22 08:00 Urine, Random Streptococcus pneumoniae Antigen (M - Final 08/12/22 08:00 Urine, Random Legionella Antigen - Final 08/12/22 08:00 Nasal Secretion SARS-CoV-2 & FLU Antigen (Rapid) - Final Radiography Diagnostic Testing: Radiology Impression Abdomen CT 08/22/22 08:43 IMPRESSION: Repositioning of the indwelling cholecystostomy tube. Electronically Signed: Pedro Ni MD at 9:44 EST , Physical Exam Const alert and no apparent distress Resp normal respiratory effort, no retractions, no use of accessory muscles and clear to auscultation bilaterally Cardio regular rate, regular rhythm, S1 normal heart sound and S2 normal heart sound GI normal to inspection, nondistended, normoactive bowel sounds and soft to palpation Assessment & Plan Assessment/Plan (1) Sepsis: PLAN: Sepsis secondary to likely acute cholecystitis, UTI and bacteremia 08/13: Source concerning for either urinary gallbladder, right upper quadrant ultrasound with multiple gallstones and sludge within the gallbladder, mildly thickened gallbladder wall. Growing gram-negative rods in blood. Is also growing in urine however given his right upper quadrant pain, gallbladder ultrasound, elevated alk phos high concern for gallbladder involvement. Surgery consulted. Patient n.p.o. at midnight, Eliquis held starting this morning. Cu lture sensitivities pending 08/14: Was sent for obey tube today via IR however platelets dropped to 24 and notably has 1% blasts. Does have non-small cell lung cancer, right upper lobe Path stage IIb poorly differentiated G3 with metastasis to 1 interlobular lymph node and lymphovascular invasion. Received 4 cycles of adjuvant carboplatin from April to June 2022 but had excessive toxicities. Chest CT with nodules, possibly atypical infectious. Dr. Villela consulted. Additionally E. coli sensitivities back and resistant to Zosyn, Vanco discontinued and switched to cefepime 08/15: Oncology consulted and felt platelets were secondary to sepsis and drug- induced thrombocytopenia from antibiotics. Vancomycin has been discontinued. Reported platelets will likely begin to improve on their own, today 16 and unable to perform drain still. Nonpharmacologic DVT prophylaxis. Apixaban is held. No evidence of DIC. Continue cefepime. Has had having ALP and abdominal exam 08/16: Platelets further trended down, does not meet criteria for prophylactic platelet transfusion until less than 10, will try to reach out to oncology however given continued worsening despite improvement of sepsis and withdrawal of offending agent to see if maybe platelet transfusion for [place] tube on Thursday would be reasonable. 08/17: Thrombocytopenia work-up, no DIC, Spoke with ID regarding Mr. Domínguez's gallbladder, blood cultures, urine culture. UA on admission had leukoesterase and nitrate but no white blood cells and only rare bacteria, liver ultrasound gallbladder with stones, sludge, thickening, right upper quadrant pain consistent with cholecystitis. Source of his sepsis still presumed to be gallbladder and his sepsis from that is likely why his urine was growing E. coli with the same sensitivity pattern and it is unlikely that that was the source of infection given clinical picture. Did consult ID given inability for source control with continued IV antibiotics, appreciate recommendations. Will repeat blood cultures, ID concerned plts continue to decrease d/t inability to obtain source control. Plts continue to downtrend 2u platelets ordered. Will make NPO at midnight in the event platelets do increase enough with transfusion for intervention. (2) UTI (urinary tract infection): PLAN: UA on was unremarkable, however UCx positive for E. coli on LVQ (changed from Cipro due to shortage) (3) Bacteremia: PLAN: same bacteria as UCx: E. coli suspect due to urinary source (4) Acute encephalopathy: PLAN: Acute metabolic encephalopathy secondary to WAN secondary to dehydration, sepsis. 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 (6) Thrombocytopenia: PLAN: Likely multifactorial Oncology evaluated last week and thought this was secondary to sepsis and medication Sepsis treated with adequate antibiotics and vancomycin was discontinued Upon further review cefepime also has rare side effect of low platelets, this was switched to ciprofloxacin as cultures were also sensitive to that as well Not in DIC Several labs still pending 08/17: Hepatitis panel ordered as part of thrombocytopenia w/u, rest of workup unrevealing. Platelets ordered, likely d/t inability to obtain source control. 08/18: transfuse 1 units 08/19: improved 08/20: Platelets down to 30k. With the cholecystotomy tube planned for today will give another unit of platelets today. (7) Cholecystitis: PLAN: cholecystotomy tube placed 08/21 Not a surgical candidate at this time. Continue abx for now. Follow up with cultures. (8) Anemia: PLAN: 08/18: transfuse 1 unit PRBCs Currently stable Transfuse to keep Hg greater than or equal to 8. (9) Hypokalemia: PLAN: Ongoing. Continue replacement. Continue magnesium replacement Continue to monitor (10) Chest pain: PLAN: Atypical EKG reviewed and showed right bundle branch block but unchanged from EKG from August 11. Patient states that in January, he had what sounds like some type of tachycardia and was advised to have further work-up possibly including a stent. Patient declined at that time. Echocardiogram performed on the showed an EF of 55% with trivial pericardial effusion. Will cycle his troponins. If are elevated and patient does have evidence of a myocardial infarction, options will be limited as patient cannot be anticoagulated nor undergo cardiac catheterization for stent placement as he cannot be on antiplatelet medications at this time. May consider a stress test depending on the results. Patient's cholecystotomy tube will be placed on hold for the time being. Cardiology following. Patient to be on isosorbide dinitrate 10 mg 3 times daily, beta-anupama with the metoprolol 50 mg twice daily. PLAN: Plan Chronic conditions: * Type 2 diabetes mellitus: fair control * Atrial flutter: Kathrine amezquita.On Lipitor for hyperlipidemia.Metoprolol #DVT ppx: Kathrine amezquita, SCDs 08/19: Discussed goals of care with the patient and his family at bedside. Told him that it is ultimately his decision about what he wants to do but will try to help him medically. Encouraged him to take his medications as he is only harming himself by not doing so. Patient increased to continue with medical care and will comply with recommendations. Charges/Coding Visit Charges Inpatient E&M: 70168 Subs Hosp L2
[2022-08-23] MEDS: levoFLOXacin IV 500 MG/100 ML BAG 100 MG IV (11:04)
--- NOTE | 2022-08-23 11:14 | PCM.PN.CARD ---
Subjective Subjective Patient seen and evaluated. Appears to be somewhat confused Objective Data Vital Signs: Vital Signs Temp Pulse Resp BP Pulse Ox O2 Del Method O2 Flow Rate 97.9 F 105 H 16 133/77 H 95 Room Air 2 08/23/22 07:58 08/23/22 08:15 08/23/22 07:58 08/23/22 08:15 08/23/22 07:58 08/23/22 08:04 08/23/22 07:58 Oxygen Flow Rate (L/min) 2 Oxygen Delivery Method Room Air Weight: 115 lb 15.41 oz Body Mass Index (BMI) 18.1 Intake & Output: Intake and Output for Last 24 Hours 08/21/22 08/22/22 08/23/22 23:59 23:59 23:59 Intake Total 424 / 424 504 / 504 Output Total 720 / 720 700 / 1000 300 / 300 Balance -296 / -296 -196 / -496 -300 / -300 Lab / Micro Data Result Diagrams: 08/23/22 06:05 08/23/22 06:05 Labs: Laboratory Results - last 24 hr 08/22/22 05:40: Diff Path Review Reviewed 08/23/22 06:05: WBC 4.8, RBC 3.06 L, Hgb 8.5 L, Hct 25.9 L, MCV 84.6, MCH 27.8, MCHC 32.8, RDW Std Deviation 53.9 H, RDW Coeff of Ilia 17.5 H, Plt Count 25 L*, MPV TNP, Immature Gran % (Auto) 3.100 H, Neut % (Auto) 80.7 H, Lymph % (Auto) 11.2 L, [place] % (Auto) 4.6, Eos % (Auto) 0.4, Baso % (Auto) 0.0, Absolute Neuts (auto) 3.9, Absolute Lymphs (auto) 0.54 L, Nucleated RBC % 0, Diff Path Review December08/23/22 06:05: Sodium 144, Potassium 3.3 L, Chloride 112 H, Carbon Dioxide 27.0, Anion Gap 5, BUN 18, Creatinine 0.97, Estim Creat Clear Calc 54.23, Est GFR (MDRD) Af Amer 99, Est GFR (MDRD) Non-Af 82, BUN/Creatinine Ratio 18.6, Glucose 115 H, Calcium 7.8 L, Total Bilirubin 0.60, AST 43 H, ALT 22, Alkaline Phosphatase 124 H, Total Protein 5.1 L, Albumin 1.7 L, Globulin 3.4, Albumin/Globulin Ratio 0.5 L Micro: Microbiology 08/17/22 14:25 Blood Culture (Wb) - Anticubital Left Blood Culture - Final No growth in 5 days. 08/17/22 14:33 Blood Culture (Wb) - Port Blood Culture - Final No growth in 5 days. 08/21/22 Unknown Fluid - Gallbladder Gram Stain - Final 08/21/22 Unknown Fluid - Gallbladder Body Fluid Culture - Preliminary No growth-Final to follow Cardiology Labs/Tests 08/23/22 06:05: WBC 4.8, RBC 3.06 L, Hgb 8.5 L, Hct 25.9 L, MCV 84.6, MCH 27.8, MCHC 32.8, Plt Count 25 L*, MPV TNP, Immature Gran % (Auto) 3.100 H, Neut % (Auto) 80.7 H, Lymph % (Auto) 11.2 L, [place] % (Auto) 4.6, Eos % (Auto) 0.4, Baso % (Auto) 0.0, Absolute Neuts (auto) 3.9, Nucleated RBC % 0 08/23/22 06:05: Sodium 144, Potassium 3.3 L, Chloride 112 H, Carbon Dioxide 27.0, Anion Gap 5, BUN 18, Creatinine 0.97, Est GFR (MDRD) Af Amer 99, Est GFR (MDRD) Non-Af 82, BUN/Creatinine Ratio 18.6, Glucose 115 H, Calcium 7.8 L, Total Bilirubin 0.60 Rhythm: EKG: ECHO: Stress Test: Cardiac Cath: PCI: CT Surgery: Holter monitor: EPS: PPM: CXR: Chest CT Scan: Physical Exam Const Constitutional Narrative: oriented to year and self. HEENT head/scalp atraumatic Resp normal respiratory effort Cardio regular rate, regular rhythm, S1 normal heart sound and S2 normal heart sound GI normal to inspection, nondistended, normoactive bowel sounds, soft to palpation, non-tender and non-distended GI Narrative: drain in RUQ w bilous drainage. Extremity normal to inspection Psych affect normal Assessment & Plan Assessment/Plan (1) Chest pain: PLAN: The patient has not complained of any recurrent chest discomfort. He appears to be stable at this time and his previous echocardiogram and stress echo were reviewed and demonstrate no significant abnormalities. We will continue current medical therapy. He did have abnormal cardiac enzymes and due to his multiple noncardiac issues the plan will be to continue him with medical therapy. (2) Atrial flutter: PLAN: Patient had a previous history of atrial flutter but it is in sinus rhythm at this time. He will be continued on the beta-anupama. He is not on anticoagulation due to his hematologic issues.
--- NOTE | 2022-08-23 11:27 | PCM.PN.SRG ---
Subjective Subjective Patient denies abdominal pain however is not really eating. Objective Data Objective Data Vital Signs: Vital Signs Temp Pulse Resp BP Pulse Ox O2 Del Method O2 Flow Rate 97.9 F 105 H 16 133/77 H 95 Room Air 2 08/23/22 07:58 08/23/22 08:15 08/23/22 07:58 08/23/22 08:15 08/23/22 07:58 08/23/22 08:04 08/23/22 07:58 Oxygen Flow Rate (L/min) 2 Oxygen Delivery Method Room Air Weight: 115 lb 15.41 oz Body Mass Index (BMI) 18.1 Intake & Output: Intake and Output for Last 24 Hours 08/21/22 08/22/22 08/23/22 23:59 23:59 23:59 Intake Total 424 / 424 504 / 504 Output Total 720 / 720 700 / 1000 300 / 300 Balance -296 / -296 -196 / -496 -300 / -300 Medical Nutrition Assessment Dietitian: Malnutrition Criteria Met Start: 08/09/22 11:15 Freq: Status: Active Protocol: Document 08/18/22 11:21 MAXWELL (Rec: 08/18/22 11:21 [facility] [id number]) Nutrition Malnutrition Evidence of Malnutrition Exists Yes Malnutrition (severe): Chronic Evidenced By Suboptimal Energy Intake ( Severe),Weight Loss (Severe), Physical Changes (Severe) Intake Problem Inadequate Oral Intake Etiology related to lung cancer, c/o no appetite and poor po intake Signs/Symptoms as evidenced by refusal of meals and ONS Status Active Problem Clinical Problem Chronic Disease or Condition Related Malnutrition Etiology Severe protein-calorie malnutrition in the context of chronic/metastatic disease related to inadequate oral intake and increased energy expenditure Signs/Symptoms as evidenced by 29.8% wt loss and meeting <75% of est nutritional needs x 7 months; obvious fat/muscle wasting in face, torso and upper/lower extremities. Status Active Problem Recommendation Dietitian Recommendations/Changes Continue liberal regular diet as tolerated. Will change to 120 ml ensure clear 4x/day w/ medpass to see if better acceptance. Change to ensure pudding w/ lunch and dinner; fortified foods w/ meals as able. Consider TF support given poor /inadequate oral intake and weight loss if in accordance w / pt/family wishes. Lab / Micro Data Result Diagrams: 08/24/22 05:53 08/24/22 05:53 Labs: Laboratory Results - last 24 hr 08/22/22 05:40: Diff Path Review Reviewed 08/23/22 06:05: WBC 4.8, RBC 3.06 L, Hgb 8.5 L, Hct 25.9 L, MCV 84.6, MCH 27.8, MCHC 32.8, RDW Std Deviation 53.9 H, RDW Coeff of Ilia 17.5 H, Plt Count 25 L*, MPV TNP, Immature Gran % (Auto) 3.100 H, Neut % (Auto) 80.7 H, Lymph % (Auto) 11.2 L, [place] % (Auto) 4.6, Eos % (Auto) 0.4, Baso % (Auto) 0.0, Absolute Neuts (auto) 3.9, Absolute Lymphs (auto) 0.54 L, Nucleated RBC % 0, Diff Path Review May 08/23/22 06:05: Sodium 144, Potassium 3.3 L, Chloride 112 H, Carbon Dioxide 27.0, Anion Gap 5, BUN 18, Creatinine 0.97, Estim Creat Clear Calc 54.23, Est GFR (MDRD) Af Amer 99, Est GFR (MDRD) Non-Af 82, BUN/Creatinine Ratio 18.6, Glucose 115 H, Calcium 7.8 L, Total Bilirubin 0.60, AST 43 H, ALT 22, Alkaline Phosphatase 124 H, Total Protein 5.1 L, Albumin 1.7 L, Globulin 3.4, Albumin/Globulin Ratio 0.5 L Micro: Microbiology 08/17/22 14:25 Blood Culture (Wb) - Anticubital Left Blood Culture - Final No growth in 5 days. 08/17/22 14:33 Blood Culture (Wb) - Port Blood Culture - Final No growth in 5 days. 08/21/22 Unknown Fluid - Gallbladder Gram Stain - Final 08/21/22 Unknown Fluid - Gallbladder Body Fluid Culture - Preliminary No growth-Final to follow 08/11/22 13:15 Blood Culture (Wb) - Anticubital Left Blood Culture - Final Gram negative mandy 08/11/22 13:15 Blood Culture (Wb) - Anticubital Right Blood Culture - Final Escherichia coli 08/11/22 15:55 Urine Catheter - Lyman Urine Culture - Final Escherichia coli 08/12/22 08:00 Mucosa - Nasopharyngeal Respiratory Panel (PCR) - Final 08/12/22 08:00 Urine, Random Streptococcus pneumoniae Antigen (M - Final 08/12/22 08:00 Urine, Random Legionella Antigen - Final 08/12/22 08:00 Nasal Secretion SARS-CoV-2 & FLU Antigen (Rapid) - Final Physical Exam Const oriented x3 and no apparent distress Cardio regular rate GI soft to palpation and non-tender GI Narrative: Marisol tube in place with bile in JOANN Assessment & Plan Assessment/Plan (1) Acute calculous cholecystitis: (2) Acid reflux: PLAN: Plan continue marisol tube to JOANN. Encourage keeping the abdominal binder on patient does not remember removing the abdominal binder or pulling at the tube previous. no acute surgical intervention. Hilda Mathis M.D. Pager: [phone] [facility] [address] [place] [address], [address] [place] [address] Office: [phone] Charges/Coding Visit Charges Inpatient E&M: 58336 Subs Hosp L2
[2022-08-23] MEDS: Polyethylene Glycol 3350 17 GM PACKET PO ×2 (11:34→20:53)
[2022-08-23 15:48] VITALS: BP 134/76; PULSE 104; RESP 18; TEMP 36.5; O2SAT 99
[2022-08-23] MEDS: Acetaminophen 500 MG Tablet 1000 MG PO (15:56)
[2022-08-23] MEDS: Ensure Plus High Protein 120 ML LIQUID PO ×2 (16:02→18:36)
[2022-08-23 20:51] VITALS: BP 132/82; PULSE 103; RESP 18; TEMP 36.6; O2SAT 98
[2022-08-23] MEDS: Atorvastatin Calcium 20 MG Tablet PO (20:51)
[2022-08-23] MEDS: QUEtiapine 25 MG Tablet PO (20:53)
[2022-08-23] MEDS: Ondansetron 4 MG/2 ML Vial IV (21:38)
[2022-08-23] MEDS: 0.9% Saline Lock 10 ML Syringe IV (21:38)
[2022-08-24] VITALS (7 sets, daily range): BP systolic 127–138; BP diastolic 79–95; PULSE 98–117; RESP 16–20; TEMP 36.4–36.7; O2SAT 96–100
--- NOTE | 2022-08-24 | NURSING ---
PT YELLS AND MOANS NONSTOP. WHEN ASKED WHAT DOES HE NEED. PT DOES NOT KNOW. PT NOT EVEN AWARE THAT HE WAS MOANING
[2022-08-24] MEDS: oxyCODONE 5 MG Tablet PO ×4 (05:09→23:03)
[2022-08-24] MEDS: Isosorbide DN 10 MG Tablet PO ×3 (05:10→20:59)
[2022-08-24] MEDS: metroNIDAZOLE 500 MG Tablet PO ×3 (05:10→20:59)
[2022-08-24] MEDS: NYSTATIN 500,000 UNIT/5 ML UDC 500000 UNIT PO ×3 (05:10→21:00)
[2022-08-24] MEDS: cycloBENZAPRine HCl 10 MG Tablet PO ×3 (05:10→20:59)
[2022-08-24 06:17] LABS: Absolute Lymphocyte Count 0.49 X10^3/uL (0.83-4.51); Absolute Neutrophil Count 4.2 X10^3/uL (2.0-7.7); Basophil# 0.01 X10^3/uL; Basophil% 0.2 % (0-1); Eosinophil# 0.03 X10^3/uL; Eosinophils% 0.6 % (0-5); Hematocrit 25.9 % (40-54); Hemoglobin 8.2 g/dL (13.0-16.5); Lymphocyte # 0.49 X10^3/ul (0.83-4.51); Lymphocyte % 9.5 % (19-41); Mean Corp Hgb Conc 31.7 g/dL (32-36); Mean Corpuscular Hgb 27.1 pg (27.0-32.0); Mean Corpuscular Volume 85.5 fL (80-94); Mean Platelet Vol. 11.5 fl (6.2-12.0); Monocyte# 0.26 X10^3/uL; NRBC Flagged by Analyzer 0 % (0-5); Neutrophil # 4.21 X10^3/uL (2.7-7.7); Neutrophil % 81.6 % (47-70); POSITIVE COUNT YES; POSITIVE DIFFERENTIAL YES; RBC Distribution Width CV 17.5 % (11.6-14.6); RBC Distribution Width SD 54.2 fl (35.1-43.9); Red Blood Count 3.03 M/mm3 (4.6-6.2); White Blood Count 5.2 K/mm3 (4.4-11.0)
[2022-08-24 06:36] LABS: Differential Indicated SCAN CRITERIA MET
[2022-08-24 06:37] LABS: Platelet Count 23 K/mm3 (150-450)
--- NOTE | 2022-08-24 06:38 | NURSING ---
Pts primary rn aware of pts plt level of 23 this am.
[2022-08-24 06:46] LABS: ALB/GLOB Ratio 0.5 RATIO (0.9-2.4); AST(SGOT) 41 U/L (15-37); Alanine Aminotransfer ALT/SGPT 21 U/L (16-61); Albumin, Serum 1.6 g/dL (3.2-5.0); Alkaline Phosphatase 115 U/L (45-117); Anion Gap 6 (5-15); BUN 19 mg/dL (7-18); Calcium,Total 7.7 mg/dL (8.5-10.1); Chloride 113 mmol/L (98-107); Creatinine, Serum 0.95 mg/dL (0.70-1.30); EST Glomerular Filtration Rate 84 mL/min (>60); Est Glom Filt Rate - Afr Amer 101 mL/min (>60); Estimated Creatinine Clearance 55.37 ml/min; Glucose 133 mg/dL (74-106); Magnesium 1.4 mg/dL (1.6-2.6); Potassium 4.4 mmol/L (3.5-5.1); Protein, Total 4.6 g/dL (6.4-8.2); Sodium Level 144 mmol/L (136-145)
[2022-08-24 06:58] LABS: Differential Comment SCANNED
[2022-08-24] MEDS: Potassium Chloride Oral Tablet 20 MEQ 40 MEQ PO ×3 (08:34→16:29)
[2022-08-24] MEDS: Senna/Docusate Sodium 1 Tablet 2 TABLET PO (08:35)
[2022-08-24] MEDS: Metoprolol Tartrate 50 MG Tablet PO ×2 (08:35→21:00)
[2022-08-24] MEDS: Menthol/Lanolin/Calamine/Znox 113 GM Tube 1 APPLIC TOPICAL ×2 (08:36→21:03)
[2022-08-24] MEDS: Polyethylene Glycol 3350 17 GM PACKET PO (08:36)
--- NOTE | 2022-08-24 08:52 | PN.HOSP_ITS ---
Subjective Subjective Denies complaints Objective Data Objective Data Vital Signs: Vital Signs Temp Pulse Resp BP Pulse Ox O2 Del Method O2 Flow Rate 36.4 C L 100 16 127/79 H 97 Room Air 2 08/24/22 08:22 08/24/22 08:35 08/24/22 08:22 08/24/22 08:22 08/24/22 08:22 08/24/22 08:25 08/23/22 07:58 Oxygen Flow Rate (L/min) 2 Oxygen Delivery Method Room Air Weight: 52.6 kg Body Mass Index (BMI) 18.1 Intake & Output: Intake and Output for Last 24 Hours 08/22/22 08/23/22 08/24/22 23:59 23:59 23:59 Intake Total 504 / 504 1160 / 1160 300 / 300 Output Total 700 / 1000 875 / 875 250 / 250 Balance -196 / -496 285 / 285 50 / 50 Medical Nutrition Assessment Dietitian: Malnutrition Criteria Met Start: 08/09/22 11:1 5 Freq: Status: Active Protocol: Document 08/18/22 11:21 MAXWELL (Rec: 08/18/22 11:21 [facility] [id number]) Nutrition Malnutrition Evidence of Malnutrition Exists Yes Malnutrition (severe): Chronic Evidenced By Suboptimal Energy Intake ( Severe),Weight Loss (Severe), Physical Changes (Severe) Intake Problem Inadequate Oral Intake Etiology related to lung cancer, c/o no appetite and poor po intake Signs/Symptoms as evidenced by refusal of meals and ONS Status Active Problem Clinical Problem Chronic Disease or Condition Related Malnutrition Etiology Severe protein-calorie malnutrition in the context of chronic/metastatic disease related to inadequate oral intake and increased energy expenditure Signs/Symptoms as evidenced by 29.8% wt loss and meeting <75% of est nutritional needs x 7 months; obvious fat/muscle wasting in face, torso and upper/lower extremities. Status Active Problem Recommendation Dietitian Recommendations/Changes Continue liberal regular diet as tolerated. Will change to 120 ml ensure clear 4x/day w/ medpass to see if better acceptance. Change to ensure pudding w/ lunch and dinner; fortified foods w/ meals as able. Consider TF support given poor /inadequate oral intake and weight loss if in accordance w / pt/family wishes. Lab / Micro Data Result Diagrams: 08/24/22 05:53 08/24/22 05:53 Labs: Laboratory Results - last 24 hr 08/24/22 05:53: WBC 5.2, RBC 3.03 L, Hgb 8.2 L, Hct 25.9 L, MCV 85.5, MCH 27.1, MCHC 31.7 L, RDW Std Deviation 54.2 H, RDW Coeff of Ilia 17.5 H, Plt Count 23 L*, MPV 11.5, Immature Gran % (Auto) 3.100 H, Neut % (Auto) 81.6 H, Lymph % (Auto) 9.5 L, Falls % (Auto) 5.0, Eos % (Auto) 0.6, Baso % (Auto) 0.2, Absolute Neuts (auto) 4.2, Absolute Lymphs (auto) 0.49 L, Nucleated RBC % 0, Differential Comment SCANNED, Diff Path Review December08/24/22 05:53: Sodium 144, Potassium 4.4, Chloride 113 H, Carbon Dioxide 25.0, Anion Gap 6, BUN 19 H, Creatinine 0.95, Estim Creat Clear Calc 55.37, Est GFR (MDRD) Af Amer 101, Est GFR (MDRD) Non-Af 84, BUN/Creatinine Ratio 20.0, Glucose 133 H, Calcium 7.7 L, Magnesium 1.4 L, Total Bilirubin 0.50, AST 41 H, ALT 21, Alkaline Phosphatase 115, Total Protein 4.6 L, Albumin 1.6 L, Globulin 3.0, Albumin/Globulin Ratio 0.5 L Micro: Microbiology 08/21/22 Unknown Fluid - Gallbladder Gram Stain - Final 08/21/22 Unknown Fluid - Gallbladder Body Fluid Culture - Preliminary No growth-Final to follow 08/21/22 Unknown Fluid - Gallbladder Anaerobic Culture - Preliminary No growth in 48 hours. 08/17/22 14:25 Blood Culture (Wb) - Anticubital Left Blood Culture - Final No growth in 5 days. 08/17/22 14:33 Blood Culture (Wb) - Port Blood Culture - Final No growth in 5 days. 08/11/22 13:15 Blood Culture (Wb) - Anticubital Left Blood Culture - Final Gram negative mandy 08/11/22 13:15 Blood Culture (Wb) - Anticubital Right Blood Culture - Final Escherichia coli 08/11/22 15:55 Urine Catheter - Lyman Urine Culture - Final Escherichia coli 08/12/22 08:00 Mucosa - Nasopharyngeal Respiratory Panel (PCR) - Final 08/12/22 08:00 Urine, Random Streptococcus pneumoniae Antigen (M - Final 08/12/22 08:00 Urine, Random Legionella Antigen - Final 08/12/22 08:00 Nasal Secretion SARS-CoV-2 & FLU Antigen (Rapid) - Final Physical Exam Const alert and no apparent distress Resp normal respiratory effort, no retractions, no use of accessory muscles and clear to auscultation bilaterally Cardio regular rate, regular rhythm, S1 normal heart sound and S2 normal heart sound GI normal to inspection, nondistended, normoactive bowel sounds and soft to palpation GI Narrative: Cystotomy drain in place with scant sanguinous fluid. Extremity normal to inspection Psych affect normal Assessment & Plan Assessment/Plan (1) Sepsis: PLAN: Sepsis secondary to likely acute cholecystitis, UTI and bacteremia 08/13: Source concerning for either urinary gallbladder, right upper quadrant ultrasound with multiple gallstones and sludge within the gallbladder, mildly thickened gallbladder wall. Growing gram-negative rods in blood. Is also growing in urine however given his right upper quadrant pain, gallbladder ultrasound, elevated alk phos high concern for gallbladder involvement. Surgery consulted. Patient n.p.o. at midnight, Eliquis held starting this morning. Culture sensitivities pending 08/14: Was sent for obey tube today via IR however platelets dropped to 24 and notably has 1% blasts. Does have non-small cell lung cancer, right upper lobe Path stage IIb poorly differentiated G3 with metastasis to 1 interlobular lymph node and lymphovascular invasion. Received 4 cycles of adjuvant carboplatin from April to June 2022 but had excessive toxicities. Chest CT with nodules, possibly atypical infectious. Dr. Villela consulted. Additionally E. coli sensitivities back and resistant to Zosyn, Vanco discontinued and switched to cefepime 08/15: Oncology consulted and felt platelets were secondary to sepsis and drug- induced thrombocytopenia from antibiotics. Vancomycin has been discontinued. Reported platelets will likely begin to improve on their own, today 16 and unable to perform drain still. Nonpharmacologic DVT prophylaxis. Apixaban is held. No evidence of DIC. Continue cefepime. Has had having ALP and abdominal exam 08/16: Platelets further trended down, does not meet criteria for prophylactic platelet transfusion until less than 10, will try to reach out to oncology however given continued worsening despite improvement of sepsis and withdrawal of offending agent to see if maybe platelet transfusion for [place] tube on Thursday would be reasonable. 08/17: Thrombocytopenia work-up, no DIC, Spoke with ID regarding Mr. Domínguez's gallbladder, blood cultures, urine culture. UA on admission had leukoesterase and nitrate but no white blood cells and only rare bacteria, liver ultrasound gallbladder with stones, sludge, thickening, right upper quadrant pain consistent with cholecystitis. Source of his sepsis still presumed to be gallbladder and his sepsis from that is likely why his urine was growing E. coli with the same sensitivity pattern and it is unlikely that that was the source of infection given clinical picture. Did consult ID given inability for source control with continued IV antibiotics, appreciate recommendations. Will repeat blood cultures, ID concerned plts continue to decrease d/t inability to obtain source control. Plts continue to downtrend 2u platelets ordered. Will make NPO at midnight in the event platelets do increase enough with transfusion for intervention. (2) UTI (urinary tract infection): PLAN: UA on was unremarkable, however UCx positive for E. coli on LVQ (changed from Cipro due to shortage) Continue Levaquin through the . (3) Bacteremia: PLAN: same bacteria as UCx: E. coli suspect due to urinary source (4) Acute encephalopathy: PLAN: Acute metabolic encephalopathy secondary to WAN secondary to dehydration, sepsis. 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 (6) Thrombocytopenia: PLAN: Likely multifactorial Oncology evaluated last week and thought this was secondary to sepsis and medication Sepsis treated with adequate antibiotics and vancomycin was discontinued Upon further review cefepime also has rare side effect of low platelets, this was switched to ciprofloxacin as cultures were also sensitive to that as well Not in DIC Several labs still pending 08/17: Hepatitis panel ordered as part of thrombocytopenia w/u, rest of workup unrevealing. Platelets ordered, likely d/t inability to obtain source control. 08/18: transfuse 1 units 08/19: improved 08/20: Platelets down to 30k. With the cholecystotomy tube planned for today will give another unit of platelets today. (7) Cholecystitis: PLAN: cholecystotomy tube placed 08/21 Not a surgical candidate at this time. Continue abx for now. Culture on the negative. (8) Anemia: PLAN: 08/18: transfuse 1 unit PRBCs Currently stable Transfuse to keep Hg greater than or equal to 8. (9) Hypokalemia: PLAN: Resolved with replacement. (10) Chest pain: PLAN: Atypical with elevated troponins (140 to 142 to 160) EKG reviewed and showed right bundle branch block but unchanged from EKG from August 11. Patient states that in January, he had what sounds like some type of tachycardia and was advised to have further work-up possibly including a stent. Patient declined at that time. Echocardiogram performed on the showed an EF of 55% with trivial per icardial effusion. Cardiology following. Medical mgmt: Patient to be on isosorbide dinitrate 10 mg 3 times daily, beta-anupama with the metoprolol 50 mg twice daily. PLAN: Plan Chronic conditions: * Type 2 diabetes mellitus: fair control * Atrial flutter: Kathrine amezquita.On Lipitor for hyperlipidemia.Metoprolol #DVT ppx: Kathrine amezquita, SCDs 08/19: Discussed goals of care with the patient and his family at bedside. Told him that it is ultimately his decision about what he wants to do but will try to help him medically. Encouraged him to take his medications as he is only harming himself by not doing so. Patient increased to continue with medical care and will comply with recommendations. Disposition: will require SNF. Charges/Coding Visit Charges Inpatient E&M: 29204 Subs Hosp L2
[2022-08-24] MEDS: 0.9% Saline Lock 10 ML Syringe IV (08:53)
--- NOTE | 2022-08-24 09:45 | PN.CARD_ITS ---
Subjective Subjective Patient seen and evaluated. Clinical condition appears to be stable Objective Data Vital Signs: Vital Signs Temp Pulse Resp BP Pulse Ox O2 Del Method O2 Flow Rate 97.6 F L 100 16 127/79 H 97 Room Air 2 08/24/22 08:22 08/24/22 08:35 08/24/22 08:22 08/24/22 08:22 08/24/22 08:22 08/24/22 08:25 08/23/22 07:58 Oxygen Flow Rate (L/min) 2 Oxygen Delivery Method Room Air Weight: 115 lb 15.41 oz Body Mass Index (BMI) 18.1 Intake & Output: Intake and Output for Last 24 Hours 08/22/22 08/23/22 08/24/22 23:59 23:59 23:59 Intake Total 504 / 504 1160 / 1160 300 / 300 Output Total 700 / 1000 875 / 875 250 / 250 Balance -196 / -496 285 / 285 50 / 50 Lab / Micro Data Result Diagrams: 08/24/22 05:53 08/24/22 05:53 Labs: Laboratory Results - last 24 hr 08/24/22 05:53: WBC 5.2, RBC 3.03 L, Hgb 8.2 L, Hct 25.9 L, MCV 85.5, MCH 27.1, MCHC 31.7 L, RDW Std Deviation 54.2 H, RDW Coeff of Ilia 17.5 H, Plt Count 23 L*, MPV 11.5, Immature Gran % (Auto) 3.100 H, Neut % (Auto) 81.6 H, Lymph % (Auto) 9.5 L, Grainger % (Auto) 5.0, Eos % (Auto) 0.6, Baso % (Auto) 0.2, Absolute Neuts (auto) 4.2, Absolute Lymphs (auto) 0.49 L, Nucleated RBC % 0, Differential Comment SCANNED, Diff Path Review December08/24/22 05:53: Sodium 144, Potassium 4.4, Chloride 113 H, Carbon Dioxide 25.0, Anion Gap 6, BUN 19 H, Creatinine 0.95, Estim Creat Clear Calc 55.37, Est GFR (MDRD) Af Amer 101, Est GFR (MDRD) Non-Af 84, BUN/Creatinine Ratio 20.0, Glucose 133 H, Calcium 7.7 L, Magnesium 1.4 L, Total Bilirubin 0.50, AST 41 H, ALT 21, Alkaline Phosphatase 115, Total Protein 4.6 L, Albumin 1.6 L, Globulin 3.0, Albumin/Globulin Ratio 0.5 L Micro: Microbiology 08/21/22 Unknown Fluid - Gallbladder Gram Stain - Final 08/21/22 Unknown Fluid - Gallbladder Body Fluid Culture - Preliminary No growth-Final to follow 08/21/22 Unknown Fluid - Gallbladder Anaerobic Culture - Preliminary No growth in 48 hours. Cardiology Labs/Tests 08/24/22 05:53: WBC 5.2, RBC 3.03 L, Hgb 8.2 L, Hct 25.9 L, MCV 85.5, MCH 27.1, MCHC 31.7 L, Plt Count 23 L*, MPV 11.5, Immature Gran % (Auto) 3.100 H, Neut % (Auto) 81.6 H, Lymph % (Auto) 9.5 L, Grainger % (Auto) 5.0, Eos % (Auto) 0.6, Baso % (Auto) 0.2, Absolute Neuts (auto) 4.2, Nucleated RBC % 0 08/24/22 05:53: Sodium 144, Potassium 4.4, Chloride 113 H, Carbon Dioxide 25.0, Anion Gap 6, BUN 19 H, Creatinine 0.95, Est GFR (MDRD) Af Amer 101, Est GFR (MDRD) Non-Af 84, BUN/Creatinine Ratio 20.0, Glucose 133 H, Calcium 7.7 L, Magnesium 1.4 L, Total Bilirubin 0.50 Rhythm: EKG: ECHO: Stress Test: Cardiac Cath: PCI: CT Surgery: Holter monitor: EPS: PPM: CXR: Chest CT Scan: Physical Exam Const no apparent distress HEENT head/scalp atraumatic Resp normal respiratory effort Cardio regular rate, regular rhythm, S1 normal heart sound and S2 normal heart sound GI normal to inspection, nondistended, normoactive bowel sounds, soft to palpation, non-tender and non-distended GI Narrative: drain in RUQ w bilous drainage. Extremity normal to inspection Psych affect normal Assessment & Plan Assessment/Plan (1) Chest pain: PLAN: The patient has not complained of any recurrent chest discomfort. He appears to be stable at this time and his previous echocardiogram and stress echo were reviewed and demonstrate no significant abnormalities. We will continue current medical therapy. He did have abnormal cardiac enzymes and due to his multiple noncardiac issues the plan will be to continue him with medical therapy. (2) Atrial flutter: PLAN: Patient had a previous history of atrial flutter but it is in sinus rhythm at this time. He will be continued on the beta-anupama. He is not on anticoagulation due to his hematologic issues.
[2022-08-24] MEDS: levoFLOXacin IV 500 MG/100 ML BAG 100 MG IV (09:48)
[2022-08-24] MEDS: Ensure Plus High Protein 120 ML LIQUID PO ×3 (14:07→21:03)
[2022-08-24] MEDS: Famotidine 20 MG Tablet PO (16:29)
--- NOTE | 2022-08-24 20:50 | NURSING ---
Pt said he is tired of being here and just wants to go home. Pt said his wont let him. Pt said he would do hospice if it meant he gets to go home. Pt said his kids live in [place] and can not help his with his care. Pt said please help me to go home. Informed pt i would pass it off in report and on Thursday they can address it . Pt said he is will to pass away w hospice if it means he can go home. emotional support given
[2022-08-24] MEDS: QUEtiapine 25 MG Tablet PO (20:59)
[2022-08-24] MEDS: Atorvastatin Calcium 20 MG Tablet PO (21:00)
--- NOTE | 2022-08-24 21:04 | PN.SURG_ITS ---
Subjective Subjective Patient has not really been eating states that his pills/Neurontin and potassium make him nauseous. Patient's family currently at bedside they did bring in Premier protein as well as boost as patient does not like the Ensure. Objective Data Objective Data Vital Signs: Vital Signs Temp Pulse Resp BP Pulse Ox O2 Del Method O2 Flow Rate 97.8 F 117 H 18 138/87 H 97 Room Air 2 08/24/22 16:25 08/24/22 21:00 08/24/22 16:25 08/24/22 21:00 08/24/22 16:25 08/24/22 16:25 08/23/22 07:58 Oxygen Flow Rate (L/min) 2 Oxygen Delivery Method Room Air Weight: 115 lb 15.41 oz Body Mass Index (BMI) 18.1 Intake & Output: Intake and Output for Last 24 Hours 08/22/22 08/23/22 08/24/22 23:59 23:59 23:59 Intake Total 504 / 504 1160 / 1160 860 / 860 Output Total 700 / 1000 875 / 875 700 / 700 Balance -196 / -496 285 / 285 160 / 160 Medical Nutrition Assessment Dietitian: Malnutrition Criteria Met Start: 08/09/22 11:15 Freq: Status: Active Protocol: Document 08/18/22 11:21 MAXWELL (Rec: 08/18/22 11:21 [facility] [id number]) Nutrition Malnutrition Evidence of Malnutrition Exists Yes Malnutrition (severe): Chronic Evidenced By Suboptimal Energy Intake ( Severe),Weight Loss (Severe), Physical Changes (Severe) Intake Problem Inadequate Oral Intake Etiology related to lung cancer, c/o no appetite and poor po intake Signs/Symptoms as evidenced by refusal of meals and ONS Status Active Problem Clinical Problem Chronic Disease or Condition Related Malnutrition Etiology Severe protein-calorie malnutrition in the context of chronic/metastatic disease related to inadequate oral intake and increased energy expenditure Signs/Symptoms as evidenced by 29.8% wt loss and meeting <75% of est nutritional needs x 7 months; obvious fat/muscle wasting in face, torso and upper/lower extremities. Status Active Problem Recommendation Dietitian Recommendations/Changes Continue liberal regular diet as tolerated. Will change to 120 ml ensure clear 4x/day w/ medpass to see if better acceptance. Change to ensure pudding w/ lunch and dinner; fortified foods w/ meals as able. Consider TF support given poor /inadequate oral intake and weight loss if in accordance w / pt/family wishes. Lab / Micro Data Result Diagrams: 08/24/22 05:53 08/24/22 05:53 Labs: Laboratory Results - last 24 hr 08/24/22 05:53: WBC 5.2, RBC 3.03 L, Hgb 8.2 L, Hct 25.9 L, MCV 85.5, MCH 27.1, MCHC 31.7 L, RDW Std Deviation 54.2 H, RDW Coeff of Ilia 17.5 H, Plt Count 23 L*, MPV 11.5, Immature Gran % (Auto) 3.100 H, Neut % (Auto) 81.6 H, Lymph % (Auto) 9.5 L, [place]andt % (Auto) 5.0, Eos % (Auto) 0.6, Baso % (Auto) 0.2, Absolute Neuts (auto) 4.2, Absolute Lymphs (auto) 0.49 L, Nucleated RBC % 0, Differential Comment SCANNED, Diff Path Review December08/24/22 05:53: Sodium 144, Potassium 4.4, Chloride 113 H, Carbon Dioxide 25.0, Anion Gap 6, BUN 19 H, Creatinine 0.95, Estim Creat Clear Calc 55.37, Est GFR (MDRD) Af Amer 101, Est GFR (MDRD) Non-Af 84, BUN/Creatinine Ratio 20.0, Glucose 133 H, Calcium 7.7 L, Magnesium 1.4 L, Total Bilirubin 0.50, AST 41 H, ALT 21, Alkaline Phosphatase 115, Total Protein 4.6 L, Albumin 1.6 L, Globulin 3.0, Albumin/Globulin Ratio 0.5 L Micro: Microbiology 08/21/22 Unknown Fluid - Gallbladder Gram Stain - Final 08/21/22 Unknown Fluid - Gallbladder Body Fluid Culture - Preliminary No growth-Final to follow 08/21/22 Unknown Fluid - Gallbladder Anaerobic Culture - Preliminary No growth in 48 hours. 08/17/22 14:25 Blood Culture (Wb) - Anticubital Left Blood Culture - Final No growth in 5 days. 08/17/22 14:33 Blood Culture (Wb) - Port Blood Culture - Final No growth in 5 days. 08/11/22 13:15 Blood Culture (Wb) - Anticubital Left Blood Culture - Final Gram negative mandy 08/11/22 13:15 Blood Culture (Wb) - Anticubital Right Blood Culture - Final Escherichia coli 08/11/22 15:55 Urine Catheter - Lyman Urine Culture - Final Escherichia coli 08/12/22 08:00 Mucosa - Nasopharyngeal Respiratory Panel (PCR) - Final 08/12/22 08:00 Urine, Random Streptococcus pneumoniae Antigen (M - Final 08/12/22 08:00 Urine, Random Legionella Antigen - Final 08/12/22 08:00 Nasal Secretion SARS-CoV-2 & FLU Antigen (Rapid) - Final Physical Exam Const oriented x3 and no apparent distress Constitutional Narrative: Underweight Resp normal respiratory effort Cardio regular rate GI soft to palpation and non-tender GI Narrative: Cholecystostomy tube in place?bilious drainage Inspection: Negative for abdominal distention Assessment & Plan Assessment/Plan (1) Acute calculous cholecystitis: (2) Acid reflux: PLAN: Plan Continue obey tube to . Discussed with patient the importance of nutrition. States that he likely would not have to take the potassium pills if his nutrition improved. Did encourage him with his family to drink the Premier protein or boost shakes. Patient is on IV Protonix due to reflux. Hilda Mathis M.D. Pager: [phone] [facility] [address] [place] [address], Outpatient [facility], [place], [address] [place] [address] Office: [phone] Charges/Coding Visit Charges Inpatient E&M: 92710 Subs Hosp L2
--- NOTE | 2022-08-24 21:05 | NURSING ---
miralax and stool soft held due diarrhea
--- NOTE | 2022-08-24 22:00 | NURSING ---
Pt requested to speak to a preacher tomorrow. Informed pt I would pass it on
[2022-08-25] VITALS (10 sets, daily range): BP systolic 125–148; BP diastolic 81–93; PULSE 101–115; RESP 17–18; TEMP 36.3–37; O2SAT 96–100
[2022-08-25] MEDS: cycloBENZAPRine HCl 10 MG Tablet PO ×3 (05:12→23:45)
[2022-08-25] MEDS: metroNIDAZOLE 500 MG Tablet PO ×3 (05:12→23:45)
[2022-08-25] MEDS: oxyCODONE 5 MG Tablet PO ×2 (05:12→11:50)
[2022-08-25] MEDS: Isosorbide DN 10 MG Tablet PO ×3 (05:12→23:45)
[2022-08-25] MEDS: NYSTATIN 500,000 UNIT/5 ML UDC 500000 UNIT PO ×3 (05:12→23:45)
[2022-08-25] MEDS: 0.9% Saline Lock 10 ML Syringe IV ×2 (05:14→09:48)
[2022-08-25] MEDS: Ensure Plus High Protein 120 ML LIQUID PO ×2 (08:24→14:40)
[2022-08-25] MEDS: Metoprolol Tartrate 50 MG Tablet PO ×2 (08:24→23:45)
[2022-08-25] MEDS: Potassium Chloride Oral Tablet 20 MEQ 40 MEQ PO ×2 (08:24→11:50)
[2022-08-25] MEDS: Menthol/Lanolin/Calamine/Znox 113 GM Tube 1 APPLIC TOPICAL ×2 (08:26→23:46)
--- NOTE | 2022-08-25 09:57 | CASEMGMT ---
SW spoke with patient's daughter. She said she, patient's , and son were all wondering about getting patient home, home health, Hospice, Palliative. SW told her that SW was informed by previous covering SW that the plan is [facility] as patient is profoundly weak. She was going to talk with family as she had not heard this. Anushka Porter ASSOCIATE PROFESSOR OF BIOSTATISTICS DENISE
--- NOTE | 2022-08-25 10:11 | CASEMGMT ---
Physician spoke with patient and his family and they are agreeable to patient going to [facility]. SW notified Barbara in TCU that patient will be coming today. Anushka WALKER
[2022-08-25] MEDS: levoFLOXacin IV 500 MG/100 ML BAG 100 MG IV (10:32)
--- NOTE | 2022-08-25 11:24 | PCM.TXEXTCAR ---
Diet Diet Order/Speech Therapy: 08/21/22 12:25 Diet: Regular - No Added Salt Type of Dietary Supplement:: Ensure Pudding Is pt able to select menu?: Yes Diet Comments: Ensure Pudding BID with meals Routine Orders/Code Status Code Status: Full Code Wound(s) coccyx: Wound Type: redness Therapies Physical Therapy: Eval and Treat Occupational Therapy: Eval and Treat Speech Therapy: Eval and Treat Problem/Diagnosis (1) Acute calculous cholecystitis: Status: Acute Code(s): K80.00 - Calculus of gallbladder with acute cholecystitis without obstruction (2) Acid reflux: Status: Chronic Code(s): K21.9 - Gastro-esophageal reflux disease without esophagitis Allergies/Procedures Done in Hospital Allergies Iodinated Contrast Media Allergy (Unknown, Verified 08/04/22 14:06) Other passes out Type of Care/Length of Stay Estimated LOS: Convalescent Care Less Than 30 days Type of Care Needed: Skilled Rehab Potential: Fair Prognosis: Fair Additional Orders/Day of Discharge Day of Discharge: 08/25/22 Dietary and Speech Recommendations Dietitian Recommendations/Changes: RD will liberalize diet to Regular - ELISA due to poor PO intakes to help optimize oral intakes. Continue Ensure Pudding BID with meals to provide supplemental energy. RD will discontinue Ensure Clear with medpass. RD will order 120mL EPHP 4x with medpass to provide supplemental energy Discharge Plan Admission Admit Date/Time: 08/09/22 02:23 Attending Provider: Chu Alcocer Primary Care Provider: Alisa Perla Consulting Providers: Harinder Howell ; Samuel Chowdary ; Lilliana Santana ; Javon Merida ; Hilda Mathis ; Roc Dodge ; Pedro Ni ; Chu Baker ; Harinder Spencer ; Sudhakar Villela ; Roc Gordon ; Logan Davila ; Sam Loaiza ; Willis Gray ; Karolina Tobar NP ; Jeffrey Nair Instructions Additional Instructions / Restrictions: [facility] for RLL nodule Discharge Orders/Prescriptions Prescriptions: No Action cyclobenzaprine 10 mg tablet 10 mg PO TID morphine 15 mg tablet 15 mg PO BID PRN (Reason: Pain) atorvastatin 80 mg tablet 80 mg PO DAILY glyburide 5 mg tablet 5 mg PO DAILY trazodone 100 mg tablet 100 mg PO QHS PRN (Reason: Sleep) gabapentin 400 mg capsule 400 mg PO TID Eliquis 5 mg tablet 5 mg PO BID Hold Instructions: until seen by Dr. Villela. lidocaine-prilocaine 2.5-2.5 % cream 1 applic topical ONCE PRN (Reason: port access) 30 Days Qty: 30 2RF nystatin 100,000 unit/mL suspension 500,000 unit PO TID Rx Instructions: administer 1/2 of dose in each side of the mouth pantoprazole 40 mg Tablet,Delayed Release (Dr/Ec) 40 mg PO BID Qty: 60 0RF Ensure Plus High Protein 0.08 gram-1.5 kcal/mL Liquid 120 ml PO 4X/DAY Qty: 30 0RF Referrals / Follow Up: Alisa Perla DO [Primary Care Provider] -
--- NOTE | 2022-08-25 11:27 | PN.HOSP_ITS ---
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 Patient was found to have sepsis secondary to gallbladder disease underwent cholecystostomy tube placement by general surgery. Patient hospital stay complicated by significant physical deconditioning as well as thrombocytopenia Objective Data Objective Data Vital Signs: Vital Signs Temp Pulse Resp BP Pulse Ox O2 Del Method O2 Flow Rate 97.3 F L 105 H 18 138/84 H 97 Room Air 2 08/25/22 08:19 08/25/22 08:24 08/25/22 08:19 08/25/22 08:24 08/25/22 08:35 08/25/22 08:35 08/23/22 07:58 Oxygen Flow Rate (L/min) 2 Oxygen Delivery Method Room Air Weight: 52.6 kg Body Mass Index (BMI) 18.1 Intake & Output: Intake and Output for Last 24 Hours 08/23/22 08/24/22 08/25/22 23:59 23:59 23:59 Intake Total 1160 / 1160 980 / 980 620 / 620 Output Total 875 / 875 1550 / 1550 200 / 200 Balance 285 / 285 -570 / -570 420 / 420 Medical Nutrition Assessment Dietitian: Malnutrition Criteria Met Start: 08/09/22 11:15 Freq: Status: Active Protocol: Document 08/18/22 11:21 MAXWELL (Rec: 08/18/22 11:21 [facility] [id number]) Nutrition Malnutrition Evidence of Malnutrition Exists Yes Malnutrition (severe): Chronic Evidenced By Suboptimal Energy Intake ( Severe),Weight Loss (Severe), Physical Changes (Severe) Intake Problem Inadequate Oral Intake Etiology related to lung cancer, c/o no appetite and poor po intake Signs/Symptoms as evidenced by refusal of meals and ONS Status Active Problem Clinical Problem Chronic Disease or Condition Related Malnutrition Etiology Severe protein-calorie malnutrition in the context of chronic/metastatic disease related to inadequate oral intake and increased energy expenditure Signs/Symptoms as evidenced by 29.8% wt loss and meeting <75% of est nutritional needs x 7 months; obvious fat/muscle wasting in face, torso and upper/lower extremities. Status Active Problem Recommendation Dietitian Recommendations/Changes Continue liberal regular diet as tolerated. Will change to 120 ml ensure clear 4x/day w/ medpass to see if better acceptance. Change to ensure pudding w/ lunch and dinner; fortified foods w/ meals as able. Consider TF support given poor /inadequate oral intake and weight loss if in accordance w / pt/family wishes. Lab / Micro Data Result Diagrams: 08/25/22 11:43 08/25/22 11:43 Micro: Microbiology 08/21/22 Unknown Fluid - Gallbladder Gram Stain - Final 08/21/22 Unknown Fluid - Gallbladder Body Fluid Culture - Final Culture exhibits no growth. 08/21/22 Unknown Fluid - Gallbladder Anaerobic Culture - Preliminary No growth in 48 hours. 08/17/22 14:25 Blood Culture (Wb) - Anticubital Left Blood Culture - Final No growth in 5 days. 08/17/22 14:33 Blood Culture (Wb) - Port Blood Culture - Final No growth in 5 days. 08/11/22 13:15 Blood Culture (Wb) - Anticubital Left Blood Culture - Final Gram negative mandy 08/11/22 13:15 Blood Culture (Wb) - Anticubital Right Blood Culture - Final Escherichia coli 08/11/22 15:55 Urine Catheter - Lyman Urine Culture - Final Escherichia coli 08/12/22 08:00 Mucosa - Nasopharyngeal Respiratory Panel (PCR) - Final 08/12/22 08:00 Urine, Random Streptococcus pneumoniae Antigen (M - Final 08/12/22 08:00 Urine, Random Legionella Antigen - Final 08/12/22 08:00 Nasal Secretion SARS-CoV-2 & FLU Antigen (Rapid) - Final Physical Exam Narrative GENERAL: Frail looking HEENT: Atraumatic; normocephalic EYES; Anicteric, Normal Conjunctiva NECK; supple, normal thyroid, RESPIRATORY: Diminished to auscultation CARDIOVASCULAR: Regular S1 S2, GI: soft, normoactive bowel sounds, : No Renal angle tenderness; EXTREMITIES: No edema, no clubbing, MUSCULOSKELETAL: no muscle wasting NEURO: Awake; no lateralizing signs. SKIN: No Rash PSYCH; Flat affect Assessment & Plan Assessment/Plan (1) Anemia: (2) Cholecystitis: PLAN: Plan Patient is a 66-year-old gentleman with history of lung CA with metastatic joey nocarcinoma to regional lymph nodes admitted with decreased oral intake and decreased level of sensorium. Patient was found to have sepsis secondary to gallbladder disease underwent cholecystostomy tube placement by general surgery. Patient hospital stay complicated by significant physical deconditioning as well as thrombocytopenia 1. Sepsis ? Secondary to acute cholecystitis and UTI. Underlying condition managed. Patient had had bacteremia with E. coli 2. Acute cholecystitis ? Patient managed with cholecystostomy tube placement by general surgery 3. Acute cystitis with E. coli ? Patient managed with appropriate antibiotic therapy. 4. Thrombocytopenia ? Thought to be medication induced patient was on cefepime discontinued patient platelet count however continues to be low. Patient was on Pepcid and Protonix both known to cause thrombocytopenia also discontinued repeat labs ordered for a.m. 5. Paroxysmal atrial flutter ? Managed with beta-blockers and systemic anticoagulation with Eliquis 6. Anemia - Secondary to chronic disorder monitoring H&H and transfuse if patient becomes symptomatic or hemoglobin falls below 7. Of note patient has already received 1 unit PRBC transfusion on 08/18/2022 7. Hypokalemia -corrected per protocol repeat labs ordered for a.m. 8. Recurrent chest pain ? Atypical 2D echo did not demonstrate any regional wall motion abnormalities we will continue to monitor 9. Significant anorexia ? Consult placed to dietitian 10. Lung CA ? With mets to regional lymph nodes. Patient being followed by oncology. Apparently completed treatment in June 2022 11. DVT prophylaxis ? Bilateral SCDs Time spent in the patient's overall evaluation,decision-making process, review of diagnostic data, adjustment of management, discussion with other providers, nursing nursing and ancillary staff involved in patient's care documentation, 38 Minutes Charges/Coding Visit Charges Inpatient E&M: [id number] [facility] Hosp L2
--- NOTE | 2022-08-25 11:30 | CASEMGMT ---
Social Work As per pt and , he has LW/POA. SW asked to bring in the documents, she will do so. HARMEET Vu
[2022-08-25 12:07] LABS: Absolute Lymphocyte Count 0.66 X10^3/uL (0.83-4.51); Absolute Neutrophil Count 6.8 X10^3/uL (2.0-7.7); Basophil# 0.02 X10^3/uL; Basophil% 0.2 % (0-1); Eosinophil# 0.01 X10^3/uL; Eosinophils% 0.1 % (0-5); Hemoglobin 9.2 g/dL (13.0-16.5); Lymphocyte # 0.66 X10^3/ul (0.83-4.51); Lymphocyte % 8.2 % (19-41); Mean Corp Hgb Conc 30.7 g/dL (32-36); Mean Corpuscular Hgb 26.4 pg (27.0-32.0); Monocyte# 0.42 X10^3/uL; Monocyte% 5.2 % (0-10); NRBC Flagged by Analyzer 0.2 % (0-5); Neutrophil # 6.79 X10^3/uL (2.7-7.7); Neutrophil % 84.2 % (47-70); POSITIVE COUNT YES; RBC Distribution Width CV 17.9 % (11.6-14.6); RBC Distribution Width SD 54.9 fl (35.1-43.9); Red Blood Count 3.49 M/mm3 (4.6-6.2); White Blood Count 8.1 K/mm3 (4.4-11.0)
[2022-08-25 12:11] LABS: Anion Gap 4 (5-15); BUN 20 mg/dL (7-18); BUN/Creat Ratio 17.9 RATIO (10-20); Calcium,Total 8.2 mg/dL (8.5-10.1); Chloride 115 mmol/L (98-107); Creatinine, Serum 1.12 mg/dL (0.70-1.30); EST Glomerular Filtration Rate 69 mL/min (>60); Est Glom Filt Rate - Afr Amer 84 mL/min (>60); Estimated Creatinine Clearance 46.96 ml/min; Glucose 134 mg/dL (74-106); Magnesium 1.6 mg/dL (1.6-2.6); Potassium 5.5 mmol/L (3.5-5.1); Sodium Level 145 mmol/L (136-145)
[2022-08-25 12:26] LABS: Differential Indicated SCAN CRITERIA MET; Platelet Count 21 K/mm3 (150-450)
[2022-08-25 12:48] LABS: Platelet Estimate MKD DEC (ADEQ)
--- NOTE | 2022-08-25 16:43 | PN.CARD_ITS ---
Subjective Subjective The patient was evaluated earlier this day. He had been up in the bedside chair. He had been visiting with family members. He denied any acute chest discomfort or acute shortness of breath/dyspnea or acute sensations of changes in his cardiac rate or rhythm. He continues with his cholecystostomy tube in place. Objective Data Vital Signs: Vital Signs Temp Pulse Resp BP Pulse Ox O2 Del Method O2 Flow Rate 97.7 F L 101 H 18 131/88 H 99 Room Air 3 08/25/22 14:38 08/25/22 14:38 08/25/22 14:38 08/25/22 14:38 08/25/22 14:45 08/25/22 14:45 08/25/22 09:25 Oxygen Flow Rate (L/min) 3 Oxygen Delivery Method Room Air Weight: 115 lb 15.41 oz Body Mass Index (BMI) 18.1 Intake & Output: Intake and Output for Last 24 Hours 08/23/22 08/24/22 08/25/22 23:59 23:59 23:59 Intake Total 1160 / 1160 980 / 980 840 / 840 Output Total 875 / 875 1550 / 1550 450 / 450 Balance 285 / 285 -570 / -570 390 / 390 Lab / Micro Data Result Diagrams: 08/25/22 11:43 08/25/22 11:43 Labs: Laboratory Results - last 24 hr 08/25/22 11:43: WBC 8.1, RBC 3.49 L, Hgb 9.2 L, Hct 30.0 L, MCV 86.0, MCH 26.4 L , MCHC 30.7 L, RDW Std Deviation 54.9 H, RDW Coeff of Ilia 17.9 H, Plt Count 21 L*, Immature Gran % (Auto) 2.100 H, Neut % (Auto) 84.2 H, Lymph % (Auto) 8.2 L, [place] % (Auto) 5.2, Eos % (Auto) 0.1, Baso % (Auto) 0.2, Absolute Neuts (auto) 6.8, Absolute Lymphs (auto) 0.66 L, Nucleated RBC % 0.2, Diff Path Review May foll, Atypical Lymphocytes Not Reportable, Platelet Estimate MKD DEC 08/25/22 11:43: Sodium 145, Potassium 5.5 H, Chloride 115 H, Carbon Dioxide 26.0, Anion Gap 4 L, BUN 20 H, Creatinine 1.12, Estim Creat Clear Calc 46.96, Est GFR (MDRD) Af Amer 84, Est GFR (MDRD) Non-Af 69, BUN/Creatinine Ratio 17.9, Glucose 134 H, Calcium 8.2 L, Magnesium 1.6 Micro: Microbiology 08/21/22 Unknown Fluid - Gallbladder Gram Stain - Final 08/21/22 Unknown Fluid - Gallbladder Body Fluid Culture - Final Culture exhibits no growth. 08/21/22 Unknown Fluid - Gallbladder Anaerobic Culture - Preliminary No growth in 48 hours. Cardiology Labs/Tests 08/25/22 11:43: WBC 8.1, RBC 3.49 L, Hgb 9.2 L, Hct 30.0 L, MCV 86.0, MCH 26.4 L , MCHC 30.7 L, Plt Count 21 L*, Immature Gran % (Auto) 2.100 H, Neut % (Auto) 84.2 H, Lymph % (Auto) 8.2 L, [place] % (Auto) 5.2, Eos % (Auto) 0.1, Baso % (Auto) 0.2, Absolute Neuts (auto) 6.8, Nucleated RBC % 0.2 08/25/22 11:43: Sodium 145, Potassium 5.5 H, Chloride 115 H, Carbon Dioxide 26.0, Anion Gap 4 L, BUN 20 H, Creatinine 1.12, Est GFR (MDRD) Af Amer 84, Est GFR (MDRD) Non-Af 69, BUN/Creatinine Ratio 17.9, Glucose 134 H, Calcium 8.2 L, Magnesium 1.6 Rhythm: Sinus rhythm; transient sinus bradycardia Physical Exam Narrative This is a 66-year-old white male who appears to be somewhat frail and fragile appearing yet resting comfortably at the moment in no acute distress. Const alert, oriented x3 and no apparent distress HEENT normocephalic, head/scalp atraumatic and hearing grossly normal bilaterally Neck no JVD Carotids: normal carotid upstroke Resp normal respiratory effort and clear to auscultation bilaterally Resp Narrative: No obvious rales or rhonchi at this time. Cardio regular rate, regular rhythm, S1 normal heart sound and S2 normal heart sound GI normal to inspection, nondistended, normoactive bowel sounds GI Narrative: Cholecystostomy tube in place Extremity no pedal edema Skin General Skin Exam: ecchymosis Psych mental status grossly normal Assessment & Plan Assessment/Plan (1) Chest pain: PLAN: The patient has not complained of any recurrent chest discomfort. From a cardiac standpoint the patient has been monitored. He appears to be in a sinus rhythm at this time. He has had cardiac enzymes performed which have been mildly elevated and without any significant change. His ECG demonstrated no acute changes. His previous [facility] echocardiogram and stress echocardiogram were reviewed. He has been placed on nitrates with isosorbide dinitrate at 10 mg p.o. 3 times d aily and had his beta-anupama dose increased to metoprolol 50 mg p.o. twice daily. He underwent his noncardiac surgical procedure without obvious adverse cardiovascular compromise. He is not an ideal candidate based upon his multiple comorbidities at this time for additional noninvasive or invasive evaluation. (2) Abnormal cardiac enzyme level: PLAN: The patient does have abnormal high-sensitivity troponin I levels. The etiology may be multifactorial and this may be a type II non-STEMI event. This could be from his multiple noncardiac etiologies which include his u nderlying sepsis and anemia, etc. At the present time he has undergone additional evaluation with an ECG which demonstrated no acute findings. His previous noninvasive cardiovascular studies have been noted. At the moment he will continue to be monitored. He will continue medical therapy which includes nitrates and beta-blockers as noted above. He does not appear to be an ideal candidate at the moment for antiplatelet therapy or anticoagulant therapy secondary to concerns of his anemia and thrombocytopenia. He also does not appear to be an ideal candidate for additional noninvasive or invasive cardiovascular studies. Thus at the present time he will continue conservative medical management. (3) Atrial flutter: PLAN: Based upon the patient's history and his medical records it appears there are concerns with the patient may have had atrial flutter. He had been on medical therapy with beta-blockers and anticoagulant therapy. At the moment he appears to be in a sinus rhythm with variable heart rates.. He will continue to be monitored. Depending upon his heart rate response his beta-anupama dose can be adjusted. He is off anticoagulant therapy for the multiple noncardiac related issues including hematologic issues. (4) Hypokalemia: PLAN: The patient was noted to continue with hypokalemia. His potassium level does appear to be improved. Hopefully this will help with respect to any underlying cardiac dysrhythmias as well. (5) Anemia: PLAN: The patient has also been noted to be anemic. This does present an issue with respect to his potential cardiovascular medical therapy such as antiplatelet therapy and anticoagulant therapy as well as potential cardiovascular studies if needed, etc. (6) Thrombocytopenia: PLAN: The patient does have thrombocytopenia. This may be even more of an issue with respect to the ability to be on antiplatelet therapy and anticoagulant therapy and undergo any invasive cardiovascular evaluation or care. 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 He has undergone lobectomy and chemotherapy. He will continue to follow with oncology. (8) Sepsis: PLAN: The patient is reported as having sepsis/bacteremia thought secondary to UTI and cholecystitis. He has been undergoing evaluation care by internal medicine, infectious disease, and general surgery. He has been on antibiotic therapy (9) Cholecystitis: PLAN: The patient does have cholecystitis. He has been evaluated by general surgery. He has undergone cholecystostomy tube placement without obvious adverse event. Apparently there were concerns that the patient has been attempting to pull at his monitor lines, IV lines, and his cholecystostomy tube. At the present time his cholecystostomy tube remains in place. Addt'l Comments Overall, at the present time, the patient will continue conservative medical management. His medications can be adjusted as deemed appropriate There are no immediate plans for additional cardiovascular diagnostic studies/intervention. He is continuing to follow with his other physicians as well for his multiple comorbidities. The above was discussed with the patient with his family members present. Comment: Time spent the patient's overall evaluation, examination, review of medical records, documentation, and discussion with the patient and family members present in the PCU staff: 37 minutes. Procedure Criteria Type of Procedure Procedure Type: Elective Elective Risks - COVID COVID Risk Discussion: The surgeon/proceduralist and patient have discussed in detail the risk of e xposure to and/or potential harm posed by the COVID-19 virus with having a surgery/procedure at this time versus the risk of delaying the surgery/procedure. It is not possible to know either the risk of delaying the surgery or procedure or chance of getting an infection with perfect accuracy, but a joint decision was made between the patient and the surgeon/proceduralist to proceed at this time with the scheduled surgery/procedure as indicated on the consent form.
[2022-08-25] MEDS: QUEtiapine 25 MG Tablet PO (23:44)
[2022-08-25] MEDS: Senna/Docusate Sodium 1 Tablet 2 TABLET PO (23:44)
[2022-08-25] MEDS: Atorvastatin Calcium 20 MG Tablet PO (23:45)
[2022-08-25] MEDS: Acetaminophen 500 MG Tablet 1000 MG PO (23:50)
[2022-08-25] MEDS: Ensure Clear 120 ML Liquid PO (23:51)
[2022-08-26] MEDS: oxyCODONE 5 MG Tablet PO ×4 (02:45→23:13)
[2022-08-26 05:46] LABS: Absolute Lymphocyte Count 0.48 X10^3/uL (0.83-4.51); Absolute Neutrophil Count 5.8 X10^3/uL (2.0-7.7); Basophil# 0.01 X10^3/uL; Basophil% 0.1 % (0-1); Eosinophil# 0.01 X10^3/uL; Eosinophils% 0.1 % (0-5); Hematocrit 27.4 % (40-54); Hemoglobin 8.4 g/dL (13.0-16.5); Lymphocyte # 0.48 X10^3/ul (0.83-4.51); Mean Corp Hgb Conc 30.7 g/dL (32-36); Mean Corpuscular Hgb 26.7 pg (27.0-32.0); Monocyte# 0.38 X10^3/uL; Monocyte% 5.6 % (0-10); NRBC Flagged by Analyzer 0.3 % (0-5); Neutrophil # 5.81 X10^3/uL (2.7-7.7); Neutrophil % 85.2 % (47-70); POSITIVE COUNT YES; POSITIVE DIFFERENTIAL YES; RBC Distribution Width SD 56.1 fl (35.1-43.9); Red Blood Count 3.15 M/mm3 (4.6-6.2); White Blood Count 6.8 K/mm3 (4.4-11.0)
[2022-08-26 05:55] LABS: Differential Indicated SCAN CRITERIA MET
[2022-08-26 05:56] LABS: Platelet Count 19 K/mm3 (150-450)
[2022-08-26 06:11] LABS: Anisocytosis 1+
[2022-08-26 06:12] LABS: Platelet Estimate MKD DEC (ADEQ)
[2022-08-26 06:15] LABS: Anion Gap 5 (5-15); BUN 22 mg/dL (7-18); BUN/Creat Ratio 19.1 RATIO (10-20); Chloride 114 mmol/L (98-107); Creatinine, Serum 1.15 mg/dL (0.70-1.30); EST Glomerular Filtration Rate 67 mL/min (>60); Est Glom Filt Rate - Afr Amer 81 mL/min (>60); Estimated Creatinine Clearance 45.74 ml/min; Glucose 151 mg/dL (74-106); Magnesium 1.4 mg/dL (1.6-2.6); Potassium 5.4 mmol/L (3.5-5.1); Sodium Level 144 mmol/L (136-145)
--- NOTE | 2022-08-26 06:16 | NURSING ---
Pts primary rn aware of pts plt level of 19 at this time.
[2022-08-26] MEDS: metroNIDAZOLE 500 MG Tablet PO ×2 (06:50→23:04)
[2022-08-26] MEDS: NYSTATIN 500,000 UNIT/5 ML UDC 500000 UNIT PO (06:50)
[2022-08-26] MEDS: Isosorbide DN 10 MG Tablet PO ×2 (06:50→23:05)
[2022-08-26] MEDS: cycloBENZAPRine HCl 10 MG Tablet PO ×2 (06:50→23:04)
--- NOTE | 2022-08-26 09:16 | PCM.PN.CARD ---
Subjective Subjective The patient appears to be resting comfortably this morning. He does not appear to have any new acute cardiovascular complaints of ongoing chest discomfort or worsening shortness of breath/dyspnea. He continues with his cholecystostomy tube in place. Objective Data Vital Signs: Vital Signs Temp Pulse Resp BP Pulse Ox O2 Del Method O2 Flow Rate 97.9 F 115 H 18 148/93 H 100 Room Air 3 08/25/22 23:33 08/25/22 23:45 08/25/22 23:33 08/25/22 23:45 08/25/22 23:33 08/26/22 02:47 08/25/22 09:25 Oxygen Flow Rate (L/min) 3 Oxygen Delivery Method Room Air Weight: 115 lb 15.41 oz Body Mass Index (BMI) 18.1 Intake & Output: Intake and Output for Last 24 Hours 08/24/22 08/25/22 08/26/22 23:59 23:59 23:59 Intake Total 980 / 980 1060 / 1060 Output Total 1550 / 1550 880 / 880 400 / 400 Balance -570 / -570 180 / 180 -400 / -400 Lab / Micro Data Result Diagrams: 08/26/22 04:17 08/26/22 04:17 Labs: Laboratory Results - last 24 hr 08/25/22 11:43: WBC 8.1, RBC 3.49 L, Hgb 9.2 L, Hct 30.0 L, MCV 86.0, MCH 26.4 L, MCHC 30.7 L, RDW Std Deviation 54.9 H, RDW Coeff of Ilia 17.9 H, Plt Count 21 L*, Immature Gran % (Auto) 2.100 H, Neut % (Auto) 84.2 H, Lymph % (Auto) 8.2 L, [place] % (Auto) 5.2, Eos % (Auto) 0.1, Baso % (Auto) 0.2, Absolute Neuts (auto) 6.8, Absolute Lymphs (auto) 0.66 L, Nucleated RBC % 0.2, Diff Path Review May foll, Atypical Lymphocytes Not Reportable, Platelet Estimate MKD DEC 08/25/22 11:43: Sodium 145, Potassium 5.5 H, Chloride 115 H, Carbon Dioxide 26.0, Anion Gap 4 L, BUN 20 H, Creatinine 1.12, Estim Creat Clear Calc 46.96, Est GFR (MDRD) Af Amer 84, Est GFR (MDRD) Non-Af 69, BUN/Creatinine Ratio 17.9, Glucose 134 H, Calcium 8.2 L, Magnesium 1.6 08/26/22 04:17: WBC 6.8, RBC 3.15 L, Hgb 8.4 L, Hct 27.4 L, MCV 87.0, MCH 26.7 L, MCHC 30.7 L, RDW Std Deviation 56.1 H, RDW Coeff of Ilia 18.0 H, Plt Count 19 L*, Immature Gran % (Auto) 2.000 H, Neut % (Auto) 85.2 H, Lymph % (Auto) 7.0 L, [place] % (Auto) 5.6, Eos % (Auto) 0.1, Baso % (Auto) 0.1, Absolute Neuts (auto) 5.8, Absolute Lymphs (auto) 0.48 L, Nucleated RBC % 0.3, Diff Path Review December, Platelet Estimate MKD DEC, Anisocytosis 1+ 08/26/22 04:17: Sodium 144, Potassium 5.4 H, Chloride 114 H, Carbon Dioxide 25.0, Anion Gap 5, BUN 22 H, Creatinine 1.15, Estim Creat Clear Calc 45.74, Est GFR (MDRD) Af Amer 81, Est GFR (MDRD) Non-Af 67, BUN/Creatinine Ratio 19.1, Glucose 151 H, Calcium 8.0 L, Magnesium 1.4 L Micro: Microbiology 08/21/22 Unknown Fluid - Gallbladder Gram Stain - Final 08/21/22 Unknown Fluid - Gallbladder Body Fluid Culture - Final Culture exhibits no growth. 08/21/22 Unknown Fluid - Gallbladder Anaerobic Culture - Preliminary No growth in 48 hours. Cardiology Labs/Tests 08/25/22 11:43: WBC 8.1, RBC 3.49 L, Hgb 9.2 L, Hct 30.0 L, MCV 86.0, MCH 26.4 L, MCHC 30.7 L, Plt Count 21 L*, Immature Gran % (Auto) 2.100 H, Neut % (Auto) 84.2 H, Lymph % (Auto) 8.2 L, [place] % (Auto) 5.2, Eos % (Auto) 0.1, Baso % (Auto) 0.2, Absolute Neuts (auto) 6.8, Nucleated RBC % 0.2 08/25/22 11:43: Sodium 145, Potassium 5.5 H, Chloride 115 H, Carbon Dioxide 26.0, Anion Gap 4 L, BUN 20 H, Creatinine 1.12, Est GFR (MDRD) Af Amer 84, Est GFR (MDRD) Non-Af 69, BUN/Creatinine Ratio 17.9, Glucose 134 H, Calcium 8.2 L, Magnesium 1.6 08/26/22 04:17: WBC 6.8, RBC 3.15 L, Hgb 8.4 L, Hct 27.4 L, MCV 87.0, MCH 26.7 L, MCHC 30.7 L, Plt Count 19 L*, Immature Gran % (Auto) 2.000 H, Neut % (Auto) 85.2 H, Lymph % (Auto) 7.0 L, [place] % (Auto) 5.6, Eos % (Auto) 0.1, Baso % (Auto) 0.1, Absolute Neuts (auto) 5.8, Nucleated RBC % 0.3 08/26/22 04:17: Sodium 144, Potassium 5.4 H, Chloride 114 H, Carbon Dioxide 25.0, Anion Gap 5, BUN 22 H, Creatinine 1.15, Est GFR (MDRD) Af Amer 81, Est GFR (MDRD) Non-Af 67, BUN/Creatinine Ratio 19.1, Glucose 151 H, Calcium 8.0 L, Magnesium 1.4 L Rhythm: Sinus rhythm Physical Exam Narrative This is a 66-year-old white male who appears to be somewhat frail and fragile appearing yet resting comfortably at the moment in no acute distress. Const alert HEENT normocephalic, head/scalp atraumatic and hearing grossly normal bilaterally Neck no JVD Carotids: normal carotid upstroke Resp normal respiratory effort and clear to auscultation bilaterally Resp Narrative: No obvious rales or rhonchi at this time. Cardio regular rate, regular rhythm, S1 normal heart sound and S2 normal heart sound GI normal to inspection, nondistended, normoactive bowel sounds GI Narrative: Cholecystostomy tube in place Extremity no pedal edema Skin General Skin Exam: ecchymosis Psych mental status grossly normal Assessment & Plan Assessment/Plan (1) Chest pain: PLAN: The patient has not complained of any recurrent chest discomfort. From a cardiac standpoint the patient has been monitored. He appears to be in a sinus rhythm at this time. He has had cardiac enzymes performed which have been mildly elevated and without any significant change. His ECG demonstrated no acute changes. His previous [facility] echocardiogram and stress echocardiogram were reviewed. He has been placed on nitrates with isosorbide dinitrate at 10 mg p.o. 3 times daily and had his beta-anupama dose increased to metoprolol 50 mg p.o. twice daily. He underwent his noncardiac surgical procedure without obvious adverse cardiovascular compromise. He is not an ideal candidate based upon his multiple comorbidities at this time for additional noninvasive or invasive evaluation. (2) Abnormal cardiac enzyme level: PLAN: The patient does have abnormal high-sensitivity troponin I levels. The etiology may be multifactorial and this may be a type II non-STEMI event. This could be from his multiple noncardiac etiologies which include his underlying sepsis and anemia, etc. At the present time he has undergone additional evaluation with an ECG which demonstrated no acute findings. His previous noninvasive cardiovascular studies have been noted. At the moment he will continue to be monitored. He will continue medical therapy which includes nitrates and beta-blockers as noted above. He does not appear to be an ideal candidate at the moment for antiplatelet therapy or anticoagulant therapy secondary to concerns of his anemia and thrombocytopenia (today's platelet count 16,000). He also does not appear to be an ideal candidate for additional noninvasive or invasive cardiovascular studies. Thus at the present time he will continue conservative medical management. (3) Atrial flutter: PLAN: Based upon the patient's history and his medical records it appears there are concerns with the patient may have had atrial flutter. He had been on medical therapy with beta-blockers and anticoagulant therapy. At the moment he appears to be in a sinus rhythm with variable heart rates.. Depending upon his heart rate response his beta-anupama dose can be adjusted. He is off anticoagulant therapy for the multiple noncardiac related issues including hematologic issues. (4) Hypokalemia: PLAN: The patient was noted to continue with hypokalemia. His potassium level does appear to be improved. Hopefully this will help with respect to any underlying cardiac dysrhythmias as well. (5) Anemia: PLAN: The patient remains anemic. This does present an issue with respect to his potential cardiovascular medical therapy such as antiplatelet therapy and anticoagulant therapy as well as potential cardiovascular studies if needed, etc. (6) Thrombocytopenia: PLAN: The patient does have thrombocytopenia. His current platelet count is 16,000. This may be even more of an issue with respect to the ability to be on antiplatelet therapy and anticoagulant therapy and undergo any invasive cardiovascular evaluation or care. 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 He has undergone lobectomy and chemotherapy. He will continue to follow with oncology. (8) Sepsis: PLAN: The patient is reported as having sepsis/bacteremia thought secondary to UTI and cholecystitis. He has been undergoing evaluation care by internal medicine, infectious disease, and general surgery. He has been on antibiotic therapy (9) Cholecystitis: PLAN: The patient does have cholecystitis. He has been evaluated by general surgery. He has undergone cholecystostomy tube placement without obvious adverse event. Apparently there were concerns that the patient has been attempting to pull at his monitor lines, IV lines, and his cholecystostomy tube. At the present time his cholecystostomy tube remains in place. Addt'l Comments Overall, from a cardiovascular standpoint, the patient appears without acute symptoms. The patient does not appear to be an ideal candidate for additional cardiovascular diagnostic studies, etc., based upon his multiple comorbidities and medication limitations. Thus at the present time the patient will continue his conservative cardiovascular management. The patient is also pending transfer to an extended care facility. Thank you for allowing me to participate in the care of your patient. Please don't hesitate to call if any issues arise. This note was generated using a voice recognition system and there may be incorrect words, spelling or punctuation that were not noted when reviewing the office note prior to saving. Comment: Time spent in the patient's overall evaluation, examination, review of medical records, documentation, and discussion with the PCU staff: 37 minutes Procedure Criteria Type of Procedure Procedure Type: Elective Elective Risks - COVID COVID Risk Discussion: The surgeon/proceduralist and patient have discussed in detail the risk of exposure to and/or potential harm posed by the COVID-19 virus with having a surgery/procedure at this time versus the risk of delaying the surgery/procedure. It is not possible to know either the risk of delaying the surgery or procedure or chance of getting an infection with perfect accuracy, but a joint decision was made between the patient and the surgeon/proceduralist to proceed at this time with the scheduled surgery/procedure as indicated on the consent form.
--- NOTE | 2022-08-26 09:22 | PCM.PN.HOSP ---
Subjective Subjective Follow-up pancytopenia Patient seen platelet count down to 19 plan is to continue to monitor patient in the hospital to orders and observable rising platelet count prior to being discharged to the transitional care unit Objective Data Objective Data Vital Signs: Vital Signs Temp Pulse Resp BP Pulse Ox O2 Del Method O2 Flow Rate 97.9 F 115 H 18 148/93 H 100 Room Air 3 08/25/22 23:33 08/25/22 23:45 08/25/22 23:33 08/25/22 23:45 08/25/22 23:33 08/26/22 02:47 08/25/22 09:25 Oxygen Flow Rate (L/min) 3 Oxygen Delivery Method Room Air Weight: 52.6 kg Body Mass Index (BMI) 18.1 Intake & Output: Intake and Output for Last 24 Hours 08/24/22 08/25/22 08/26/22 23:59 23:59 23:59 Intake Total 980 / 980 1060 / 1060 Output Total 1550 / 1550 880 / 880 400 / 400 Balance -570 / -570 180 / 180 -400 / -400 Medical Nutrition Assessment Dietitian: Malnutrition Criteria Met Start: 08/09/22 11:15 Freq: Status: Active Protocol: Document 08/18/22 11:21 MAXWELL (Rec: 08/18/22 11:21 [facility] [id number]) Nutrition Malnutrition Evidence of Malnutrition Exists Yes Malnutrition (severe): Chronic Evidenced By Suboptimal Energy Intake ( Severe),Weight Loss (Severe), Physical Changes (Severe) Intake Problem Inadequate Oral Intake Etiology related to lung cancer, c/o no appetite and poor po intake Signs/Symptoms as evidenced by refusal of meals and ONS Status Active Problem Clinical Problem Chronic Disease or Condition Related Malnutrition Etiology Severe protein-calorie malnutrition in the context of chronic/metastatic disease related to inadequate oral intake and increased energy expenditure Signs/Symptoms as evidenced by 29.8% wt loss and meeting <75% of est nutritional needs x 7 months; obvious fat/muscle wasting in face, torso and upper/lower extremities. Status Active Problem Recommendation Dietitian Recommendations/Changes Continue liberal regular diet as tolerated. Will change to 120 ml ensure clear 4x/day w/ medpass to see if better acceptance. Change to ensure pudding w/ lunch and dinner; fortified foods w/ meals as able. Consider TF support given poor /inadequate oral intake and weight loss if in accordance w / pt/family wishes. Lab / Micro Data Result Diagrams: 08/26/22 04:17 08/26/22 04:17 Labs: Laboratory Results - last 24 hr 08/25/22 11:43: WBC 8.1, RBC 3.49 L, Hgb 9.2 L, Hct 30.0 L, MCV 86.0, MCH 26.4 L, MCHC 30.7 L, RDW Std Deviation 54.9 H, RDW Coeff of Ilia 17.9 H, Plt Count 21 L*, Immature Gran % (Auto) 2.100 H, Neut % (Auto) 84.2 H, Lymph % (Auto) 8.2 L, [place] % (Auto) 5.2, Eos % (Auto) 0.1, Baso % (Auto) 0.2, Absolute Neuts (auto) 6.8, Absolute Lymphs (auto) 0.66 L, Nucleated RBC % 0.2, Diff Path Review May selena, Atypical Lymphocytes Not Reportable, Platelet Estimate MKD 08/25/22 11:43: Sodium 145, Potassium 5.5 H, Chloride 115 H, Carbon Dioxide 26.0, Anion Gap 4 L, BUN 20 H, Creatinine 1.12, Estim Creat Clear Calc 46.96, Est GFR (MDRD) Af Amer 84, Est GFR (MDRD) Non-Af 69, BUN/Creatinine Ratio 17.9, Glucose 134 H, Calcium 8.2 L, Magnesium 1.6 08/26/22 04:17: WBC 6.8, RBC 3.15 L, Hgb 8.4 L, Hct 27.4 L, MCV 87.0, MCH 26.7 L, MCHC 30.7 L, RDW Std Deviation 56.1 H, RDW Coeff of Ilia 18.0 H, Plt Count 19 L*, Immature Gran % (Auto) 2.000 H, Neut % (Auto) 85.2 H, Lymph % (Auto) 7.0 L, [place] % (Auto) 5.6, Eos % (Auto) 0.1, Baso % (Auto) 0.1, Absolute Neuts (auto) 5.8, Absolute Lymphs (auto) 0.48 L, Nucleated RBC % 0.3, Diff Path Review December selena, Platelet Estimate MKD JUL, Anisocytosis 1+ 08/26/22 04:17: Sodium 144, Potassium 5.4 H, Chloride 114 H, Carbon Dioxide 25.0, Anion Gap 5, BUN 22 H, Creatinine 1.15, Estim Creat Clear Calc 45.74, Est GFR (MDRD) Af Amer 81, Est GFR (MDRD) Non-Af 67, BUN/Creatinine Ratio 19.1, Glucose 151 H, Calcium 8.0 L, Magnesium 1.4 L Micro: Microbiology 08/21/22 Unknown Fluid - Gallbladder Gram Stain - Final 08/21/22 Unknown Fluid - Gallbladder Body Fluid Culture - Final Culture exhibits no growth. 08/21/22 Unknown Fluid - Gallbladder Anaerobic Culture - Preliminary No growth in 48 hours. 08/17/22 14:25 Blood Culture (Wb) - Anticubital Left Blood Culture - Final No growth in 5 days. 08/17/22 14:33 Blood Culture (Wb) - Port Blood Culture - Final No growth in 5 days. 08/11/22 13:15 Blood Culture (Wb) - Anticubital Left Blood Culture - Final Gram negative mandy 08/11/22 13:15 Blood Culture (Wb) - Anticubital Right Blood Culture - Final Escherichia coli 08/11/22 15:55 Urine Catheter - Lyman Urine Culture - Final Escherichia coli 08/12/22 08:00 Mucosa - Nasopharyngeal Respiratory Panel (PCR) - Final 08/12/22 08:00 Urine, Random Streptococcus pneumoniae Antigen (M - Final 08/12/22 08:00 Urine, Random Legionella Antigen - Final 08/12/22 08:00 Nasal Secretion SARS-CoV-2 & FLU Antigen (Rapid) - Final Physical Exam Narrative GENERAL: Frail looking HEENT: Atraumatic; normocephalic EYES; Anicteric, Normal Conjunctiva NECK; supple, normal thyroid, RESPIRATORY: Diminished to auscultation CARDIOVASCULAR: Regular S1 S2, GI: soft, normoactive bowel sounds, : No Renal angle tenderness; EXTREMITIES: No edema, no clubbing, MUSCULOSKELETAL: no muscle wasting NEURO: Awake; no lateralizing signs. 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 Patient was found to have sepsis secondary to gallbladder disease underwent cholecystostomy tube placement by general surgery. Patient hospital stay complicated by significant physical deconditioning as well as thrombocytopenia 1. Sepsis ? Secondary to acute cholecystitis and UTI. Underlying condition managed. Patient had had bacteremia with E. coli 2. Acute cholecystitis ? Patient managed with cholecystostomy tube placement by general surgery 3. Acute cystitis with E. coli ? Patient managed with appropriate antibiotic therapy. 4. Thrombocytopenia ? Thought to be medication induced patient was on cefepime discontinued patient platelet count however continues to be low. Patient was on Pepcid and Protonix both known to cause thrombocytopenia also discontinued repeat labs ordered for a.m. -08/26/2022. Further drop in patient platelet count. Down to 19. We will continue to monitor patient in the hospital 5. Paroxysmal atrial flutter ? Managed with beta-blockers and systemic anticoagulation with Eliquis 6. Anemia - Secondary to chronic disorder monitoring H&H and transfuse if patient becomes symptomatic or hemoglobin falls below 7. Of note patient has already received 1 unit PRBC transfusion on 08/18/2022 7. Hypokalemia -corrected per protocol repeat labs ordered for a.m. 8. Recurrent chest pain ? Atypical 2D echo did not demonstrate any regional wall motion abnormalities we will continue to monitor 9. Significant anorexia ? Consult placed to dietitian 10. Lung CA ? With mets to regional lymph nodes. Patient being followed by oncology. Apparently completed treatment in June 2022 11. DVT prophylaxis ? Bilateral SCDs 12. Severe malnutrition -related to lung cancer and pt inability to consume adequate nutrition to meet est nutritional needs as evidenced by 29.8% wt loss and meeting <75% of est nutritional needs x 7 months; obvious fat/muscle wasting in face, torso and upper/lower extremities. Will change diet to liberal regular d/t signs and symptoms of malnutrition. Consult placed to dietitian Time spent in the patient's overall evaluation,decision-making process, review of diagnostic data, adjustment of management, discussion with other providers, nursing nursing and ancillary staff involved in patient's care documentation, 38 Minutes Charges/Coding Visit Charges Inpatient E&M: 64124 Subs Hosp L2
[2022-08-26 09:46] LABS: Pathologist Review Reviewed
[2022-08-26 10:00] LABS: Pathologist Review Reviewed
[2022-08-26 10:30] VITALS: BP 131/84; PULSE 103; RESP 14; TEMP 36.4; O2SAT 98
--- NOTE | 2022-08-26 10:31 | PCM.PN.ID ---
Physical Exam Narrative Feeling better, no abd pain, no fever Const alert and no apparent distress Resp normal air movement and clear to auscultation bilaterally Cardio regular rate and regular rhythm GI soft to palpation, non-tender and non-distended Skin no rashes or lesions noted ID ID: Route of nutrition/ use of supplements: [] Nutritional Intake: [] IV Site: [] Lyman Catheter: [] Assessment & Plan Assessment/Plan (1) Sepsis: PLAN: Due to ecoli bacteremia from cholecystitis - suspect Ucx (+) is related to hematogenous spread. Had worsening condition likely due to ecoli R to zosyn and lack of source control. Continues on cipro/flagyl. Had drain placed 08/21, fluid cx neg. Will follow (2) Thrombocytopenia: (3) Bacteremia: (4) Acute calculous cholecystitis:
[2022-08-26] MEDS: levoFLOXacin IV 500 MG/100 ML BAG 100 MG IV (11:57)
[2022-08-26 12:05] VITALS: BP 131/84; PULSE 103
[2022-08-26] MEDS: Metoprolol Tartrate 50 MG Tablet PO ×2 (12:05→23:05)
[2022-08-26] MEDS: Polyethylene Glycol 3350 17 GM PACKET PO ×2 (12:05→23:38)
[2022-08-26] MEDS: Senna/Docusate Sodium 1 Tablet 2 TABLET PO (12:06)
[2022-08-26] MEDS: Menthol/Lanolin/Calamine/Znox 113 GM Tube 1 APPLIC TOPICAL (12:07)
[2022-08-26] MEDS: Ondansetron 4 MG/2 ML Vial IV ×2 (12:11→23:36)
[2022-08-26] MEDS: Magnesium Sulfate 4gm/100mL 4 GM/100 ML IV.SOLN. IV (13:08)
[2022-08-26 15:02] VITALS: BP 107/69; PULSE 94; RESP 16; TEMP 36.4; O2SAT 97
[2022-08-26 20:00] VITALS: PULSE 99; RESP 16; O2SAT 95
[2022-08-26 21:00] VITALS: BP 117/68; PULSE 99; RESP 16; TEMP 36.6; O2SAT 95
[2022-08-26 23:05] VITALS: BP 117/68; PULSE 99
[2022-08-26] MEDS: Atorvastatin Calcium 20 MG Tablet PO (23:05)
[2022-08-26] MEDS: QUEtiapine 25 MG Tablet PO (23:07)
[2022-08-27] VITALS (8 sets, daily range): BP systolic 120–131; BP diastolic 66–81; PULSE 88–119; RESP 12–18; TEMP 36.3–37; O2SAT 93–100
[2022-08-27] MEDS: Menthol/Lanolin/Calamine/Znox 113 GM Tube 1 APPLIC TOPICAL ×2 (05:36→11:54)
[2022-08-27] MEDS: metroNIDAZOLE 500 MG Tablet PO (05:37)
[2022-08-27] MEDS: cycloBENZAPRine HCl 10 MG Tablet PO (05:37)
[2022-08-27] MEDS: oxyCODONE 5 MG Tablet PO ×2 (05:37→23:51)
[2022-08-27] MEDS: Isosorbide DN 10 MG Tablet PO ×2 (05:38→23:52)
[2022-08-27 06:30] LABS: Absolute Neutrophil Count 4.9 X10^3/uL (2.0-7.7); Eosinophil# 0.03 X10^3/uL; Eosinophils% 0.5 % (0-5); Hematocrit 26.4 % (40-54); Hemoglobin 7.8 g/dL (13.0-16.5); Mean Corp Hgb Conc 29.5 g/dL (32-36); Mean Corpuscular Hgb 26.8 pg (27.0-32.0); Mean Corpuscular Volume 90.7 fL (80-94); Monocyte# 0.37 X10^3/uL; NRBC Flagged by Analyzer 0 % (0-5); Neutrophil # 4.89 X10^3/uL (2.7-7.7); Neutrophil % 79.4 % (47-70); POSITIVE COUNT YES; RBC Distribution Width CV 18.2 % (11.6-14.6); RBC Distribution Width SD 58.5 fl (35.1-43.9); Red Blood Count 2.91 M/mm3 (4.6-6.2); White Blood Count 6.2 K/mm3 (4.4-11.0)
[2022-08-27 06:36] LABS: Differential Indicated SCAN CRITERIA MET; Platelet Count 18 K/mm3 (150-450)
[2022-08-27 07:02] LABS: Anion Gap 4 (5-15); Anisocytosis 1+; BUN 20 mg/dL (7-18); BUN/Creat Ratio 19.4 RATIO (10-20); Calcium,Total 8.1 mg/dL (8.5-10.1); Chloride 114 mmol/L (98-107); Creatinine, Serum 1.03 mg/dL (0.70-1.30); EST Glomerular Filtration Rate 76 mL/min (>60); Est Glom Filt Rate - Afr Amer 92 mL/min (>60); Estimated Creatinine Clearance 51.07 ml/min; Glucose 74 mg/dL (74-106); Platelet Estimate MKD DEC (ADEQ); Potassium 4.4 mmol/L (3.5-5.1); Sodium Level 144 mmol/L (136-145)
[2022-08-27 07:03] LABS: Acanthocytes 1+
--- NOTE | 2022-08-27 09:07 | PCM.PN.HOSP ---
Subjective Subjective Follow-up thrombocytopenia Patient seen platelet count continues to drop currently down to 18 Objective Data Objective Data Vital Signs: Vital Signs Temp Pulse Resp BP Pulse Ox O2 Del Method O2 Flow Rate 98.1 F 91 16 122/66 H 93 Room Air 3 08/27/22 03:00 08/27/22 07:00 08/27/22 03:00 08/27/22 03:00 08/27/22 03:00 08/27/22 03:00 08/25/22 09:25 Oxygen Flow Rate (L/min) 3 Oxygen Delivery Method Room Air Weight: 52.6 kg Body Mass Index (BMI) 18.1 Intake & Output: Intake and Output for Last 24 Hours 08/25/22 08/26/22 08/27/22 23:59 23:59 23:59 Intake Total 1060 / 1060 380 / 380 Output Total 880 / 880 1150 / 1150 600 / 600 Balance 180 / 180 -770 / -770 -600 / -600 Medical Nutrition Assessment Dietitian: Malnutrition Criteria Met Start: 08/09/22 11:15 Freq: Status: Active Protocol: Document 08/18/22 11:21 SLA (Rec: 08/18/22 11:21 [facility] [id number]) Nutrition Malnutrition Evidence of Malnutrition Exists Yes Malnutrition (severe): Chronic Evidenced By Suboptimal Energy Intake ( Severe),Weight Loss (Severe), Physical Changes (Severe) Intake Problem Inadequate Oral Intake Etiology related to lung cancer, c/o no appetite and poor po intake Signs/Symptoms as evidenced by refusal of meals and ONS Status Active Problem Clinical Problem Chronic Disease or Condition Related Malnutrition Etiology Severe protein-calorie malnutrition in the context of chronic/metastatic disease related to inadequate oral intake and increased energy expenditure Signs/Symptoms as evidenced by 29.8% wt loss and meeting <75% of est nutritional needs x 7 months; obvious fat/muscle wasting in face, torso and upper/lower extremities. Status Active Problem Recommendation Dietitian Recommendations/Changes Continue liberal regular diet as tolerated. Will change to 120 ml ensure clear 4x/day w/ medpass to see if better acceptance. Change to ensure pudding w/ lunch and dinner; fortified foods w/ meals as able. Consider TF support given poor /inadequate oral intake and weight loss if in accordance w / pt/family wishes. Lab / Micro Data Result Diagrams: 08/27/22 05:26 08/27/22 05:26 Labs: Laboratory Results - last 24 hr 08/23/22 06:05: Diff Path Review Reviewed 08/24/22 05:53: Diff Path Review Reviewed 08/27/22 05:26: WBC 6.2, RBC 2.91 L, Hgb 7.8 L, Hct 26.4 L, MCV 90.7, MCH 26.8 L, MCHC 29.5 L, RDW Std Deviation 58.5 H, RDW Coeff of Ilia 18.2 H, Plt Count 18 L*, Immature Gran % (Auto) 1.100 H, Neut % (Auto) 79.4 H, Lymph % (Auto) 13.0 L, Payette % (Auto) 6.0, Eos % (Auto) 0.5, Baso % (Auto) 0.0, Absolute Neuts (auto) 4.9, Absolute Lymphs (auto) 0.80 L, Nucleated RBC % 0, Diff Path Review May , Platelet Estimate MKD DEC, Anisocytosis 1+, Acanthocytes (Spur) 1+ 08/27/22 05:26: Sodium 144, Potassium 4.4, Chloride 114 H, Carbon Dioxide 26.0, Anion Gap 4 L, BUN 20 H, Creatinine 1.03, Estim Creat Clear Calc 51.07, Est GFR (MDRD) Af Amer 92, Est GFR (MDRD) Non-Af 76, BUN/Creatinine Ratio 19.4, Glucose 74, Calcium 8.1 L Micro: Microbiology 08/21/22 Unknown Fluid - Gallbladder Gram Stain - Final 08/21/22 Unknown Fluid - Gallbladder Body Fluid Culture - Final Culture exhibits no growth. 08/21/22 Unknown Fluid - Gallbladder Anaerobic Culture - Preliminary No growth in 48 hours. 08/17/22 14:25 Blood Culture (Wb) - Anticubital Left Blood Culture - Final No growth in 5 days. 08/17/22 14:33 Blood Culture (Wb) - Port Blood Culture - Final No growth in 5 days. 08/11/22 13:15 Blood Culture (Wb) - Anticubital Left Blood Culture - Final Gram negative mandy 08/11/22 13:15 Blood Culture (Wb) - Anticubital Right Blood Culture - Final Escherichia coli 08/11/22 15:55 Urine Catheter - Lyman Urine Culture - Final Escherichia coli 08/12/22 08:00 Mucosa - Nasopharyngeal Respiratory Panel (PCR) - Final 08/12/22 08:00 Urine, Random Streptococcus pneumoniae Antigen (M - Final 08/12/22 08:00 Urine, Random Legionella Antigen - Final 08/12/22 08:00 Nasal Secretion SARS-CoV-2 & FLU Antigen (Rapid) - Final Physical Exam Narrative GENERAL: Frail looking HEENT: Atraumatic; normocephalic EYES; Anicteric, Normal Conjunctiva NECK; supple, normal thyroid, RESPIRATORY: Diminished to auscultation CARDIOVASCULAR: Regular S1 S2, GI: soft, normoactive bowel sounds, : No Renal angle tenderness; EXTREMITIES: No edema, no clubbing, MUSCULOSKELETAL: no muscle wasting NEURO: Awake; no lateralizing signs. 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 Patient was found to have sepsis secondary to gallbladder disease underwent cholecystostomy tube placement by general surgery. Patient hospital stay complicated by significant physical deconditioning as well as thrombocytopenia 1. Sepsis ? Secondary to acute cholecystitis and UTI. Underlying condition managed. Patient had had bacteremia with E. coli 2. Acute cholecystitis ? Patient managed with cholecystostomy tube placement by general surgery 3. Acute cystitis with E. coli ? Patient managed with appropriate antibiotic therapy. 4. Thrombocytopenia ? Thought to be medication induced patient was on cefepime discontinued patient platelet count however continues to be low. Patient was on Pepcid and Protonix both known to cause thrombocytopenia also discontinued repeat labs ordered for a.m. -08/26/2022. Further drop in patient platelet count. Down to 19. We will continue to monitor patient in the hospital ?08/27/2022; platelet count continues to drop currently down to 18 5. Paroxysmal atrial flutter ? Managed with beta-blockers and systemic anticoagulation with Eliquis 6. Anemia - Secondary to chronic disorder monitoring H&H and transfuse if patient becomes symptomatic or hemoglobin falls below 7. Of note patient has already received 1 unit PRBC transfusion on 08/18/2022 7. Hypokalemia -corrected per protocol repeat labs ordered for a.m. 8. Recurrent chest pain ? Atypical 2D echo did not demonstrate any regional wall motion abnormalities we will continue to monitor 9. Significant anorexia ? Consult placed to dietitian 10. Lung CA ? With mets to regional lymph nodes. Patient being followed by oncology. Apparently completed treatment in June 2022 11. DVT prophylaxis ? Bilateral SCDs 12. Severe malnutrition -related to lung cancer and pt inability to consume adequate nutrition to meet est nutritional needs as evidenced by 29.8% wt loss and meeting <75% of est nutritional needs x 7 months; obvious fat/muscle wasting in face, torso and upper/lower extremities. Will change diet to liberal regular d/t signs and symptoms of malnutrition. Consult placed to dietitian Time spent in the patient's overall evaluation,decision-making process, review of diagnostic data, adjustment of management, discussion with other providers, nursing nursing and ancillary staff involved in patient's care documentation, 38 Minutes
[2022-08-27] MEDS: levoFLOXacin IV 500 MG/100 ML BAG 100 MG IV (11:07)
[2022-08-27] MEDS: 0.9% Saline Lock 10 ML Syringe IV ×2 (11:07→21:20)
[2022-08-27 14:04] LABS: Pathologist Review Reviewed
[2022-08-27 14:08] LABS: Pathologist Review Reviewed
--- NOTE | 2022-08-27 20:20 | NURSING ---
CLINICAL SERVICES DIRECTOR called by Rachelle rocha. Came out and said his eyes rolled back in his head and had all over body shaking. Pt very lethargic. Resp bagging pt. Pt attempted to knock it away. 02 appilied at 3lnc. Will open eyes to questions. But not verbal at first. accucheck done and vitals stable. Dr chino at bedside. said she wants him to remain a full code even though pt has expressed that he wants hospice on Thursday. Pt taken to [facility]. Pt returned and remains lethargic. Family at bedside
--- NOTE | 2022-08-27 20:45 | PN.HOSP_ITS ---
Hospitalist Note RODEO PERFORMER called. Patient with significant confusion, nonresponsive, transient tachycardia. reported that he had just finished eating and they were discussing his necessity to do so in order to be able to actually be discharged following which he became unresponsive with his eyes rolled back up in his head and his neck to the side with facial contortions and reportedly upper extremity bilateral shaking concerning for per description seizure activity. Upon evaluation patient did not have any active shaking or seizure-like activity but was very confused and slowly did improve through the evaluation. Heart rate did also improve and EKG with sinus tachycardia. Blood sugar appropriate. Vital signs appropriate. Patient eventually responsive and able to answer some questions. Given history definite concern for underlying possible seizure activity. Will request CT of the head now and request MRI of the brain with contrast given underlying cancer history. Will obtain TSH, mag, EEG and request seizure precautions as well as neurology involvement. PRN ativan IV for seizure activity. NPO until cleared per RN swallow. Given current appearance and review of records patient is a significantly debilitated individual with underlying severe health issues, discussed CODE status at length including difference between FULL code, DNR-CCA and DNR-CC status. Following discussions about the differences in these status, patient requested continued full CODE STATUS. Did mention that to several nurses when he had been more alert throughout the last several days he had been talking about specifically not wanting to be fold and even thinking about hospice. Given her current preference despite this discussion we will continue full CODE STATUS.
--- NOTE | 2022-08-27 20:46 | CT_ITS ---
EXAMINATION : Head CT w/out contrast HISTORY : Confusion COMPARISON : None. TECHNIQUE : Multiple contiguous axial images were obtained from the skull base to the vertex without intravenous contrast. A radiation dose optimization technique was used for this scan. FINDINGS : There is no evidence for acute intracranial hemorrhage, mass effect, or midline shift. There is no extra-axial fluid collection. There are periventricular white matter changes consistent with chronic microvascular ischemic disease. There is sulcal widening and ventricular enlargement consistent with cerebral atrophy. Bilateral basal ganglia calcifications. There is normal felipe-white differentiation, without CT evidence of acute ischemia or infarct. The skull base and calvarium are unremarkable. The orbits are unremarkable. The paranasal sinuses are clear. The mastoid air cells are well-aerated. The soft tissues are unremarkable. CT/Brain/Head without Contrast IMPRESSION: No acute intracranial abnormality. Chronic involutional and ischemic changes of the brain. Electronically Signed: Lm Rae MD at 21:22 [facility] ,
[2022-08-27 20:51] LABS: Base Excess -1 mmol/L (-2 to +2); Bicarbonate 23.1 mmol/L (22-26); Blood Gas Specimen Type ART; O2 Delivery Device Cannula; PO2 198 mmHG (75-100); SITE R Radial; SO2 100 % (95-99); Total Carbon Dioxide 24 mmol/L; pCO2 34.7 mmHg (35-45); pH 7.43 (7.35-7.45)
--- NOTE | 2022-08-27 20:59 | CM.ED ---
SD Note SW responded to [facility]IO MGR for patient. SW provided emotional support to patient's , Jayleen. Jayleen said that she was telling patient that he needed to eat so he could come home. Jayleen said he really wants to come home. Jayleen said that she was talking to patient and he shook and his mouth got weird. Jayleen was asked by MD Barros if patient's desire was to be a full code and she said yes and advised that the RN's had stated patient had voiced desire to NOT be a full code. Jayleen indicated she wanted him a full code. Jayleen said that she needs to call her son, Matthew, who is in [facility]. SD attempted to secure Matthew's phone number however, this senior mortgage underwriter was unable to locate phone number on google search. Jayleen said that she had the phone number in her phone but her phone was . SD assisted Jayleen with charging her phone. Jayleen is calling her daughter. SD reviewed chart briefly and saw that patient was to see hospice. SD asked about this and Jayleen said that they decided to not do that at the time. Jayleen then stated that she is questioning if she made the right decision regarding patient and him being a full code. Jayleen said that it is too soon to make this decision. SD provided emotional support and advised that she can follow up with [facility] geriatric social worker. Plan: Emotional Support provided Negin SELF
[2022-08-27] MEDS: levETIRAcetam IV 1,000 MG/100 ML BAG 400 MG IV (21:16)
[2022-08-27 22:10] LABS: Bedside Glucose 192 mg/dL (74-106)
--- NOTE | 2022-08-27 22:46 | NURSING ---
neuro md on screen to talk to pt and family
[2022-08-27] MEDS: Metoprolol Tartrate 50 MG Tablet PO (23:52)
--- NOTE | 2022-08-27 23:52 | NURSING ---
Pt awake requesting pain pills at this time. Pt more talkative at this time. Pt still asking to go home. Pt then asking this nurse for a sandwich. no sandwich on floor. Jello given. Pt then c/o indigestions tums given.
[2022-08-27] MEDS: Calcium Carbonate 500 MG Tablet PO (23:56)
[2022-08-28] VITALS (8 sets, daily range): BP systolic 133–148; BP diastolic 76–84; PULSE 104–117; RESP 16–18; TEMP 36.5–37.8; O2SAT 92–97
[2022-08-28] MEDS: Acetaminophen 500 MG Tablet 1000 MG PO (02:51)
[2022-08-28] MEDS: Pantoprazole Sodium 40 MG Tablet PO (02:51)
[2022-08-28] MEDS: Isosorbide DN 10 MG Tablet PO (05:13)
[2022-08-28] MEDS: cycloBENZAPRine HCl 10 MG Tablet PO (05:13)
[2022-08-28] MEDS: metroNIDAZOLE 500 MG Tablet PO (05:13)
[2022-08-28] MEDS: oxyCODONE 5 MG Tablet PO (05:14)
[2022-08-28 05:44] LABS: Anion Gap 9 (5-15); BUN 19 mg/dL (7-18); BUN/Creat Ratio 17.3 RATIO (10-20); Calcium,Total 7.8 mg/dL (8.5-10.1); Chloride 108 mmol/L (98-107); EST Glomerular Filtration Rate 71 mL/min (>60); Est Glom Filt Rate - Afr Amer 85 mL/min (>60); Estimated Creatinine Clearance 47.82 ml/min; Glucose 79 mg/dL (74-106); Magnesium 1.7 mg/dL (1.6-2.6); Potassium 3.9 mmol/L (3.5-5.1); Sodium Level 141 mmol/L (136-145); Thyroid Stim Hormone (TSH) 1.66 uIU/mL (0.358-3.74)
--- NOTE | 2022-08-28 05:55 | MRI_ITS ---
EXAM: MR HEAD WITHOUT AND WITH INTRAVENOUS CONTRAST CLINICAL INDICATION: seizure w/ CA, confusion TECHNIQUE: Multiplanar and multisequence MR images of the brain were obtained without and with intravenous contrast. This report was created using [employer] technology. CONTRAST: IV 10ml Clariscan COMPARISON: MRI brain with and without contrast 12/24/2021. FINDINGS: BRAIN AND EXTRA-AXIAL SPACES: T2 FLAIR hyperintensity foci in the periventricular white matter and minimally across the central pontine tegmentum are chronic white matter ischemic changes. Following IV contrast administration, there are no abnormally enhancing lesions intra-axially and extra-axially. No intra- or extra-axial hemorrhage. No intracranial mass or mass effect. Posterior fossa structures are unremarkable. No hydrocephalus. Basal cisterns are patent. No diffusion restriction to suspect acute or subacute ischemic infarct. SELLA: Unremarkable. Normal sella turcica, pituitary gland, infundibular stalk, optic chiasm and hypothalamus. AUDITORY SYSTEM: Unremarkable. The internal auditory canals are patent. BONES/JOINTS: Unremarkable. No discrete lytic or blastic abnormalities. SINUSES: Unremarkable as visualized. Clear. MASTOID AIR CELLS: Unremarkable as visualized. Clear. ORBITS: Unremarkable as visualized. Both globes, extraocular muscles, optic nerves and retrobulbar fat appear unremarkable. VASCULATURE: Unremarkable as visualized. Normal flow voids in the major intracranial circulation. MRI/Brain W/WO Contrast IMPRESSION: 1. No MRI evidence of acute or subacute ischemic infarct, intracranial metastatic disease or acute intracranial abnormality. 2. Chronic white matter ischemic changes in both cerebral hemispheres and minimally across the central pontine tegmentum. 3. No significant interval change when compared to 12/24/2021. Electronically Signed: Cornelius Woods MD at 12:19 EST ,
[2022-08-28 06:15] LABS: Absolute Neutrophil Count 6.4 X10^3/uL (2.0-7.7); Eosinophil# 0.03 X10^3/uL; Eosinophils% 0.4 % (0-5); Hematocrit 26.1 % (40-54); Hemoglobin 8.1 g/dL (13.0-16.5); Lymphocyte % 9.2 % (19-41); Mean Corpuscular Hgb 26.7 pg (27.0-32.0); Mean Corpuscular Volume 86.1 fL (80-94); Monocyte# 0.47 X10^3/uL; Monocyte% 6.2 % (0-10); NRBC Flagged by Analyzer 0.3 % (0-5); Neutrophil # 6.35 X10^3/uL (2.7-7.7); Neutrophil % 83.2 % (47-70); POSITIVE COUNT YES; RBC Distribution Width CV 17.6 % (11.6-14.6); RBC Distribution Width SD 54.7 fl (35.1-43.9); Red Blood Count 3.03 M/mm3 (4.6-6.2); White Blood Count 7.6 K/mm3 (4.4-11.0)
[2022-08-28 06:23] LABS: Differential Indicated SCAN CRITERIA MET; Platelet Count 17 K/mm3 (150-450)
[2022-08-28 06:56] LABS: Anisocytosis 1+; Platelet Estimate MKD DEC (ADEQ)
--- NOTE | 2022-08-28 07:48 | TELEMED_ITS ---
[facility] Telemed has confirmed receipt of a request for visit. This document confirms receipt of the order initiating the consult. To find the results of the consultation, please view the patient's reports for the scanned Telemed Consult.
--- NOTE | 2022-08-28 09:52 | PN.HOSP_ITS ---
Subjective Subjective Follow-up encephalopathy ? Patient was reported to have developed what appeared to be a seizure. Head CT obtained was negative for acute bleed. An MRI has been ordered for subsequent eval. Patient platelet count continues to drop plan is to have a family discussion regarding his CODE STATUS and prognosis Objective Data Objective Data Vital Signs: Vital Signs Temp Pulse Resp BP Pulse Ox O2 Del Method O2 Flow Rate 97.7 F L 104 H 18 139/83 H 92 Room Air 3 08/28/22 03:00 08/28/22 03:00 08/28/22 03:00 08/28/22 03:00 08/28/22 03:00 08/28/22 03:00 08/27/22 20:46 Oxygen Flow Rate (L/min) 3 Oxygen Delivery Method Room Air Weight: 52.6 kg Body Mass Index (BMI) 18.1 Intake & Output: Intake and Output for Last 24 Hours 08/26/22 08/27/22 08/28/22 23:59 23:59 23:59 Intake Total 380 / 380 250 / 250 500 / 500 Output Total 1150 / 1150 1350 / 1350 1025 / 1025 Balance -770 / -770 -1100 / -1100 -525 / -525 Medical Nutrition Assessment Dietitian: Malnutrition Criteria Met Start: 08/09/22 11:15 Freq: Status: Active Protocol: Document 08/18/22 11:21 [facility] (Rec: 08/18/22 11:21 [facility] [id number]) Nutrition Malnutrition Evidence of Malnutrition Exists Yes Malnutrition (severe): Chronic Evidenced By Suboptimal Energy Intake ( Severe),Weight Loss (Severe), Physical Changes (Severe) Intake Problem Inadequate Oral Intake Etiology related to lung cancer, c/o no appetite and poor po intake Signs/Symptoms as evidenced by refusal of meals and ONS Status Active Problem Clinical Problem Chronic Disease or Condition Related Malnutrition Etiology Severe protein-calorie malnutrition in the context of chronic/metastatic disease related to inadequate oral intake and increased energy expenditure Signs/Symptoms as evidenced by 29.8% wt loss and meeting <75% of est nutritional needs x 7 months; obvious fat/muscle wasting in face, torso and upper/lower extremities. Status Active Problem Recommendation Dietitian Recommendations/Changes Continue liberal regular diet as tolerated. Will change to 120 ml ensure clear 4x/day w/ medpass to see if better acceptance. Change to ensure pudding w/ lunch and dinner; fortified foods w/ meals as able. Consider TF support given poor /inadequate oral intake and weight loss if in accordance w / pt/family wishes. Lab / Micro Data Result Diagrams: 08/28/22 05:36 08/28/22 03:41 Labs: Laboratory Results - last 24 hr 08/25/22 11:43: Diff Path Review Reviewed 08/26/22 04:17: Diff Path Review Reviewed 08/27/22 20:25: POC Glucose 192 H 08/28/22 03:41: Sodium 141, Potassium 3.9, Chloride 108 H, Carbon Dioxide 24.0, Anion Gap 9, BUN 19 H, Creatinine 1.10, Estim Creat Clear Calc 47.82, Est GFR (MDRD) Af Amer 85, Est GFR (MDRD) Non-Af 71, BUN/Creatinine Ratio 17.3, Glucose 79, Calcium 7.8 L, Magnesium 1.7, TSH 1.66 08/28/22 05:36: WBC 7.6, RBC 3.03 L, Hgb 8.1 L, Hct 26.1 L, MCV 86.1 D, MCH 26.7 L, MCHC 31.0 L D, RDW Std Deviation 54.7 H, RDW Coeff of Ilia 17.6 H, Plt Count 17 L*, Immature Gran % (Auto) 1.000 H, Neut % (Auto) 83.2 H, Lymph % (Auto) 9.2 L, Teller % (Auto) 6.2, Eos % (Auto) 0.4, Baso % (Auto) 0.0, Absolute Neuts (auto) 6.4, Absolute Lymphs (auto) 0.70 L, Nucleated RBC % 0.3, Diff Path Review May foll, Platelet Estimate MKD DEC, Anisocytosis 1+ Micro: Microbiology 08/21/22 Unknown Fluid - Gallbladder Gram Stain - Final 08/21/22 Unknown Fluid - Gallbladder Body Fluid Culture - Final Culture exhibits no growth. 08/21/22 Unknown Fluid - Gallbladder Anaerobic Culture - Final No growth in 5 days. 08/17/22 14:25 Blood Culture (Wb) - Anticubital Left Blood Culture - Final No growth in 5 days. 08/17/22 14:33 Blood Culture (Wb) - Port Blood Culture - Final No growth in 5 days. 08/11/22 13:15 Blood Culture (Wb) - Anticubital Left Blood Culture - Final Gram negative mandy 08/11/22 13:15 Blood Culture (Wb) - Anticubital Right Blood Culture - Final Escherichia coli 08/11/22 15:55 Urine Catheter - Lyman Urine Culture - Final Escherichia coli 08/12/22 08:00 Mucosa - Nasopharyngeal Respiratory Panel (PCR) - Final 08/12/22 08:00 Urine, Random Streptococcus pneumoniae Antigen (M - Final 08/12/22 08:00 Urine, Random Legionella Antigen - Final 08/12/22 08:00 Nasal Secretion SARS-CoV-2 & FLU Antigen (Rapid) - Final ABG Data ABG results: ABG 08/27/22 20:45 Specimen Type ART Sample Site R Radial pH 7.43 Bicarbonate Actual 23.1 Total CO2 24 Base Excess -1 O2 Saturation 100 H ABG pCO2 34.7 L ABG pO2 198 H Justino Test N/A O2 Delivery Device Cannula Liter Flow 5.0 Radiography Diagnostic Testing: Radiology Impression Brain CT 08/27/22 20:46 IMPRESSION: No acute intracranial abnormality. Chronic involutional and ischemic changes of the brain. Electronically Signed: mL Rae MD at 21:22 EST , Physical Exam Narrative GENERAL: Frail looking HEENT: Atraumatic; normocephalic EYES; Anicteric, Normal Conjunctiva NECK; supple, normal thyroid, RESPIRATORY: Diminished to auscultation CARDIOVASCULAR: Regular S1 S2, GI: soft, normoactive bowel sounds, : No Renal angle tenderness; EXTREMITIES: No edema, no clubbing, MUSCULOSKELETAL: no muscle wasting NEURO: Awake; no lateralizing signs. 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 Patient was found to have sepsis secondary to gallbladder disease underwent cholecystostomy tube placement by general surgery. Patient hospital stay complicated by significant physical deconditioning as well as thrombocytopenia 1. Sepsis ? Secondary to acute cholecystitis and UTI. Underlying condition managed. Patient had had bacteremia with E. coli 2. Acute cholecystitis ? Patient managed with cholecystostomy tube placement by general surgery 3. Acute cystitis with E. coli ? Patient managed with appropriate antibiotic therapy. 4. Thrombocytopenia ? Thought to be medication induced patient was on cefepime discontinued patient platelet count however continues to be low. Patient was on Pepcid and Protonix both known to cause thrombocytopenia also discontinued repeat labs ordered for a.m. -08/26/2022. Further drop in patient platelet count. Down to 19. We will continue to monitor patient in the hospital ?08/27/2022; platelet count continues to drop currently down to 18 -08/28/2022 platelet count down to 17 5. Paroxysmal atrial flutter ? Managed with beta-blockers and systemic anticoagulation with Eliquis 6. Anemia - Secondary to chronic disorder monitoring H&H and transfuse if patient becomes symptomatic or hemoglobin falls below 7. Of note patient has already received 1 unit PRBC transfusion on 08/18/2022 7. Hypokalemia -corrected per protocol repeat labs ordered for a.m. 8. Recurrent chest pain ? Atypical 2D echo did not demonstrate any regional wall motion abnormalities we will continue to monitor 9. Significant anorexia ? Consult placed to dietitian 10. Lung CA ? With mets to regional lymph nodes. Patient being followed by oncology. Apparently completed treatment in June 2022 11. DVT prophylaxis ? Bilateral SCDs 12. Severe malnutrition -related to lung cancer and pt inability to consume adequate nutrition to meet est nutritional needs as evidenced by 29.8% wt loss and meeting <75% of est nutritional needs x 7 months; obvious fat/muscle wasting in face, torso and upper/lower extremities. Will change diet to liberal regular d/t signs and symptoms of malnutrition. Consult placed to dietitian 13. Acute encephalopathy ? Questionable seizure with postictal state. Initial imaging studies with CT of the head was unremarkable MRI has been ordered for subsequent eval Time spent in the patient's overall evaluation,decision-making process, review of diagnostic data, adjustment of management, discussion with other providers, nursing nursing and ancillary staff involved in patient's care documentation, 52 Minutes Charges/Coding Visit Charges Inpatient E&M: 03507 Subs Hosp L3
[2022-08-28] MEDS: LORazepam 2 MG/ML Syringe 1 MG IV (09:56)
[2022-08-28] MEDS: levoFLOXacin IV 500 MG/100 ML BAG 100 MG IV (09:58)
--- NOTE | 2022-08-28 10:12 | CT_ITS ---
EXAM: CT ABDOMEN AND PELVIS WITHOUT INTRAVENOUS CONTRAST CLINICAL INDICATION: Abdominal pain. TECHNIQUE: Helically acquired images were obtained of the abdomen and pelvis without intravenous contrast. This CT exam was performed using one or more of the following dose reduction techniques: automated exposure control, adjustment of the mA and/or kV according to patient size, and/or use of iterative reconstruction technique. This report was created using [employer] report generation technology. RADIATION DOSE: CTDIvol = 10.20 mGy, DLP = 499.44 mGy-cm COMPARISON: CT abdomen and pelvis without contrast 08/22/2022. FINDINGS: LOWER THORAX: Diminished right lung volume is unchanged. Mild decrease in the left posterior pleural fluid. Minimal increase in trace right anterior pericardial fluid. ABDOMEN: LIVER: Unremarkable. Homogeneous. GALLBLADDER AND BILE DUCTS: Unremarkable. No calcified gallstones. No gallbladder distention or wall edema. No intra- or extrahepatic biliary ductal dilation. PANCREAS: Unremarkable. No focal cystic mass. SPLEEN: Unremarkable. Normal size without focal cystic or solid mass. ADRENALS: Unremarkable. No nodules. KIDNEYS AND URETERS: Nonobstructing stones in both kidneys are unchanged. No hydronephrosis in both kidneys. Normal renal size and position. STOMACH AND BOWEL: Moderate fecal contents inside the dilated rectum. No focal inflammatory change. PELVIS: APPENDIX: Normal. BLADDER: Indwelling Lyman catheter inside the empty urinary bladder. REPRODUCTIVE: Unremarkable as visualized. No mass. ABDOMEN and PELVIS: INTRAPERITONEAL SPACE: Small ascites overlying the right anterior lateral surface of the liver and small ascites in the right flank. Decreased ascites in the central pelvis. Decreased ascites in the left flank. No free air. BONES/JOINTS: Left metallic hip arthroplasty causing streak artifacts. L4-L5 disc space height narrowing with degenerative vacuum phenomenon. No suspicious lytic or blastic abnormality. SOFT TISSUES: Unremarkable. No discrete abdominal or pelvic wall hernia. VASCULATURE: Multiple calcified plaques along the abdominal aorta and iliac arteries. Abdominal aorta is non-dilated. LYMPH NODES: Unremarkable. No enlarged lymph nodes. TUBES, LINES AND DEVICES: Right transhepatic percutaneous cholecystostomy drain catheter is unchanged. CT/Abdomen/Pelvis without Cont IMPRESSION: 1. Mild decrease in ascites. 2. Nonobstructing stones in both kidneys and no bilateral hydronephrosis. 3. Right lower transhepatic percutaneous cholecystostomy drain catheter is unchanged. 4. No suspicious acute abnormality in the abdomen and pelvis. 5. Minimal increase in trace right anterior pericardial fluid. 6. Diminished right lung volume and mild decrease in left posterior pleural fluid. 7. No significant interval change when compared to 08/22/2022. Electronically Signed: Cornelius Woods MD at 12:06 EST ,
--- NOTE | 2022-08-28 10:13 | PCM.PN.ID ---
Physical Exam Narrative Confusion overnight, head CT done. C/o some abd pain this AM, no fever Const Constitutional Narrative: ill appearing Orientation / Consciousness: lethargic Resp normal air movement and clear to auscultation bilaterally Cardio regular rate and regular rhythm GI soft to palpation and non-distended GI Narrative: RUQ pain Skin no rashes or lesions noted ID ID: Route of nutrition/ use of supplements: [] Nutritional Intake: [] IV Site: [] Lyman Catheter: [] Assessment & Plan Assessment/Plan (1) Sepsis: PLAN: Due to ecoli bacteremia from cholecystitis - suspect Ucx (+) is related to hematogenous spread. Had worsening condition likely due to ecoli R to zosyn and lack of source control. Continues on cipro/flagyl. Had drain placed 08/21, fluid cx neg. With worsened mental status and RUQ pain, will check repeat CT. Will follow (2) Thrombocytopenia: (3) Bacteremia: (4) Acute calculous cholecystitis:
[2022-08-28 10:38] LABS: Pathologist Review Reviewed
--- NOTE | 2022-08-28 10:43 | CASEMGMT ---
Patient's family asked to talk with SD. ER SD spoke with family last night after patient was a rapid response. SD met with patient's , son, and daughter in law. SD introduced self. Patient's confirmed they would like to take patient home on [facility]osp[facility] today. They wanted to know how to make that happen. SD let them know SW will make the referral and someone from Hospice will come to [facility] to discuss their services. SD spoke with physician and he is in agreement with Hospice referral. SD was working on printing referral packet when patient's daughter in law came to the desk to talk with SW. She said that they really want to get patient home today and if this would be possible. SW let her know that SW will let Hospice know and it could be possible. Referral packet faxed to Hospice. SD called Verena with Hospice regarding referral. SD let Verena know family would like to take patient home on Hospice today. SD let Verena know family is present. Verena said she will send a liaison over right now. SD let patient's family know this information. RN and physician also aware. Anushka Porter MSW [place]
--- NOTE | 2022-08-28 11:02 | PCM.DC.SUM ---
Providers Date of Admission: 08/09/22 Date of Discharge: 08/28/22 Primary Care Physician: Dr. Alisa Perla, DO Consultations 08/12/22 19:11 Consult: General Surgery Routine Consulting Provider: Hilda Mathis Reason for Consult: RUQ pain, incr alp, gall stones w/ sludge and thickened gallbladder wall EMERGENT Consult: No MD Notified: Yes Date Notified: 08/12/22 Time Notified: 19:11 Method of Notification: Verbal Comments:: notified by dr santana. 08/13/22 15:49 Consult: Interventional Radiology Routine Consulting Provider: Pedro Ni Reason for Consult: Cholecystostomy tube placement EMERGENT Consult: No MD Notified: Yes Date Notified: 08/13/22 Time Notified: 15:49 Method of Notification: Verbal 08/14/22 07:18 Consult: Oncology/Hematology Routine Consulting Provider: [facility] Reason for Consult: lung CA, sepsis-needs obey tube, worsened plt 24, 1% blasts EMERGENT Consult: No MD Notified: Yes Date Notified: 08/14/22 Time Notified: 07:18 Method of Notification: Verbal 08/17/22 13:29 Consult: Infectious Disease Routine Consulting Provider: Roc Dodge Reason for Consult: Cholecystitis, plts 10, not yet able to get source control, on IVabx still EMERGENT Consult: No MD Notified: Yes Date Notified: 08/17/22 Time Notified: 13:29 Method of Notification: Verbal 08/20/22 09:47 Consult: Cardiology Routine Consulting Provider: Javon Merida Reason for Consult: elevated troponins EMERGENT Consult: No MD Notified: Yes Date Notified: 08/20/22 Time Notified: 09:21 Method of Notification: Verbal Reason For Visit: ACUTE ENCEPHALOPATHY Diagnosis Discharge Diagnosis (1) Sepsis: Status: Acute Code(s): A41.9 - Sepsis, unspecified organism (2) Thrombocytopenia: Status: Acute Code(s): D69.6 - Thrombocytopenia, unspecified (3) Bacteremia: Status: Acute Code(s): R78.81 - Bacteremia (4) Acute calculous cholecystitis: Status: Acute Code(s): K80.00 - Calculus of gallbladder with acute cholecystitis without obstruction Plan Patient is a 66-year-old gentleman with 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 Patient was found to have sepsis secondary to gallbladder disease underwent cholecystostomy tube placement by general surgery. Patient hospital stay complicated by significant physical deconditioning as well as thrombocytopenia 1. Sepsis ? Secondary to acute cholecystitis and UTI. Underlying condition managed. Patient had had bacteremia with E. coli 2. Acute cholecystitis ? Patient managed with cholecystostomy tube placement by general surgery 3. Acute cystitis with E. coli ? Patient managed with appropriate antibiotic therapy. 4. Thrombocytopenia ? Thought to be medication induced patient was on cefepime discontinued patient platelet count however continues to be low. Patient was on Pepcid and Protonix both known to cause thrombocytopenia also discontinued repeat labs ordered for a.m. -08/26/2022. Further drop in patient platelet count. Down to 19. We will continue to monitor patient in the hospital ?08/27/2022; platelet count continues to drop currently down to 18 -08/28/2022 platelet count down to 17 5. Paroxysmal atrial flutter ? Managed with beta-blockers and systemic anticoagulation with Eliquis 6. Anemia - Secondary to chronic disorder monitoring H&H and transfuse if patient becomes symptomatic or hemoglobin falls below 7. Of note patient has already received 1 unit PRBC transfusion on 08/18/2022 7. Hypokalemia -corrected per protocol repeat labs ordered for a.m. 8. Recurrent chest pain ? Atypical 2D echo did not demonstrate any regional wall motion abnormalities we will continue to monitor 9. Significant anorexia ? Consult placed to dietitian 10. Lung CA ? With mets to regional lymph nodes. Patient being followed by oncology. Apparently completed treatment in June 2022 11. DVT prophylaxis ? Bilateral SCDs 12. Severe malnutrition -related to lung cancer and pt inability to consume adequate nutrition to meet est nutritional needs as evidenced by 29.8% wt loss and meeting <75% of est nutritional needs x 7 months; obvious fat/muscle wasting in face, torso and upper/lower extremities. Will change diet to liberal regular d/t signs and symptoms of malnutrition. Consult placed to dietitian 13. Acute encephalopathy ? Questionable seizure with postictal state. Initial imaging studies with CT of the head was unremarkable MRI has been ordered for subsequent eval Had a family discussion regarding patient prognosis and current medical condition. Went over the CODE STATUS. Patient family elected to go with DNR CC. He also requested for patient to be discharged home with hospice Total time spent on advanced planning discussion; 18 minutes Medications at Discharge Home Medications cyclobenzaprine 10 mg tablet 10 mg PO TID spasms 11/26/21 gabapentin 400 mg capsule 400 mg PO TID nerve pain 11/26/21 morphine 15 mg immediate release tablet 15 mg PO BID PRN Pain 11/26/21 trazodone 100 mg tablet 100 mg PO QHS PRN Sleep 11/26/21 lidocaine-prilocaine 2.5 %-2.5 % topical cream 1 applic topical ONCE PRN port access 30 days #30 grams 03/27/22 nystatin 100,000 unit/mL oral suspension 500,000 unit PO TID thrush 08/04/22 food supplemt, lactose-reduced 0.08 gram-1.5 kcal/mL oral liquid (Ensure Plus High Protein) 120 ml PO 4X/DAY #30 BOTTLES 08/06/22 Hospital Course Summary of Care Provided Minutes Spent on Discharge: 60 Physical Exam Narrative GENERAL: Frail looking HEENT: Atraumatic; normocephalic EYES; Anicteric, Normal Conjunctiva NECK; supple, normal thyroid, RESPIRATORY: Diminished to auscultation CARDIOVASCULAR: Regular S1 S2, GI: soft, normoactive bowel sounds, : No Renal angle tenderness; EXTREMITIES: No edema, no clubbing, MUSCULOSKELETAL: no muscle wasting NEURO: Awake; no lateralizing signs. SKIN: No Rash PSYCH; Flat affect Medical Records Data Medical Nutrition Assessment Dietitian: Malnutrition Criteria Met Start: 08/09/22 11:15 Freq: Status: Active Protocol: Document 08/18/22 11:21 MAXWELL (Rec: 08/18/22 11:21 [facility] [id number]) Nutrition Malnutrition Evidence of Malnutrition Exists Yes Malnutrition (severe): Chronic Evidenced By Suboptimal Energy Intake ( Severe),Weight Loss (Severe), Physical Changes (Severe) Intake Problem Inadequate Oral Intake Etiology related to lung cancer, c/o no appetite and poor po intake Signs/Symptoms as evidenced by refusal of meals and ONS Status Active Problem Clinical Problem Chronic Disease or Condition Related Malnutrition Etiology Severe protein-calorie malnutrition in the context of chronic/metastatic disease related to inadequate oral intake and increased energy expenditure Signs/Symptoms as evidenced by 29.8% wt loss and meeting <75% of est nutritional needs x 7 months; obvious fat/muscle wasting in face, torso and upper/lower extremities. Status Active Problem Recommendation Dietitian Recommendations/Changes Continue liberal regular diet as tolerated. Will change to 120 ml ensure clear 4x/day w/ medpass to see if better acceptance. Change to ensure pudding w/ lunch and dinner; fortified foods w/ meals as able. Consider TF support given poor /inadequate oral intake and weight loss if in accordance w / pt/family wishes. Weight / BMI Weight Weight: 52.6 kg Body Mass Index (BMI) 18.1 ABG / Lab / Microbiology Data Result Diagrams: 08/28/22 05:36 08/28/22 03:41 Laboratory: Laboratory Results - last 24 hr 08/25/22 11:43: Diff Path Review Reviewed 08/26/22 04:17: Diff Path Review Reviewed 08/27/22 05:26: Diff Path Review Reviewed 08/27/22 20:25: POC Glucose 192 H 08/28/22 03:41: Sodium 141, Potassium 3.9, Chloride 108 H, Carbon Dioxide 24.0, Anion Gap 9, BUN 19 H, Creatinine 1.10, Estim Creat Clear Calc 47.82, Est GFR (MDRD) Af Amer 85, Est GFR (MDRD) Non-Af 71, BUN/Creatinine Ratio 17.3, Glucose 79, Calcium 7.8 L, Magnesium 1.7, TSH 1.66 08/28/22 05:36: WBC 7.6, RBC 3.03 L, Hgb 8.1 L, Hct 26.1 L, MCV 86.1 D, MCH 26.7 L, MCHC 31.0 L D, RDW Std Deviation 54.7 H, RDW Coeff of Ilia 17.6 H, Plt Count 17 L*, Immature Gran % (Auto) 1.000 H, Neut % (Auto) 83.2 H, Lymph % (Auto) 9.2 L, [place] % (Auto) 6.2, Eos % (Auto) 0.4, Baso % (Auto) 0.0, Absolute Neuts (auto) 6.4, Absolute Lymphs (auto) 0.70 L, Nucleated RBC % 0.3, Diff Path Review May foll, Platelet Estimate MKD DEC, Anisocytosis 1+ Microbiology: Microbiology 08/21/22 Unknown Fluid - Gallbladder Gram Stain - Final 08/21/22 Unknown Fluid - Gallbladder Body Fluid Culture - Final Culture exhibits no growth. 08/21/22 Unknown Fluid - Gallbladder Anaerobic Culture - Final No growth in 5 days. 08/17/22 14:25 Blood Culture (Wb) - Anticubital Left Blood Culture - Final No growth in 5 days. 08/17/22 14:33 Blood Culture (Wb) - Port Blood Culture - Final No growth in 5 days. 08/11/22 13:15 Blood Culture (Wb) - Anticubital Left Blood Culture - Final Gram negative mandy 08/11/22 13:15 Blood Culture (Wb) - Anticubital Right Blood Culture - Final Escherichia coli 08/11/22 15:55 Urine Catheter - Lyman Urine Culture - Final Escherichia coli 08/12/22 08:00 Mucosa - Nasopharyngeal Respiratory Panel (PCR) - Final 08/12/22 08:00 Urine, Random Streptococcus pneumoniae Antigen (M - Final 08/12/22 08:00 Urine, Random Legionella Antigen - Final 08/12/22 08:00 Nasal Secretion SARS-CoV-2 & FLU Antigen (Rapid) - Final ABG: ABG 08/27/22 20:45 Specimen Type ART Sample Site R Radial pH 7.43 Bicarbonate Actual 23.1 Total CO2 24 Base Excess -1 O2 Saturation 100 H ABG pCO2 34.7 L ABG pO2 198 H Justino Test N/A O2 Delivery Device Cannula Liter Flow 5.0 Radiography Diagnostic Testing: Radiology Impression Brain CT 08/27/22 20:46 IMPRESSION: No acute intracranial abnormality. Chronic involutional and ischemic changes of the brain. Electronically Signed: Lm Rae MD at 21:22 EST , D/C Instructions Discharge Diet: No restrictions Discharge Activity: No Restrictions Meaningful Use Info Meaningful Use Diagnoses (Choose all that apply): None applicable Discharge Plan Admission Admit Date/Time: 08/09/22 02:23 Attending Provider: Chu Alcocer Primary Care Provider: Alisa Perla Consulting Providers: Harinder Howell ; Samuel Chowdary ; Lilliana Santana ; Javon Merida ; Hilda Mathis ; Roc Dodge ; Pedro Ni ; Chu Baker ; Harinder Spencer ; Sudhakar Villela ; Roc Gordon ; Logan Davila ; Sam Loaiza ; Willis Gray ; Karolina Tobar GAMBLING SUPERVISOR ; Jeffrey Nair Instructions Additional Instructions / Restrictions: [facility] for RLL nodule Discharge Orders/Prescriptions Prescriptions: Continued cyclobenzaprine 10 mg tablet 10 mg PO TID morphine 15 mg tablet 15 mg PO BID PRN (Reason: Pain) trazodone 100 mg tablet 100 mg PO QHS PRN (Reason: Sleep) gabapentin 400 mg capsule 400 mg PO TID lidocaine-prilocaine 2.5-2.5 % cream 1 applic topical ONCE PRN (Reason: port access) 30 Days Qty: 30 2RF nystatin 100,000 unit/mL suspension 500,000 unit PO TID Rx Instructions: administer 1/2 of dose in each side of the mouth Ensure Plus High Protein 0.08 gram-1.5 kcal/mL Liquid 120 ml PO 4X/DAY Qty: 30 0RF Discontinued atorvastatin 80 mg tablet 80 mg PO DAILY glyburide 5 mg tablet 5 mg PO DAILY Eliquis 5 mg tablet 5 mg PO BID Hold Instructions: Order Changed pantoprazole 40 mg Tablet,Delayed Release (Dr/Ec) 40 mg PO BID Qty: 60 0RF Referrals / Follow Up: Alisa Perla DO [Primary Care Provider] - Within 1 Week Disposition Disposition (needs filled in before D/C Order can be placed): Hospice in Home Charges/Coding Visit Charges Inpatient E&M: 88197 Disch Hosp >30min Procedures Hospitalists Procedures: 35409 Advncd Care Plan 30 Min
--- NOTE | 2022-08-28 13:04 | CASEMGMT ---
Patient's family signed Hospice papers. Family wanted to get patient home as soon as possible. Per Fernando with Hospice equipment will be delivered between 3 and 330. SD called Physicians and arranged for patient to get picked up at 4p via cot. SW faxed d/c summary to Hospice along with DNR and pickling machine operator time. SW notified family and paralegal secretary. SD called Verena at Hospice and let her know. SD also notified Verena that patient has a choley drain in place. Verena said this would not be a problem. Plan: d/c home on [facility]. Physicians transported via cot. Anushka Porter MAIL SORTER AND DELIVERY [facility]
[2022-08-28] MEDS: Haloperidol Lactate 5 MG/ML Vial 2 MG IM (13:42)
[2022-08-29 09:18] LABS: Pathologist Review Reviewed
== END 2022-08-28 16:26 | disposition hospice, home (50) | DRG 682 ==
LOC: ED 08-09 02:19 → MS2 08-09 02:59 → MS3 08-19 18:20 → PCU 08-20 10:38
PROVIDERS: Anesthesiology; Family Medicine; Internal Medicine; Internal Medicine Hematology & Oncology; Radiology Diagnostic Radiology; Surgery; Admitting Provider Hospitalist; Emergency Provider Emergency Medicine; PCP Family Medicine; Visit Provider Internal Medicine
DX: N17.9 Acute kidney failure, unspecified (principal); A41.51 Sepsis due to Escherichia coli [E. coli]; G93.41 Metabolic encephalopathy; E43 Unspecified severe protein-calorie malnutrition; D61.818 Other pancytopenia; K80.00 Calculus of gallbladder with acute cholecystitis without obstruction; C77.9 Secondary and unspecified malignant neoplasm of lymph node, unspecified; C34.11 Malignant neoplasm of upper lobe, right bronchus or lung; I48.92 Unspecified atrial flutter; I45.2 Bifascicular block; N30.00 Acute cystitis without hematuria; Z68.1 Body mass index [BMI] 19.9 or less, adult; E11.22 Type 2 diabetes mellitus with diabetic chronic kidney disease; E11.40 Type 2 diabetes mellitus with diabetic neuropathy, unspecified; J44.9 Chronic obstructive pulmonary disease, unspecified; R56.9 Unspecified convulsions; D69.6 Thrombocytopenia, unspecified; D63.8 Anemia in other chronic diseases classified elsewhere; I12.9 Hypertensive chronic kidney disease with stage 1 through stage 4 chronic kidney disease, or unspecified chronic kidney disease; E78.00 Pure hypercholesterolemia, unspecified; N18.9 Chronic kidney disease, unspecified; E86.0 Dehydration; D72.823 Leukemoid reaction; K21.9 Gastro-esophageal reflux disease without esophagitis; E87.6 Hypokalemia; B37.9 Candidiasis, unspecified; Z79.01 Long term (current) use of anticoagulants; Z79.84 Long term (current) use of oral hypoglycemic drugs; G89.29 Other chronic pain; Z87.891 Personal history of nicotine dependence; Z66 Do not resuscitate; Z79.899 Other long term (current) drug therapy; R07.89 Other chest pain
CPT/HCPCS: 36415; 36591; 36600; 51702; 70450; 70553; 71045; 71250; 74150; 74176; 75989; 76705; 80048; 80053; 80074; 80202; 81001; 82140; 82803; 82962; 83036; 83605; 83735; 84100; 84443; 84484; 85025; 85384; 85610; 85730; 86644; 86850; 86900; 86901; 86920; 86922; 86965; 87040; 87070; 87075; 87077; 87086; 87088; 87186; 87205; 87428; 87449; 87633; 93005; 93308; 95819; 97110; 97162; 97165; 97530; 97535; 97802; 97803; 99285; A9575; J2997; J7030; J7040; J7050; J7120; P9016; P9035; P9037; A4216; J0744; J2405